=== PATIENT | male | born 1965 | race Caucasian/White ===

== ENCOUNTER 2023-05-20 07:04 | Outpatient (RCR) | payer BC, SELFPAY ==
--- NOTE | 2023-03-30 13:07 | CR1_ITS ---
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
--- NOTE | 2023-04-29 12:31 | CR1_ITS ---
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
== END 2023-05-22 12:35 | disposition home or self-care (01) ==
LOC: CR 07:04
PROVIDERS: PCP Family Medicine
DX: Z95.1 Presence of aortocoronary bypass graft (principal)
CPT/HCPCS: 93797; 93798

== ENCOUNTER 2024-02-09 08:54 | Outpatient (RCR) | payer BC, SELFPAY | END 2024-03-12 10:03 | disposition home or self-care (01) | LOC: PT 08:54 | PROVIDERS: PCP Family Medicine | DX: M17.11 Unilateral primary osteoarthritis, right knee (principal); M25.561 Pain in right knee; R26.9 Unspecified abnormalities of gait and mobility; R26.89 Other abnormalities of gait and mobility | CPT/HCPCS: 97110; 97140; 97161 ==

== ENCOUNTER 2024-12-17 10:00 | Emergency (ER) | payer BC, SELFPAY ==
--- OUTSIDE RECORDS SUMMARY | 2024-12-15 08:45 | XMS_ITS | Encounter Summary ---
Author Organization [facility] Address [address] [place] [address] Care Team Providers Care Binitrotoluene Operator Name Role Phone Can Ramirez MD Primary Care Provider [phone] Neri Saavedra MD Unavailable [phone] Bennie Fofana DO Unavailable [phone] Reason for Referral * Consultation (Routine) - Closed Specialty Diagnoses / Procedures Referred By John solomon Referred To Contact Otolaryngology Diagnoses Basal cell carcinoma of skin of scalp and neck Procedures FL OFFICE/OUTPATIENT NEW HIGH MDM 60 MINUTES Neri Saavedra MD [address] [facility] [address] [place] [address] Phone: tel: fax: Bennie Fofana, [address] [place] [address] Phone: tel: fax: Referral ID Status Reason Start Date Expiration Date V isits Requested Visits Authorized [id number] Closed Specialty Services Required 12/15/2024 06/13/2025 1 1 Reason for Visit * Reason Comments Mohs Micrographic Surgery Encounter Details Date Type Department Care Team (Late st Contact Info) Description 12/15/2024 8:45 AM EDT Office Visit [facility] [address] [facility] [address] [place] [phone] Neri Saavedra MD [address] [place] [address] Basal cell carcinoma of skin of scalp and neck Social History Tobacco Use Types Packs/Day Years Used Date Smoking Tobacco: Never Smokeless Tobacco: Never Alcohol Use Standard Drinks/Week Comments Never 0 (1 standard drink = 0.6 oz pur e alcohol) Sex and Gender Information Value Date Recorded Sex Assigned at Not on file Legal Sex Male 7:31 PM EDT Gender Identity Not on file Sexual Orientation Not on file documented as of this encounter Last Filed Vital Signs Vital Sign Reading Time Taken Comments Blood Pressure 122/74 12/15/2024 11:19 AM EDT Pulse - - Temperature - - Respiratory Rate - - Oxygen Saturation - - Inhaled Oxygen Concentration - - Weight - - Height - - Body Mass Index - - documented in this encounter Progress Notes * Neri Saavedra MD - 12/15/2024 8:45 AM EDT Images from the original note were not included. Mohs Surgery Location: Left temporal scalp Date of biopsy: 10/18/2024 Diagnosis: Basal Cell Carcinoma All pertinent medical history, medications, and allergies were reviewed. General Exam: alert, oriented to person, place, and time, normal affect, well appearing Unaccompanied A focused exam completed based on patient reported problems, see below: Skin Exam 1. BASAL CELL CARCINOMA OF SKIN OF SCALP AND NECK Left Temporal Scalp Poorly defined, erythematous to hypopigmented patch at the biopsy site. Mohs surgery Consent obtained: written (The rationale for Mohs as well as the risks, benefits, and alternatives.The risks of infection, scarring, bleeding, prolonged wound healing, incomplete removal, allergy toanesthesia or meds, nerve injury, and recurrence were addressed.) [place] Protocol: Procedure explained and questions answered to patient or proxy's satisfaction: Yes Test results available and properly labeled: Yes Pathology report reviewed: Yes Photo or diagram used for site identification: Yes Site/side marked: Yes Anticoagulation: Is the patient taking prescription anticoagulant and/or aspirin prescribed/recommended by a physician? Yes (81 mg ASA) Was the anticoagulation regimen changed prior to Mohs? No Anesthesia: Anesthesia method: local infiltration Local anesthetic: lidocaine 1% WITH epi and sodium bicarbonate Procedure Details: Biopsy accession number: [id number] Biopsy lab: [email or web address] Date of biopsy: 10/18/2024 Frozen section biopsy performed: Yes Specimen debulked: No Pre-Op diagnosis: basal cell carcinoma BCC subtype: nodular and infiltrative MohsAIQ Surgical site (if tumor spans multiple areas, please select predominant area): scalp Surgery side: left Surgical site (from skin exam): Left Temporal Scalp Pre-operative length (cm): 1 Pre-operative width (cm): 1 Indications for Mohs surgery: anatomic location where tissue conservation is critical and aggressive histology Previously treated? No Mohs Appropriate Use Criteria Score: 8 Details of micrographic surgery: Mohs accession number: [id number] Micrographic Surgery Details: Post-operative length (cm): 3 Post-operative width (cm): 3.1 Number of Mohs stages: 3 Stage 1 Comments: The area was prepped with Betadine, draped in a sterile fashion, and infiltrated with local anesthetic. Sterile technique was used throughout the procedure. The marked area of clinical tumor with a small rim of clinically normal surrounding skin was removed using Mohs technique with beveled edges. Hash harrison were placed for orientation of the specimen. Hemostasis was achieved with electrodessication. After hemostasis, the defect was measured and recorded, a temporary sterile dressing was placed over the wound, and the patient was escorted to the waiting area. The specimen was oriented, mapped, and if necessary, divided into sections. A Mohs map was prepared. The specimen was placed in a labeled luis m dish and was taken to the Mohs lab where it was chromacoded and processed. Mohssections were prepared with serial tissue sections, stained, and evaluated by Dr. Saavedra for interpretation of deep and peripheral margins. The Mohs map was marked accordingly. Amount of lidocaine used: 3.0 cc Estimated blood loss: minimal Defect size: 2.0 x 1.4 cm Number of blocks per stage: 1 Number of positive blocks: 1 Tumor features identified on Mohs section: basal carcinoma Tumor features identified on Mohs section comment: nodular pattern Depth of tumor invasion after stage: subcutaneous fat Stage 2 Comments: The patient returned to the procedure room, the dressing was removed, the tumor area was re-prepped and draped, and anesthesia was assessed and augmented as necessary. A layer of tissue around the positive margin(s) was removed, and the tissue was oriented, mapped, and processed in an identical fashion as for Stage 1. Hemostasis was achieved and dressing placed as in Stage 1. The patient was escorted to the waiting area. As with Stage 1, Mohs sections were prepared with serial tissue sections, stained, and evaluated by Dr. Saavedra for interpretation of deep and peripheral margins. The Mohs map was updated. Assistants: Sadie Grover LPN and Louise Nuñez LPN Amount of lidocaine used: 3.0 cc Estimated blood loss: 1.0 cc Defect size: 2.8 x 2.4 cm Number of blocks: 2 Number of positive blocks: 2 Tumor features identified on Mohs section: basal carcinoma Tumor features identified on Mohs section comment: nodular pattern Depth of tumor invasion after stage: subcutaneous fat Stage 3 Comments: The patient returned to the procedure room, the dressing was removed, the tumor area was re-prepped and draped, and anesthesia was assessed and augmented as necessary. A layer of tissue around the positive margin(s) was removed, and the tissue was oriented, mapped, and processed in an identical fashion as for Stage 1. Hemostasis was achieved and dressing placed as in Stage 1. The patient was escorted to the waiting area. As with Stage 1, Mohs sections were prepared with serial tissue sections, stained, and evaluated by Dr. Saavedra for interpretation of deep and peripheral margins. The Mohs map was updated. Assistants: Sadie Grover LPN and Jett Maldonado CMA Amount of lidocaine used: 3.0 cc Estimated blood loss: <1.0 cc Defect size: 3.0 x 3.1 cm Number of blocks: 1 Number of positive blocks: 0. Tumor free margins were obtained and the Mohs procedure was considered complete. Depth of tumor invasion after stage: subcutaneous fat Patient tolerance of procedure: tolerated well, no immediate complications Reconstruction: Was the defect reconstructed? Yes Was reconstruction performed by the same Mohs surgeon? No If no, what is the specialty of the surgeon who did the reconstruction? ENT facial plastics When was reconstruction performed? different day Antibiotics: Were antibiotics given on the day of surgery? Yes When were antibiotics given? post-operative Indication for post-operative antibiotics: long duration of procedure cephalexin (Keflex) 500 MG capsule Take 1 capsule by mouth, bid x 10 days. Mohs Post Operative Type of repair: Referred for repair to Cat Fofana DO Wound Care: A pressure dressing was placed on the surgical wound. Post-operative instructions were given in writing and were reviewed with the patient in great detail. A follow-up appointment was made, and instructions were given to follow- up sooner if necessary. Related Procedures Ambulatory referral to ENT Next visit: 05/23/2025 documented in this encounter Plan of Treatment Upcoming Encounters Date Type Department Care Team (Late st Contact Info) Description 12/29/2024 2:00 PM EDT Office Visit [facility] [address] [place] [phone] Bennie Fofana DO [address] [place] [address] 05/23/2025 9:20 AM EST Office Visit [facility] [address] [place] [phone] Andreina Angeles MD [address] [place] [address] Scheduled Referrals Name Type Priority Associated Diagnoses Order Schedule Ambulatory referral to ENT Outpatient Referral Routine Basal cell carcinoma of skin of scalp and neck Expected: 12/15/2024 (Approximate), Expires: 06/16/2025 documented as of this encounter Procedures Procedure Name Priority Date/Time Associated Diagnosis Comments MOHS SURGERY Routine 12/14/2024 12:20 PM EDT Basal cell carcinoma of skin of scalp and neck documented in this encounter Results * Mohs surgery (12/14/2024 12:20 PM EDT) Narrative Rona Grover LPN - 12/14/2024 12:20 PM EDT Consent obtained: written (The rationale for Mohs as well as the risks, benefits, and alternatives. The risks of infection, scarring, bleeding, prolonged wound healing, incomplete removal, allergy to anesthesia or meds, nerve injury, and recurrence were addressed.) [place] Protocol: Procedure explained and questions answered to patient or proxy's satisfaction: Yes Test results available and properly labeled: Yes Pathology report reviewed: Yes Photo or diagram used for site identification: Yes Site/side marked: Yes Anticoagulation: Is the patient taking prescription anticoagulant and/or aspirin prescribed/recommended by a physician? Yes (81 mg ASA) Was the anticoagulation regimen changed prior to Mohs? No Anesthesia: Anesthesia method: local infiltration Local anesthetic: lidocaine 1% WITH epi and sodium bicarbonate Procedure Details: Biopsy accession number: [id number] Biopsy lab: [facility] Date of biopsy: 10/18/2024 Frozen section biopsy performed: Yes Specimen debulked: No Pre-Op diagnosis: basal cell carcinoma BCC subtype: nodular and infiltrative MohsAIQ Surgical site (if tumor spans multiple areas, please select predominant area): scalp Surgery side: left Surgical site (from skin exam): Left Temporal Scalp Pre-operative length (cm): 1 Pre-operative width (cm): 1 Indications for Mohs surgery: anatomic location where tissue conservation is critical and aggressive histology Previously treated? No Mohs Appropriate Use Criteria Score: 8 Details of micrographic surgery: Mohs accession number: [id number] Micrographic Surgery Details: Post-operative length (cm): 3 Post-operative width (cm): 3.1 Number of Mohs stages: 3 Stage 1 Comments: The area was prepped with Betadine, draped in a sterile fashion, and infiltrated with local anesthetic. Sterile technique was used throughout the procedure. The marked area of clinical tumor with a small rim of clinically normal surrounding skin was removed using Mohs technique with beveled edges. Hash harrison were placed for orientation of the specimen. Hemostasis was achieved with electrodessication. After hemostasis, the defect was measured and recorded, a temporary sterile dressing was placed over the wound, and the patient was escorted to the waiting area. The specimen was oriented, mapped, and if necessary, divided into sections. A Mohs map was prepared. The specimen was placed in a labeled luis m dish and was taken to the Mohs lab where it was chromacoded and processed. Mohs sections were prepared with serial tissue sections, stained, and evaluated by Dr. Saavedra for interpretation of deep and peripheral margins. The Mohs map was marked accordingly. Amount of lidocaine used: 3.0 cc Estimated blood loss: minimal Defect size: 2.0 x 1.4 cm Number of blocks per stage: 1 Number of positive blocks: 1 Tumor features identified on Mohs section: basal carcinoma Tumor features identified on Mohs section comment: nodular pattern Depth of tumor invasion after stage: subcutaneous fat Stage 2 Comments: The patient returned to the procedure room, the dressing was removed, the tumor area was re-prepped and draped, and anesthesia was assessed and augmented as necessary. A layer of tissue around the positive margin(s) was removed, and the tissue was oriented, mapped, and processed in an identical fashion as for Stage 1. Hemostasis was achieved and dressing placed as in Stage 1. The patient was escorted to the waiting area. As with Stage 1, Mohs sections were prepared with serial tissue sections, stained, and evaluated by Dr. Saavedra for interpretation of deep and peripheral margins. The Mohs map was updated. Assistants: Sadie Grover LPN and Louise Nuñez LPN Amount of lidocaine used: 3.0 cc Estimated blood loss: 1.0 cc Defect size: 2.8 x 2.4 cm Number of blocks: 2 Number of positive blocks: 2 Tumor features identified on Mohs section: basal carcinoma Tumor features identified on Mohs section comment: nodular pattern Depth of tumor invasion after stage: subcutaneous fat Stage 3 Comments: The patient returned to the procedure room, the dressing was removed, the tumor area was re-prepped and draped, and anesthesia was assessed and augmented as necessary. A layer of tissue around the positive margin(s) was removed, and the tissue was oriented, mapped, and processed in an identical fashion as for Stage 1. Hemostasis was achieved and dressing placed as in Stage 1. The patient was escorted to the waiting area. As with Stage 1, Mohs sections were prepared with serial tissue sections, stained, and evaluated by Dr. Saavedra for interpretation of deep and peripheral margins. The Mohs map was updated. Assistants: Sadie Grover LPN and Jett Maldonado CMA Amount of lidocaine used: 3.0 cc Estimated blood loss: <1.0 cc Defect size: 3.0 x 3.1 cm Number of blocks: 1 Number of positive blocks: 0. Tumor free margins were obtained and the Mohs procedure was considered complete. Depth of tumor invasion after stage: subcutaneous fat Patient tolerance of procedure: tolerated well, no immediate complications Reconstruction: Was the defect reconstructed? Yes Was reconstruction performed by the same Mohs surgeon? No If no, what is the specialty of the surgeon who did the reconstruction? ENT facial plastics When was reconstruction performed? different day Antibiotics: Were antibiotics given on the day of surgery? Yes When were antibiotics given? post-operative Indication for post-operative antibiotics: long duration of procedure Neri Saavedra MD DERM PROCEDURE ORDERABLES Fi nal Result documented in this encounter Visit Diagnoses Diagnosis Basal cell carcinoma of skin of scalp and neck documented in this encounter Care Teams Binitrotoluene Operator Relationship Specialty Start Date End Date Can Ramirez MD [address] [place] [address] PCP - General Family Medicine 11/18/22 Neri Saavedra MD [address] [address] Referring Physician Dermatology 12/15/24 Bennie Fofana DO [address] [place] [address] Otolaryngology 12/15/24 documented as of this encounter
--- OUTSIDE RECORDS SUMMARY | 2024-12-15 14:15 | XMS_ITS | Encounter Summary ---
Author Organization [facility] Address [address] [place] [address] Care Team Providers Care Electronic Organ Technician Name Role Phone Can Ramirez MD Primary Care Provider + [phone] Neri Saavedra MD Unavailable [phone] Bennie Fofana DO Unavailable [phone] Reason for Visit * Reason Comments Mohs Reconstruction New patient : Mohs l eft jewish * Consultation (Routine) - Closed Specialty Diagnoses / Procedures Referred By John solomon Referred To Contact Otolaryngology Diagnoses Basal cell carcinoma of skin of scalp and neck Procedures TX OFFICE/OUTPATIENT NEW HIGH MDM 60 MINUTES Neri Saavedra MD [address] [facility] [address] [place] [address] Phone: tel: fax: Bennie Fofana DO [address] [place] [address] Phone: tel: fax: Referral ID Status Reason Start Date Expiration Date V isits Requested Visits Authorized [id number] Closed Specialty Services Required 12/15/2024 06/13/2025 1 1 Encounter Details Date Type Department Care Team (Late st Contact Info) Description 12/15/2024 2:15 PM EDT Office Visit [facility] [address] [place] [id number] Bennie Fofana DO [address] [place] [address] Mohs defect (Primary Dx); Basal cell carcinoma of skin of scalp and neck Social History Tobacco Use Types Packs/Day Years Used Date Smoking Tobacco: Never Smokeless Tobacco: Never Tobacco Cessation:Counseling Given: Not Answered Alcohol Use Standard Drinks/Week Comments Never 0 (1 standard drink = 0.6 oz pur e alcohol) Sex and Gender Information Value Date Recorded Sex Assigned at Not on file Legal Sex Male 7:31 PM EDT Gender Identity Not on file Sexual Orientation Not on file documented as of this encounter Last Filed Vital Signs Vital Sign Reading Time Taken Comments Blood Pressure - - Pulse - - Temperature - - Respiratory Rate - - Oxygen Saturation - - Inhaled Oxygen Concentration - - Weight 95.3 kg (210 lb) 12/15/2024 1:52 PM EDT Height 175.3 cm (5' 9 ) 12/15/2024 1:52 PM EDT Body Mass Index 31.01 12/15/2024 1:52 PM EDT documented in this encounter Progress Notes * Bennie Fofana, DO - 12/15/2024 2:15 PM EDT Subjective Patient ID: Silvano Menendez is a 59 y.o. male who presents for Mohs Reconstruction (New patient : Mohs left jewish) HPI 59-year-old white male presents today for evaluation of Mohs defect of the left cheek and temporal region. Recently underwent excision of basal cell carcinoma in the region of the left jewish. Left with a large soft tissue defect. Presents today to discuss his options regarding repair / reconstruction. Review of Systems Patient describes only minimal discomfort. Not having any bleeding. Denies any fever. Recently prescribed antibiotic. The rest of his review of systems is negative Allergies as of 12/15/2024 (No Known Allergies) Past Medical History: Diagnosis Date Actinic keratosis Basal cell carcinoma Squamous cell skin cancer Current Outpatient Medications: amLODIPine (Norvasc) 2.5 MG tablet, Take by mouth Daily, Disp: , Rfl: aspirin 81 MG EC tablet, Take 81 mg by mouth Daily, Disp: , Rfl: atorvastatin (Lipitor) 10 MG tablet, Take 10 mg by mouth Daily, Disp: , Rfl: cephalexin (Keflex) 500 MG capsule, Take 1 capsule by mouth, bid x 10 days., Disp: 20 capsule, Rfl:0 ezetimibe (Zetia) 10 MG tablet, Take 10 mg by mouth Daily, Disp: , Rfl: metoprolol succinate XL (Toprol-XL) 25 MG 24 hr tablet, Take by mouth Do not crush or chew., Disp: , Rfl: multivitamin with minerals (Cerovite) 18-400 mg-mcg tablet tablet, Take by mouth, Disp: , Rfl: nitroglycerin (Nitrostat) 0.3 MG SL tablet, Place 0.3 mg under the tongue, Disp: , Rfl: Past Surgical History: Procedure Laterality Date HERNIA REPAIR 04/2022 KNEE ARTHROPLASTY SKIN BIOPSY SKIN CANCER EXCISION Social History Socioeconomic History Marital status: Spouse name: Not on file Number of children: Not on file Years of education: Not on file Highest education level: Not on file Occupational History Not on file Tobacco Use Smoking status: Never Smokeless tobacco: Never Vaping Use Vaping status: Never Used Substance and Sexual Activity Alcohol use: Never Drug use: Defer Sexual activity: Defer Other Topics Concern Not on file Social History Narrative Not on file Social Drivers of Health Financial Resource Strain: Low Risk (01/05/2024) Received from [facility] Overall Financial Resource Strain (CARDIA) Difficulty of Paying Living Expenses: Not very hard Food Insecurity: No Food Insecurity (01/30/2024) Received from [facility] Hunger Screening Within the past 12 months we worried whether our food would run out before we got money to buy more.: Never True Within the past 12 months the food we bought just didn't last and we didn't have money to get more.: Never True Transportation Needs: No Transportation Needs (01/05/2024) Received from [facility] PRAPARE - Transportation Lack of Transportation (Medical): No Lack of Transportation (Non-Medical): No Physical Activity: Insufficiently Active (01/05/2024) Received from [facility] Exercise Vital Sign Days of Exercise per Week: 2 days Minutes of Exercise per Session: 60 min Stress: No Stress Concern Present (01/05/2024) Received from [facility] [employer] [place] [facility] [employer] - Occupational Stress Questionnaire Feeling of Stress : Not at all Social Connections: Moderately Integrated (01/05/2024) Received from [facility] Social Connection and Isolation Panel [NHANES] Frequency of Communication with Friends and Family: More than three times a week Frequency of Social Gatherings with Friends and Family: More than three times a week Attends Advent Services: More than 4 times per year Active Member of Clubs or Organizations: No Attends Club or Organization Meetings: Never Marital Status: Intimate Partner Violence: Not on file Housing Stability: Low Risk (01/05/2024) Received from [facility] Housing Stability Vital Sign Unable to Pay for Housing in the Last Year: No Number of Places Lived in the Last Year: 1 Unstable Housing in the Last Year: No Objective ENT Physical Exam General Examination: General overview: Normal, age-appropriate, no evidence of distress Head: Normocephalic, large soft tissue defect in the region of the left jewish measuring 3 x 3 cm. No evidence of active bleeding. Eyes: Pupils are equally round and reactive to light and accommodation, extraocular muscles are intact Ears: External ear architecture within normal limits, ear canals are patent, tympanic membranes areintact. Nose: External nose unremarkable, nares patent, septum intact, no evidence of congestion. Oral cavity: Mucosa moist, no evidence of ulcer, mass, or lesion Throat: Clear Neck/thyroid: Neck supple, full range of motion, no cervical lymphadenopathy, no evidence of thyromegaly Lymph nodes: No cervical lymphadenopathy Skin: Warm and dry, no evidence of suspicious lesions, no rash Heart: No jugular venous distention, point of maximal impulse normal Lungs: Good air movement, no audible wheezing, no shortness of breath Chest: Normal shape and expansion Abdomen: Normal, soft, nontender, nondistended Musculoskeletal: Cervical spine normal, full range of motion Extremities: No clubbing, cyanosis, or edema Peripheral pulses: 2+ radial, 2+ carotid Neurologic: Alert and oriented, cranial nerves 2-12 are grossly intact Psych: Alert and oriented, normal affect, no evidence of distress Assessment/Plan Diagnoses and all orders for this visit: Mohs defect Comments: recommend wound debridement with flap reconstruction Basal cell carcinoma of skin of scalp and neck - Ambulatory referral to ENT At this time, I do recommend debridement of the wound with reconstruction utilizing flap and/or skin graft methods. All of the options, risks, and aspects are discussed in depth. The risks include but are not limited to bleeding, infection, poor wound healing, need for further surgery, nerve injury, serous disability, and documented in this encounter Plan of Treatment Upcoming Encounters Date Type Department Care Team (Late st Contact Info) Description 12/29/2024 2:00 PM EDT Office Visit [facility] [address] [place] [phone] Bennie Fofana DO [address] [place] [address] 05/23/2025 9:20 AM EST Office Visit [facility] [address] [place] [address] Andreina Angeles MD [address] [place] [address] documented as of this encounter Visit Diagnoses Diagnosis Mohs defect- Primary Basal cell carcinoma of skin of scalp and neck documented in this encounter Care Teams Electronic Organ Technician Relationship Specialty Start Date End Date Can Ramirez MD [address] [place] [address] PCP - General Family Medicine 11/18/22 Neri Saavedra MD [address] [place] [address] Referring Physician Dermatology 12/15/24 Bennie Fofana DO [address] [place] [address] Otolaryngology 12/15/24 documented as of this encounter
[2024-12-17] VITALS (18 sets, daily range): BP systolic 132–183; BP diastolic 82–94; PULSE 69–85; O2SAT 96–100; BMI 37.3
--- NOTE | 2024-12-17 10:08 | ECG_ITS ---
[facility] Test Date: 2024-12-17 Pat Name: RAVIN GRUBBS Department: Room: - Gender: Male Chorus Dancer: : 1965 Requested By: 1030 Order Number: [id number] Reading MD: BRANDY LUDWIG M.D. Measurements Intervals [place] Rate: 72 P: 61 [place]: 190 QRS: 48 QRSD: 84 T: 60 QT: 390 QTc: 415 Interpretive Statements 1100 Sinus rhythm 3433 Septal myocardial infarction, probably old 9150 abnormal ECG No prior ECG available for comparison Electronically Signed On 12-17-2024 12:08:48 EDT by BRANDY LUDWIG M.D.
--- OUTSIDE RECORDS SUMMARY | 2024-12-17 10:12 | XMS_ITS | Encounter Summary ---
Author Organization [employer] Address [id number] [address] [place] [address] Care Team Providers Care Rn Rehabilitation Name Role Phone Can Ramirez MD Primary Care Provider + [phone] Reason for Visit * Reason Onset Date Comments Med Refill 03/17/2019 Encounter Details Date Type Department Care Team (Late st Contact Info) Description 03/17/2019 Refill [facility] [address] [place] [phone] Priscila Dickson LPN BMI 32.0-32.9,adult Social History Tobacco Use Types Packs/Day Years Used Date Smoking Tobacco: Former Smokeless Tobacco: Never Comments:Quit 30 years ago Alcohol Use Standard Drinks/Week Comments Never 0 (1 standard drink = 0.6 oz pur e alcohol) AUDIT-C Answer Date Recorded Frequency of Alcohol Consumption Never 01/24/2019 Average Number of Drinks Not on file 019 Frequency of Binge Drinking Not on file 10/2018 PHQ-2 Answer Date Recorded PHQ-2 Score 0 01/24/2019 Childcare Answer Date Recorded Childcare Unknown 12/01/2018 Employment Answer Date Recorded Employment Unknown 12/01/2018 Sex and Gender Information Value Date Recorded Sex Assigned at Not on file Legal Sex Male 11:31 AM EDT Gender Identity Not on file Sexual Orientation Not on file documented as of this encounter Miscellaneous Notes * Telephone Encounter - Priscila Dickson LPN - 03/17/2019 2:25 PM EDT Requesting a refill of Adipex. Priscila Dickson LPN 03/17/19 1425 documented in this encounter Plan of Treatment Not on file documented as of this encounter Visit Diagnoses Diagnosis BMI 32.0-32.9,adult documented in this encounter Additional Health Concerns Infection Onset Date Last Indicated Resolved Time COVID-19 Positive 05/25/2020 05/25/2020 06/15/2020 11:14 PM EST COVID-19 Rule-Out 06/12/2020 05/25/2020 06/12/2020 11:51 AM EST Assessment Noted Time PHQ-9 Depression Total Score: 0 01/25/20 19 2:00 PM EDT documented as of this encounter Care Teams Rn Rehabilitation Relationship Specialty Start Date End Date Can Ramirez MD [address] Provider retired 09/20/24 [place] [address] PCP - General Family Medicine 01/30/24 documented as of this encounter
--- OUTSIDE RECORDS SUMMARY | 2024-12-17 10:12 | XMS_ITS | Encounter Summary ---
Author Organization [facility] Address [address] [place] [address] Care Team Providers Care Volunteer Fire Fighter Name Role Phone Can Artis Primary Care Provider [phone] Cyn Antnoio MD Unavailable [phone] Ari Pedro MD Unavailable [phone] Source Comments In the event this information is protected by the Federal Confidentiality of Alcohol and Drug AbusePatient Records regulations: The Federal rules restrict any use of the information to criminally investigate or prosecute any alcohol or drug abuse patient.[facility] Encounter Details Date Type Department Care Team (Late st Contact Info) Description 04/25/2023 Patient Msg Cardiology [address] [place] [address] Cyn Antonio MD [address] [place] [address] Lipids Social History Tobacco Use Types Packs/Day Years Used Date Smoking Tobacco: Former Cigarettes Q uit: 1987 Smokeless Tobacco: Never Alcohol Use Standard Drinks/Week Comments Never 0 (1 standard drink = 0.6 oz pur e alcohol) PHQ-2 Answer Date Recorded PHQ-2 score 4 04/23/2023 Area Deprivation Index Answer Date Raf rded National Score (1-100), lower number is lower ri sk 74 12/19/2022 State Score (1-10), lower number is lower risk 6 12/19/2022 Data from: https://www.neighborhoodatlas.medicine.[facility]/. Last address used for calculation [address] 12/19/2022 Sex and Gender Information Value Date Recorded Sex Assigned at Male 12/19/2022 8:15 AM EDT Legal Sex Male 10:35 AM EDT Gender Identity Male 12/19/2022 8:15 AM EDT Sexual Orientation Straight 12/19/2022 8: 15 AM EDT documented as of this encounter Functional Status * Are you deaf or do you have serious difficulty hearing? Answer Date of Assessment Author No 01/28/2023 11:03 AM EDT Venus Livingston RN * Are you blind or do you have serious difficulty seeing, even when wearing glasses? Answer Date of Assessment Author No 01/28/2023 11:03 AM EDT Venus Livingston RN * Do you have serious difficulty walking or climbing stairs? Answer Date of Assessment Author No 01/28/2023 11:03 AM Venus Tilley RN * Do you have difficulty dressing or bathing? Answer Date of Assessment Author No 01/28/2023 11:03 AM EDT Venus Livingston RN * Because of a physical, mental, or emotional condition, do you have difficulty doing errands alone such as visiting a doctor's office or shopping? Answer Date of Assessment Author No 01/28/2023 11:03 AM EDT Venus Livingston RN documented as of this encounter Mental Status * Because of a physical, mental, or emotional condition, do you have serious difficulty concentrating, remembering, or making decisions? Answer Entry Date Author No 01/28/2023 11:03 AM Venus Tilley RN documented in this encounter Plan of Treatment Upcoming Encounters Date Type Department Care Team (Late st Contact Info) Description 03/07/2025 9:45 AM EDT Results Only Main [place] [facility] [place] [address] DX: CAD 03/07/2025 10:45 AM EDT Office Visit Cardiology [address] [place], [place] [id number] Cyn Antonio MD [address] [place] [address] DX: CAD documented as of this encounter Visit Diagnoses Not on filedocumented in this encounter Care Teams Volunteer Fire Fighter Relationship Specialty Start Date End Date Can Artis [address] [place] [address] PCP - General Family Medicine 12/17/22 Cyn Antonio MD [address] [place] [address] Primary Staff Physician Cardiology 12/18/22 Ari Pedro MD [address] [place] [address] Surgeon Cardiac Surg 01/13/23 documented as of this encounter
--- OUTSIDE RECORDS SUMMARY | 2024-12-17 10:12 | XMS_ITS | Encounter Summary ---
Author Organization [facility] Address [address] [place] [address] Care Team Providers Care Pumper Head Name Role Phone Can Artis Primary Care Provider [phone] Cyn Antonio MD Unavailable [phone] Ari Pedro MD Unavailable [phone] Source Comments In the event this information is protected by the Federal Confidentiality of Alcohol and Drug AbusePatient Records regulations: The Federal rules restrict any use of the information to criminally investigate or prosecute any alcohol or drug abuse patient.[facility] Encounter Details Date Type Department Care Team (Late st Contact Info) Description 11/28/2024 Patient Msg Orthopaedics [address] [place], [place] [id number] Teresita Castle PA-C [address] [facility] [address] [place] [address] Appointment Request Social History Tobacco Use Types Packs/Day Years Used Date Smoking Tobacco: Former Cigarettes Q uit: 09/21/1987 Passive Smoke Exposure: Past Smokeless Tobacco: Never Alcohol Use Standard Drinks/Week Comments Never 0 (1 standard drink = 0.6 oz pur e alcohol) [facility] Utilities Answer Date Recorded In the past 12 months has th e electric, gas, oil, or water company threatened to shut off services in your home? No 01/05/2024 Social Connection and Isolat ion Panel [NHANES] Answer Date Recorded In a typical week, how many times do you talk on the phone with family, friends, or neighbors? More than three times a week 01/05/2024 How often do you get togethe r with friends or relatives? More than three times a week 01/05/2024 How often do you attend chur ch or druze services? More than 4 times per year 01/05/2024 Do you belong to any clubs o r organizations such as taoism groups, unions, fraternal or athletic groups, or school groups? No 01/05/2024 How often do you attend meet ings of the clubs or organizations you belong to? Never 01/05/2024 Are you , , di vorced, , never , or living with a partner? 01/05/2024 Overall Financial Resource Strain (CARDIA) Answe r Date Recorded How hard is it for you to pa y for the very basics like food, housing, medical care, and heating? Not very hard 01/05/2024 PHQ-2 Answer Date Recorded PHQ-2 score 0 06/16/2024 [facility] - Occupational Stress Questionnaire Answer Date Recorded Do you feel stress - tense, restless, nervous, or anxious, or unable to sleep at night because your mind is troubled all the time - these days? Not at all 01/05/2024 Exercise Vital Sign Answer Date Recorde d On average, how many days pe r week do you engage in moderate to strenuous exercise (like a brisk walk)? 2 days 01/05/2024 On average, how many minutes do you engage in exercise at this level? 60 min 01/05/2024 PRAPARE - Transportation Answer Date Re corded In the past 12 months, has l ack of transportation kept you from medical appointments or from getting medications? No 12/20 In the past 12 months, has l ack of transportation kept you from meetings, work, or from getting things needed for daily living? No 01/05/2024 Housing Stability Vital Sign Answer Pieter e Recorded In the last 12 months, was t here a time when you were not able to pay the mortgage or rent on time? No 01/05/2024 In the last 12 months, how many places have you lived? 1 01/05/2024 In the last 12 months, was t here a time when you did not have a steady place to sleep or slept in a mcfp (including now)? No 01/05/2024 Area Deprivation Index Answer Date Raf rded National Score (1-100), lower number is lower ri sk 74 12/19/2022 State Score (1-10), lower number is lower risk 6 12/19/2022 Data from: https://www.neighborhoodatlas.medicine.[facility].edu/. Last address used for calculation [address] 12/19/2022 Sex and Gender Information Value Date Recorded Sex Assigned at Male 12/19/2022 8:15 AM EDT Legal Sex Male 10:35 AM EDT Gender Identity Male 12/19/2022 8:15 AM EDT Sexual Orientation Straight 12/19/2022 8: 15 AM EDT documented as of this encounter Functional Status * Are you deaf or do you have serious difficulty hearing? Answer Date of Assessment Author No 01/14/2024 12:53 PM Sarah Childers RN * Are you blind or do you have serious difficulty seeing, even when wearing glasses? Answer Date of Assessment Author No 01/14/2024 12:53 PM Sarah Childers RN * Do you have serious difficulty walking or climbing stairs? Answer Date of Assessment Author No 01/14/2024 12:53 PM Sarah Childers RN * Do you have difficulty dressing or bathing? Answer Date of Assessment Author No 01/14/2024 12:53 PM Sarah Childers RN * Because of a physical, mental, or emotional condition, do you have difficulty doing errands alone such as visiting a doctor's office or shopping? Answer Date of Assessment Author No 01/14/2024 12:53 PM Sarah Childers RN documented as of this encounter Mental Status * Because of a physical, mental, or emotional condition, do you have serious difficulty concentrating, remembering, or making decisions? Answer Entry Date Author No 01/14/2024 12:53 PM EDT Sarah Diaz RN documented in this encounter Plan of Treatment Upcoming Encounters Date Type Department Care Team (Late st Contact Info) Description 03/07/2025 9:45 AM EDT Results Only Main [place] [address] [address] [id number] DX: CAD 03/07/2025 10:45 AM EDT Office Visit Cardiology [address] [id number] Cyn Antonio MD [address] [place] [address] DX: CAD documented as of this encounter Goals Goal Patient Goal Type Associated Problems Recent Progress Patient-Stated? Author Blood Pressure < 130/80 Blood Pressure 135/63( 024 12:45 PM EDT) No Cyn Antonio MD documented as of this encounter Visit Diagnoses Not on filedocumented in this encounter Care Teams Pumper Head Relationship Specialty Start Date End Date Cna Artis [address] [place] [address] PCP - General Family Medicine 12/17/22 Cyn Antonio MD [address] [place] [address] Primary Staff Physician Cardiology 12/18/22 Ari Pedro MD [address] [place] [address] Surgeon Cardiac Surg 01/13/23 documented as of this encounter
--- OUTSIDE RECORDS SUMMARY | 2024-12-17 10:12 | XMS_ITS | Encounter Summary ---
Author Organization [facility] Address [address] [place] [address] Care Team Providers Care Store Custodian Name Role Phone Can Artis Primary Care Provider [phone] Cyn Antonio MD Unavailable Ari Pedro MD Unavailable Source Comments In the event this information is protected by the Federal Confidentiality of Alcohol and Drug AbusePatient Records regulations: The Federal rules restrict any use of the information to criminally investigate or prosecute any alcohol or drug abuse patient.[facility] Encounter Details Date Type Department Care Team (Latest Contact Info) Description 04/22/2023 [place] [address] Provider, [facility] Please complete Cardiovascular Surgery Questionnaire Social History Tobacco Use Types Packs/Day Years Used Date Smoking Tobacco: Former Cigarettes Q uit: 1987 Smokeless Tobacco: Never Alcohol Use Standard Drinks/Week Comments Never 0 (1 standard drink = 0.6 oz pur e alcohol) PHQ-2 Answer Date Recorded PHQ-2 score 4 04/23/2023 Area Deprivation Index Answer Date Raf rded National Score (1-100), lower number is lower ri 74 12/19/2022 State Score (1-10), lower number is lower risk 6 12/19/2022 Data from: https://www.neighborhoodatlas.medicine.[facility]/. Last address used for calculation [address] [...] 01/28/2023 11:03 AM Venus Tilley RN * Are you blind or do you have serious difficulty seeing, even when wearing glasses? Answer Date of Assessment Author No 01/28/2023 11:03 AM Venus Tilley RN * Do you have serious difficulty walking or climbing stairs? Answer Date of Assessment Author No 01/28/2023 11:03 AM EDVenus West RN * Do you have difficulty dressing or bathing? Answer Date of Assessment Author No 01/28/2023 11:03 AM JANAYT Venus Livingston RN * Because of a physical, mental, or emotional condition, do you have difficulty doing errands alone such as visiting a doctor's office or shopping? Answer Date of Assessment Author No 01/28/2023 11:03 AM Venus Tilley RN documented as of this encounter Mental Status * Because of a physical, mental, or emotional condition, do you have serious difficulty concentrating, remembering, or making decisions? Answer Entry Date Author No 01/28/2023 11:03 AM Venus Tilley RN documented in this encounter Plan of Treatment Upcoming Encounters Date Type Department Care Team (Late st Contact Info) Description 03/07/2025 9:45 AM EDT Results Only [facility] [address] [place] [address] DX: CAD 03/07/2025 10:45 AM EDT Office Visit Cardiology [address] [phone] Cyn Antonio MD [address] [place] [address] DX: CAD documented as of this encounter Visit Diagnoses Not on filedocumented in this encounter Care Teams Store Custodian Relationship Specialty Start Date End Date Can Artis [address] [place] [address] PCP - General Family Medicine 12/17/22 Cyn Antonio MD [address] [place] [address] Primary Staff Physician Cardiology 12/18/22 Ari Pedro MD [address] [place] [address] Surgeon Cardiac Surg 01/13/23 documented as of this encounter
--- OUTSIDE RECORDS SUMMARY | 2024-12-17 10:12 | XMS_ITS | Encounter Summary ---
Author Organization [facility] Address [address] [place] [address] Care Team Providers Care [employer] Officer Name Role Phone Can Artis Primary Care Provider [phone] Cyn Antonio MD Unavailable [phone] Ari Pedro MD Unavailable [phone] Source Comments In the event this information is protected by the Federal Confidentiality of Alcohol and Drug AbusePatient Records regulations: The Federal rules restrict any use of the information to criminally investigate or prosecute any alcohol or drug abuse patient.[facility] Encounter Details Date Type Department Care Team (Late st Contact Info) Description 10/27/2023 Patient Msg Orthopaedics [address] [place], [place] [id number] Teresita Castle PA-C [address] [facility] [address] [place] [address] Appointment Request Social History Tobacco Use Types Packs/Day Years Used Date Smoking Tobacco: Former Cigarettes Q uit: 09/21/1987 Passive Smoke Exposure: Past Smokeless Tobacco: Never Alcohol Use Standard Drinks/Week Comments Never 0 (1 standard drink = 0.6 oz pur e alcohol) PHQ-2 Answer Date Recorded PHQ-2 score 0 09/25/2023 Area Deprivation Index Answer Date Raf rded National Score (1-100), lower number is lower ri sk 74 12/19/2022 State Score (1-10), lower number is lower risk 6 12/19/2022 Data from: https://www.neighborhoodatlas.medicine.[facility]/. Last address used for calculation [...] 01/28/2023 11:03 AM Venus Tilley RN * Because of a physical, mental, [...] 03/07/2025 9:45 AM EDT Results Only [address] [address] [address] [place] [address] DX: CAD 03/07/2025 10:45 AM EDT Office Visit Cardiology [address] [place], [place] [phone] Cyn Antonio MD [address] [place] [address] DX: CAD documented as of this encounter Goals Goal Patient Goal Type Associated Problems Recent Progress Patient-Stated? Author Blood Pressure < 130/80 Blood Pressure 135/63( 024 12:45 PM EDT) No Cyn Antonio MD documented as of this encounter Visit Diagnoses Not on filedocumented in this encounter Care Teams [employer] Officer Relationship Specialty Start Date End Date Can Artis [address] [place] [address] PCP - General Family Medicine 12/17/22 Cyn Antonio MD [address] [place] [address] Primary Staff Physician Cardiology 12/18/22 Ari Pedro MD [address] [place] [address] Surgeon Cardiac Surg 01/13/23 documented as of this encounter
--- OUTSIDE RECORDS SUMMARY | 2024-12-17 10:12 | XMS_ITS | Encounter Summary ---
Author Organization [facility] Address [address] [place] [address] Care Team Providers Care Pca Name Role Phone Can Artis Primary Care Provider [phone] Cyn Antonio MD Unavailable [phone] Ari Pedro MD Unavailable [phone] Source Comments In the event this information is protected by the Federal Confidentiality of Alcohol and Drug AbusePatient Records regulations: The Federal rules restrict any use of the information to criminally investigate or prosecute any alcohol or drug abuse patient.[facility] Encounter Details Date Type Department Care Team (Late st Contact Info) Description 10/03/2023 Patient Msg Preventive Cardiology [address] [place], [place] [id number] Hannah Brower APRN.PHARMACY STUDENT [address] [place] [address] Appointment Cancellation Request Social History Tobacco Use Types Packs/Day [...] risk 6 12/19/2022 Data from: https://www.neighborhoodatlas.medicine.[facility]/. Last address used for calculation [...] 03/07/2025 9:45 AM EDT Results Only [address] [address] [address] [id number] DX: CAD 03/07/2025 10:45 AM EDT Office Visit Cardiology [address] [phone] Cyn Antonio MD [address] [place] [address] DX: CAD documented as of this encounter Visit Diagnoses Not on filedocumented in this encounter Care Teams Pca Relationship Specialty Start Date End Date Can Artis [address] [place] [address] PCP - General Family Medicine 12/17/22 Cyn Antonio MD [address] [place] [address] Primary Staff Physician Cardiology 12/18/22 Ari Pedro MD [address] [place] [address] Surgeon Cardiac Surg 01/13/23 documented as of this encounter
--- OUTSIDE RECORDS SUMMARY | 2024-12-17 10:12 | XMS_ITS | Encounter Summary ---
Author Organization [facility] Address [facility] [place] [address] Care Team Providers Care Water Resource Project Manager Name Role Phone Can Artis Primary Care Provider [phone] Cyn Antonio MD Unavailable [phone] Ari Pedro MD Unavailable [phone] Source Comments In the event this information is protected by the Federal Confidentiality of Alcohol and Drug AbusePatient Records regulations: The Federal rules restrict any use of the information to criminally investigate or prosecute any alcohol or drug abuse patient.[facility] Reason for Visit * Reason Onset Date Comments Refill Request 01/22/2024 Encounter Details Date Type Department Care Team (Late st Contact Info) Description 01/22/2024 Refill Orthopaedics [address] [id number] Watson Mason MD [address] [facility] [address] [place] [address] Refill Request Social History Tobacco Use Types Packs/Day Years Used Date Smoking Tobacco: Former Cigarettes Q uit: 09/21/1987 Passive Smoke Exposure: Past Smokeless Tobacco: Never Alcohol Use Standard Drinks/Week Comments Never 0 (1 standard drink = 0.6 oz pur e alcohol) [facility] Utilities Answer Date Recorded In the [...] often do you attend chur ch or mosque services? More than 4 times per year 01/05/2024 Do you belong to any clubs o r organizations such as restoration groups, unions, fraternal or athletic groups, or [...] PHQ-2 Answer Date Recorded PHQ-2 score 0 12/30/2023 [facility] Occupational Stress Questionnaire Answer [...] place to sleep or slept in a usp (including now)? No 01/05/2024 Area Deprivation Index Answer Date Raf rded National Score (1-100), lower number is lower ri sk 74 12/19/2022 State Score (1-10), lower number is lower risk 6 12/19/2022 Data from: https://www.neighborhoodatlas.medicine.[facility].edu/. Last address used for calculation [address] 12/19/2022 Sex and Gender Information Value Date [...] of Assessment Author No 01/14/2024 12:53 PM EDT Sarah Diaz RN * Are you blind or do you have serious difficulty seeing, even when wearing glasses? Answer Date of Assessment Author No 01/14/2024 12:53 PM EDT Sarah Diaz RN * Do you have serious difficulty walking or climbing stairs? Answer Date of Assessment Author No 01/14/2024 12:53 PM Sarah Childers RN * Do you have difficulty dressing or bathing? Answer Date of Assessment Author No 01/14/2024 12:53 PM Sarah Childers, CARMELO * Because of a physical, mental, or emotional condition, do you have difficulty doing errands alone such as visiting a doctor's office or shopping? Answer Date of Assessment Author No 01/14/2024 12:53 PM EDT Behrendt , Sarah, RN documented as of this encounter Mental [...] 03/07/2025 9:45 AM EDT Results Only [address] [address] [address] [id number] DX: CAD 03/07/2025 10:45 AM EDT Office Visit Cardiology [address] [place] [address] Cyn Antonio MD [address] [phone] DX: CAD documented as of this encounter Goals Goal Patient Goal Type Associated Problems Recent Progress Patient-Stated? Author Blood Pressure < 130/80 Blood Pressure 135/63( 024 12:45 PM EDT) No Cyn Antonio MD documented as of this encounter Visit Diagnoses Diagnosis Status post right partial knee replacement Knee joint replacement by other means documented in this encounter Care Teams Water Resource Project Manager Relationship Specialty Start Date End Date Can Artis [address] [place] [address] PCP - General Family Medicine 12/17/22 Cyn Antonio MD [address] [place] [address] Primary Staff Physician Cardiology 12/18/22 Ari Pedro MD [address] [place] [address] Surgeon Cardiac Surg 01/13/23 documented as of this encounter
--- OUTSIDE RECORDS SUMMARY | 2024-12-17 10:12 | XMS_ITS | CCD ---
Author Organization [facility] Care Team Providers Care Business Executive Name Role Phone ARIANARANCE, DR HENDERSON Admitting Unavailable DEFRANCE, DR HENDERSON Consulting Unavailable DEFRANCE, DR HENDERSON Attending Unavailable MISC, DR NINO Admitting Unavailable MISC, DR NINO Consulting Unavailable MISC, DR NINO Attending Unavailable de MandyBeatriz Primary Care Provider [phone] Marisela RICHEY, Nato Unavailable Beatriz Edgar Primary Care Provider Ari Pedro MD Unavailable Marisela RICHEY, Nato Unavailable Ari Pedro MD Unavailable [phone] BEATRIZ EDGAR Primary Care Unavaila ble MILAGRO CASTLE Referring Unavailable de Mandy, Beatriz Piña Primary Care Provider BEATRIZ RAMIREZ Primary Care Unavailable BEATRIZ SALDIVAR Attending Unavailable KIMBERLY PRABHAKAR Attending Unavailable KIMBERLY PRABHAKAR Referring Unavailable BEATRIZ RAMIREZ Primary Care Unavailable DE MANDY, BEATRIZ PIÑA Primary Care Unavaila ble BRAXTON VELÁSQUEZ Referring Unavailable DE MANDY, BEATRIZ PIÑA Primary Care Unavaila ble NATO ANTONIO Attending Unavailable DE MANDYBEATRIZ Primary Care Unavaila ble PARVEEN ARAUJO Referring Unavailable DE MANDY, BEATRIZ PIÑA Primary Care Unavaila PARVEEN Birch Attending Unavailable DE MANDYBEATRIZ Primary Care Unavaila ble VIGNESH, INO Referring Unavailable DE MANDY, BEARTIZ PIÑA Primary Care Unavaila ble VIGNESH, INO Referring Unavailable DE MANDY, BEATRIZ PIÑA Primary Care Unavaila ble DE MANDYBEATRIZ Primary Care Unavaila ble VIGNESHINO Attending Unavailable VIGNESH INO Admitting Unavailable DE MANDY, BEATRIZ PIÑA Primary Care Unavaila ble VIGNESH, INO Referring Unavailable DE MANDY, BEATRIZ PIÑA Primary Care Unavaila ble DE MANDY, BEATRIZ PIÑA Primary Care Unavaila ble MARETH, MILAGRO Fang Referring Unavailable DE MANDY, BEATRIZ PIÑA Primary Care Unavaila ble MARETH, MILAGRO Leoncio Referring Unavailable DE MANDY, BEATRIZ PIÑA Primary Care Unavaila ble VIGNESH, INO Referring Unavailable VIGNESH, INO Attending Unavailable DE MANDY, BEATRIZ PIÑA Primary Care Unavaila ble VIGNESH, INO Referring Unavailable DE MANDY, BEATRIZ PIÑA Primary Care Unavaila ble VIGNESH, INO Referring Unavailable DE MANDY, BEATRIZ PIÑA Primary Care Unavaila ble VIGNESH, INO Referring Unavailable MARETH, MILAGRO Fang Attending Unavailable DE MANDY, BEATRZI PIÑA Primary Care Unavaila ble MARETH, MILAGRO Fang Attending Unavailable DE MANDY, BEATRIZ PIÑA Primary Care Unavaila ble DE MANDY, BEATRIZ PIÑA Primary Care Unavaila ble MARETH, MILAGRO Fang Attending Unavailable DE MANDY, BEATRIZ PIÑA Primary Care Unavaila ble VIGNESH, INO Referring Unavailable VIGNESH, INO Attending Unavailable DE MANDY, BEATRIZ PIÑA Primary Care Unavaila ble VIGNESH, INO Referring Unavailable DE MANDY, BEATRIZ PIÑA Primary Care Unavaila ble VIGNESH, INO Referring Unavailable DE MANDY, BEATRIZ PIÑA Primary Care Unavaila ble VIGNESH, INO Attending Unavailable VIGNESH, INO Admitting Unavailable DE MANDY, BEATRIZ PIÑA Primary Care Unavaila ble MARETH, MILAGRO Fang Referring Unavailable DE MANDY, BEATRIZ PIÑA Primary Care Unavaila ble SARRAJU, BRAXTON Referring Unavailable DE MANDY, BEATRIZ PIÑA Primary Care Unavaila ble SARRAJU, BRAXTON Referring Unavailable SARRAJU, BRAXTON Attending Unavailable Beatriz Ramirez MD Primary Care Provider [phone] Beatriz Ramirez MD Primary Care Provider [phone] Wnag Soler MD Unavailable Bennie Keen DO Unavailable [phone] CARMELINA ANGELES Attending Unavailable CARMELINA ANGELES Attending Unavailable WANG SOLER Attending Unavailable BENNIE KEEN Attending Unavailable WANG SOLER Referring Unavailable Medications Current Medications Medication Drug Class(es) Dates Sig (Normalized) Sig (Original) acetaminophen 500 mg oral tablet (20 sources) Start: 01-14-2024 take 2 tablets by mouth every eight hours acetaminophen (TYLENOL) 500 mg tablet Take 2 tablets by mouth every 8 hours. 80 tablet 01/14/2024 Active Start: 01-28-2023 End: 02-27-2023 take 2 tablets by mouth every four hours as needed acetaminophen (TYLENOL) 325 mg tablet Take 2 tablets by mouth every 4 hours as needed for pain. 120 tablet 1 01/28/2023 02/27/2023 Active Comment on above: Take 2 tablets by mo uth every 4 hours as needed for pain. amLODIPine 2.5 mg oral tablet (20 sources) Dihydropyridine Calcium Channel Sharon Start: 01-30-20 End: 09-18-19 take 1 tablet by mouth once daily amLODIPine (NORVASC) 2.5 mg tablet Indications: Ischemia , Essential hypertension , Stable angina , Coronary artery disease due to lipid rich plaque , Elevated glucose TAKE 1 TABLET BY MOUTH ONCE DAILY 90 tablet 08/19/2024 Active Comment on above: Take 1 tablet by diana th once daily. TAKE 1 TABLET BY DIANA TH ONCE DAILY apixaban 2.5 mg oral tablet (2 sources) Factor Xa Inhibitor Start: 01-14-20 End: 02-04-20 24 take 1 tablet by mouth twice daily apixaban (ELIQUIS) 2.5 mg tab(s) Take 1 tablet by mouth two times a day for 21 days. 42 tablet 0 01/14/2024 02/04/2024 Active take 0.5 tablet by m outh in the morning, then take 0.5 tablet by mouth at bedtime apixaban (ELIQUIS) 5 mg tablet Take 0.5 tablets (2.5 mg total) by mouth in the morning and 0.5 tablets (2.5 mg total) before bedtime. Active aspirin 81 mg delayed release oral tablet (20 sources) Platelet Aggregation Inhibitor, Nonsteroidal Anti-inflammatory Drug Start: 12-17-2022 take 1 tablet by mouth in the morning aspirin 81 mg Take 1 tablet (81 mg total) by mouth in the morning. 150 tablet 2 12/17/2022 Active Comment on above: Take 81 mg by mouth once daily. atorvastatin 80 mg oral tablet (20 sources) HMG-CoA Reductase Inhibitor Start: 06-17-2023 End: 03-25-2025 take 1 tablet by mouth once daily at bedtime atorvastatin (LIPITOR) 80 mg tablet Indications: Essential hypertension , Coronary artery disease due to lipid rich plaque , Elevated glucose Take 1 tablet by mouth daily at bedtime. 90 tablet 1 09/26/2024 03/25/2025 Active Start: 12-19-2022 End: 05-21-2023 take 1 tablet by mouth once daily at bedtime atorvastatin (LIPITOR) 80 mg tablet Indications: Ischemia , Essential hypertension , Stable angina , Coronary artery disease due to lipid rich plaque , Elevated glucose Take 1 tablet by mouth daily at bedtime. 90 tablet 0 02/20/2023 Active take 1 tablet by diana th once daily atorvastatin (Lipitor) 10 MG tablet Take 10 mg by mouth Daily Active Comment on above: Take 1 tablet by diana th daily at bedtime. bisacodyl 5 mg delayed release oral tablet (19 sources) Stimulant Laxative Start: 01-15-20 take 2 tablets by mouth once daily bisacodyl EC (DULCOLAX) 5 mg EC tablet Take 2 tablets by mouth once daily. Patient should start on January 15, 2024. 01/15/2024 Active cephalexin 500 mg oral capsule (4 sources) Cephalosporin Antibacterial Start: 12-16-19 take 1 capsule by mouth twice daily cephalexin (Keflex) 500 MG capsule Indications: Basal cell carcinoma of skin of scalp and neck Take 1 capsule by mouth, bid x 10 days. 20 capsule 12/15/2024 Active docusate sodium 100 mg oral capsule (19 sources) Start: 01-14-20 take 1 capsule by mouth twice daily docusate sodium (COLACE) 100 mg capsule Take 1 capsule by mouth two times a day. 30 capsule 01/14/2024 Active ezetimibe 10 mg oral tablet (20 sources) Dietary Cholesterol Absorption Inhibitor Start: 11-08-19 take 1 tablet by mouth once daily ezetimibe (ZETIA) 10 mg tablet Indications: Hx of CABG , Coronary artery disease due to lipid rich plaque , Mixed hyperlipidemia Take 1 tablet by mouth once daily. 90 tablet 11/07/2024 Active Start: 08-11-2023 End: 11-05-2024 take 1 tablet by mouth once daily ezetimibe (ZETIA) 10 mg tablet Indications: Hx of CABG , Coronary artery disease due to lipid rich plaque , Mixed hyperlipidemia TAKE 1 TABLET BY MOUTH ONCE DAILY 90 tablet 3 08/24/2024 11/05/2024 Discontinued Comment on above: Take 1 tablet by diana th once daily. methylPREDNISolone (1 source) Corticosteroid Start: 2023 End: 2023 methylPREDNISolone (MEDROL DOSE-PACK) 4 mg Dose-Pack Take as instructed per package. 21 tablet 02/17/2024 02/23/2024 Active metoclopramide 10 mg oral tablet (1 source) Dopamine-2 Receptor Antagonist Start: 2023 take 1 tablet by mouth every six hours metoclopramide (REGLAN) 10 mg tablet Take 1 tablet (10 mg total) by mouth every 6 (six) hours. 30 tablet 01/30/2024 Active 24 hr metoprolol succinate 100 mg extended release oral tablet (20 sources) beta-Adrenergic Sharon Start: 2023 End: 2023 take 1 tablet by mouth in the morning, then take 0.5 tablet by mouth in the evening metoprolol succinate ER (TOPROL XL) 100 mg TAKE 1 TABLET BY MOUTH IN THE MORNING AND ONE-HALF TABLET BY MOUTH IN THE EVENING 135 tablet 3 03/21/2024 Active Start: 05-21-2023 End: 10-02-2023 take 1 tablet by mouth twice daily in the evening metoprolol succinate ER (TOPROL XL) 100 mg Take 1 tablet by mouth two times a day. NOTE TAKE 1 tab in the am and 1/2 tab in the pm. 100 mg AM and 50 mg PM 135 tablet 3 05/21/2023 10/02/2023 Discontinued (Adjust Sig - Block E-Cancel) Start: 02-20-2023 End: 03-11-2023 take 1 tablet by mouth once daily, then take 0.5 tablet by mouth once daily at bedtime metoprolol succinate ER (TOPROL XL) 100 mg Indications: Ischemia , Essential hypertension , Stable angina (HCC) , Coronary artery disease due to lipid rich plaque , Elevated glucose Take 1 tablet by mouth once daily AND 0.5 tablets daily at bedtime. 135 tablet 1 02/20/2023 Active Start: 01-28-2023 End: 02-20-2023 take 4 tablets by mouth once daily, then take 2 tablets by mouth once daily at bedtime metoprolol succinate ER (TOPROL XL) 25 mg 24 hr tablet Indications: Ischemia , Essential hypertension , Stable angina (HCC) Take 4 tablets by mouth once daily AND 2 tablets daily at bedtime. 90 tablet 3 01/28/2023 02/20/2023 Discontinued Start: 01-12-2023 take 1 tablet by diana th once daily metoprolol succinate ER (TOPROL XL) 25 mg 24 hr tablet Indications: Essential hypertension , Stable angina (HCC) , Ischemia Take 1 tablet by mouth once daily. 90 tablet 3 01/12/2023 Suspended Start: 12-19-2022 take 1 tablet by diana th once daily metoprolol succinate ER (TOPROL XL) 25 mg 24 hr tablet Indications: Essential hypertension , Stable angina (HCC) , Ischemia Take 1 tablet by mouth once daily. 90 tablet 3 12/19/2022 Active take 1 tablet by diana th every twenty-four hours metoprolol succinate XL (Toprol-XL) 25 MG 24 hr tablet Take by mouth Do not crush or chew. Active take 1 tablet by diana th every twenty-four hours metoprolol succinate XL (TOPROL XL) 100 mg 24 hr tablet Take 1 tablet (100 mg total) by mouth. Active Comment on above: Take 1 tablet by diana th once daily. Take 4 tablets by mo [facility] once daily AND 2 tablets daily at bedtime. Take 1 tablet by diana th once daily AND 0.5 tablets daily at bedtime. Take 100 mg by mouth . 100 mg AM and 50 mg PM Take 1 tablet by diana th two times a day. NOTE TAKE 1 tab in the am and 1/2 tab in the pm. 100 mg AM and 50 mg PM MULTIVITAMIN ORAL (20 sources) MULTIVITAMIN ORA L Indications: Ischemia Take by mouth. Active MULTIVITAMIN ORA L Indications: Ischemia Take by mouth. 0 Suspended MULTIVITAMIN ORA L Indications: Ischemia Take by mouth. 0 Active Comment on above: Take by mouth. multivitamin with minerals (Cerovite) 18-400 mg-mcg tablet tablet (8 sources) multivitamin wit h minerals (Cerovite) 18-400 mg-mcg tablet tablet Take by mouth Active multivitamin/iron/foli c acid (CENTRUM COMPLETE ORAL) (1 source) multivitamin/iro n/fol ic acid (CENTRUM COMPLETE ORAL) Take by mouth daily with breakfast. Active nitroglycerin 0.3 mg sublingual tablet (20 sources) Nitrate Vasodilator Start: 12-20-19 End: 11-20-19 nitroglycerin (Nitrostat) 0.[address] 0.3 mg under the tongue 12/19/2022 Active Comment on above: Dissolve 1 tablet un colette the tongue every 5 minutes as needed for chest pain. oxyCODONE hydrochloride 5 mg oral tablet (14 sources) Opioid Agonist Start: 02-19-20 End: 02-26-20 take 1 tablet by mouth every six hours as needed oxyCODONE IR (ROXICODONE) 5 mg immediate release tablet Indications: Status post right partial knee replacement Take 1 tablet by mouth every 6 hours as needed for up to 7 days. 28 tablet 02/19/2024 02/26/2024 Active Start: 02-05-2024 End: 02-12-2024 take 1 tablet by mouth every six hours as needed oxyCODONE IR (ROXICODONE) 5 mg immediate release tablet Indications: Status post right partial knee replacement Take 1 tablet by mouth every 6 hours as needed for up to 7 days. 28 tablet 02/05/2024 02/12/2024 Active Start: 01-28-2023 End: 02-04-2023 take 1 tablet by mouth every six hours as needed for pain oxyCODONE IR (ROXICODONE) 5 mg immediate release tablet Indications: Postoperative pain Take 1 tablet by mouth every 6 hours as needed for pain for up to 7 days. 28 tablet 0 01/28/2023 02/04/2023 take 1 capsule by [facility] every four hours as needed for pain oxyCODONE (OXY-IR) 5 mg capsule Take 1 capsule (5 mg total) by mouth every 4 (four) hours as needed for pain. Max Daily Amount: 30 mg Active Comment on above: Take [address] [facility] every 6 hours as needed for pain for up to 7 days. polyvinyl alcohol 0.014 ml/ml ophthalmic solution (11 sources) Start: 01-28-2023 End: 02-27-2023 polyvinyl alcohol (LIQUIFILM TEARS) 1.4 % ophthalmic solution Use 2 Drops in both eyes as needed (dry eyes). 30 mL 1 01/28/2023 02/27/2023 Active Start: 01-28-2023 End: 02-27-2023 polyvinyl alcohol (LIQUIFILM TEARS) 1.4 % ophthalmic solution Use 2 Drops in both eyes as needed (dry eyes). 30 mL 1 01/28/2023 02/27/2023 Active Comment on above: Use 2 Drops in both eyes as needed (dry eyes). sennosides, long term 8.6 mg oral tablet (19 sources) Start: 01-14-2024 take 2 tablets by mouth once daily at bedtime senna (SENOKOT) 8.6 mg tab Take 2 tablets by mouth daily at bedtime. 01/14/2024 Active Completed/Discontinued Medications Medication Drug Class(es) Dates Sig (Normalized) Sig (Original) 30 ml bupivacaine hydrochloride 2.5 mg/ml injection (2 sources) Amide Local Anesthetic Start: 10-28-2023 End: 10-28-2023 bupivacaine (PF) 0.25 % (2.5 mg/mL) 2 mL injection (SENSORCAINE MPF) docosahexaenoic acid/epa (FISH OIL ORAL) (2 sources) End: 12-19-2022 docosahexaenoic acid/epa (FISH OIL ORAL) Take by mouth. 0 12/19/2022 Discontinued Comment on above: Take by mouth. docusate sodium 50 mg / sennosides, long term 8.6 mg oral tablet (6 sources) Start: 01-28-2023 End: 02-27-2023 take 1 tablet by mouth twice daily senna-docusate (SENNA-S) 8.6-50 mg per tablet Take 1 tablet by mouth twice daily. 60 tablet 0 01/28/2023 02/04/2023 Discontinued (Course of therapy completed) Comment on above: Take [address] [facility] twice daily. fluorouracil 50 mg/ml topical cream (7 sources) Nucleoside Metabolic Inhibitor Start: 10-18-2024 End: 12-15-2024 fluorouracil (Efudex) 5 % cream Indications: Actinic keratosis Apply to directed areas on the forehead, ears, top of nose, temples , and cheeks twice a day x 14 days. Dispense 30 day supply but only use for 14 days. 40 g 10/18/2024 12/15/2024 Discontinued furosemide 20 mg oral tablet (11 sources) Loop Diuretic Start: 01-29-2023 End: 03-11-2023 take 1 tablet by mouth once daily furosemide (LASIX) 20 mg tablet Take 1 tablet by mouth once daily for 7 days. 7 tablet 0 01/29/2023 03/11/2023 Discontinued Comment on above: Take [address] [facility] once daily for 7 days. 10 ml lidocaine hydrochloride 10 mg/ml injection (10 sources) Antiarrhythmic, Amide Local Anesthetic Start: 06-17-2024 End: 06-17-2024 lidocaine (PF) 10 mg/mL (1 %) 4 mL injection (XYLOCAINE) Start: 06-17-2024 End: 06-17-2024 4 mL, Injection - FOR ORTHO USE ONLY, ONCE, 1 dose, Starting on Thu06/17/24 at 1115, Until Thu06/17/24 at 1115 Start: 10-28-2023 End: 10-28-2023 lidocaine (PF) 10 mg/mL (1 % ) 4 mL injection (XYLOCAINE) Start: 10-02-2023 End: 10-02-2023 lidocaine (PF) 10 mg/mL (1 % ) 4 mL injection (XYLOCAINE) Start: 04-24-2023 End: 04-24-2023 lidocaine (PF) 10 mg/mL (1 % ) 4 mL injection (XYLOCAINE) Start: 01-29-2023 End: 02-03-2023 lidocaine (SALONPAS) 4 % pat ch Apply 3 Patches as directed once daily for 5 days. APPLY TO: around incisional site, left wrist site and SVG sites. Remove patch after 12 hours. 15 Patch 0 01/29/2023 02/03/2023 Comment on above: Apply 3 Patches as d irected once daily for 5 days. APPLY TO: around incisional site, left wrist site and SVG sites. Remove patch after 12 hours. mupirocin 0.02 mg/mg topical ointment (4 sources) RNA Synthetase Inhibitor Antibacterial Start: mupirocin (BACTROBAN) 2 % ointment Apply a small amount in each nostril using a cotton swab twice the day before surgery and once the morning of surgery. 22 g 0 01/21/2023 Suspended Comment on above: Apply a small amount in each nostril using a cotton swab twice the day before surgery and once the morning of surgery. Niacin (2 sources) Nicotinic Acid End: 023 NIACIN ORAL Take by mouth. 0 12/19/2022 Discontinued Comment on above: Take by mouth. pantoprazole 20 mg delayed release oral tablet (12 sources) Proton Pump Inhibitor Start: End: take 1 tablet by mouth once daily, then take 6 tablets by mouth in the morning pantoprazole DR (PROTONIX) 20 mg tablet Take 1 tablet by mouth DAILY (6 AM). 30 tablet 0 01/29/2023 03/11/2023 Discontinued Comment on above: Take 1 tablet by diana th DAILY (6 AM). microencapsulated potassium chloride 10 meq extended release oral tablet (6 sources) Start: End: take 1 tablet by mouth once daily potassium chloride ER (KLOR-CON M10) 10 mEq tablet Take 1 tablet by mouth once daily for 7 days. 7 tablet 0 01/29/2023 02/05/2023 Comment on above: Take 1 tablet by diana th once daily for 7 days. 20 ml ropivacaine hydrochloride 5 mg/ml injection (4 sources) Amide Local Anesthetic Start: End: ROPivacaine (PF) 5 mg/mL (0.5 %) 4 mL injection (NAROPIN) Start: 06-17-2024 End: 06-17-2024 4 mL, Injection - FOR ORTHO USE ONLY, ONCE, 1 dose, Starting on Thu06/17/24 at 1115, Until Thu06/17/24 at 1115 Start: 10-02-2023 End: 10-02-2023 ROPivacaine (PF) 5 mg/mL (0. 5 %) 4 mL injection (NAROPIN) Start: 04-24-2023 End: 04-24-2023 ROPivacaine (PF) 5 mg/mL (0. 5 %) 4 mL injection (NAROPIN) 1 ml triamcinolone acetonide 40 mg/ml injection (6 sources) Corticosteroid Start: 06-17-2024 End: 06-17-2024 triamcinolone acetonide 80 mg injection (KeNALog 40) Start: 06-17-2024 End: 06-17-2024 80 mg, Injection - FOR ORTHO USE ONLY, ONCE, 1 dose, Starting on Thu06/17/24 at 1115, Until Thu06/17/24 at 1115 Start: 10-28-2023 End: 10-28-2023 triamcinolone acetonide 80 m g injection (KeNALog 40) Start: 10-02-2023 End: 10-02-2023 triamcinolone acetonide 80 m g injection (KeNALog 40) Start: 04-24-2023 End: 04-24-2023 triamcinolone acetonide 80 m g injection (KeNALog 40) Problems Active Problems Problem Classification Problem Date Documented Date Episodic/Chronic Abdominal pain (2 sources) Unspecified abdominal pain; Translations: [Abdominal pain] Onset: 01-30-2024 Episodic Coronary atherosclerosis and other heart disease (20 sources) Stable angina; Translations: [Other forms of angina pectoris] Onset: 01-22-2023 Chronic Disorders of lipid metabolism (20 sources) Mixed hyperlipidemia; Translations: [Mixed hyperlipidemia] Onset: 01-28-2023 01-28-2023 Chronic Essential hypertension (20 sources) Essential hypertension; Translations: [Essential (primary) hypertension] Onset: 01-28-2023 Chronic Joint disorders and dislocations; trauma-related (1 source) Derangement of left knee; Translations: [Unspecified internal derangement of left knee] Onset: 11-23-2020 04-24-2022 Chronic Neoplasms of unspecified nature or uncertain behavior (2 sources) Neoplastic disease; Translations: [Neoplasm of unspecified behavior of bone, soft tissue, and skin] 10-18-2024 Episodic Osteoarthritis (20 sources) Osteoarthritis of right knee joint; Translations: [Unilateral primary osteoarthritis, right knee] Onset: 10-23-2020 04-24-2023 Chronic Other aftercare (1 source) Surgical follow-up; Translations: [Encounter for follow-up examination after completed treatment for conditions other than malignant neoplasm] 02-04-2023 Episodic Other and ill-defined heart disease (1 source) Heart disease; Translations: [Other heart disorders in diseases classified elsewhere] Chronic Other circulatory disease (5 sources) Ischemia; Translations: [Other disorder of circulatory system] Episodic Other connective tissue disease (7 sources) History of prosthetic unicompartmental arthroplasty of right knee; Translations: [Presence of right artificial knee joint] 02-03-2024 Chronic Other connective tissue disease (2 sources) Presence of right artificial knee joint; Translations: [History of prosthetic unicompartmental arthroplasty of right knee] Onset: 02-05-2024 Chronic Other nervous system disorders (2 sources) Other chronic pain; Translations: [Chronic pain of right knee] Onset: 05-27-2023 Chronic Other nervous system disorders (1 source) Difficulty walking; Translations: [Difficulty in walking, not elsewhere classified] Onset: 06-27-2019 04-24-2022 Chronic Other non-epithelial cancer of skin (8 sources) Basal cell carcinoma of chest wall; Translations: [Basal cell carcinoma of skin of other part of trunk] Onset: 04-24-2022 04-24-2022 Episodic Other non-traumatic joint disorders (2 sources) Arthrofibrosis of right knee; Translations: [Ankylosis, right knee] 02-09-2024 Chronic Other nutritional; endocrine; and metabolic disorders (20 sources) Obese class I; Translations: [Obesity, unspecified] Onset: 01-22-2023 01-22-2023 Chronic Other nutritional; endocrine; and metabolic disorders (1 source) Obesity, unspecified; Translations: [Obesity, Class I, BMI 30-34.9] Onset: 01-28-2023 Chronic Other skin disorders (2 sources) Seborrheic keratosis; Translations: [Other seborrheic keratosis] 10-18-2024 Episodic Other skin disorders (2 sources) Lentiginosis; Translations: [Other melanin hyperpigmentation] 10-18-2024 Episodic Other skin disorders (2 sources) Actinic keratosis; Translations: [Actinic keratosis] 10-18-2024 Episodic Other skin disorders (2 sources) Inflamed seborrheic keratosis; Translations: [Inflamed seborrheic keratosis] 10-18-2024 Episodic Other skin disorders (2 sources) Surgical wound finding; Translations: [Other specified disorders of the skin and subcutaneous tissue] 12-15-2024 Episodic Residual codes; unclassified (2 sources) Pain; Translations: [Pain, unspecified] 10-27-2023 Episodic Unclassified (3 sources) CONTACT W/AND (SUSP) EXPOS COVID-19; Translations: [CONTACT W/AND (SUSP) EXPOS COVID-19] Onset: 10-16-2020 Unclassified (1 source) Upper Gastric Pain Onset: 01-30-2024 Viral infection (1 source) COVID-19; Translations: [COVID-19] Onset: 06-11-2020 Past or Other Problems Problem Classification Problem Date Documented Da te Episodic/Chronic Acute posthemorrhagic anemia (20 sources) Acute posthemorrhagic anemia; Translations: [Acute posthemorrhagic anemia] Onset: 01-26-2023 Resolved: 01-05-2024 01-26-2023 Episodic Administrative/social admission (20 sources) Discharge status; Translations: [Encounter for administrative examinations, unspecified] Onset: 01-21-2023 Resolved: 01-05-2024 01-21-2023 Episodic Cardiac dysrhythmias (20 sources) ECG: sinus bradycardia; Translations: [Bradycardia, unspecified] Onset: 01-05-2024 01-05-2024 Episodic Chronic ulcer of skin (20 sources) Soft tissue injury; Translations: [Pressure ulcer of other site, unspecified stage] Onset: 01-26-2023 Resolved: 01-05-2024 01-26-2023 Chronic Coagulation and hemorrhagic disorders (20 sources) Blood coagulation disorder; Translations: [Coagulation defect, unspecified] Onset: 01-22-2023 Resolved: 01-05-2024 01-22-2023 Chronic Complications of surgical procedures or medical care (20 sources) Hypovolemia; Translations: [Other postprocedural endocrine and metabolic complications and disorders] Onset: 01-22-2023 Resolved: 01-05-2024 01-22-2023 Episodic Coronary atherosclerosis and other heart disease (1 source) Presence of aortocoronary bypass graft; Translations: [Hx of CABG] Onset: 10-02-2023 Episodic Diabetes mellitus without complication (20 sources) Increased glucose level; Translations: [Other abnormal glucose] Onset: 01-22-2023 Resolved: 01-27-2023 Episodic Fluid and electrolyte disorders (20 sources) Hypervolemia; Translations: [Fluid overload, unspecified] Onset: 01-26-2023 Resolved: 01-05-2024 01-26-2023 Episodic Immunizations and screening for infectious disease (3 sources) Contact with and (suspected) exposure to other viral communicable diseases; Translations: [CONTCT EXPS OTH VIRL COMMUNICABL DZ] Onset: 05-25-2020 Episodic Mood disorders (1 source) Mood disorders Onset: 05-22-2023 05-22-2023 Open wounds of extremities (20 sources) Open wound of left lower leg; Translations: [Laceration without foreign body, left lower leg, initial encounter] Onset: 01-26-2023 Resolved: 01-05-2024 01-26-2023 Episodic Other circulatory disease (20 sources) Low blood pressure; Translations: [Hypotension, unspecified] Onset: 01-22-2023 Resolved: 01-24-2023 01-22-2023 Episodic Other lower respiratory disease (20 sources) Solitary nodule of lung; Translations: [Solitary pulmonary nodule] Onset: 01-26-2023 01-28-2023 Episodic Other lower respiratory disease (1 source) Multiple nodules of lung; Translations: [Other nonspecific abnormal finding of lung field] 02-01-2024 Episodic Other nervous system disorders (20 sources) Postoperative pain ; Translations: [Other acute postprocedural pain] Onset: 01-22-2023 Resolved: 01-05-2024 01-22-2023 Episodic Other nervous system disorders (1 source) Other acute postprocedural pain; Translations: [Postoperative pain] Onset: 02-17-2024 Episodic Other non-traumatic joint disorders (6 sources) Pain in right knee; Translations: [Pain in joint, lower leg] Onset: 05-27-2023 04-24-2023 Episodic Other non-traumatic joint disorders (1 source) Pain in left knee; Translations: [Pain in joint, lower leg] Onset: 10-23-2020 04-24-2022 Episodic Other non-traumatic joint disorders (1 source) Shoulder joint pain; Translations: [Pain in unspecified shoulder] Onset: 02-19-2017 04-24-2022 Episodic Phlebitis; thrombophlebitis and thromboembolism (20 sources) Thrombosis of the popliteal vein; Translations: [Acute embolism and thrombosis of unspecified popliteal vein] Onset: 01-27-2023 01-27-2023 Episodic Pleurisy; pneumothorax; pulmonary collapse (20 sources) Atelectasis; Translations: [Atelectasis] Onset: 01-23-2023 Resolved: 01-05-2024 01-26-2023 Episodic Respiratory failure; insufficiency; arrest (adult) (20 sources) Ventilator finding; Translations: [Dependence on respirator [ventilator] status] Onset: 01-22-2023 Resolved: 01-05-2024 01-22-2023 Chronic Screening and history of mental health and substance abuse codes (5 sources) Ex-tobacco user; Translations: [Personal history of nicotine dependence] Onset: 10-02-2023 Episodic Sprains and strains (1 source) Rupture of pectoralis major muscle; Translations: [Strain of muscle and tendon of front wall of thorax, initial encounter] Onset: 02-19-2017 04-24-2022 Episodic Unclassified (1 source) CONTACT W/AND (SUSP) EXPOS COVID-19; Translations: [CONTACT W/AND (SUSP) EXPOS COVID-19] Onset: 10-10-2020 Unclassified (1 source) Onset: 01-10-2021 01-10-2021 Results Test Name Value Interpretation Reference Range Facility No Panel Informationon 12-14 Consent obtained: written (The rationale for Mohs as well as the risks, benefits, and alternatives. The risks of infection, scarring, bleeding, prolonged wound healing, incomplete removal, allergy to anesthesia or meds, nerve injury, and recurrence were addressed.) [facility] Protocol: Procedure explained and questions answered to [...] sodium bicarbonate Procedure Details: Biopsy accession number: [id number] Biopsy lab: [facility] Date of biopsy: 10/18/2024 Frozen section biopsy [...] tissue sections, stained, and evaluated by Dr. Soler for interpretation of deep and peripheral margins. [...] tissue sections, stained, and evaluated by Dr. Soler for interpretation of deep and peripheral margins. [...] tissue sections, stained, and evaluated by Dr. Soler for interpretation of deep and peripheral margins. The Mohs map was updated. Assistants: Sadie Grover LPN and Jett Maldonado CMA Amount of lidocaine used: 3.0 cc Estimated blood loss: <1.0 cc Defect size: 3.0 x 3.1 cm Number of blocks: 1 Numb (more content not included)... [facility] Destr of lesionon 11-18-2024 Complexity: simple Destruction method: electrodesiccation and curettage Informed consent: discussed and consent obtained Informed consent comment: The risks of the procedure were discussed, including, but not limited to risks of scarring, darker or document control manager pigmentary changes, recurrence, infection, and incomplete removal Timeout: patient name, date of , surgical site, and procedure verified Timeout comment: Patient and provider identified site. Site was marked. Photo was taken and shown to patient, patient verified this is the correct site. Procedure prep: Patient was prepped and draped in usual sterile fashion Prep type: Chlorhexidine Anesthesia: the lesion was anesthetized in a standard fashion Anesthetic: 1% lidocaine w/ epinephrine 1-100,000 buffered w/ 8.4% NaHCO3 Curettage performed in three different directions: Yes Electrodesiccation performed over the curetted area: Yes Curettage cycles: 3 Lesion length (cm): 1.2 Lesion width (cm): 0.5 Margin per side (cm): 0 Final wound size (cm): 1.2 Hemostasis achieved with: aluminum chloride Outcome: patient tolerated procedure well with no complications Post-procedure details: wound care instructions given Post-procedure details comment: Post-procedure instructions were given verbally and in writing. The office will be contacted if the lesion fails to resolve despite treatment, or if a side effect develops such as abnormal crusting, scabbing, reddness, discharge, or tenderness. Additional details: Amount of lidocaine used: 1.5 cc Previous accession number: [id number] [facility] Destr of lesionOrdered By: Kamaljit Neumann on 11-18-2024 [facility] No Panel Informationon 10-18 [facility] Type of biopsy: tangential Informed consent: discussed and consent obtained Informed consent comment: The risks and benefits of the biopsy were discussed. Risks include but are not limited to bleeding, infection, scarring, pain, and nerve damage. An opportunity to ask questions prior to the procedure was permitted and all questions were answered. Patient was prepped and draped in usual sterile fashion: area cleansed with alcohol. Anesthesia: the lesion was anesthetized in a standard fashion Anesthetic: 1% lidocaine w/ epinephrine 1-100,000 buffered w/ 8.4% NaHCO3 Instrument used: DermaBlade Hemostasis achieved with: electrodesiccation Outcome: patient tolerated procedure well Outcome comment: The specimen was placed in a prelabeled formalin container to be sent for pathology Post-procedure details: sterile dressing applied and wound care instructions given Post-procedure details comment: Emphasized need to contact clinic for any signs of infection, uncontrollable bleeding, or complications. Dressing type: bandage Additional details: Photo taken Amount of lidocaine used: 1.0 cc [facility] Type of biopsy: tangential Informed consent: discussed and consent obtained Informed consent comment: The risks and benefits of the biopsy were discussed. Risks include but are not limited to bleeding, infection, scarring, pain, and nerve damage. An opportunity to ask questions prior to the procedure was permitted and all questions were answered. Patient was prepped and draped in usual sterile fashion: area cleansed with alcohol. Anesthesia: the lesion was anesthetized in a standard fashion Anesthetic: 1% lidocaine w/ epinephrine 1-100,000 buffered w/ 8.4% NaHCO3 Instrument used: DermaBlade Hemostasis achieved with: electrodesiccation Outcome: patient tolerated procedure well Outcome comment: The specimen was placed in a prelabeled formalin container to be sent for pathology Post-procedure details: sterile dressing applied and wound care instructions given Post-procedure details comment: Emphasized need to contact clinic for any signs of infection, uncontrollable bleeding, or complications. Dressing type: bandage Additional details: Photo taken Amount of lidocaine used: 1.0 cc [facility] CNPNon 07-26-2024 CNPN Telephone (CARCMN) SILVANO MENENDEZ ([id number]) 1965 M Date Time Provider Department 07/26/24 GENARO GREEN CARCAL During your visit today, we recorded the following information about you: Leyda Gomez 07/26/2024 12:04 PM Signed Opened in error. Leyda Gomez Allergies As of Date: 07/26/2024 (No Known Allergies) Date Reviewed: 06/17/2024 Reviewed by: Nicole Khan OCCA - Fully Assessed Reason for Visit: Orders [681] Prescriptions as of 07/26/2024 - ezetimibe (ZETIA) 10 mg tablet TAKE 1 TABLET BY MOUTH ONCE DAILY - amLODIPine (NORVASC) 2.5 mg tablet Take 1 tablet by mouth once daily. - metoprolol succinate ER (TOPROL XL) 100 mg TAKE 1 TABLET BY MOUTH IN THE MORNING AND ONE-HALF TABLET BY MOUTH IN THE EVENING - acetaminophen (TYLENOL) 500 mg tablet Take 2 tablets by mouth every 8 hours. - bisacodyl EC (DULCOLAX) 5 mg EC tablet Take 2 tablets by mouth once daily. Patient should start on January 15, 2024. - docusate sodium (COLACE) 100 mg capsule Take 1 capsule by mouth two times a day. - senna (SENOKOT) 8.6 mg tab Take 2 tablets by mouth daily at bedtime. - atorvastatin (LIPITOR) 80 mg tablet Take 1 tablet by mouth daily at bedtime. - aspirin, enteric coated (ASPIRIN, ENTERIC COATED) 81 mg EC tablet Take 81 mg by mouth once daily. - MULTIVITAMIN ORAL Take by mouth. Problem List As Of Date 07/26/2024 Noted Resolved Discharge planning issues [Z75.8] 01/21/2023 01/05/2024 Pre-op testing [Z01.818] 01/21/2023 Obesity, Class I, BMI 30-34.9 [E66.811] 01/22/2023 Coronary artery disease with exertional angina *01/22/2023 Hypotension, unspecified [I95.9] 01/22/2023 01/24/2023 Postoperative pain [G89.18] 01/22/2023 01/05/2024 Stress hyperglycemia [R73.9] 01/22/2023 01/27/2023 Postoperative hypovolemia [E89.89, E86.1] 01/22/2023 01/24/2023 Coagulopathy (HCC) [D68.9] 01/22/2023 01/24/2023 Atelectasis [J98.11] 01/23/2023 01/05/2024 Encounter for support and coordination of trans*01/26/2023 01/05/2024 Volume overload [E87.70] 01/26/2023 01/05/2024 Acute blood loss anemia [D62] 01/26/2023 01/05/2024 Thrombocytopenia (HCC) [D69.6] 01/26/2023 01/05/2024 Incidental lung nodule [R91.1] 01/26/2023 Pressure injury of mucous membrane [L89.899] 01/26/2023 01/05/2024 ISTAP type 2 skin tear of left lower leg [S81.8*01/26/2023 01/05/2024 Hypokalemia [E87.6] 01/26/2023 Pneumothorax, postoperative [J95.811] 01/26/2023 01/05/2024 DVT of popliteal vein (HCC) [I82.439] Primary hypertension [I10] Mixed hyperlipidemia [E78.2] On mechanically assisted ventilation (HCC) [Z99*04/01/2023 01/05/2024 Sinus bradycardia by electrocardiography [R00.1]01/05/2024 Localized osteoarthritis of right knee [M17.11] 01/13/2024 Encounter Status:Closed by LEYDA GOMEZ on 07/26/24 [facility] CNOVon 06-17-2024 CNOV Office Visit (ORTHMN ) SILVANO MENENDEZ ([id number]) 1965 M Date Time Provider Department 06/17/24 12:30 PM MILAGRO CASTLE During your visit today, we recorded the following information about you: Milagro Castle PA-C 06/20/2024 11:20 AM Signed SERVICE DATE: June 20, 2024 PCP: Beatriz Edgar MD Subjective Patient ID: Silvano is a 58 year old male. Chief Complaint: Patient presents with: Left Knee - New, Knee Pain, Swelling PAIN EVALUATION 06/16/2024 1042 Pain Level: 5 Pain Location: Knee-Left Description: Aching;Sore;Spasm Duration Amount of Time: 2 Duration Units: Weeks Frequency: Continuous Intervention/Comfort measure: Cold Silvano is a 58 year old established patient presenting for new left knee pain. He had a right medial uni knee replacement by Dr. Mason and is progressing well after that surgery. He notes in the past 3 months, increased swelling of the left knee, pain and difficulty walking long distances. He enjoys walking with his for exercise, and is unable to do the distance he is used to due to left knee discomfort. He notes medial knee pain, pain with certain movements such as twisting the knee He denies injury or surgery to the left knee. He is interested in trialing left knee cortisone injection, if able. He takes tylenol and has tried topical pain creams Review of Systems All other systems reviewed and are negative. ACTIVE PROBLEM LIST Pre-Op Testing Obesity, Class I, Bmi 30-34.9 Coronary Artery Disease With Exertional Angina (Hcc) Incidental Lung Nodule Hypokalemia Dvt of Popliteal Vein (Hcc) Primary Hypertension Mixed Hyperlipidemia Sinus Bradycardia By Electrocardiography Localized Osteoarthritis of Right Knee PAST MEDICAL HISTORY Diagnosis Date DVT of popliteal vein (HCC) post right knee scope- 2010 PAST SURGICAL HISTORY Procedure Laterality Date CABG (5) VENOUS GRAFTS AND ARTERIAL GRAFT(S) 01/22/23 PAST SURGICAL HISTORY OF Right 2011 knee scope PAST SURGICAL HISTORY OF IVC filter - 2010 due to DVT histroy PAST SURGICAL HISTORY OF vasectomy PAST SURGICAL HISTORY OF wisdom teeth removal REPAIR EPIGASTRIC HERNIA,REDUC 04/2022 TONSILLECTOMY HX age 29 FAMILY HISTORY Problem Relation Age of Onset Heart disease Father Hyperlipidemia Father Heart Failure Father Hyperlipidemia Mother Heart disease Maternal Grandmother Heart disease Paternal Grandmother Anesthesia Problems No Family History Social History Tobacco Use Smoking status: Former Current packs/day: 0.00 Types: Cigarettes Quit date: 09/21/1987 Years since quittin.7 Passive exposure: Past Smokeless tobacco: Never Vaping Use Vaping status: Never Used Substance Use Topics Alcohol use: Never Drug use: Never ALLERGIES No Known Allergies MEDICATIONS: ezetimibe (ZETIA) 10 mg tablet TAKE 1 TABLET BY MOUTH ONCE DAILY amLODIPine (NORVASC) 2.5 mg tablet Take 1 tablet by mouth once daily. metoprolol succinate ER (TOPROL XL) 100 mg TAKE 1 TABLET BY MOUTH IN THE MORNING AND ONE-HALF TABLET BY MOUTH IN THE EVENING acetaminophen (TYLENOL) 500 mg tablet Take 2 tablets by mouth every 8 hours. bisacodyl EC (DULCOLAX) 5 mg EC tablet Take 2 tablets by mouth once daily. Patient should start on January 15, 2024. docusate sodium (COLACE) 100 mg capsule Take 1 capsule by mouth two times a day. senna (SENOKOT) 8.6 mg tab Take 2 tablets by mouth daily at bedtime. atorvastatin (LIPITOR) 80 mg tablet Take 1 tablet by mouth daily at bedtime. aspirin, enteric coated (ASPIRIN, ENTERIC COATED) 81 mg EC tablet Take 81 mg by mouth once daily. MULTIVITAMIN ORAL Take by mouth. Allergies, medications, past surgical history, family history and past medical history were reviewed per this encounter. Objective Left Knee Exam Tenderness The patient is experiencing tenderness in the medial joint line. Range of Motion Extension: 0 Flexion: 120 Tests Surekha: Medial - positive Varus: negative Patellar apprehension: negative Other Erythema: absent Sensation: normal Pulse: present Swelling: mild Effusion: effusion present Comments: Mild limp favoring left leg Crepitus with ROM Mild effusion Left knee XR from October 2023 shows mild medial joint space narrowing and PF joint space narrowing Assessment/Plan ASSESSMENT Diagnosis (M17.12) Primary osteoarthritis of left knee (primary encounter diagnosis) Plan: XR KNEE GENERAL 4V AP BOTH/PA BOTH/LAT/MERC LEFT Office Visit on 06/17/24 XR KNEE GENERAL 4V AP BOTH/PA BOTH/LAT/MERC LEFT PLAN Proceeded with left knee CSI today Continue with low impact activities, HEP, compression sleeve for support if needed Tylenol PRN Topical pain cream PRN Follow up in September for consideration of repeat CSI left knee prior to trip to [place]. Recommend updated left knee XR at next v (more content not included)... [facility] Large Joint Arthro/Inj: L kn ee jointon 06-17-2024 Milagro Castle PA -C 06/20/2024 11:20 AM Large Joint Arthro/Inj: L knee joint Informed Consent Consent Obtained: Verbal [facility] Protocol A moment to CARE was completed. SIGN IN Personnel directly involved with the procedure wore the appropriate PPE. Special Equipment: N/A Patient/Surrogate Stated/Verified: Patient name, Date of , Relevant allergies and Intended procedure TIME OUT Intended patient and procedure match the source document(s). Consent documented and matches the intended procedure. Relevant labs, photos, and/or imaging studies have been reviewed. Correct side/site marked and visible. Medications required for procedure verified. Fire risk assessed and interventions discussed. No implant(s) inserted. 06/17/2024 11:15 AM The procedure site was prepped in the usual sterile fashion. Site: L knee joint Medications: 80 mg triamcinolone acetonide 40 mg/mL Anesthetics: 4 mL lidocaine (PF) 10 mg/mL (1 %); 4 mL ROPivacaine (PF) 5 mg/mL (0.5 %) Outcome: Tolerated well, no immediate complications Post-injection instructions were reviewed with the patient and the patient voiced understanding of these instructions. SIGN OUT All instruments, equipment, possible retained foreign bodies accounted for. [facility] CNOVon 03-04-2024 CNOV Office Visit (ORTHMN ) SILVANO MENENDEZ ([id number]) 1965 M Date Time Provider Department 03/04/24 10:25 AM MILAGRO CASTLE ORTHMN During your visit today, we recorded the following information about you: Milagro Castle PA-C 03/14/2024 10:23 PM Signed Ortho Knee Follow Up Note Narrative Referring Provider: Ino Mason [address] [facility] [address] PCP: Beatriz Edgar MD ===== IMPRESSION/PLAN: ===== 58 year old s/p Right unicompartmental arthroplasty on 01/13/24 and WINTER right knee completed on 02/17/2024. Recent Surgeries this specialty 02/17/2024 (2w, 2d) MANIPULATION KNEE JOINT UNDER GENERAL ANES (Right) Ino Mason MD; Kaleb Pak MD; Nathaniel Lua MD - Posted 01/13/2024 (7w, 2d) ROBOTIC ASSISTED UNI KNEE ARTHROPLASTY; COMPUTER ASSIST MUSCULOSKETAL SURG NAVIGATION ORTHO PROCED W/IMAGE GUIDANCE BASED ON CT/MRI IMAGES (Right; Right) Ino Mason MD; Nathaniel Lua MD - Posted PAIN EVALUATION 02/26/2024 2200 Description: Aching;Stiffness Frequency: Continuous Intervention/Comfort measure: Medication;Cold;Pillow support IMPRESSION: Progressing well s/p WINTER with history of right medial uni knee replacement PLAN: -Continue with PT for ROM and strength -Ice as needed -continue with home exercises - Follow up in 4-6 weeks for continued monitoring with Dr. Mason Silvano Menendez presents today for a a routine 1st post-op visit. He had his right WINTER 2 weeks ago, and has been working with PT locally. He has noted improvement in symptoms, improved motion. He uses ice as needed for pain. He has been ABLE TO progress activities well- walking longer distances. He notes some swelling after walking, but no additional pain ACTIVE PROBLEM LIST Pre-Op Testing Obesity, Class I, Bmi 30-34.9 Coronary Artery Disease With Exertional Angina (Hcc) Incidental Lung Nodule Hypokalemia Dvt of Popliteal Vein (Hcc) Primary Hypertension Mixed Hyperlipidemia Sinus Bradycardia By Electrocardiography Localized Osteoarthritis of Right Knee Status post op: BMI: There is no height or weight on file to calculate BMI. ED Visits AND Hospitalizations - Last 180 days 02/17/24 Ino Mason MD, FAHAD Postoperative pain ..., Admission (Discharged) 01/13/24 Ino Masno MD, [id number] Status post right partial knee replacement ..., Admission (Discharged) EXAM: POST OP KNEE Right knee Extension just shy of 0, flexion 110 Normal gait Incision well healed Mild swelling knee Neg homans sign SILT 4+/5 quad strength Stable to varus/ valgus XR 1 view right knee shows implant in good alignment Provider: Milagro Castle PA-C Completed by: Milagro Castle PA-C Referring Provider: INO MASON [[id number]] Allergies As of Date: 03/04/2024 (No Known Allergies) Date Reviewed: 03/04/2024 Reviewed by: Farrukh Harper MA - Fully Assessed Reason for Visit: New [[id number]] Swelling [205] Numbness [75] Injections [199] Knee Pain [132] Primary Visit Diagnosis:Status post right partial knee replacement [Z96.651] Other Visit Diagnosis:Arthrofibrosi s of knee joint, right [M24.661] Prescriptions as of 03/14/2024 - acetaminophen (TYLENOL) 500 mg tablet Take 2 tablets by mouth every 8 hours. - bisacodyl EC (DULCOLAX) 5 mg EC tablet Take 2 tablets by mouth once daily. Patient should start on January 15, 2024. - docusate sodium (COLACE) 100 mg capsule Take 1 capsule by mouth two times a day. - senna (SENOKOT) 8.6 mg tab Take 2 tablets by mouth daily at bedtime. - atorvastatin (LIPITOR) 80 mg tablet Take 1 tablet by mouth daily at bedtime. - metoprolol succinate ER (TOPROL XL) 100 mg Take 1 tablet by mouth once daily. PM - ezetimibe (ZETIA) 10 mg tablet Take 1 tablet by mouth once daily. - amLODIPine (NORVASC) 2.5 mg tablet TAKE 1 TABLET BY MOUTH ONCE DAILY - aspirin, enteric coated (ASPIRIN, ENTERIC COATED) 81 mg EC tablet Take 81 mg by mouth once daily. - MULTIVITAMIN ORAL Take by mouth. Problem List As Of Date 03/04/2024 Noted Resolved Discharge planning issues [Z75.8] 01/21/2023 01/05/2024 Pre-op testing [Z01.818] 01/21/2023 Obesity, Class I, BMI 30-34.9 [E66.9] 01/22/2023 Coronary artery disease with exertional angina *01/22/2023 Hypotension, unspecified [I95.9] 01/22/2023 01/24/2023 Postoperative pain [G89.18] 01/22/2023 01/05/2024 Stress hyperglycemia [R73.9] 01/22/2023 01/27/2023 Postoperative hypovolemia [E89.89, E86.1] 01/22/2023 01/24/2023 Coagulopathy (HCC) [D68.9] 01/22/2023 01/24/2023 Atelectasis [J98.11] 01/23/2023 01/05/2024 Encounter for support and coordination of trans*01/26/2023 01/05/2024 Volume overload [E87.70] 01/26/2023 01/05/2024 Acute blood loss anemia [D62] 01/26/2023 01/05/2024 Thrombocytopenia ( (more content not included)... [facility] XR KNEE SPECIFY 1V RTon 02-20 XR KNEE SPECIFY 1V RT * * *Final Report* * * DATE OF EXAM: Mar 04 2024 9:45AM AOX 5211 - XR KNEE SPECIFY 1V RT / PROCEDURE REASON: Primary osteoarthritis of right knee * * * * Physician Interpretation * * * * EXAMINATION: XR KNEE SPECIFY 1V RT CLINICAL HISTORY: Primary osteoarthritis of right knee TECHNOLOGIST PROVIDED HISTORY: Post op/post manipulation for Right knee. TECHNIQUE: XR KNEE SPECIFY 1V RT Laterality: RIGHT Number of different views (projections): 1 M: XB_1 COMPARISON: 02/05/2024 RESULT: Postoperative changes of medial compartment resurfacing arthroplasty with intact hardware and without loosening. Valgus stress view demonstrates minimal medial compartment widening. Lateral compartment is maintained. Scattered surgical clips in the soft tissues. IMPRESSION: Unremarkable medial compartment resurfacing arthroplasty with minimal joint space widening on valgus stress view. Lobbyist: PSC[employer] Transcribe Date/Time: Mar 04 2024 10:28A Dictated by : BHAVNA HOLDEN DO This examination was interpreted and the report reviewed and electronically signed by: KAUSHIK ROLDAN MD on Mar 04 2024 10:33AM EST [id number] [facility] XR Knee - right Single viewo n 03-04-2024 IMPRESSION: Unremarkable medial compartment resurfacing arthroplasty with minimal joint space widening on valgus stress view. Lobbyist: [email or web address] Transcribe Date/Time: Mar 04 2024 10:28A Dictated by : BHAVNA HOLDEN DO This examination was interpreted and the report reviewed and electronically signed by: KAUSHIK ROLDAN MD on Mar 04 2024 10:33AM EST DIVISION OF RADIOLOGY * * *Final Report* * * DATE OF EXAM: Mar 04 2024 9:45AM AOX 5211 - XR KNEE SPECIFY 1V RT / PROCEDURE REASON: Primary osteoarthritis of right knee * * * * Physician Interpretation * * * * EXAMINATION: XR KNEE SPECIFY 1V RT CLINICAL HISTORY: Primary osteoarthritis of right knee TECHNOLOGIST PROVIDED HISTORY: Post op/post manipulation for Right knee. TECHNIQUE: XR KNEE SPECIFY 1V RT Laterality: RIGHT Number of different views (projections): 1 M: XB_1 COMPARISON: 02/05/2024 RESULT: Postoperative changes of medial compartment resurfacing arthroplasty with intact hardware and without loosening. Valgus stress view demonstrates minimal medial compartment widening. Lateral compartment is maintained. Scattered surgical clips in the soft tissues. DIVISION OF RADIOLOGY Provider, Suzy Arnaldo [facility] - 03/04/2024 * * *Final Report* * * DATE OF EXAM: Mar 04 2024 9:45AM AOX 5211 - XR KNEE SPECIFY 1V RT / PROCEDURE REASON: Primary osteoarthritis of right knee * * * * Physician Interpretation * * * * EXAMINATION: XR KNEE SPECIFY 1V RT CLINICAL HISTORY: Primary osteoarthritis of right knee TECHNOLOGIST PROVIDED HISTORY: Post op/post manipulation for Right knee. TECHNIQUE: XR KNEE SPECIFY 1V RT Laterality: RIGHT Number of different views (projections): 1 M: XB_1 COMPARISON: 02/05/2024 RESULT: Postoperative changes of medial compartment resurfacing arthroplasty with intact hardware and without loosening. Valgus stress view demonstrates minimal medial compartment widening. Lateral compartment is maintained. Scattered surgical clips in the soft tissues. IMPRESSION IMPRESSION: Unremarkable medial compartment resurfacing arthroplasty with minimal joint space widening on valgus stress view. Lobbyist: [facility] Transcribe Date/Time: Mar 04 2024 10:28A Dictated by : BHAVNA HOLDEN DO This examination was interpreted and the report reviewed and electronically signed by: KAUSHIK ROLDAN MD on Mar 04 2024 10:33AM EST [facility] Radiology Study observation (narrative) [facility] XR Knee - right Single viewO rdered By: Ccf Provider on 03-04-2024 [facility] ANES POSTPROC EVALon 024 ANES POSTPROC EVAL HNO ID: [id number] Author: TRISH PARK MD Service: ? Author Type: Anesthesiologist Type: Anesthesia Postprocedure Evaluation Filed: 02/17/2024 14:19 Note Text: POST ANESTHESIA EVALUATION NOTE : 1965 Procedure Summary Date: 02/17/24 Room / Location: [address] [facility] Anesthesia Start: 1135 Anesthesia Stop: 1213 Procedure: MANIPULATION KNEE JOINT UNDER GENERAL ANES (Right: Knee) Diagnosis: Status post right partial knee replacement (Status post right partial knee replacement [Z96.651]) Surgeons: Ino Mason MD Responsible Provider: Trish Park MD Anesthesia Type: MAC ASA Status: 3 Anesthesia Type: MAC Last Vitals Vitals Value Taken Time BP 135/63 02/17/24 1245 Temp 36.9 ?C (98.4 ?F) 02/17/24 1210 Pulse 70 02/17/24 1256 Resp 16 02/17/24 1245 SpO2 96 % 02/17/24 1256 Vitals shown include unfiled device data. Post Anesthesia Patient Status Patient Evaluation: PACU. PACU/ICU Patient Condition: stable. Neurological Status: aware and responsive. Pulmonary Status: breathing comfortably on supplemental oxygen Airway Control: returned to baseline unsupported. Cardiovascular Status: stable. Pain Management: clinically adequate Postoperative Hydration: acceptable. Intraoperative Events: no significant anesthesia events Post Operative Nausea/Vomiting Status: no significant post operative nausea or vomiting Recommendation: continue current plan of care and further care per PACU/ICU/floor team. Anesthesia Observations No Documentation SIGNATURE: Trish Park MD PATIENT NAME: Silvano Menendez DATE: February 17, 2024 TIME: 2:19 PM CSN: [id number] [facility] ANES PRE-OPon 02-17-2024 ANES PRE-OP HNO ID: [id number] Author: TRISH PARK MD Service: ? Author Type: Anesthesiologist Type: Anesthesia Preprocedure Evaluation Filed: 02/17/2024 10:39 Note Text: ANESTHESIOLOGY DAY OF SURGERY NOTE : 1965 Procedure Information Date/Time: 02/17/24 1030 Procedure: MANIPULATION KNEE JOINT UNDER GENERAL ANES (Right: Knee) Location: [place] [address] [facility] Surgeons: Ino Mason MD Estimated body mass index is 31.75 kg/m? as calculated from the following: Height as of this encounter: 175.3 cm (5' 9 ). Weight as of this encounter: 97.5 kg (215 lb). Most recent hematocrit and potassium results: Hematocrit 43.7 01/14/2024 Potassium 4.4 01/14/2024 Relevant Problems No relevant active problems I - PHYSICAL EVALUATION AIRWAY Patient intubated: No. Tracheostomy tube not present Mallampati: II. TM distance: >3 FB. Neck ROM: full ROM without neurological symptoms. Mouth opening: adequate. Short neck: no. Thick neck: no Johnson present: no Lip Bite Test: II DENTAL Dental findings: teeth intact. II - ANESTHESIA PLAN ASA Score: 3 Anesthetic Plan: MAC The patient is not a current smoker. NPO Status: adequate Beta Sharon Monitoring Plan Monitoring plan: standard ASA. Post Procedure Analgesic Plan Postoperative analgesic plan: parenteral or oral opioids and multimodal analgesia. Informed Consent Anesthetic risks, benefits, alternatives, personnel and consent discussed: yes. Patient / Responsible Democrat agrees to proceed: yes Patient / Surrogate agrees to blood products: blood products not planned Vitals Value Taken Time BP 129/74 02/17/24 1035 Pulse 64 02/17/24 1037 Resp 18 02/17/24 0935 Temp 36.3 ?C (97.3 ?F) 02/17/24 0935 SpO2 97 % 02/17/24 1037 Vitals shown include unfiled device data. Facility-Administered Medications as of 02/17/2024 Medication Dose Route Frequency [COMPLETED] lidocaine (PF) 10 mg/mL (1 %) 1-2 mg injection (XYLOCAINE) 0.1-0.2 mL INTRADERMAL PRN Or [COMPLETED] lidocaine 1% 0.25 mL subcutaneous j-tip syringe (XYLOCAINE) 0.25 mL SUBCUTANEOUS PRN lactated ringers iv infusion 5-30 mL/hr INTRAVENOUS CONTINUOUS NaCl 0.9% iv flush bag 20 mL INTRAVENOUS PRN [COMPLETED] midazolam (PF) injection (VERSED) INTRAVENOUS PRN Outpatient Medications as of 02/17/2024 Medication Sig acetaminophen (TYLENOL) 500 mg tablet Take 2 tablets by mouth every 8 hours. bisacodyl EC (DULCOLAX) 5 mg EC tablet Take 2 tablets by mouth once daily. Patient should start on January 15, 2024. docusate sodium (COLACE) 100 mg capsule Take 1 capsule by mouth two times a day. senna (SENOKOT) 8.6 mg tab Take 2 tablets by mouth daily at bedtime. atorvastatin (LIPITOR) 80 mg tablet Take 1 tablet by mouth daily at bedtime. metoprolol succinate ER (TOPROL XL) 100 mg Take 1 tablet by mouth once daily. PM ezetimibe (ZETIA) 10 mg tablet Take 1 tablet by mouth once daily. amLODIPine (NORVASC) 2.5 mg tablet TAKE 1 TABLET BY MOUTH ONCE DAILY aspirin, enteric coated (ASPIRIN, ENTERIC COATED) 81 mg EC tablet Take 81 mg by mouth once daily. MULTIVITAMIN ORAL Take by mouth. [] oxyCODONE IR (ROXICODONE) 5 mg immediate release tablet Take 1 tablet by mouth every 6 hours as needed for up to 7 days. I have interviewed and examined the patient. I have reviewed the medical record and/or the pre-anesthesia evaluation, pertinent labs, and test results. This contains updated information obtained within 48 hours of Surgery/Procedure. SIGNATURE: Trish Park MD PATIENT NAME: Silvano Menendez DATE: February 17, 2024 TIME: 10:38 AM CSN: [id number] [facility] BRIEF OP NOTon 02-17-2024 BRIEF OP NOT HNO ID: [id number] Author: NATHANIEL LUA MD Service: Orthopaedic Surgery Author Type: Resident Type: Brief Op Note Filed: 02/17/2024 11:56 Note Text: BRIEF OP NOTE LOG ID: [id number] Surgery/Procedure Date: 02/17/2024 Incision/Procedure Start Time: 11:47 AM Incision Close/Procedure End Time: 11:49 AM Surgeon(s)/Proceduralis t(s) and Place Change Roof Bolter(s): Surgeons and Role: * Ino Mason MD - Primary * Nathaniel Lua MD - Resident - Assisting * Kaleb Pak MD - Resident - Assisting Procedure(s): Procedure(s) (LRB): MANIPULATION KNEE JOINT UNDER GENERAL ANES (Right) Anesthesia: Monitored Anesthesia Care Estimated Blood Loss: 0 mls Specimens: * No specimens in log * Complications: None Pre-Op/Pre-Procedure Diagnosis: Right UKA limitation in flexion Post-Op/Post-Procedure Diagnosis: Same Post-op Plan: Abx: None VTE Prophylaxis: Encourage ambulation Weightbearing: WBAT RLE PT script provided Medrol dose pack provided Okay to dc home from PACU today when meeting dc criteria F/u with Dr. Mason as scheduled Plan of care discussed with: Provider, RN, Patient. SIGNATURE: Nathaniel Lua MD PATIENT NAME: Silvano Menendez DATE: February 17, 2024 TIME: 11:54 AM PAGER/CONTACT #: [phone] [facility] OPERATIVE NOon 02-17-2024 OPERATIVE NO HNO ID: [id number] Author: INO MASON MD Service: Orthopaedic Surgery Author Type: Physician Type: Operative Report Filed: 02/17/2024 13:10 Note Text: ORTHOPAEDIC SURGERY OPERATIVE PROCEDURE Patient Name: Silvano Menendez Age: [age] year old Date of Surgery: 02/17/2024 Surgeons and Role: * Ino Mason MD - Primary * Nathaniel Lua MD - Resident - Assisting * Kaleb Pak MD - Resident - Assisting Procedure(s) (LRB): MANIPULATION KNEE JOINT UNDER GENERAL ANES (Right) - CPT 78316 Anesthesia: Monitored Anesthesia Care Preoperative diagnosis: 1. Arthrofibrosis, right knee 2. Status post right unicompartmental knee arthroplasty on 01/13/2024 Postoperative diagnosis: Same BMI: Estimated body mass index is 31.75 kg/m? as calculated from the following: Height as of this encounter: 175.3 cm (5' 9 ). Weight as of this encounter: 97.5 kg (215 lb). Operative findings: Evidence of improved range of motion from 3 to 90 degrees at the start of the procedure, to 0 to 130 degrees at the conclusion. There were no immediate complications. Operative indications: The patient is a 58 year old male with right knee arthrofibrosis. He is 5 weeks out from a right unicompartmental knee arthroplasty and his range of motion progress has stalled with a firm endpoint. The poor flexion is limiting activities of daily living. The patient has been indicated for a manipulation under anesthesia. I have discussed the risks/benefits/alternat kaushal with the patient at length. Specific risks of surgery discussed included: fracture, tendon rupture, neurovascular injury, skin complications, recurrent stiffness, DVT/PE, cardiopulmonary failure, stroke and . Benefits of the surgery discussed included improved range of motion. Alternatives of the surgery discussed included continued physical therapy. The patient understood this discussion and consented to proceed. Description of Procedure: The patient was identified in the preoperative holding area. The correct operative site was marked and the consent was confirmed. A multidisciplinary huddle was completed to ensure preparedness for the upcoming procedure. The patient was brought to the operating room by anesthesia staff. General anesthetic was administered. All appropriate vascular access was obtained. The patient was carefully placed in the supine position. All dependent bony prominences were carefully padded. A multidisciplinary timeout was called to confirm the patient's name and date of , procedure to be performed, correct operative site and laterality, all necessary equipment in the room, proper radiographic image. All members of the operating room staff were in agreement with this timeout. The procedure began with an exam under anesthesia. Range of motion was 3 to 9 degrees at the start of the procedure. With hip flexion and careful, but very firm, pressure on the proximal tibia the knee was able to break scar tissue and flex to 130 degrees degrees. This was felt to be sufficient The patient was awoken from anesthesia and transferred to the [facility] and to the recovery room in stable condition. As the attending physician I performed the direct supervision of the entire procedure. SPECIMENS REMOVED: None COMPLICATIONS: None ESTIMATED BLOOD LOSS: None - closed procedure IMPLANTS INSERTED: None INCISION/PROCEDURE START TIME: 11:47 AM CLOSURE/PROCEDURE END TIME: 11:49 AM OPERATIVE TIME: Total operative time from wheels in to wheels out, including anesthesia time was 0 Hr 28 Min 12 Sec POST-OPERATIVE INSTRUCTIONS: 1. Antibiotics: not indicated 2. DVT prophylaxis: Early mobilization, mechanical compression devices; chemoprophylaxis with aspirin 81mg PO daily (home med) 3. Activity restrictions: Aggressive early range of motion of the knee, weight bearing as tolerated 4. Wound care instructions: N/A 5. Disposition: PACU, then home DICTATED BY: Ino Mason MD DATE: 02/17/24 TIME: 1:08 PM [facility] HISTORY PHYSICALon HISTORY PHYSICAL HNO ID: [id number] Author: PHI CALHOUN APRN.STACK YIELD ENGINEER Service: ? Author Type: Nurse Practitioner Type: H&P Filed: 02/10/2024 09:31 Note Text: PREANESTHESIA CONSULT CLINIC TELEHEALTH VISIT Patient has been identified by name and date of : Yes This is a virtual visit using [employer] Video Visit. It require patient-provider interaction for the medical decision making as documented below. Reason for contact: PACC visit Accompanied by: Self Scheduled Surgery: manipulation right knee Subjective CHIEF COMPLAINT: No chief complaint on file. HPI: This is a 58 year old male who presents with h/o TKR January 13, 2024 c/o decreased ROM post op, I can't bend my knee . ACTIVE PROBLEM LIST Pre-Op Testing Obesity, Class I, Bmi 30-34.9 Coronary Artery Disease With Exertional Angina (Hcc) Incidental Lung Nodule Hypokalemia Dvt of Popliteal Vein (Hcc) Primary Hypertension Mixed Hyperlipidemia Sinus Bradycardia By Electrocardiography Localized Osteoarthritis of Right Knee PAST MEDICAL HISTORY No date: DVT of popliteal vein (HCC) Comment: post right knee scope- 2010 PAST SURGICAL HISTORY No date: CABG (5) VENOUS GRAFTS AND ARTERIAL GRAFT(S) Comment: 01/22/232010: PAST SURGICAL HISTORY OF; Right Comment: knee scope No date: PAST SURGICAL HISTORY OF Comment: IVC filter - 2010 due to DVT histroy No date: PAST SURGICAL HISTORY OF Comment: vasectomy No date: PAST SURGICAL HISTORY OF Comment: wisdom teeth removal 04/2022: REPAIR EPIGASTRIC HERNIA,REDUC No date: TONSILLECTOMY HX Comment: age 29 FAMILY HISTORY Problem Relation Age of Onset Heart disease Father Hyperlipidemia Father Heart Failure Father Hyperlipidemia Mother Heart disease Maternal Grandmother Heart disease Paternal Grandmother Anesthesia Problems No Family History Social History Tobacco Use Smoking status: Former Current packs/day: 0.00 Types: Cigarettes Quit date: 09/21/1987 Years since quittin.4 Passive exposure: Past Smokeless tobacco: Never Vaping Use Vaping status: Never Used Substance Use Topics Alcohol use: Never Drug use: Never ALLERGIES No Known Allergies MEDICATIONS: Current Outpatient Medications Medication Sig oxyCODONE IR (ROXICODONE) 5 mg immediate release tablet Take 1 tablet by mouth every 6 hours as needed for up to 7 days. acetaminophen (TYLENOL) 500 mg tablet Take 2 tablets by mouth every 8 hours. atorvastatin (LIPITOR) 80 mg tablet Take 1 tablet by mouth daily at bedtime. metoprolol succinate ER (TOPROL XL) 100 mg Take 1 tablet by mouth once daily. PM ezetimibe (ZETIA) 10 mg tablet Take 1 tablet by mouth once daily. amLODIPine (NORVASC) 2.5 mg tablet TAKE 1 TABLET BY MOUTH ONCE DAILY aspirin, enteric coated (ASPIRIN, ENTERIC COATED) 81 mg EC tablet Take 81 mg by mouth once daily. MULTIVITAMIN ORAL Take by mouth. bisacodyl EC (DULCOLAX) 5 mg EC tablet Take 2 tablets by mouth once daily. Patient should start on January 15, 2024. docusate sodium (COLACE) 100 mg capsule Take 1 capsule by mouth two times a day. senna (SENOKOT) 8.6 mg tab Take 2 tablets by mouth daily at bedtime. No current facility-administered medications for this visit. COVID VACCINATION STATUS: Partially vaccinated REVIEW OF SYSTEMS: Pain Assessment: General: No weight loss, malaise or fevers. Neuro: No history of TIA's, stroke, RECREATION TECHNICIAN tumor, impaired sensorium, hemiplegia, paraplegia or quadraplegia. No neurological symptoms or problems. Respiratory: No history of current cough or dyspnea, or pneumonia in the past 6 weeks. No history of respiratory/pulmonary symptoms or problems. Cardiovascular: Positive for: CAD; Trim Carpenter: , HLD, Hypertension GI: No history of GI symptoms or problems. No history of esophageal varices, recent ascites, or ETOH greater than 2 drinks per day. : No history of dysuria, frequency or incontinence,, stones or chronic kidney disease Endocrine: Hematology: Chronic anti-coagulation / platelet meds (Aspirin) Oncology: No history of CA metastasis, chemo within 30 days, or radiotherapy within 90 days. Has not lost 10% of body wt in 6 months. No history of oncological symptoms or problems. Psych: No history of psychiatric symptoms or problems. Musculoskeletal: See HPI Skin: Negative for lesions, rash and itching. Objective PHYSICAL EXAM: BP 124/72 Ht 5' 9 (1.75m) Wt 215 lb (97.5kg) BMI 31.74 kg/(m2). VIDEO EXAM: (if completed, performed via video enabled technology) GENERAL: alert and appropriate, in no distress, well-hydrated, well nourished, and happy, smiling, interactive SKIN: no rash noted HEAD: normocephalic, no abnormality or lesion noted OROPHARYNX: moist mucus membranes NECK: full ROM, no cervical LNs noted RESPIRATORY: breathing non-labored CHEST: equal chest rise with normal respiratory effort HEART: no jvd, no c/o palpitations. Diagnostic tests reviewed for today's visit: Lab Value Units Pieter (more content not included)... [facility] CNOVon 02-05-2024 CNOV Office Visit (ORTHMN ) SILVANO MENENDEZ ([id number]) 1965 M Date Time Provider Department 02/05/24 1:30 PM INO MASON ORTHMN During your visit today, we recorded the following information about you: Ino Mason MD 02/09/2024 8:46 AM Signed [facility] Follow-Up Note CC: Right Knee OA Date of Surgery: 01/13/2024, Right unicompartmental arthroplasty HPI Silvano Meenndez is a 58 year old male who presents 3 week postop from right unicompartmental TKA. At his first postop visit, he had stiffness and we recommended PT and that he obtian labs/repeat XR if not resolved. Today, he still has stiffness of the right knee with flexion limited to 70, fairly consistent with last visit. PT has not helped. Current Outpatient Medications Medication Sig oxyCODONE IR (ROXICODONE) 5 mg immediate release tablet Take 1 tablet by mouth every 6 hours as needed for up to 7 days. acetaminophen (TYLENOL) 500 mg tablet Take 2 tablets by mouth every 8 hours. bisacodyl EC (DULCOLAX) 5 mg EC tablet Take 2 tablets by mouth once daily. Patient should start on January 15, 2024. docusate sodium (COLACE) 100 mg capsule Take 1 capsule by mouth two times a day. senna (SENOKOT) 8.6 mg tab Take 2 tablets by mouth daily at bedtime. atorvastatin (LIPITOR) 80 mg tablet Take 1 tablet by mouth daily at bedtime. metoprolol succinate ER (TOPROL XL) 100 mg Take 1 tablet by mouth once daily. PM ezetimibe (ZETIA) 10 mg tablet Take 1 tablet by mouth once daily. amLODIPine (NORVASC) 2.5 mg tablet TAKE 1 TABLET BY MOUTH ONCE DAILY aspirin, enteric coated (ASPIRIN, ENTERIC COATED) 81 mg EC tablet Take 81 mg by mouth once daily. MULTIVITAMIN ORAL Take by mouth. No current facility-administered medications for this visit. ROS As per history of present illness, other complete review of systems is negative for fevers, chills, malaise, unintentional weight loss, bone pain, soft tissue masses, swollen lymph nodes or skin lesions. PHYSICAL EXAMINATION: There were no vitals taken for this visit. General: Alert, oriented, no apparent distress Breathing: Normal respiratory rate, breathing is non-labored. Gait: Antalgic gait. R knee exam: Healing incision overlying R knee. Right knee range of motion is 5 to 80 degrees on my exam. He reaches 80 degrees when seated, when lying supine I am only able to get him to 65 degrees. RESULTS REVIEW: ESR 2 mm/h CRP <0.3 mg/dL IMPRESSION: s/p R unicompartmental knee arthroplasty complicated by stiffness. No clinical or laboratory evidence of infection PLAN: - We will follow up on CRP and ESR labs drawn today to rule out infection -Gave knee immobilizer to wear at night -Will schedule for manipulation under anesthesia of right knee -Emphasized importance of leg straightening exercises to strengthen quad muscles Ferny Diamond, MS4 ATTENDING PHYSICIAN NOTE I have personally interviewed and examined the patient. I agree with the findings in the above note. I have corroborated the above history and review of systems obtained by the medical student, and performed and documented my own exam, imaging review, impression and plan. Ino Mason MD Silverware Cleaner, Orthopaedic Surgery Division of Musculoskeletal Oncology Yoli Reardon Osito 02/10/2024 8:40 AM Signed PT ASSESSMENT - CASTING ROOM Silvano presents for application of a 20 knee immobilizer per provider VO. Applied knee immobilizer to the RLE. Patient has been instructed in care and proper application of immobilizer. Yoli Reardon Cast Hungrio Beeper: [id number] Referring Provider: INO AMSON [[id number]] Allergies As of Date: 02/05/2024 (No Known Allergies) Date Reviewed: 02/05/2024 Reviewed by: Kaushik Thurman RN - Fully Assessed Reason for Visit: Established Patient [175] Knee Replacement [363] Primary Visit Diagnosis:Status post right partial knee replacement [Z96.651] Other Visit Diagnosis:Arthrofibrosi s of knee joint, right [M24.661] Prescriptions as of 02/10/2024 - oxyCODONE IR (ROXICODONE) 5 mg immediate release tablet Take 1 tablet by mouth every 6 hours as needed for up to 7 days. - acetaminophen (TYLENOL) 500 mg tablet Take 2 tablets by mouth every 8 hours. - bisacodyl EC (DULCOLAX) 5 mg EC tablet Take 2 tablets by mouth once daily. Patient should start on January 15, 2024. - docusate sodium (COLACE) 100 mg capsule Take 1 capsule by mouth two times a day. - senna (SENOKOT) 8.6 mg tab Take 2 tablets by mouth daily at bedtime. - atorvastatin (LIPITOR) 80 mg tablet Take 1 tablet by mouth daily at bedtime. - metoprolol succinate ER (TOPROL XL) 100 mg Take 1 tablet by mouth once daily. PM - ezetimibe (ZETIA) 10 mg tablet Take 1 tablet by mouth once daily. - amLODIPine (NORVASC) 2.5 mg tablet TAKE 1 TABLET BY MOUTH ONCE DAILY - aspirin, enteric coated (ASPIRIN, ENTERIC COAT (more content not included)... [facility] CRP SerPl-mCncon 02-05-2024 CRP [Mass/Vol] mg/L [facility]0.9 [facility] Comment on above: Order Comment: Speci men Type: BLOOD SPECIMENOrdering Facility: [facility] Address: [address] [place] [address] Performed By: #### 1 [id number] ####[facility] [id number] [place] [address] [place] ESR Westergren method (Bld) [Velocity]on 02-05-2024 ESR (Bld) [Velocity] 2 mm/h Normal 0-15 [facility] Comment on above: Order Comment: Speci men Type: BLOOD SPECIMENOrdering Facility: [facility] Address: [address] [place] [address] Performed By: #### 4 [id number] ####[facility] [id number] [place] [address] [place] XR KNEE 3V AP/LAT/MERCHANT R Ton 02-05-2024 XR KNEE 3V AP/LAT/MERCHANT RT * * *Final Report* * * DATE OF EXAM: Feb 05 2024 12:23PM AOX 5209 - XR KNEE 3V AP/LAT/MERCHANT RT / PROCEDURE REASON: Status post right partial knee replacement * * * * Physician Interpretation * * * * HISTORY: Status post right partial knee replacement TECHNOLOGIST PROVIDED HISTORY (if applicable): 3 wk. Post op right knee stiffness. Pt. unable to bend knee. TECHNIQUE: XR KNEE 3V AP/LAT/MERCHANT RT RESULT: RIGHT knee 3 views compared with 10/28/2023. Status post interval medial compartment resurfacing arthroplasty. No signs of loosening or failure. Small effusion and mild swelling are noted. The lateral and patellofemoral joint spaces remain preserved. Surgical clips in the soft tissues medially again seen. LEFT knee images unchanged with single anterolateral surgical clip. Joint spaces preserved. IMPRESSION: EXPECTED FINDINGS AFTER RECENT MEDIAL COMPARTMENT RESURFACING ARTHROPLASTY Lobbyist: [facility] Transcribe Date/Time: Feb 05 2024 4:10P Dictated by : SHAKA FOX MD This examination was interpreted and the report reviewed and electronically signed by: SHAKA FOX MD on Feb 05 2024 4:11PM EST [id number] [facility] XR Knee AP and Lateral and M erchantson 02-05-2024 IMPRESSION: EXPECTED FINDINGS AFTER RECENT MEDIAL COMPARTMENT RESURFACING ARTHROPLASTY Lobbyist: [facility] Transcribe Date/Time: Feb 05 2024 4:10P Dictated by : SHAKA FOX MD This examination was interpreted and the report reviewed and electronically signed by: SHAKA FOX MD on Feb 05 2024 4:11PM EST DIVISION OF RADIOLOGY * * *Final Report* * * DATE OF EXAM: Feb 05 2024 12:23PM AOX 5209 - XR KNEE 3V AP/LAT/MERCHANT RT / PROCEDURE REASON: Status post right partial knee replacement * * * * Physician Interpretation * * * * HISTORY: Status post right partial knee replacement TECHNOLOGIST PROVIDED HISTORY (if applicable): 3 wk. Post op right knee stiffness. Pt. unable to bend knee. TECHNIQUE: XR KNEE 3V AP/LAT/MERCHANT RT RESULT: RIGHT knee 3 views compared with 10/28/2023. Status post interval medial compartment resurfacing arthroplasty. No signs of loosening or failure. Small effusion and mild swelling are noted. The lateral and patellofemoral joint spaces remain preserved. Surgical clips in the soft tissues medially again seen. LEFT knee images unchanged with single anterolateral surgical clip. Joint spaces preserved. DIVISION OF RADIOLOGY Provider, Suzy Arnaldo Dimas - 02/05/2024 * * *Final Report* * * DATE OF EXAM: Feb 05 2024 12:23PM AOX 5209 - XR KNEE 3V AP/LAT/MERCHANT RT / PROCEDURE REASON: Status post right partial knee replacement * * * * Physician Interpretation * * * * HISTORY: Status post right partial knee replacement TECHNOLOGIST PROVIDED HISTORY (if applicable): 3 wk. Post op right knee stiffness. Pt. unable to bend knee. TECHNIQUE: XR KNEE 3V AP/LAT/MERCHANT RT RESULT: RIGHT knee 3 views compared with 10/28/2023. Status post interval medial compartment resurfacing arthroplasty. No signs of loosening or failure. Small effusion and mild swelling are noted. The lateral and patellofemoral joint spaces remain preserved. Surgical clips in the soft tissues medially again seen. LEFT knee images unchanged with single anterolateral surgical clip. Joint spaces preserved. IMPRESSION IMPRESSION: EXPECTED FINDINGS AFTER RECENT MEDIAL COMPARTMENT RESURFACING ARTHROPLASTY Lobbyist: PSCB Transcribe Date/Time: Feb 05 2024 4:10P Dictated by : SHAKA FOX MD This examination was interpreted and the report reviewed and electronically signed by: SHAKA FOX MD on Feb 05 2024 4:11PM EST [facility] Radiology Study observation (narrative) [facility] XR Knee AP and Lateral and M erchantsOrdered By: Ccf Provider on 02-05-2024 [facility] CNNURSEon 02-03-2024 CNNURSE Nurse Visit (ORTHMN) SILVANO MENENDEZ ([id number]) 1965 M Date Time Provider Department 02/03/24 9:00 AM KAUSHIK THURMAN During your visit today, we recorded the following information about you: Kaushik Thurman RN 02/04/2024 3:00 PM Addendum Ortho Knee Follow Up Note Narrative Referring Provider: Ino Mason [address] [facility] [address] [facility] [address] PCP: Beatriz Edgar MD ===== IMPRESSION/PLAN: ===== 58 year old s/p Right unicompartmental arthroplasty completed on 01/13/2024. Recent Surgeries this specialty No cases to display PAIN EVALUATION No data found in the last 1 encounters. IMPRESSION: Slow post-operative recovery. Patient doing well in all areas except flexion PLAN: Modify medical management: None. Patient Reassurance: Patient reassured and supported. All questions answered. Follow up 3 weeks X-Rays Needed Silvano Menendez presents today for a a routine 1st post-op visit ACTIVE PROBLEM LIST Pre-Op Testing Obesity, Class I, Bmi 30-34.9 Coronary Artery Disease With Exertional Angina (Hcc) Incidental Lung Nodule Hypokalemia Dvt of Popliteal Vein (Hcc) Primary Hypertension Mixed Hyperlipidemia Sinus Bradycardia By Electrocardiography Localized Osteoarthritis of Right Knee Status post op: BMI: There is no height or weight on file to calculate BMI. Post-operative recovery was complicated by uneventful/none. Readmission(s) since surgery (90 days post)? No ED Visits AND Hospitalizations - Last 180 days 01/13/24 Ino Mason MD, [id number] Status post right partial knee replacement ..., Admission (Discharged) Patient rates their condition as improving, except flexion Does the patient still experience pain? see nursing note section in Epic Chart Post Op discharge patient location: in home. Functional Assessment is as follows: is ready to begin outpatient PT. Functional difficulties: Interferes with sleep. Pain Medication: Narcotic , once a day Currently Ambulating with: no ambulation aides EXAM: POST OP KNEE Right Post-Operative Knee Ambulates with a limp favoring the right. SKIN: Appropriate postop appearance and No evidence of erythema, warmth, discharge or drainage. Range of motion is lacking a few degrees secondary to tight hamstrings degrees in extension and 65 degrees of flexion. Extension La degrees Pain with ROM: No There is Slight effusion. Mal-alignment: No Tender to the palpation of None Neurovascular Status: Sensation Intact, Moves foot and ankle up AND down, and 2+ dorsalis pedis Stability:Anterior/Post erior- Yes, stable and Varus/Valgus- Yes, stable Quad strength: weak Imagin. None today. Patient right knee flexion concerning, states knee tight a painful after 65 degree flexion. Discussed exercise options and use of band for flexion exercises. Informed I would discuss limitations with Dr Mason. Instructed to focus on flexion exercises for next two weeks and call office in 2 weeks if no increase in flexion or any decrease. Received call from patient post visit and discussion with Dr Mason, labs and xray ordered, will discuss WINTER procedure as soon as results available. Provider: Kaushik Thurman RN Completed by: CARMELO Valencia Michael, RN 02/03/2024 10:14 AM Signed Continue exercise and aggressive flexion. Call office in 2 weeks if no increase in flexion or decreased flexion. Kaushik Thurman RN 02/04/2024 3:00 PM Signed Addended by: KAUSHIK THURMAN on: 02/04/2024 03:00 PM Modules accepted: Orders Referring Provider: INO MASON [[id number]] Allergies As of Date: 02/03/2024 (No Known Allergies) Date Reviewed: 02/03/2024 Reviewed by: Kaushik Thurman RN - Fully Assessed Reason for Visit: Established Patient [175] Knee Replacement [363] Post Op [174] Primary Visit Diagnosis:Status post right partial knee replacement [Z96.651] Order(s):CONSULT TO PHYSICAL THERAPY [9032] Order #: [id number]: 1 FUTURE XR KNEE POST OP 3V AP/LAT/MERCHANT RIGHT [4620024] Order #: [id number] FUTURE Prescriptions as of 02/04/2024 - acetaminophen (TYLENOL) 500 mg tablet Take 2 tablets by mouth every 8 hours. - apixaban (ELIQUIS) 2.5 mg tab(s) Take 1 tablet by mouth two times a day for 21 days. - bisacodyl EC (DULCOLAX) 5 mg EC tablet Take 2 tablets by mouth once daily. Patient should start on January 15, 2024. - docusate sodium (COLACE) 100 mg capsule Take 1 capsule by mouth two times a day. - senna (SENOKOT) 8.6 mg tab Take 2 tablets by mouth daily at bedtime. - atorvastatin (LIPITOR) 80 mg tablet Take 1 tablet by mouth daily at bedtime. - metoprolol succinate ER (TOPROL XL) 100 mg Take 1 tablet by mouth once daily. PM - ezetimibe (ZETIA) 10 mg tablet Take 1 tablet by m (more content not included)... Normal [facility] CBC AND AUTO DIFFon 01-30-20 24 ABSOLUTE BASOPHIL 0.1 X10E9/L Normal 0.0-0.2 [facility] Comment on above: Performed By: #### Michael RIVAS, 88893-2, 85344-2, CMP, 3040-3, - 9 #### [facility] ([id number]) [address] [place] [address] 27695 ABSOLUTE NEUTROPHIL 10.3 X10E9/L High 1.5-6.6 [facility] Comment on above: Performed By: #### Michael RIVAS, 02232-5, 28862-3, CMP, 3040-3, - #### [facility] ([id number]) [address] [place] [address] 89464 Basophils/100 WBC (Bld) 0.4 % Normal [facility] Comment on above: Performed By: #### Michael RIVAS, 61188-8, 56672-0, CMP, 3040-3, - #### [facility] ([id number]) [address] [place] [address] 65528 Eosinophils (Bld) [#/Vol] 0.1 10*3/uL Normal 0.0-0.4 [facility] Comment on above: Performed By: #### Michael RIVAS, 72654-5, 16870-8, CMP, 3040-3, - 9 #### [facility] ([id number]) [address] [place] [address] 85900 Eosinophils/100 WBC (Bld) 0.4 % Normal [facility] Comment on above: Performed By: #### Michael RIVAS, 09977-7, 07244-8, CMP, 3040-3, - 9 #### [facility] ([id number]) [address] [place] [address] 68295 Erythrocyte distribution width (RBC) [Ratio] 13.5 % Normal 11.5-15.0 [facility] Comment on above: Performed By: #### Michael RIVAS, 56019-1, 06126-7, CMP, 3040-3, - 9 #### [facility] ([id number]) [address] [place] [address] 04906 Hematocrit (Bld) [Volume fraction] 44.6 % Normal 39-49 [facility] Comment on above: Performed By: #### Michael RIVAS, 14394-2, 70013-3, CMP, 3040-3, - #### [facility] ([id number]) [address] [place] [address] 52898 Hemoglobin (Bld) [Mass/Vol] 15.4 g/dL Normal 13.0-17.0 [facility] Comment on above: Performed By: #### Michael RIVAS, 09632-8, 98256-8, CMP, 3040-3, - #### [facility] ([id number]) [address] [place] [address] 09561 Lymphocytes (Bld) [#/Vol] 2.8 10*3/uL Normal 1.0-3.5 [facility] Comment on above: Performed By: #### Michael RIVAS, 25183-4, 67605-6, CMP, 3040-3, - #### [facility] ([id number]) [address] [place] [address] 20044 Lymphocytes/100 WBC (Bld) 19.4 % Normal [facility] Comment on above: Performed By: #### Michael RIVAS, 47982-2, 86188-4, CMP, 3040-3, - #### [facility] ([id number]) [address] [place] [address] 87792 MCH (RBC) [Entitic mass] 30.6 pg Normal 27-34 [facility] Comment on above: Performed By: #### Michael RIVAS, 52273-2, 77807-7, CMP, 3040-3, - #### [facility] ([id number]) [address] [place] [address] 60080 MCHC (RBC) [Mass/Vol] 34.5 g/dL Normal 32-36 [facility] Comment on above: Performed By: #### Michael RIVAS, 17985-5, 44231-6, CMP, 3040-3, - #### [facility] ([id number]) [address] [place] [address] 96963 MCV (RBC) [Entitic vol] 89 fL Normal 80-100 [facility] Comment on above: Performed By: #### Michael RIVAS, 03077-8, 73738-3, CMP, 3040-3, #### [facility] ([id number]) [address] [place] [address] 12900 Monocytes (Bld) [#/Vol] 1.1 10*3/uL High 0-0.9 [facility] Comment on above: Performed By: #### Michael RIVAS, 02444-1, 09717-5, CMP, 0-3, - #### [facility] ([id number]) [address] [place] [address] 47030 Monocytes/100 WBC (Bld) 7.9 % Normal [facility] Comment on above: Performed By: #### Michael RIVAS, 06803-3, 23747-9, CMP, 3040-3, - #### [facility] ([id number]) [address] [place] [address] 86234 Neutrophils/100 WBC (Bld) 71.9 % Normal [facility] Comment on above: Performed By: #### Michael RIVAS, 29861-2, 08149-5, CMP, 3040-3, 50193- 9 #### [facility] ([id number]) [address] [place] [address] 36170 Platelet mean volume (Bld) [Entitic vol] 7.6 fL Normal 7-12 [facility] Comment on above: Performed By: #### Michael RIVAS, 93988-9, 16641-6, CMP, 3040-3, - 9 #### [facility] ([id number]) [address] [place] [address] 76896 Platelets (Bld) [#/Vol] 310 10*3/uL Normal 150-450 [facility] Comment on above: Performed By: #### Michael RIVAS, 51885-7, 35826-7, CMP, 3040-3, - 9 #### [facility] ([id number]) [address] [place] [address] 00247 RBC COUNT 5.03 X10E12/L Normal 4.10-5.70 [facility] Comment on above: Performed By: #### Michael RIVAS, 60321-6, 80489-3, CMP, 3040-3, - 9 #### [facility] ([id number]) [address] [place] [address] 81236 WBC (Bld) [#/Vol] 14.3 10*3/uL High 4.0-11.0 [facility] Comment on above: Performed By: #### Michael BCA, 98545-2, 57150-6, CMP, 3040-3, - 9 #### [facility] ([id number]) [address] [place] [address] 56355 COMPREHENSIVE METABOLIC PANE Ryley 01-30-2024 Albumin [Mass/Vol] 4.6 g/dL Normal 3.2-5.3 [facility] Comment on above: Performed By: #### C BCA, 37364-6, 94792-2, CMP, 3040-3, 89497- 9 #### [facility] ([id number]) [address] [place] [address] 56627 ALP [Catalytic activity/Vol] 90 U/L Normal 39-130 [facility] Comment on above: Performed By: #### C BCA, 53683-5, 47119-6, CMP, 3040-3, 22011- 9 #### [facility] ([id number]) [address] [place] [address] 43105 ALT [Catalytic activity/Vol] 35 U/L Normal 0-40 [facility] Comment on above: Performed By: #### C BCA, 05701-9, 79856-7, CMP, 3040-3, - 9 #### [facility] ([id number]) [address] [place] [address] 83207 Anion gap [Moles/Vol] 11 mmol/L Normal 5-15 [facility] Comment on above: Performed By: #### C BCA, 55086-2, 88922-7, CMP, 3040-3, - 9 #### [facility] ([id number]) [address] [place] [address] 76148 AST [Catalytic activity/Vol] 33 U/L Normal 0-41 [facility] Comment on above: Performed By: #### C BCA, 65560-5, 67078-1, CMP, 3040-3, 91729- 9 #### [facility] ([id number]) [address] [place] [address] 79395 Bilirubin [Mass/Vol] 1.2 mg/dL Normal 0.3-1.2 [facility] Comment on above: Performed By: #### C BCA, 17294-4, 23913-6, CMP, 3040-3, 07957- 9 #### [facility] ([id number]) [address] [place] [address] 24762 Calcium [Mass/Vol] 9.8 mg/dL Normal 8.5-10.5 [facility] Comment on above: Performed By: #### C BCA, 26295-4, 45099-5, CMP, 3040-3, - 9 #### [facility] ([id number]) [address] [place] [address] 46125 Chloride [Moles/Vol] 103 mmol/L Normal 98-109 [facility] Comment on above: Performed By: #### C BCA, 60604-9, 53900-0, CMP, 3040-3, - 9 #### [facility] ([id number]) [address] [place] [address] 55522 CO2 [Moles/Vol] 27 mmol/L Normal 22-32 [facility] Comment on above: Performed By: #### C BCA, 23488-7, 56898-2, CMP, 3040-3, - 9 #### [facility] ([id number]) [address] [place] [address] 49767 Creatinine [Mass/Vol] 1.01 mg/dL Normal 0.70-1.20 [facility] Comment on above: Result Comment: METH OD TRACEABLE TO IDMS STANDARD Performed By: #### C BCA, 13273-7, 90722-7, CMP, 3040-3, 42859-7 #### [facility] ([id number]) [address] [place] [address] 84187 GFR/1.73 sq M.predicted among non-blacks MDRD (S/P/Bld) [Vol rate/Area] 86 mL/min/{1.73_m2} Normal >59 [facility] Comment on above: Result Comment: Reported eGFR is based on the CKD-EPI 2020 equation that does not use a race coefficient. Performed By: #### C BCA, 81624-4, 62440-4, CMP, 3040-3, 71707-3 #### [facility] ([id number]) [address] [place] [address] 64780 Glucose [Mass/Vol] 129 mg/dL High 65-99 [facility] Comment on above: Performed By: #### C BCA, 23042-1, 74979-0, CMP, 3040-3, #### [facility] ([id number]) [address] [place] [address] 76044 Potassium [Moles/Vol] 3.9 mmol/L Normal 3.5-5.0 [facility] Comment on above: Performed By: #### C BCA, 97684-3, 08208-9, CMP, 3040-3, #### [facility] ([id number]) [address] [place] [address] 27571 Protein [Mass/Vol] 7.8 g/dL Normal 6.0-8.0 [facility] Comment on above: Performed By: #### C BCA, 96616-0, 28931-8, CMP, 3040-3, #### [facility] ([id number]) [address] [place] [address] 99099 Sodium [Moles/Vol] 141 mmol/L Normal 134-146 [facility] Comment on above: Performed By: #### C BCA, 18844-1, 41685-3, CMP, 3040-3, #### [facility] ([id number]) [address] [place] [address] 22015 Urea nitrogen [Mass/Vol] 24 mg/dL High 5-23 [facility] Comment on above: Performed By: #### C BCA, 88841-3, 48462-1, CMP, 3040-3, - #### [facility] ([id number]) [address] [place] [address] CT ABDOMEN AND PELVIS W CONT on 01-30-2024 CT ABDOMEN AND PELVIS W CONT CT ABDOMEN AND PELVIS W CONT Exam: CT scan of the abdomen and pelvis with contrast with two-dimensional reconstructions. History: Epigastric pain. Comparison: none. Findings: A CT scan of the abdomen and pelvis was performed with intravenous contrast. 100 ml. of Omnipaque 300 was administered for this exam intravenously. Automated exposure control was utilized. The lung bases are clear. The stomach is significantly fluid-filled and distended. The liver, spleen, kidneys, adrenal glands, and pancreas are unremarkable. The gallbladder is distended but otherwise unremarkable. There is no hydronephrosis. There is no hernia. I see no pelvic mass or free fluid. The bladder is unremarkable. The bowel loops are unremarkable. There is a calcification in the region of the cecum possibly an appendicolith. I do not separately see the appendix with certainty. I do not see surrounding findings concerning for acute appendicitis. An IVC filter is present. Impression: 1. Significantly fluid-filled and distended stomach. 2. Possible appendicolith in the right lower quadrant. I do not see the appendix with certainty. I do not see surrounding findings concerning for acute appendicitis. Please correlate with lab values and clinical exam. All CT scans at this facility use dose modulation, iterative reconstruction, and/or weight based dosing when appropriate to reduce radiation dose to as low as reasonably achievable. Finalized by Manjinder Kolb MD on 01/30/2024 6:22 PM Normal [facility] LIPASEon 01-30-2024 Lipase [Catalytic activity/Vol] 44 U/L High 17-40 [facility] Comment on above: Performed By: #### C BCA, 01076-7, 51697-6, CMP, 3040-3, 20125- 9 #### [facility] ([id number]) [address] [place] [address] 25402 Lactate (P chandra) [Moles/Vol]o n 01-30-2024 LACTATE W/REFLEX 1.6 mmol/L Normal 0.4-2.0 [facility] Comment on above: Result Comment: Result did not trigger repeat Lactate, re-order if needed. Performed By: #### C EVELYN, 89565-2, 63164-3, CMP, 3040-3, 66187-3 #### [facility] ([id number]) [address] [place] [address] 05191 MAGNESIUMon 01-30-2024 Magnesium [Mass/Vol] 2.3 mg/dL Normal 1.8-2.6 [facility] Comment on above: Performed By: #### C EVELYN, 79933-1, 48493-0, CMP, 3040-3, - 9 #### [facility] ([id number]) [address] [place] [address] 88215 Troponin I.cardiac High sens itivity method [Mass/Vol]on 01-30-2024 1 HOUR TROP I, HIGH SENSITIVITY 3 ng/L Normal <21 [facility] Comment on above: Performed By: #### 8 9579-7 #### [facility] ([id number]) [address] [place] [address] 08218 TROPONIN I, HIGH SENSITIVITY 2 ng/L Normal <21 [facility] Comment on above: Performed By: #### C EVELYN, 22343-6, 72038-0, CMP, 3040-3, - 9 #### [facility] ([id number]) [address] [place] [address] 84744 XR CHEST 2 VWSon 01-30-2024 XR CHEST 2 VWS XR CHEST 2 VWS XR CHEST 2 VWS HISTORY: Chest and epigastric pain COMPARISON: 12/02/2022 FINDINGS: Interval median sternotomy. Multiple surgical clips overlie the bilateral miroslava and right upper mediastinum. No pleural effusion or pneumothorax. Cardiac mediastinal silhouette appears stable and nonenlarged. No focal airspace opacification. Comparatively low lung volumes contribute to mild central bronchovascular crowding. IMPRESSION: * No evidence for acute pulmonary process. Approved by Resident: Benjamin Bhakta MD on 01/30/2024 6:17 PM I, Gavin Love MD have personally reviewed the image(s) and agree with and/or edited the report Finalized by Gavin Love MD on 01/30/2024 6:23 PM Normal [facility] ANES POSTPROC EVALon 024 ANES POSTPROC EVAL HNO ID: [id number] Author: JENY ROBERTS MD Service: ? Author Type: Anesthesiologist Type: Anesthesia Postprocedure Evaluation Filed: 01/14/2024 14:05 Note Text: POST ANESTHESIA EVALUATION NOTE : 1965 Procedure Summary Date: 01/13/24 Room / Location: [address] [facility] Anesthesia Start: 1209 Anesthesia Stop: 1541 Procedure: ROBOTIC ASSISTED UNI KNEE ARTHROPLASTY (Right: Knee) Diagnosis: Primary osteoarthritis of right knee (Primary osteoarthritis of right knee [M17.11]) Surgeons: Ino Mason MD Responsible Provider: Jeny Roberts MD Anesthesia Type: spinal ASA Status: 3 Anesthesia Type: spinal Last Vitals Vitals Value Taken Time BP 119/50 01/14/24 1050 Temp 36.6 ?C (97.9 ?F) 01/14/24 0936 Pulse 64 01/14/24 0936 Resp 16 01/14/24 0717 SpO2 96 % 01/14/24 0936 Post Anesthesia Patient Status Patient Evaluation: bedside. Anticipated Disposition: inpatient floor planned admission. Neurological Status: aware and responsive. Pulmonary Status: breathing comfortably on supplemental oxygen Airway Control: returned to baseline unsupported. Cardiovascular Status: stable. Pain Management: clinically adequate Postoperative Hydration: acceptable. Intraoperative Events: no significant anesthesia events Post Operative Nausea/Vomiting Status: no significant post operative nausea or vomiting Recommendation: continue current plan of care. Anesthesia Observations No Documentation SIGNATURE: Jeny Roberts MD PATIENT NAME: Silvano Menendez DATE: January 14, 2024 TIME: 2:05 PM CSN: [id number] Normal [facility] Basic metabolic 2000 panelon 01-14-2024 Anion gap [Moles/Vol] 11 mmol/L Normal 8-15 [facility] Comment on above: Order Comment: Speci men Type: BLOOD SPECIMENOrdering Facility: [facility] Address: [address] [place] [address] Performed By: #### 2 4321-2 ####[facility] LABCLIA [id number] [place] [address] [place] Calcium [Mass/Vol] 9.3 mg/dL Normal 8.5-10.2 [facility] Comment on above: Order Comment: Speci men Type: BLOOD SPECIMENOrdering Facility: [facility] Address: [address] [place] [address] Performed By: #### 2 4321-2 ####[facility] LABCLIA [id number] [place] [address] [place] Chloride [Moles/Vol] 105 mmol/L Normal 98-107 [facility] Comment on above: Order Comment: Speci men Type: BLOOD SPECIMENOrdering Facility: [facility] Address: [address] [place] [address] Performed By: #### 2 4321-2 ####[facility] LABCLIA [id number] [place] [address] [place] CO2 [Moles/Vol] 23 mmol/L Normal 22-30 [facility] Comment on above: Order Comment: Speci men Type: BLOOD SPECIMENOrdering Facility: [facility] Address: [address] [place] [address] Performed By: #### 2 4321-2 ####[facility] LABCLIA [id number] [place] [address] [place] Creatinine [Mass/Vol] 0.84 mg/dL Normal 0.73-1.22 [facility] Comment on above: Order Comment: Speci men Type: BLOOD SPECIMENOrdering Facility: [facility] Address: [address] [place] [address] Performed By: #### 2 4321-2 ####[facility] LABCLIA [id number] [place] [address] [place] Creatinine and Glomerular filtration rate.predicted panel (S/P/Bld) 100 mL/min/1.73m??? Normal >=60 [facility] Comment on above: Order Comment: Alex worley Type: BLOOD SPECIMENOrdering Facility: [facility] Address: [address] [place] [address] Result Comment: Aurea mated Glomerular Filtration Rate (eGFR) is calculated using the 2020 CKD-EPI creatinine equation. This equation utilizes serum creatinine, sex, and age as parameters. The creatinine assay has traceable calibration to isotope dilution-mass spectrometry. Refer to KDIGO guidelines for clinical interpretation. In patients with unstable renal function, e.g. those with acute kidney injury, the eGFR may not accurately reflect actual GFR. Performed By: #### 2 4321-2 ####[facility] LABIA [id number] [place] [address] [place] Glucose [Mass/Vol] 177 mg/dL High 74-99 [facility] Comment on above: Order Comment: Alex worley Type: BLOOD SPECIMENOrdering Facility: [facility] Address: [address] [place] [address] Result Comment: The [place] [employer] (ADA) provides guidance for cutoff values for fasting glucose and random glucose. The ADA defines fasting as no caloric intake for at least 8 hours. Fasting plasma glucose results between 100 to 125 mg/dL indicate increased risk for diabetes (prediabetes). Fasting plasma glucose results greater than or equal to 126 mg/dL meet the criteria for diagnosis of diabetes. In the absence of unequivocal hyperglycemia, results should be confirmed by repeat testing. In a patient with classic symptoms of hyperglycemia or hyperglycemic crisis, random plasma glucose results greater than or equal to 200 mg/dL meet the criteria for diagnosis of diabetes. Reference: Standards of Medical Care in Diabetes 2016, [place] [employer]. Diabetes Care. 2016.39(Suppl 1). Performed By: #### 2 4321-2 ####[facility] LABIA [id number] [place] [address] [place] Potassium [Moles/Vol] 4.4 mmol/L Normal 3.7-5.1 [facility] Comment on above: Order Comment: Speci men Type: BLOOD SPECIMENOrdering Facility: [facility] Address: [address] [place] [address] Performed By: #### 2 4321-2 ####[facility] LABCLIA [id number] [place] [address] [place] Sodium [Moles/Vol] 139 mmol/L Normal 136-144 [facility] Comment on above: Order Comment: Speci men Type: BLOOD SPECIMENOrdering Facility: [facility] Address: [address] [place] [address] Performed By: #### 2 4321-2 ####[facility] LABCLIA [id number] [place] [address] [place] Urea nitrogen [Mass/Vol] 14 mg/dL Normal 9-24 [facility] Comment on above: Order Comment: Speci men Type: BLOOD SPECIMENOrdering Facility: [facility] Address: [address] [place] [address] Performed By: #### 2 4321-2 ####[facility] LABIA [id number] [place] [address] [place] CBC panel Auto (Bld)on 01-13 Erythrocyte distribution width (RBC) [Ratio] 12.8 % Normal 11.5-15.0 [facility] Comment on above: Order Comment: Speci men Type: BLOOD SPECIMENOrdering Facility: [facility] Address: [address] [place] [address] Performed By: #### 5 8410-2 ####[facility] LABIA [id number] [place] [address] [place] Hematocrit (Bld) [Volume fraction] 43.7 % Normal 39.0-51.0 [facility] Comment on above: Order Comment: Speci men Type: BLOOD SPECIMENOrdering Facility: [facility] Address: [address] [place] [address] Performed By: #### 5 8410-2 ####[facility] LABIA [id number] [place] [address] [place] Hemoglobin (Bld) [Mass/Vol] 14.6 g/dL Normal 13.0-17.0 [facility] Comment on above: Order Comment: Speci men Type: BLOOD SPECIMENOrdering Facility: [facility] Address: [address] [place] [address] Performed By: #### 5 8410-2 ####[facility] LABIA [id number] [place] [address] [place] MCH (RBC) [Entitic mass] 30.4 pg Normal 26.0-34.0 [facility] Comment on above: Order Comment: Speci men Type: BLOOD SPECIMENOrdering Facility: [facility] Address: [address] [place] [address] Performed By: #### 5 8410-2 ####[facility] [id number] [place] [address] [place] MCHC (RBC) [Mass/Vol] 33.4 g/dL Normal 30.5-36.0 [facility] Comment on above: Order Comment: Speci men Type: BLOOD SPECIMENOrdering Facility: [facility] Address: [address] [place] [address] Performed By: #### 5 8410-2 ####[facility] [id number] [place] [address] [place] MCV (RBC) [Entitic vol] 91.0 fL Normal 80.0-100.0 [facility] Comment on above: Order Comment: Speci men Type: BLOOD SPECIMENOrdering Facility: [facility] Address: [address] [place] [address] Performed By: #### 5 8410-2 ####[facility] [id number] [place] [address] [place] Nucleated RBC (Bld) [#/Vol] 10*3/uL Normal <0.01 [facility] Comment on above: Order Comment: Speci men Type: BLOOD SPECIMENOrdering Facility: [facility] Address: [address] [place] [address] Performed By: #### 5 8410-2 ####[facility] LABCLIA [id number] [place] [address] [place] Platelet mean volume (Bld) [Entitic vol] 9.4 fL Normal 9.0-12.7 [facility] Comment on above: Order Comment: Speci men Type: BLOOD SPECIMENOrdering Facility: [facility] Address: [address] [place] [address] Performed By: #### 5 8410-2 ####[facility] LABCLIA [id number] [place] [address] [place] Platelets (Bld) [#/Vol] 180 10*3/uL Normal 150-400 [facility] Comment on above: Order Comment: Speci men Type: BLOOD SPECIMENOrdering Facility: [facility] Address: [address] [place] [address] Performed By: #### 5 8410-2 ####[facility] LABIA [id number] [place] [address] [place] RBC (Bld) [#/Vol] 4.80 10*6/uL Normal 4.20-6.00 [facility] Comment on above: Order Comment: Speci men Type: BLOOD SPECIMENOrdering Facility: [facility] Address: [address] [place] [address] Performed By: #### 5 8410-2 ####[facility] LABCLIA [id number] [place] [address] [place] WBC (Bld) [#/Vol] 17.34 10*3/uL High 3.70-11.00 [facility] Comment on above: Order Comment: Speci men Type: BLOOD SPECIMENOrdering Facility: [facility] Address: [address] [place] [address] Performed By: #### 5 8410-2 ####[facility] LABMAYRA [id number] [place] [id number] [place] Promise 01-14-2024 CNDS HNO ID: [id number] Author: INO MASON MD Service: Orthopaedic Surgery Author Type: Resident Type: Discharge Summary Filed: 01/18/2024 10:17 Note Text: Attestation signed by Ino Mason MD at 01/18/2024 10:17 AM Ino Mason MD Silverware Cleaner, Orthopaedic Surgery Division of Musculoskeletal Oncology ORTHOPEDIC SURGERY DISCHARGE SUMMARY ADMISSION DATE: 01/13/2024 DISCHARGE DATE: 01/14/2024 Attending Physician: Ino Mason MD Reason for Hospitalization: R UKA Admitting Diagnosis: R knee medial compartment OA Discharge Diagnosis: R knee medial compartment OA Additional Diagnoses: ACTIVE PROBLEM LIST Pre-Op Testing Obesity, Class I, Bmi 30-34.9 Coronary Artery Disease With Exertional Angina (Hcc) Incidental Lung Nodule Hypokalemia Dvt of Popliteal Vein (Hcc) Primary Hypertension Mixed Hyperlipidemia Sinus Bradycardia By Electrocardiography Localized Osteoarthritis of Right Knee Surgeries During Hospitalization: Procedure(s) (LRB): ROBOTIC ASSISTED UNI KNEE ARTHROPLASTY (Right) Procedures During Hospitalization: Anesthesia Consultations: Physical Therapy Occupational Therapy Pain Management Case Management Hospital Course: The patient is a 58 year old male who has been followed by Dr. Ino Mason MD in clinic for R knee medial compartment OA. It was determined he would benefit from surgery. The procedure, its risks, benefits, and potential complications were discussed in detail with the patient prior to surgery. Understanding of all topics was conveyed by the patient, and consent was given for surgery. The patient was electively admitted to the [facility] on 01/13/2024. Surgery was scheduled and on 01/13/2024 he underwent a Procedure(s) (LRB): ROBOTIC ASSISTED UNI KNEE ARTHROPLASTY (Right). The procedure was tolerated well and he was sent to the post operative recovery room in stable condition, where he also did well. He was subsequently sent to his hospital room for postoperative management. Once on the floor his postoperative course was unremarkable and he did well. His diet was advanced which he tolerated. His pain was well controlled and was eventually transitioned to oral medication alone prior to discharge. He worked with Physical and Occupational Therapy who recommended he be discharged. His dressing remained clean dry and intact throughout his stay. He remained afebrile with stable vital signs throughout his stay. He was stable for discharge. Complete and comprehensive discharge instructions were provided to the patient as well as necessary prescriptions. The patient had no further questions and was advised to call with any questions, concerns, or problems. Patient was hemodynamically stable postoperatively and postoperative labs were reviewed. Discharge Antibiotics: Prior to surgery the patient was treated with antibiotics and continued with antibiotics 24 hours postoperatively Transfers: PACU and then to the hospital surgical floor when PACU criteria was met. DVT Prophylaxis: See discharge medications section Pain Control: Oral narcotics Complications: Continued throughout the hospital course without complications. Patient Condition at Discharge: Stable Discharge Disposition: Home Other Information: N/A Discharge Activity/Weight Bearing Status: WBAT operative extremity The patient was instructed to follow-up as per preoperative plan. Future Appointments Date Time Provider Department Center 02/03/2024 9:00 AM Kaushik Thurman RN [facility] Discharge Medications: Medication List START taking these medications acetaminophen 500 mg tablet Commonly known as: TYLENOL Take 2 tablets by mouth every 8 hours. apixaban 2.5 mg tab(s) Commonly known as: ELIQUIS Take 1 tablet by mouth two times a day for 21 days. bisacodyl EC 5 mg EC tablet Commonly known as: DULCOLAX Take 2 tablets by mouth once daily. Patient should start on January 15, 2024. Start taking on: January 15, 2024 docusate sodium 100 mg capsule Commonly known as: COLACE Take 1 capsule by mouth two times a day. oxyCODONE IR 5 mg immediate release tablet Commonly known as: ROXICODONE Take 1-2 tablets by mouth every 6 hours as needed for up to 7 days. senna 8.6 mg Tab Commonly known as: SENOKOT Take 2 tablets by mouth daily at bedtime. CONTINUE taking these medications amLODIPine 2.5 mg tablet Commonly known as: NORVASC TAKE 1 TABLET BY MOUTH ONCE DAILY aspirin, enteric coated 81 mg EC tablet Commonly known as: ASPIRIN, ENTERIC COATED atorvastatin 80 mg tablet Commonly known as: LIPITOR Take 1 tablet by mouth daily at bedtime. ezetimibe 10 mg tablet Commonly known as: ZETIA Take 1 tablet by mouth once daily. metoprolol succi (more content not included)... [facility] PT EDon 01-14-2024 PT ED HNO ID: [id number] Author: DOREEN DURAN RPh Service: Pharmacy Author Type: Pharmacist Type: Patient Education Filed: 01/14/2024 14:04 Note Text: PHARMACY ANTICOAGULATION EDUCATION Patient Name: Silvano Menendez Account #: Data Unavailable Admission Date: 01/13/2024 8:32 AM Date of Contact: January 14, 2024 Time of Contact: 2:04 PM Patient anticipated to be discharged on Apixaban as oral anticoagulation therapy. Anticoagulant history: Patient is new to anticoagulation therapy Indication for oral anticoagulation: venous thromboembolism (VTE) prophylaxis Anticoagulant education status: Patient received full anticoagulation education Reason for taking anticoagulation How this anticoagulant works When to take medication and what to do if a dose is missed Drug interactions (Rx, OTC, herbal) and importance of notifying the doctor with any changes Do not take or discontinue any medication or over the counter medication except on the advice of the physician or pharmacist Signs/symptoms of bleeding and what to do if they occur Precautionary measures to decrease trauma/bleeding Signs/symptoms of thrombosis and what to do if they occur Need to limit or avoid alcohol consumption Carrying identification Importance of notifying healthcare provider when hospitalizations occur and when another healthcare provider has asked them to stop/hold anticoagulation medication before any procedure Importance of notifying all healthcare providers they are taking an anticoagulant Use of control measures, if applicable The importance of taking anticoagulation medication as instructed and the potential ramifications of non-compliance were explained to the patient The patient was provided supplemental material which includes the following topics: compliance Issues, follow-up with physician, follow-up monitoring, potential adverse drug reactions, and interactions. Doreen Duran [facility] THERAPY NTon 01-14-2024 THERAPY NT HNO ID: [id number] Author: ROSA TINOCO, PT, DPT Service: Physical Therapy Author Type: Physical Therapist Type: Therapy (PT/OT/Speech/Resp) Filed: 01/14/2024 11:47 Note Text: Physical Therapy Treatment Summary SERVICE DATE: 01/14/2024 SERVICE TIME: 1050 to 1135 ROOM: [place] [address] PT 6 Clicks Score: 23 Total Joint Replacement Discharge Readiness: Cleared from Physical Therapy DISCHARGE RECOMMENDATIONS Home PT Recommended Discharge Equipment: No equipment needs anticipated ASSESSMENT Response to Therapy Interventions: Good Participation in Activities Pt was able to ambulate to the gym and complete car transfer. BP in sitting prior to ambulation was 119/50. BP at end of session was 125/60. Pt had no c/o of dizziness or lightheadedness. 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, no falls, retired, +drives, enjoys riding his bike SUBJECTIVE Pt agreeable to PT THERAPY DIAGNOSIS Reduced mobility-other TREATMENT INTERVENTIONS Gait Training (25346), Therapeutic Activity (81726), Therapeutic Exercise (27929) Timed Code Treatment (minutes): 45 Skilled Treatment Time (minutes): 45 TRAINING AND EDUCATION PROVIDED Advanced Balance Activities, Anatomy and Impact on Deficits, Assistive Device Use, Bed Mobility, Benefits of In-Hospital Mobility, Discharge Planning, Disease Specific Education, Edema Management, Energy Conservation, Equipment, Exercise Program, Expected Functional Level, Falls Prevention, Gait Pattern, Reduction of Deviations, Modalities, Pain Neuroscience, Patient Exercise/Therapy Program Support Needs, Positioning, Precautions/Restriction s, Pre-gait Activities, Role of Physical Therapy, Sitting Balance, Standing Balance, Transfers, Treatment Protocol, Car Transfers THERAPEUTIC SKILLS USED Activity Dosing, Assessment of Tolerance Including Vitals Response to Activity, Cues for Sequencing/Proper Technique for Activity, Cuing Tactile, Cuing Visual, Cuing Verbal, Facilitation of Joint Range of Motion, Management of Critical Lines, Tubes and/or Drains, Movement Facilitation, Muscle Activation Facilitation, Task Analysis Learning, Teach-Back for Education FUNCTIONAL STATUS Bed Mobility Supine To Sit: Verbal Cues Only Sit to Supine: Verbal Cues Only Scooting: Stand By Assistance Transfers Sit To Stand: Stand By Assistance Stand To Sit: Stand By Assistance Bed to Chair Gait Stand By Assistance Gait Device: Wheeled Walker General Deviations/Observations : Hien decreased, Non-functional gait speed, Step length decreased Gait Distance (feet): 150ft x2 Gait Deviations Right Lower Extremity: Weight bearing decreased, Step length decreased Stairs GOALS Patient will demonstrate progress with functional mobility to allow safe discharge to home with available support and/or physical assistance. Rehab Potential: Excellent Progress Toward Goals: Progressing as expected PLAN PT Frequency: Twice Daily Treatment Interventions: Education, Self Care / Home Management, Energy Conservation Training, Joint Mobility, Strengthening, Functional Mobility Training, Balance Training, Neuromuscular Re-education, Modalities, Edema Management, Pain Management Plan for Next Visit: Gait Training SIGNATURE: ROGE Li PATIENT NAME: Silvano Menendez DATE: January 14, 2024 TIME: 11:44 AM Supervising therapist was present and guided the care of the patient for the entire session on this date. All documentation was reviewed and agreed upon. Rosa Tinoco, PT, DPT [facility] THERAPY NT HNO ID: [id number] Author: JULIUS IVY OTR/Leoncio Service: Occupational Therapy Author Type: Occupational Therapist Type: Therapy (PT/OT/Speech/Resp) Filed: 01/14/2024 08:54 Note Text: OCCUPATIONAL THERAPY MISSED VISIT SERVICE DATE: 01/14/2024 SERVICE TIME: 853 ROOM: [place] [address] Patient not seen due to Clinical Appropriateness. No skilled needs. SIGNATURE: KAYLYNN Arguelles/Leoncio PATIENT NAME: Silvano Menendez DATE: January 14, 2024 TIME: 8:54 AM [facility] ANES PRE-OPon 01-13-2024 ANES PRE-OP HNO ID: [id number] Author: JENY ROBERTS MD Service: ? Author Type: Anesthesiologist Type: Anesthesia Preprocedure Evaluation Filed: 01/13/2024 11:24 Note Text: ANESTHESIOLOGY DAY OF SURGERY NOTE : 1965 Procedure Information Date/Time: 01/13/24 1035 Procedure: ROBOTIC ASSISTED UNI KNEE ARTHROPLASTY (Right: Knee) Location: [address] [facility] Surgeons: Ino Mason MD Estimated body mass index is 31.97 kg/m? as calculated from the following: Height as of 01/05/24: 175.3 cm (5' 9 ). Weight as of 01/05/24: 98.2 kg (216 lb 7.9 oz). Most recent hematocrit and potassium results: Hematocrit 48.5 01/05/2024 Potassium 4.6 01/05/2024 Relevant Problems No relevant active problems I - PHYSICAL EVALUATION AIRWAY Patient intubated: No. Tracheostomy tube not present Mallampati: III. TM distance: >3 FB. Neck ROM: full ROM without neurological symptoms. Mouth opening: adequate. Short neck: no. Thick neck: no DENTAL Dental findings: teeth intact. II - ANESTHESIA PLAN ASA Score: 3 Anesthetic Plan: spinal NPO Status: adequate Anesthetic plan additional comments: Discussed the possibility of General Anesthesia if the spinal was not successful or inadequate for optimal surgical conditions. Beta Sharon Monitoring Plan Monitoring plan: standard ASA. Post Procedure Analgesic Plan Postoperative analgesic plan: multimodal analgesia and per surgical service. Informed Consent Anesthetic risks, benefits, alternatives, personnel and consent discussed: yes. Patient / Responsible Democrat agrees to proceed: yes Patient / Surrogate agrees to blood products: Yes Potential Anesthesia issues that may suggest increased risk of complications or contraindication to planned procedure: none. Vitals Value Taken Time BP 130/77 01/13/24 1121 Pulse 60 01/13/24 1123 Resp 16 01/13/24 0900 Temp 36.7 ?C (98.1 ?F) 01/13/24 0900 SpO2 95 % 01/13/24 1123 Vitals shown include unfiled device data. Facility-Administered Medications as of 01/13/2024 Medication Dose Route Frequency lidocaine (PF) 10 mg/mL (1 %) 1-2 mg injection (XYLOCAINE) 0.1-0.2 mL INTRADERMAL PRN Or lidocaine 1% 0.25 mL subcutaneous j-tip syringe (XYLOCAINE) 0.25 mL SUBCUTANEOUS PRN lactated ringers iv infusion 5-30 mL/hr INTRAVENOUS CONTINUOUS NaCl 0.9% iv flush bag 20 mL INTRAVENOUS PRN ceFAZolin iv piggyback 2 g in D5W (iso-osmotic) 100 mL (ANCEF) 2 g INTRAVENOUS Pre-Op Once [COMPLETED] celecoxib 200 mg cap(s) (CeleBREX) 200 mg ORAL ONCE [COMPLETED] oxyCODONE ER 10 mg tab(s) (OxyCONTIN) 10 mg ORAL ONCE scopolamine 1 mg over 3 days 1 Patch (TRANSDERM-SCOP) 1 Patch TRANSDERMAL q 72 HR And scopolamine - VERIFY patch OTHER q 8 H And scopolamine - REMOVE PATCH OTHER q 72 HR [COMPLETED] acetaminophen 1,000 mg tab(s) (TYLENOL) 1,000 mg ORAL ONCE [COMPLETED] midazolam (PF) injection (VERSED) INTRAVENOUS PRN Outpatient Medications as of 01/13/2024 Medication Sig acetaminophen/diphenhyd ramine (TYLENOL PM ORAL) Take by mouth. atorvastatin (LIPITOR) 80 mg tablet Take 1 tablet by mouth daily at bedtime. metoprolol succinate ER (TOPROL XL) 100 mg Take 1 tablet by mouth once daily. PM ezetimibe (ZETIA) 10 mg tablet Take 1 tablet by mouth once daily. amLODIPine (NORVASC) 2.5 mg tablet TAKE 1 TABLET BY MOUTH ONCE DAILY aspirin, enteric coated (ASPIRIN, ENTERIC COATED) 81 mg EC tablet Take 81 mg by mouth once daily. MULTIVITAMIN ORAL Take by mouth. I have interviewed and examined the patient. I have reviewed the medical record and/or the pre-anesthesia evaluation, pertinent labs, and test results. This contains updated information obtained within 48 hours of Surgery/Procedure. SIGNATURE: Jeny Roberts MD PATIENT NAME: Silvano Menendez DATE: January 13, 2024 TIME: 11:24 AM CSN: [id number] [facility] BRIEF OP NOTon 01-13-2024 BRIEF OP NOT HNO ID: [id number] Author: NATHANIEL LUA MD Service: Orthopaedic Surgery Author Type: Resident Type: Brief Op Note Filed: 01/13/2024 15:45 Note Text: BRIEF OP NOTE LOG ID: [id number] Surgery/Procedure Date: 01/13/2024 Incision/Procedure Start Time: 12:59 PM Incision Close/Procedure End Time: 3:18 PM Surgeon(s)/Proceduralis t(s) and Place Change Roof Bolter(s): Surgeon(s) and Role: * Ino Mason MD - Primary * Nathaniel Lua MD - Resident - Assisting Procedure(s): Procedure(s) (LRB): ROBOTIC ASSISTED UNI KNEE ARTHROPLASTY (Right) Anesthesia: Spinal Estimated Blood Loss: 50 mls Specimens: ID Type Source Tests Collected by Time Destination A : Uni Knee bone chips Tissue Knee, Right, Arthroplasty SURGICAL PATHOLOGY Ino Mason MD 01/13/2024 2:04 PM Complications: None Pre-Op/Pre-Procedure Diagnosis: Right knee medial compartment OA Post-Op/Post-Procedure Diagnosis: Same Post-op Plan: Admit to Ortho under Dr. Mason Abx: Ancef periop VTE Prophylaxis: ASA 81 mg BID x28d Weightbearing: WBAT RLE PT/OT consult Anticipate dc home POD1 Plan of care discussed with: Provider, RN, Patient. SIGNATURE: Nathaniel Lua MD PATIENT NAME: Silvano Menendez DATE: January 13, 2024 TIME: 3:40 PM PAGER/CONTACT #: [phone] [facility] NURSING PROGon 01-13-2024 NURSING PROG HNO ID: [id number] Author: SATHISH CLARKE RN Service: ? Author Type: Registered Nurse Type: Nursing Progress Note Filed: 01/13/2024 18:21 Note Text: Transfer Note: PATIENT NAME: Silvano Menendez Patient Location: [place] [address] Room: [place] [address] Patient transferred from PACU in stable condition, awake alert and oriented. Actions taken: Patient oriented to the room. Communication, patient's rights, and safety education given. Call light functioning by hand. Continue monitoring the patient. Family at bedside. SATHISH CLARKE RN. [facility] OPERATIVE NOon 01-13-2024 OPERATIVE NO HNO ID: [id number] Author: INO MASON MD Service: Orthopaedic Surgery Author Type: Physician Type: Operative Report Filed: 01/14/2024 09:45 Note Text: ORTHOPAEDIC SURGERY OPERATIVE REPORT Patient Name: Silvano Menendez Age: [age] year old Date of Surgery: 01/13/2024 Surgeon(s) and Role: * Ino Masno MD - Primary * Nathaniel Lua MD - Resident - Assisting Procedure(s) (LRB): ROBOTIC ASSISTED UNI KNEE ARTHROPLASTY (Right) - CPT 98357 and 35355 Anesthesia: Spinal Preoperative diagnosis: Medial compartment osteoarthritis, right knee Additional medical comorbidities include: ACTIVE PROBLEM LIST Pre-Op Testing Obesity, Class I, Bmi 30-34.9 Coronary Artery Disease With Exertional Angina (Hcc) Incidental Lung Nodule Hypokalemia Dvt of Popliteal Vein (Hcc) Primary Hypertension Mixed Hyperlipidemia Sinus Bradycardia By Electrocardiography Localized Osteoarthritis of Right Knee Postoperative diagnosis: Same BMI: Estimated body mass index is 31.97 kg/m? as calculated from the following: Height as of 01/05/24: 175.3 cm (5' 9 ). Weight as of 01/05/24: 98.2 kg (216 lb 7.9 oz). Operative findings: Evidence of severe medial compartment osteoarthritis of the right knee was confirmed. Navigated robotic assisted bony resection was performed and the knee was reconstructed with a standard unicompartmental implant and excellent motion and stability. The wound was closed in a layered fashion. There were no immediate complications. Operative indications: The patient is a 58 year old male with progressively disabling osteoarthritis of the right knee. The patient has tried nonsurgical management inclusive of NSAIDs, activity modification, corticosteroid injection with no longer adequate relief. The patient has been indicated for a right medial unicompartmental knee arthroplasty. I have discussed the risks/benefits/alternat kaushal with the patient at length. Specific risks of surgery discussed included: Bleeding, infection, neurovascular injury, DVT/PE, wound healing complications, incomplete pain relief, extensor mechanism maltracking, stiffness, instability, aseptic loosening, intraoperative fracture, postoperative fracture, late hematogenous infection, potential need for future revision surgery, cardiopulmonary failure, stroke and . Benefits of the surgery discussed included improvement in pain level and function. Alternativesof the surgery discussed included continued nonsurgical management in the form activity modification, oral non-narcotic pain medications, bracing and intra-articular injections. The patient understood this discussion and consented to proceed with total knee arthroplasty as discussed. Given the patient's unicompartmental deformity I recommended navigated, robotic-assisted surgery to ensure appropriate alignment of the implants and ligament balancing, given the limitations of standard cutting guides and ligament balancing techniques. Description of Procedure: The patient was identified in the preoperative holding area. The correct operative site was marked and the consent was confirmed. A multidisciplinary huddle was completed to ensure preparedness for the upcoming procedure. The patient was brought to the operating room by anesthesia staff. Spinal anesthetic was administered. The patient was positioned and secured to the operative table. All dependent bony prominences were carefully padded. The skin was formally prepped with ChloraPrep alcohol-based cleanser. The patient was draped in the standard sterile fashion. A multidisciplinary timeout was called to confirm the patient's name, procedure to be performed, correct operative site and laterality, all necessary equipment in the room, proper radiographic images, delivery of preoperative medications. The patient received 2 g of IV Ancef and 1 g of IV tranexamic acid. All members of the operating room staff were in agreement with this timeout. The procedure began by making a sharp skin incision on the right knee from the tibial tubercle to 3 cm proximal to the superior pole of patella. Sharp dissection was carried down through the skin and subcutaneous tissue to the level of the extensor mechanism. The extensor mechanism was defined and a medial parapatellar arthrotomy was performed. The appearance of the synovial fluid was clear yellow. The infrapatellar fat pad was removed sharply with a 10 blade. The patella was subluxated and the opposite compartment and cruciate ligaments were confirmed intact. Navigation arrays for the T[employer] robot were placed percutaneously with 2 drill pins into the tibia on the anteromedial surface, 2 drill pins into the femur on the anteromedial surface, and one surgical checkpoint each into the femur and tibia. No osteophytes were removed at this time. The center of the femoral head rotation was registered through motion of the hip. The navig (more content not included)... [facility] SURGICAL PATHOLOGYon 24- 024 CASE REPORT [facility] Comment on above: Order Comment: Speci men Type: TISSUE SPECIMENOrdering Facility: [facility] Address: [address] [place] [address] Result Comment: Surg [facility] Pathology Report Case: [id number] Authorizing Provider: Ino Mason MD Collected: 01/13/2024 02:04 PM Ordering Location: Admitting Received: 01/13/2024 03:40 PM Pathologist: Christina Cason MD Specimen: Knee, Right, Arthroplasty, Uni Knee bone chips Performed By: #### S ####[facility] LABCLIA [id number] [address] STATES OF [facility] CLINICAL HISTORY [facility] Comment on above: Order Comment: Speci men Type: TISSUE SPECIMENOrdering Facility: [facility] Address: [address] [place] [address] Result Comment: Pre- op diagnosis: Primary osteoarthritis of right knee [M17.11] Performed By: #### S ####[facility] LABCLIA [id number] [address] FINAL DIAGNOSIS [facility] Comment on above: Order Comment: Speci men Type: TISSUE SPECIMENOrdering Facility: [facility] Address: [address] [place] [address] Result Comment: A. B one, right knee, knee arthroplasty: - Degenerative joint disease. Performed By: #### S ####[facility] LABCLIA [id number] [address] OF [facility] FINAL PERFORMING LAB Normal [facility] Comment on above: Order Comment: Speci men Type: TISSUE SPECIMENOrdering Facility: [facility] Address: [address] [place] [address] Result Comment: Diag nostic interpretation performed at [facility], [address] [place] [address] CLIA# [id number] Recreation Instructor: Amarjit Panda M.D. Performed By: #### S ####[facility] LABCLIA [id number] [address] STATES OF [place] GROSS DESCRIPTION Normal [facility] Comment on above: Order Comment: Speci men Type: TISSUE SPECIMENOrdering Facility: [facility] Address: [address] [place] [address] Result Comment: Rosenda bhatt, Right, Arthroplasty Received fresh labeled Uni knee bone chips are multiple segments of bone and cartilaginous tissue aggregating to 6 x 5.5 x 0.5 cm. The segment is identified as the tibial plateau demonstrating areas of eburnation and roughened cartilage. Other segments are identified as femoral condyles, also demonstrating areas of eburnation and roughened cartilage. Soft tissue is not present. Hot Press Operator sections are submitted in 2 cassettes to include bone after decalcification in formic acid (A1 tibial plateau; A2 femoral condyle). Gross examination performed at [facility], [address] [place] [address] CLIA#[id number] RSA January 13, 2024 3:59 PM Performed By: #### S ####[facility] LABIA [id number] [place] [address] [place] THERAPY NTon 01-13-2024 THERAPY NT HNO ID: [id number] Author: ROSA TINOCO, PT, DPT Service: Physical Therapy Author Type: Physical Therapist Type: Therapy (PT/OT/Speech/Resp) Filed: 01/13/2024 17:26 Note Text: Physical Therapy Evaluation Summary SERVICE DATE: 01/13/2024 SERVICE TIME: 1647 to 1720 ROOM: Main - Periop OR (H020-09) PT 6 Clicks Score: 19 Total Joint Replacement Discharge Readiness: Pending Physical Therapy Clearance DISCHARGE RECOMMENDATIONS Home PT Recommended Discharge Equipment: No equipment needs anticipated ASSESSMENT Response to Therapy Interventions: Good Participation in Activities, Improved Tolerance for Activity Pt's quad was still impaired from the spinal but he was able to ambulate a few steps along EOB and had VSS throughout the session PRECAUTIONS Total Knee Replacement, Weight Bearing Restrictions Right Lower Extremity Weight Bearing Status: WBAT CURRENT HOSPITAL COURSE s/p uni knee replacement Relevant Past Medical History: CAD, CABG x 3 HOME LIVING Patient Lives With: Spouse Assistance Available: 24-Hour Entry To Home: No Stairs Number Of Stairs To Bed/Bath: 0 Tub/Shower Type: TAMI Laundry: pt spouse can complete Equipment Owned: Walker- Wheeled PRIOR FUNCTIONAL LEVEL Within Functional Limits 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 with mobility, no falls, retired, +drives, enjoys riding his bike SUBJECTIVE Pt agreeable to PT THERAPY DIAGNOSIS Reduced mobility-other TREATMENT INTERVENTIONS Evaluation, Therapeutic Activity (72137) Timed Code Treatment (minutes): 18 Skilled Treatment Time (minutes): 33 TRAINING AND EDUCATION PROVIDED Advanced Balance Activities, Anatomy and Impact on Deficits, Assistive Device Use, Bed Mobility, Benefits of In-Hospital Mobility, Discharge Planning, Disease Specific Education, Edema Management, Energy Conservation, Equipment, Exercise Program, Expected Functional Level, Falls Prevention, Gait Pattern, Reduction of Deviations, Handout Issued, Home Safety, Home Set-up/Modifications, Modalities, Pain Neuroscience, Patient Exercise/Therapy Program Support Needs, Positioning, Precautions/Restriction s, Pre-gait Activities, Role of Physical Therapy, Sitting Balance, Standing Balance, Transfers, Treatment Protocol THERAPEUTIC SKILLS USED Activity Dosing, Assessment of Tolerance Including Vitals Response to Activity, Cues for Sequencing/Proper Technique for Activity, Cuing Tactile, Cuing Visual, Cuing Verbal, Facilitation of Joint Range of Motion, Management of Critical Lines, Tubes and/or Drains, Movement Facilitation, Muscle Activation Facilitation, Postural Alignment Correction, Task Analysis Learning, Teach-Back for Education, Repetitive Task Learning FUNCTIONAL STATUS Bed Mobility Supine To Sit: Verbal Cues Only Sit to Supine: Verbal Cues Only Scooting: Contact Guard Assistance Transfers Sit To Stand: Contact Guard Assistance Stand To Sit: Contact Guard Assistance Bed to Chair Gait Contact Guard Assistance Gait Device: Wheeled Walker General Deviations/Observations : Hien decreased, Non-functional gait speed, UE weight bearing on assistive device excessive Gait Distance (feet): 5 ft along EOB Gait Deviations Right Lower Extremity: Weight bearing decreased, Step length decreased Stairs GOALS Patient will demonstrate progress with functional mobility to allow safe discharge to home with available support and/or physical assistance. Rehab Potential: Excellent PLAN PT Frequency: Twice Daily Treatment Interventions: Education, Self Care / Home Management, Energy Conservation Training, Joint Mobility, Strengthening, Functional Mobility Training, Balance Training, Neuromuscular Re-education, Modalities, Edema Management, Pain Management Plan for Next Visit: Gait Training, Standing Balance, Standing Tolerance SIGNATURE: Rosa Tinoco, PT, DPT PATIENT NAME: Silvano Menendez DATE: January 13, 2024 TIME: 5:26 PM [facility] CBC W Auto Differential pane l (Bld)on 01-05-2024 Basophils (Bld) [#/Vol] 0.08 10*3/uL Normal <0.11 [facility] Comment on above: Order Comment: Speci men Type: BLOOD SPECIMENOrdering Facility: [facility] Address: [address] [place] [address] Performed By: #### 5 7021-8 ####[facility] LABCLIA [id number] [place] [address] [place] Basophils/100 WBC (Bld) 0.8 % [facility] Comment on above: Order Comment: Speci men Type: BLOOD SPECIMENOrdering Facility: [facility] Address: [address] [place] [address] Performed By: #### 5 7021-8 ####[facility] LABCLIA [id number] [place] [address] [place] Differential cell count method Nom (Bld) Auto [facility] Comment on above: Order Comment: Speci men Type: BLOOD SPECIMENOrdering Facility: [facility] Address: [address] [place] [address] Performed By: #### 5 7021-8 ####[facility] LABCLIA [id number] [place] [address] [place] Eosinophils (Bld) [#/Vol] 0.08 10*3/uL Normal <0.46 [facility] Comment on above: Order Comment: Speci men Type: BLOOD SPECIMENOrdering Facility: [facility] Address: [address] [place] [address] Performed By: #### 5 7021-8 ####[facility] LABCLIA [id number] [place] [address] [place] Eosinophils/100 WBC (Bld) 0.8 % [facility] Comment on above: Order Comment: Speci men Type: BLOOD SPECIMENOrdering Facility: [facility] Address: [address] [place] [address] Performed By: #### 5 7021-8 ####[facility] LABCLIA [id number] [place] [address] [place] Erythrocyte distribution width (RBC) [Ratio] 13.2 % Normal 11.5-15.0 [facility] Comment on above: Order Comment: Speci men Type: BLOOD SPECIMENOrdering Facility: [facility] Address: [address] [place] [address] Performed By: #### 5 7021-8 ####[facility] LABIA [id number] [place] [address] [place] Hematocrit (Bld) [Volume fraction] 48.5 % Normal 39.0-51.0 [facility] Comment on above: Order Comment: Speci men Type: BLOOD SPECIMENOrdering Facility: [facility] Address: [address] [place] [address] Performed By: #### 5 7021-8 ####[facility] LABIA [id number] [place] [address] [place] Hemoglobin (Bld) [Mass/Vol] 16.1 g/dL Normal 13.0-17.0 [facility] Comment on above: Order Comment: Speci men Type: BLOOD SPECIMENOrdering Facility: [facility] Address: [address] [place] [address] Performed By: #### 5 7021-8 ####[facility] LABIA [id number] [place] [address] [place] Immature granulocytes (Bld) [#/Vol] 0.17 10*3/uL High <0.10 [facility] Comment on above: Order Comment: Speci men Type: BLOOD SPECIMENOrdering Facility: [facility] Address: [address] [place] [address] Performed By: #### 5 7021-8 ####[facility] LABCLIA [id number] [place] [address] [place] Immature granulocytes/100 WBC (Bld) 1.6 % [facility] Comment on above: Order Comment: Speci men Type: BLOOD SPECIMENOrdering Facility: [facility] Address: [address] [place] [address] Performed By: #### 5 7021-8 ####[facility] LABCLIA [id number] [place] [address] [place] Lymphocytes (Bld) [#/Vol] 3.76 10*3/uL Normal 1.00-4.00 [facility] Comment on above: Order Comment: Speci men Type: BLOOD SPECIMENOrdering Facility: [facility] Address: [address] [place] [address] Performed By: #### 5 7021-8 ####[facility] LABCLIA [id number] [place] [address] [place] Lymphocytes/100 WBC (Bld) 35.9 % [facility] Comment on above: Order Comment: Speci men Type: BLOOD SPECIMENOrdering Facility: [facility] Address: [address] [place] [address] Performed By: #### 5 7021-8 ####[facility] LABCLIA [id number] [place] [address] [place] MCH (RBC) [Entitic mass] 30.1 pg Normal 26.0-34.0 [facility] Comment on above: Order Comment: Speci men Type: BLOOD SPECIMENOrdering Facility: [facility] Address: [address] [place] [address] Performed By: #### 5 7021-8 ####[facility] LABCLIA [id number] [place] [address] [place] MCHC (RBC) [Mass/Vol] 33.2 g/dL Normal 30.5-36.0 [facility] Comment on above: Order Comment: Speci men Type: BLOOD SPECIMENOrdering Facility: [facility] Address: [address] [place] [address] Performed By: #### 5 7021-8 ####[facility] LABCLIA [id number] [place] [address] [place] MCV (RBC) [Entitic vol] 90.8 fL Normal 80.0-100.0 [facility] Comment on above: Order Comment: Speci men Type: BLOOD SPECIMENOrdering Facility: [facility] Address: [address] [place] [address] Performed By: #### 5 7021-8 ####[facility] LABCLIA [id number] [place] [address] [place] Monocytes (Bld) [#/Vol] 0.91 10*3/uL High <0.87 [facility] Comment on above: Order Comment: Speci men Type: BLOOD SPECIMENOrdering Facility: [facility] Address: [address] [place] [address] Performed By: #### 5 7021-8 ####[facility] LABCLIA [id number] [place] [address] [place] Monocytes/100 WBC (Bld) 8.7 % [facility] Comment on above: Order Comment: Speci men Type: BLOOD SPECIMENOrdering Facility: [facility] Address: [address] [place] [address] Performed By: #### 5 7021-8 ####[facility] LABCLIA [id number] [place] [address] [place] Neutrophils (Bld) [#/Vol] 5.47 10*3/uL Normal 1.45-7.50 [facility] Comment on above: Order Comment: Speci men Type: BLOOD SPECIMENOrdering Facility: [facility] Address: [address] [place] [address] Performed By: #### 5 7021-8 ####[facility] LABCLIA [id number] [place] [address] [place] Neutrophils/100 WBC (Bld) 52.2 % [facility] Comment on above: Order Comment: Speci men Type: BLOOD SPECIMENOrdering Facility: [facility] Address: [address] [place] [address] Performed By: #### 5 7021-8 ####[facility] LABIA [id number] [place] [address] [place] Nucleated RBC (Bld) [#/Vol] 10*3/uL Normal <0.01 [facility] Comment on above: Order Comment: Speci men Type: BLOOD SPECIMENOrdering Facility: [facility] Address: [address] [place] [address] Performed By: #### 5 7021-8 ####[facility] LABIA [id number] [place] [address] [place] Nucleated RBC/100 WBC (Bld) [Ratio] 0.0 /100 WBC [facility] Comment on above: Order Comment: Speci men Type: BLOOD SPECIMENOrdering Facility: [facility] Address: [address] [place] [address] Performed By: #### 5 7021-8 ####[facility] LABIA [id number] [place] [address] [place] Platelet mean volume (Bld) [Entitic vol] 9.2 fL Normal 9.0-12.7 [facility] Comment on above: Order Comment: Speci men Type: BLOOD SPECIMENOrdering Facility: [facility] Address: [address] [place] [address] Performed By: #### 5 7021-8 ####[facility] LABCLIA [id number] [place] [address] [place] Platelets (Bld) [#/Vol] 216 10*3/uL Normal 150-400 [facility] Comment on above: Order Comment: Speci men Type: BLOOD SPECIMENOrdering Facility: [facility] Address: [address] [place] [address] Performed By: #### 5 7021-8 ####[facility] LABIA [id number] [place] [address] [place] RBC (Bld) [#/Vol] 5.34 10*6/uL Normal 4.20-6.00 [facility] Comment on above: Order Comment: Speci men Type: BLOOD SPECIMENOrdering Facility: [facility] Address: [address] [place] [address] Performed By: #### 5 7021-8 ####[facility] LABIA [id number] [place] [address] [place] WBC (Bld) [#/Vol] 10.47 10*3/uL Normal 3.70-11.00 [facility] Comment on above: Order Comment: Speci men Type: BLOOD SPECIMENOrdering Facility: [facility] Address: [address] [place] [address] Performed By: #### 5 7021-8 ####[facility] LABIA [id number] [place] [address] [place] CNOVon 01-05-2024 CNOV Office Visit (ORTHMN ) SILVANO MENENDEZ ([id number]) 1965 M Date Time Provider Department 01/05/24 11:00 AM INO MASON During your visit today, we recorded the following information about you: Weight Height 97.5 kg 1.753 m Ino Mason MD 01/07/2024 3:20 PM Signed Established Patient Ortho Knee Consult Note ASSESSMENT AND PLAN Impression: Right Knee Severe Degenerative Osteoarthritis, Primary Silvano Menendez has radiograph and physical exam evidence of degenerative joint disease and wishes to pursue surgery. This patient appears to have sufficient symptoms to warrant surgical intervention and is an appropriate candidate for right Unicompartmental Knee Arthroplasty as evidenced by six months of unsuccessful non-operative treatment as outlined in the HPI below and progressive symptoms. Progressive Symptoms Include: Pain impacting sleep or causing fatigue Pain impacting work Pain worsened by weight bearing Pain limiting ability to stay fit and healthy. This patient has the following risk factors: Previous knee laceration with transverse medial scar I have discussed the risks/benefits/alternat kaushal of total knee arthroplasty with the patient at length. Specific risks of surgery discussed included: Bleeding, infection, neurovascular injury, DVT/PE, wound healing complications, incomplete pain relief, extensor mechanism maltracking, stiffness, instability, aseptic loosening, intraoperative fracture, postoperative fracture, late hematogenous infection, potential need for future revision surgery, cardiopulmonary failure, stroke and . Benefits of the surgery discussed included improvement in pain level and function. Alternatives of the surgery discussed included continued nonsurgical management in the form activity/lifestyle modifications, oral non-narcotic pain medications, bracing and intra-articular injections. The perioperative management plan will include: 1. Blood management: IV tranexamic acid, 1 g prior to incision and 1 g at closing 2. DVT prophylaxis: Early mobilization, mechanical compression devices, chemoprophylaxis with aspirin 81 mg PO bid x 4 weeks 3. Antibiotics: Will treat with topical/nasal mupirocin and chlorhexidine wipes; Ancef 2g IV q8 hours x 23 hours 4. Disposition: Anticipate discharge to home with home health 5. Special considerations: Cardiology clearance provided on 12/29/23 (encounter 10/02/2023 Dr. Nato Antonio) Christina-operative blood management and transfusion issues were discussed, and options clearly outlined. The patient has consented to the use of the banked allogenic blood if medically necessary. The patient has elected to schedule surgery at this time . Shared decision making occurred while obtaining informed consent. The patient will be scheduled for a pre-operative education class at which time they will have their nasal swab completed and will be given CHG cloths along with the verbal and written instructions for their use. Patient has been instructed and has been scheduled or will call to schedule attendence in one of the total joint perioperative classes offered prior to proceeding with TKA. The patient has been ordered: No orders placed today. CONSULTS: IMPACT/PACE Consult for preoperative clearance. ACTIVE PROBLEM LIST Pre-Op Testing Obesity, Class I, Bmi 30-34.9 Coronary Artery Disease With Exertional Angina (Hcc) Incidental Lung Nodule Hypokalemia Dvt of Popliteal Vein (Hcc) Primary Hypertension Mixed Hyperlipidemia Sinus Bradycardia By Electrocardiography SUBJECTIVE CHIEF COMPLAINT: Knee Pain HPI: Silvano Menendez is a 58 year old patient here for evaluation and management of right knee pain. Patient has had progressive problems with the knee(s) most of the day over the past 9 month(s) interfering with activities which include exercise, participating in family activities, rising from a sitting position, getting in and out of a car, and climbing stairs. The problem began limiting activities 7-12 months ago. Currently the pain in the joint is rated at 5 out of 10 with minimal activity. The pain is intermittent and is located along the inside aspect. The pain is described as aching, boring, penetrating, soreness, stabbing, and throbbing. Relieving factors include rest, ice, over the counter medication, and repositioning. There is no specific incident that brought about this pain. Patient has no additional complaints. Total Joint Arthroplasty: Risk Calculator Silvano Menendez has a 5.82% chance of NOT returning home at discharge for a Primary total Knee replacement. Silvano's estimated Length of Stay is 2 days (Inpatient candidate). Silvano's 30 day chance of readmission is 3.99%. Readmission Probability 3.99 % (within 30 days following surgery) Estimated LOS 2 days Discharge Disposition Probability D/C to Home 9 (more content not included)... [facility] 01-05-2024 MYKE Telephone (ORTHMN) SILVANO MENENDEZ ([id number]) 1965 M Date Time Provider Department 01/05/24 SHANNON PRIETO During your visit today, we recorded the following information about you: Shannon Prieto LSW 01/05/2024 10:19 AM Addendum ORTHOPAEDIC COORDINATION OF CARE Pre-Op Assessment Discharge Disposition (Planned): Home with Home Health Discharge Transportation: Car PRIMARY CARE PHYSICIAN: Beatriz Edgar MD OR Surgery Date: 01/13/2024 TCI Appointment: 01/13/2024 Joint: Jointtype: Knee Side: right Health Insurance: [employer] PPO Primary Contact: Extended Emergency Contact Information Primary Emergency Contact: Vishal Menendez Address: [address] [place] [address] Mobile Relation: Spouse Have you had joint replacement surgery before?: No Social: Pre-Hospital Baseline Mental Status: Alert AND Oriented Informant: Self and Spouse Living Arrangement: Home Who able to assist you at home once you discharge? Spouse Are they available for at least 2 weeks? Yes Stairs: One story home No stairs inside home Bedroom Location: First Bathroom Location: First Do you have problems that affect your ability to perform normal activities of daily living such as bathing, dressing, or toileting yourself? No = 0 What is your current functional status?: Perform ADLs independently Are you able to afford your medications/Food? Yes Social Determinants of Health Tobacco Use: Medium Risk (10/02/2023) Patient History Smoking Tobacco Use: Former Smokeless Tobacco Use: Never Passive Exposure: Past Alcohol Use: Not At Risk (01/24/2019) Received from [facility] AUDIT-C Frequency of Alcohol Consumption: Never Average Number of Drinks: Not on file Frequency of Binge Drinking: Not on file Financial Resource Strain: Low Risk (01/05/2024) Overall Financial Resource Strain (CARDIA) Difficulty of Paying Living Expenses: Not very hard Food Insecurity: No Food Insecurity (05/22/2023) Received from [facility], [facility] Hunger Screening Within the past 12 months we worried whether our food would run out before we got money to buy more.: Never True Within the past 12 months the food we bought just didn't last and we didn't have money to get more.: Never True Transportation Needs: No Transportation Needs (01/05/2024) PRAPARE - Transportation Lack of Transportation (Medical): No Lack of Transportation (Non-Medical): No Physical Activity: Insufficiently Active (01/05/2024) Exercise Vital Sign Days of Exercise per Week: 2 days Minutes of Exercise per Session: 60 min Stress: No Stress Concern Present (01/05/2024) [employer] [place] [employer] - Occupational Stress Questionnaire Feeling of Stress : Not at all Social Connections: Moderately Integrated (01/05/2024) Social Connection and Isolation Panel [NHANES] Frequency of Communication with Friends and Family: More than three times a week Frequency of Social Gatherings with Friends and Family: More than three times a week Attends Rastafari Services: More than 4 times per year Active Member of Clubs or Organizations: No Attends Club or Organization Meetings: Never Marital Status: Intimate Partner Violence: Not At Risk (01/05/2024) Safe at Home? Fear of Current or Ex-Partner: No Emotionally Abused: No Physically Abused: No Sexually Abused: No Safe at Home?: Not on file Depression: Not at risk (12/30/2023) PHQ-2 PHQ-2 Score: 0 Housing Stability: Low Risk (01/05/2024) Housing Stability Vital Sign Unable to Pay for Housing in the Last Year: No Number of Places Lived in the Last Year: 1 Unstable Housing in the Last Year: No Utilities: Not At Risk (01/05/2024) [facility] Utilities Threatened with loss of utilities: No Area Deprivation Index: Medium Risk (12/19/2022) Area Deprivation Index National Score (1-100), lower number is lower risk: 74 State Score (1-10), lower number is lower risk: 6 Data from: https://www.[facility] datlas.medicine.[facility].ed u/. Last address used for calculation: [address] Equipment: Do you currently use any equipment at home for your medical condition or to help you get around? None Patient has crutches at home and is planning to borrow a walker from family. Patient also has high rise toilet seats at home Active Services/Needs: None Transportation: Do you have reliable transportation to and from surgery/appointments?: Yes Who will provide discharge transportation: Spouse Contact information for patient's ride: Will your ride be available for 1200 discharge time? Yes Office Visit Follow Up Did you receive the antiseptic wipes from your surgeon?s office? No, If no, plan for correc (more content not included)... [facility] CT KNEE WO IVCON RTon 2023 CT KNEE WO IVCON RT * * *Final Report* * * DATE OF EXAM: Jan 05 2024 3:05PM [facility] 0084 - CT KNEE WO IVCON RT / PROCEDURE REASON: multiple diagnoses * * * * Physician Interpretation * * * * HISTORY: [facility] protocol. Preoperative evaluation TECHNIQUE: CT KNEE WO IVCON RTwas performed in the axial plane with additional axial images through the ipsilateral ankle and hip. CT Dose-Length Product (DLP): 453 mGy*cm. Orthopedic Hardware: No CT Dose Reduction Employed: Yes COMPARISON: Radiograph 10/28/2023 RESULT: Axial images only limiting evaluation of the tibiofemoral compartment joint width. Knee osteophytes are present compatible with history of osteoarthritis. Small Sung's cyst. Clips in the medial proximal lower leg subcutaneous fat. No significant abnormality in the limited imaging through the hips and ankles. IMPRESSION: Preoperative planning study. Osteoarthritis Lobbyist: MUNA Transcribe Date/Time: Jan 05 2024 3:39P Dictated by : NARA BROWN DO This examination was interpreted and the report reviewed and electronically signed by: KEL MARSHALL MD on Jan 05 2024 11:39PM EST [id number] [facility] CT Knee - right WO contrasto n 01-05-2024 IMPRESSION: Preoperative planning study. Osteoarthritis Lobbyist: PSCB Transcribe Date/Time: Jan 05 2024 3:39P Dictated by : NARA BROWN DO This examination was interpreted and the report reviewed and electronically signed by: KEL MARSHALL MD on Jan 05 2024 11:39PM EST DIVISION OF RADIOLOGY * * *Final Report* * * DATE OF EXAM: Jan 05 2024 3:05PM [facility] 0084 - CT KNEE WO IVCON RT / PROCEDURE REASON: multiple diagnoses * * * * Physician Interpretation * * * * HISTORY: [facility] protocol. Preoperative evaluation TECHNIQUE: CT KNEE WO IVCON RTwas performed in the axial plane with additional axial images through the ipsilateral ankle and hip. CT Dose-Length Product (DLP): 453 mGy*cm. Orthopedic Hardware: No CT Dose Reduction Employed: Yes COMPARISON: Radiograph 10/28/2023 RESULT: Axial images only limiting evaluation of the tibiofemoral compartment joint width. Knee osteophytes are present compatible with history of osteoarthritis. Small Sung's cyst. Clips in the medial proximal lower leg subcutaneous fat. No significant abnormality in the limited imaging through the hips and ankles. DIVISION OF RADIOLOGY Provider, [facility] - 01/05/2024 * * *Final Report* * * DATE OF EXAM: Jan 05 2024 3:05PM [facility] 0084 - CT KNEE WO IVCON RT / PROCEDURE REASON: multiple diagnoses * * * * Physician Interpretation * * * * HISTORY: [facility] protocol. Preoperative evaluation TECHNIQUE: CT KNEE WO IVCON RTwas performed in the axial plane with additional axial images through the ipsilateral ankle and hip. CT Dose-Length Product (DLP): 453 mGy*cm. Orthopedic Hardware: No CT Dose Reduction Employed: Yes COMPARISON: Radiograph 10/28/2023 RESULT: Axial images only limiting evaluation of the tibiofemoral compartment joint width. Knee osteophytes are present compatible with history of osteoarthritis. Small Sung's cyst. Clips in the medial proximal lower leg subcutaneous fat. No significant abnormality in the limited imaging through the hips and ankles. IMPRESSION IMPRESSION: Preoperative planning study. Osteoarthritis Lobbyist: PSCB Transcribe Date/Time: Jan 05 2024 3:39P Dictated by : NARA BROWN, DO This examination was interpreted and the report reviewed and electronically signed by: KEL MARSHALL MD on Jan 05 2024 11:39PM EST [facility] Radiology Study observation (narrative) [facility] CT Knee - right WO contrastO rdered By: [facility] Provider on 01-05-2024 [facility] Comprehensive metabolic 2000 panelon 01-05-2024 Albumin [Mass/Vol] 4.6 g/dL Normal 3.9-4.9 [facility] Comment on above: Order Comment: Speci men Type: BLOOD SPECIMENOrdering Facility: [facility] Address: [address] [place], [place] [address] Performed By: #### 2 4323-8 ####[facility] LABCLIA [id number] [place] [address] [place] ALP [Catalytic activity/Vol] 79 U/L Normal 38-113 [facility] Comment on above: Order Comment: Speci men Type: BLOOD SPECIMENOrdering Facility: [facility] Address: [address] [place] [address] Performed By: #### 2 4323-8 ####[facility] LABCLIA [id number] [place] [address] [place] ALT [Catalytic activity/Vol] 30 U/L Normal 10-54 [facility] Comment on above: Order Comment: Speci men Type: BLOOD SPECIMENOrdering Facility: [facility] Address: [address] [place] [address] Performed By: #### 2 4323-8 ####[facility] LABCLIA [id number] [place] [address] [place] Anion gap [Moles/Vol] 12 mmol/L Normal 8-15 [facility] Comment on above: Order Comment: Speci men Type: BLOOD SPECIMENOrdering Facility: [facility] Address: [address] [place] [address] Performed By: #### 2 4323-8 ####[facility] LABCLIA [id number] [place] [id number] [place] AST [Catalytic activity/Vol] 19 U/L Normal 14-40 [facility] Comment on above: Order Comment: Speci men Type: BLOOD SPECIMENOrdering Facility: [facility] Address: [address] [place] [address] Performed By: #### 2 4323-8 ####[facility] LABCLIA [id number] [place] [address] [place] Bilirubin [Mass/Vol] 0.6 mg/dL Normal 0.2-1.3 [facility] Comment on above: Order Comment: Speci men Type: BLOOD SPECIMENOrdering Facility: [facility] Address: [address] [place] [address] Performed By: #### 2 4323-8 ####[facility] LABCLIA [id number] [place] [address] [place] Calcium [Mass/Vol] 10.1 mg/dL Normal 8.5-10.2 [facility] Comment on above: Order Comment: Speci men Type: BLOOD SPECIMENOrdering Facility: [facility] Address: [address] [place] [address] Performed By: #### 2 4323-8 ####[facility] LABCLIA [id number] [place] [address] [place] Chloride [Moles/Vol] 102 mmol/L Normal 98-107 [facility] Comment on above: Order Comment: Speci men Type: BLOOD SPECIMENOrdering Facility: [facility] Address: [address] [place] [address] Performed By: #### 2 4323-8 ####[facility] LABCLIA [id number] [place] [address] [place] CO2 [Moles/Vol] 27 mmol/L Normal 22-30 [facility] Comment on above: Order Comment: Speci men Type: BLOOD SPECIMENOrdering Facility: [facility] Address: [address] [place], [place] [id number] Performed By: #### 2 4323-8 ####[facility] LABCLIA [id number] [place] [address] [place] Creatinine [Mass/Vol] 0.92 mg/dL Normal 0.73-1.22 [facility] Comment on above: Order Comment: Speci men Type: BLOOD SPECIMENOrdering Facility: [facility] Address: [address] [place] [address] Performed By: #### 2 4323-8 ####[facility] LABIA [id number] [place] [address] [place] Creatinine and Glomerular filtration rate.predicted panel (S/P/Bld) 96 mL/min/1.73m??? Normal >=60 [facility] Comment on above: Order Comment: Alex worley Type: BLOOD SPECIMENOrdering Facility: [facility] Address: [address] [place] [address] Result Comment: Aurea mated Glomerular Filtration Rate (eGFR) is calculated using the 2020 CKD-EPI creatinine equation. This equation utilizes serum creatinine, sex, and age as parameters. The creatinine assay has traceable calibration to isotope dilution-mass spectrometry. Refer to KDIGO guidelines for clinical interpretation. In patients with unstable renal function, e.g. those with acute kidney injury, the eGFR may not accurately reflect actual GFR. Performed By: #### 2 4323-8 ####[facility] LABIA [id number] [place] [address] [place] Glucose [Mass/Vol] 97 mg/dL Normal 74-99 [facility] Comment on above: Order Comment: Alex worley Type: BLOOD SPECIMENOrdering Facility: [facility] Address: [address] [place] [address] Result Comment: The [place] Diabetes Association (ADA) provides guidance for cutoff values for fasting glucose and random glucose. The ADA defines fasting as no caloric intake for at least 8 hours. Fasting plasma glucose results between 100 to 125 mg/dL indicate increased risk for diabetes (prediabetes). Fasting plasma glucose results greater than or equal to 126 mg/dL meet the criteria for diagnosis of diabetes. In the absence of unequivocal hyperglycemia, results should be confirmed by repeat testing. In a patient with classic symptoms of hyperglycemia or hyperglycemic crisis, random plasma glucose results greater than or equal to 200 mg/dL meet the criteria for diagnosis of diabetes. Reference: Standards of Medical Care in Diabetes 2016, [place] [employer] Association. Diabetes Care. 2016.39(Suppl 1). Performed By: #### 2 4323-8 ####[facility] LABCLIA [id number] [place] [address] [place] Potassium [Moles/Vol] 4.6 mmol/L Normal 3.7-5.1 [facility] Comment on above: Order Comment: Speci men Type: BLOOD SPECIMENOrdering Facility: [facility] Address: [address] [place] [address] Performed By: #### 2 4323-8 ####[facility] LABCLIA [id number] [place] [address] [place] Protein [Mass/Vol] 7.2 g/dL Normal 6.3-8.0 [facility] Comment on above: Order Comment: Speci men Type: BLOOD SPECIMENOrdering Facility: [facility] Address: [address] [place] [address] Performed By: #### 2 4323-8 ####[facility] LABIA [id number] [place] [address] [place] Sodium [Moles/Vol] 141 mmol/L Normal 136-144 [facility] Comment on above: Order Comment: Speci men Type: BLOOD SPECIMENOrdering Facility: [facility] Address: [address] [place] [address] Performed By: #### 2 4323-8 ####[facility] LABCLIA [id number] [place] [address] [place] Urea nitrogen [Mass/Vol] 18 mg/dL Normal 9-24 [facility] Comment on above: Order Comment: Speci men Type: BLOOD SPECIMENOrdering Facility: [facility] Address: [address] [place] [address] Performed By: #### 2 4323-8 ####[facility] LABCLIA [id number] [place] [id number] [place] ECG COMPLETEon 07-16-2024 ECG COMPLETE Ventricular Rate : 5 9 BPM Atrial Rate : 59 BPM P-R Interval : 188 ms QRS Duration : 82 ms Q-T Interval : 422 ms QTC Calculation(Bazett) : 417 ms Calculated P [place] : 61 degrees Calculated R [place] : 13 degrees Calculated T [place] : 28 degrees SINUS BRADYCARDIA WITH OCCASIONAL PREMATURE VENTRICULAR COMPLEXES OTHERWISE NORMAL ECG Confirmed by KAUSHIK GARCIA MD ([id number]) on 01/16/2024 12:27:51 PM NAME : SILVANO MENENDEZ PID : [id number] : 1965 Gender : Male Race : ORD : [id number] Procedure Date : Jan 05 2024 12:25:49 Edit Date : Jan 16 2024 12:27:56 Diagnosis: SINUS BRADYCARDIA WITH OCCASIONAL PREMATURE VENTRICULAR COMPLEXES OTHERWISE NORMAL ECG Confirmed by KAUSHIK GARCIA MD ([id number]) on 01/16/2024 12:27:51 PM Test Reason : Location : 119 : A17 A17 Overread By : KAUSHIK GARCIA MD Edited By : KAUSHIK GARCIA MD Referred By : INO MASON Acquired by : LUIS ANGEL [facility] HISTORY PHYSICALon HISTORY PHYSICAL HNO ID: [id number] Author: LEON ANDERSON APRN.STACK YIELD ENGINEER Service: ? 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) Hx CABG (01/22/2023) CABG X 5: RUTH to LAD, RSVG to PDA, RSVG to Diagonal, LRA to OM1, Free CHICO to OM2 Follows with Cardiology Nato Antonio MD LV September 2023 Managed on asa, statin and Bp medications ECHO and EKG reviewed and accepted from September 2023 Denies cardiac symptoms EKG reviewed and accepted from today Primary hypertension Managed on amlodipine, metoprolol BP today 120/69 ECHO reviewed and accepted from September 2023 Denies cardiac symptoms EKG reviewed and accepted from today Sinus bradycardia by electrocardiography Sinus calixto HR 50 on EKG Denies cardiac symptoms [place]issom Activity Status Index: METS: Climb a flight of stairs or walk up a hill (5.50 METs) DASI Score: 5.5 Patient denies any chest pain or undue shortness of breath with the above physical activity. Clinical Frailty Scale: 3. Well, with treated comorbid disease STOP-Bang Score: Has or is being treated for high blood pressure Patient over 50 years old Male patient Denies snoring loudly Denies feeling tired, fatigued, or sleepy during the daytime Has not been observed to stop breathing or choking/gasping during sleep BMI less than or equal to 35 kg/m2 Does not have a large neck STOP-Bang Score: 3 [id number] Score: Hypertension history: Yes [id number] Score: ANESTHESIA FINDINGS: Intubation History: No history of difficult intubation. No abnormal airway history Significant Anesthesia Considerations: none Airway History: No history of difficult airway No abnormal airway history I - PHYSICAL EVALUATION AIRWAY Patient intubated: No. Tracheostomy tube not present Mallampati: III. TM distance: >3 FB. Neck ROM: full ROM without neurological symptoms. Mouth opening: adequate. Short neck: no. Thick neck: yes Johnson present: no Lip Bite Test: III Microretrognathia/Micro nagthia/Recessed Chin: No DENTAL Normal dental observations. Dental findings: teeth intact. II - ANESTHESIA PLAN Anesthetic plan additional comments: *PACC/TCI - anesthesia choice. Beta Sharon Monitoring Plan Post Procedure Analgesic Plan Prepared for Surgery: optimally prepared for surgery, pending [see comment]. TANDS, CMP, CBC ordered by surgical service EKG reviewed and accepted from today ECHO and EKG reviewed and accepted from September 2023 Addendum 01/06/24 Labs and EKG reviewed and accepted from 01/05/24 CONSULTS: The following consults have been initiated at this time: cardiology (see below). Planned Anesthetic: anesthesia choice Cardiac clearance ADDENDUM: Based on above, no further cardiac testing needed prior to planned right knee partial arthroplasty. Overall, he is at an elevated but acceptable risk to proceed with his surgery. Continue aspirin, metop, statin, zetia perioperatively. Monitor on telemetry. ECG for any clinical cardiac concern with cardiology consult as appropriate. Nato Antonio MD December 29, 2023, 2:49 PM The Following Tests/Procedures Have Been Initiated: No orders of the defined types were placed in this encounter. REASON FOR VISIT: Silvano Menendez is a 58 year old male who is scheduled for Procedure(s): ROBOTIC ASSISTED UNI KNEE ARTHROPLASTY (Right) at the request of Ino Farmer MD for consultation. My final recommendation will be communicated back to the requesting physician by way of shared medical record or letter. Subjective The patient has the following: ACTIVE PROBLEM LIST Pre-Op Testing Obesity, Class I, Bmi 30-34.9 Coronary Artery Disease With Exertional Angina (Hcc) Incidental Lung Nodule Hypokalemia Dvt of Popliteal Vein (Hcc) Primary Hypertension Mixed Hyperlipidemia Sinus Bradycardia By Electrocardiography COVID-19 Immunization Status Overdue - Covid-19 Vaccine () Overdue since 02/20/2023 06/18/2021 Imm Admin: COVID-19 original vaccine, full dose, monovalent (MODERNA) 10/10/2020 Imm Admin: COVID-19 original vaccine, full dose, monovalent (MODERNA) 09/12/2020 Imm Admin: COVID-19 original vaccine, full dose, monovalent (MODERNA) Only the first 3 history entries have been loaded, but more history exists. CHIEF COMPLAINT: Preop exam HPI: Silvano Menendez is a 58 year old male with PMHx htn, hld, cad, thrombocytopenia, hx d (more content not included)... [facility] TYPE AND SCREEN,30 DAYon ABO A [facility] Comment on above: Order Comment: Speci men Type: BLOOD SPECIMENOrdering Facility: [facility] Address: [address] [place] [address] Performed By: #### T SCR30 ####[facility] BLOOD BANKCLIA [id number] [place] [address] [place] HISTORICAL AB SCR STATUS Negative [facility] Comment on above: Order Comment: Speci men Type: BLOOD SPECIMENOrdering Facility: [facility] Address: [address] [place] [address], [place] [address] Performed By: #### T SCR30 ####CC MAIN BLOOD BANKCLIA [id number] [place] [address] [place] Rh Nom (Bld) Negative [facility] Comment on above: Order Comment: Speci men Type: BLOOD SPECIMENOrdering Facility: [facility] Address: [address] [place], [place] [address] [address] Performed By: #### T SCR30 ####CC MAIN BLOOD BANKCLIA [id number] [place] [id number] [facility] [place] CNPNon 11-20-2023 CNPN Telephone (CARCMN) SILVANO MENENDEZ ([id number]) 1965 M Date Time Provider Department 11/20/23 NATO ANTONIO During your visit today, we recorded the following information about you: Ruben Bruce 11/20/2023 11:37 AM Signed November 20, 2023 Patient last seen within the last year: Yes Date of last office visit: 10/02/2023 Reason For Call: Dr. Manny Mason's office called requesting cardiac clearance for knee surgery scheduled for 01/13/2024. They said it can be sent directly to the doctor through [employer]. Physician: Nato Antonio MD, Amy, RN 12/29/2023 2:[address] Antonio via [employer] to make her aware. Niecy Pearson RN Allergies As of Date: 11/20/2023 (No Known Allergies) Date Reviewed: 10/28/2023 Reviewed by: Parveen Araujo PA-C - Fully Assessed Reason for Visit: Cardiac Clearance [4105] Prescriptions as of 01/04/2024 - atorvastatin (LIPITOR) 80 mg tablet Take 1 tablet by mouth daily at bedtime. - metoprolol succinate ER (TOPROL XL) 100 mg Take 1 tablet by mouth once daily. PM - ezetimibe (ZETIA) 10 mg tablet Take 1 tablet by mouth once daily. - amLODIPine (NORVASC) 2.5 mg tablet TAKE 1 TABLET BY MOUTH ONCE DAILY - aspirin, enteric coated (ASPIRIN, ENTERIC COATED) 81 mg EC tablet Take 81 mg by mouth once daily. - MULTIVITAMIN ORAL Take by mouth. Problem List As Of Date 11/20/2023 Noted Resolved Discharge planning issues [Z75.8] 01/21/2023 Pre-op testing [Z01.818] 01/21/2023 Obesity, Class I, BMI 30-34.9 [E66.9] 01/22/2023 Coronary artery disease with exertional angina *01/22/2023 Hypotension, unspecified [I95.9] 01/22/2023 01/24/2023 Postoperative pain [G89.18] 01/22/2023 Stress hyperglycemia [R73.9] 01/22/2023 01/27/2023 Postoperative hypovolemia [E89.89, E86.1] 01/22/2023 01/24/2023 Coagulopathy (HCC) [D68.9] 01/22/2023 01/24/2023 Atelectasis [J98.11] 01/23/2023 Encounter for support and coordination of trans*01/26/2023 Volume overload [E87.70] 01/26/2023 Acute blood loss anemia [D62] 01/26/2023 Thrombocytopenia (HCC) [D69.6] 01/26/2023 Incidental lung nodule [R91.1] 01/26/2023 Pressure injury of mucous membrane [L89.899] 01/26/2023 ISTAP type 2 skin tear of left lower leg [S81.8*01/26/2023 Hypokalemia [E87.6] 01/26/2023 Pneumothorax, postoperative [J95.811] 01/26/2023 DVT of popliteal vein (HCC) [I82.439] Primary hypertension [I10] Mixed hyperlipidemia [E78.2] On mechanically assisted ventilation (HCC) [Z99*04/01/2023 Encounter Status:Closed by NIECY PEARSON on 12/29/23 [facility] Telephone (ORTHMN) VALENTINSILVANO Baird ([id number]) 1965 M Date Time Provider Department 11/20/23 INO MASON ORTHMN During your visit today, we recorded the following information about you: Kaushik Thurman RN 11/20/2023 11:46 AM Signed Patient DOS changed to 01/12 for right partial knee arthroplasty, at patient request. Call made to Nato Antonio MD office for cardiac clearance, last seen in 10/01. Allergies As of Date: 11/20/2023 (No Known Allergies) Date Reviewed: 10/28/2023 Reviewed by: Parveen Araujo PA-C - Fully Assessed Reason for Visit: Schedule Surgery [1330] Prescriptions as of 11/20/2023 - atorvastatin (LIPITOR) 80 mg tablet Take 1 tablet by mouth daily at bedtime. - metoprolol succinate ER (TOPROL XL) 100 mg Take 1 tablet by mouth once daily. PM - ezetimibe (ZETIA) 10 mg tablet Take 1 tablet by mouth once daily. - amLODIPine (NORVASC) 2.5 mg tablet TAKE 1 TABLET BY MOUTH ONCE DAILY - aspirin, enteric coated (ASPIRIN, ENTERIC COATED) 81 mg EC tablet Take 81 mg by mouth once daily. - MULTIVITAMIN ORAL Take by mouth. Problem List As Of Date 11/20/2023 Noted Resolved Discharge planning issues [Z75.8] 01/21/2023 Pre-op testing [Z01.818] 01/21/2023 Obesity, Class I, BMI 30-34.9 [E66.9] 01/22/2023 Coronary artery disease with exertional angina *01/22/2023 Hypotension, unspecified [I95.9] 01/22/2023 01/24/2023 Postoperative pain [G89.18] 01/22/2023 Stress hyperglycemia [R73.9] 01/22/2023 01/27/2023 Postoperative hypovolemia [E89.89, E86.1] 01/22/2023 01/24/2023 Coagulopathy (HCC) [D68.9] 01/22/2023 01/24/2023 Atelectasis [J98.11] 01/23/2023 Encounter for support and coordination of trans*01/26/2023 Volume overload [E87.70] 01/26/2023 Acute blood loss anemia [D62] 01/26/2023 Thrombocytopenia (HCC) [D69.6] 01/26/2023 Incidental lung nodule [R91.1] 01/26/2023 Pressure injury of mucous membrane [L89.899] 01/26/2023 ISTAP type 2 skin tear of left lower leg [S81.8*01/26/2023 Hypokalemia [E87.6] 01/26/2023 Pneumothorax, postoperative [J95.811] 01/26/2023 DVT of popliteal vein (HCC) [I82.439] Primary hypertension [I10] Mixed hyperlipidemia [E78.2] On mechanically assisted ventilation (HCC) [Z99*04/01/2023 Medications Discontinued During This Encounter Prescriptions - nitroglycerin sublingual (NITROQUICK) 0.3 mg SL tablet (Discontinued) Reported on 10/02/2023 Encounter Status:Closed by KAUSHIK THURMAN on 11/20/23 [facility] XR Knee - left 4 Viewson IMPRESSION: Osteoarthritic change with no acute fractures seen. Similar appearance when compared to the previous exam Lobbyist: PSCB Transcribe Date/Time: Nov 02 2023 7:24A Dictated by : SHARRON LEE MD This examination was interpreted and the report reviewed and electronically signed by: SHARRON LEE MD on Nov 02 2023 7:25AM [facility] DIVISION OF RADIOLOGY * * *Final Report* * * DATE OF EXAM: Oct 28 2023 9:55AM SVX 5202 - XR KNEE 4V AP/PA BOTH+LAT/COSMO LT / PROCEDURE REASON: Pain * * * * Physician Interpretation * * * * XR KNEE 4V AP/PA BOTH+LAT/COSMO LT PROVIDED HISTORY: Pain COMPARISON: 04/24/2023 TECHNIQUE: 4 views RESULT: The bony mineralization is within normal limits. There is moderate narrowing of the medial compartment of the right knee and mild narrowing of the medial compartment of left knee. Mild patellofemoral compartment narrowing noted bilaterally. No left knee joint effusion is seen. No acute fractures visualized DIVISION OF RADIOLOGY Provider, Alicia Mcintosh [facility] - 11/02/2023 * * *Final Report* * * DATE OF EXAM: Oct 28 2023 9:55AM SVX 5202 - XR KNEE 4V AP/PA BOTH+LAT/COSMO LT / PROCEDURE REASON: Pain * * * * Physician Interpretation * * * * XR KNEE 4V AP/PA BOTH+LAT/COSMO LT PROVIDED HISTORY: Pain COMPARISON: 04/24/2023 TECHNIQUE: 4 views RESULT: The bony mineralization is within normal limits. There is moderate narrowing of the medial compartment of the right knee and mild narrowing of the medial compartment of left knee. Mild patellofemoral compartment narrowing noted bilaterally. No left knee joint effusion is seen. No acute fractures visualized IMPRESSION IMPRESSION: Osteoarthritic change with no acute fractures seen. Similar appearance when compared to the previous exam Lobbyist: MUNA Transcribe Date/Time: Nov 02 2023 7:24A Dictated by : SHARRON LEE MD This examination was interpreted and the report reviewed and electronically signed by: SHARRON LEE MD on Nov 02 2023 7:25AM EST [facility] XR Knee - left 4 ViewsOrdere d By: Cc Provider on 11-02-2023 [facility] CNOVon 10-28-2023 CNOV Office Visit (SHEF ) SILVANO MENENDEZ ([id number]) 1965 M Date Time Provider Department 10/28/23 10:50 AM PARVEEN ARAUJO During your visit today, we recorded the following information about you: Parveen Araujo PA-C 10/28/2023 11:37 AM Signed DEPARTMENT OF ORTHOPAEDICS Silvano Menendez is a patient of Beatriz Edgar MD. CHIEF COMPLAINT: Silvano Menendez is a 58 year old male who presents today for new evaluation of left knee pain. HISTORY OF PRESENT ILLNESS: PAIN EVALUATION 10/28/2023 0959 Pain Level: 3 Pain Location: Knee-Left Description: Throbbing Duration Units: Years Frequency: Intermittent Intervention/Comfort measure: Medication;Relaxation;R eposition Patient reports 2 to 3 years of intermittent left knee pain. Over the past few weeks, he noticed worsening medial left knee pain, especially when walking or going up/down stairs. He walks 3 miles a day with his , and notes this does aggravate his left knee. Wearing OTC knee sleeve; has taken ibuprofen, meloxicam in the past but discontinued due to cardiac bypass. Currently taking tylenol. He is here to discuss treatment options for increased left knee pain. He has known right knee medial compartment osteoarthritis, scheduled for uni knee replacement surgery with Dr. Mason in January for this. Recently received a cortisone injection into the right knee, which helped immensely. Location of pain: left knee Injury? No Any numbness or tingling? No Any locking or instability ? No Swelling:Patient notes intermittent swelling of the joint.. 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 NSAIDs: No; does not tolerate due to history of quadruple bypass surgery last year Injections: None to left knee Surgeries: No Physical Therapy: No Past medical history significant for DVT (on 81mg aspirin; IVC filter), thrombocytopenia, CAD (quadruple bypass in 2022), hypertension, hyperlipidemia. ROS: REVIEW OF SYSTEMS: Constitutional: Fever/chills: No Cardiovascular: Chest Pain: No Respiratory: SOB: No Musculoskeletal: as noted in the HPI Neurologic: as noted in the HPI Endocrine: Diabetes: No Hemoglobin A1C (%) Date Value 01/21/2023 5.9 Tobacco user? No SOCIAL HISTORY: Tobacco Use: Quit 09/21/1987. Types: Cigarettes FAMILY HISTORY: FAMILY HISTORY Problem Relation Age of Onset Hyperlipidemia Mother Heart disease Father Hyperlipidemia Father Heart Failure Father Heart disease Maternal Grandmother Heart disease Paternal Grandmother PAST MEDICAL HISTORY Diagnosis Date DVT of popliteal vein (HCC) post right knee scope- 2010 PAST SURGICAL HISTORY Procedure Laterality Date CABG (5) VENOUS GRAFTS AND ARTERIAL GRAFT(S) 01/22/23 PAST SURGICAL HISTORY OF 2010 knee scope PAST SURGICAL HISTORY OF IVC filter - 2010 due to DVT histroy REPAIR EPIGASTRIC HERNIA,REDUC 04/2022 FAMILY HISTORY Problem Relation Age of Onset Hyperlipidemia Mother Heart disease Father Hyperlipidemia Father Heart Failure Father Heart disease Maternal Grandmother Heart disease Paternal Grandmother Social History Tobacco Use Smoking status: Former Types: Cigarettes Quit date: 09/21/1987 Years since quittin.1 Passive exposure: Past Smokeless tobacco: Never Vaping Use Vaping Use: Never used Substance Use Topics Alcohol use: Never Drug use: Never ALLERGIES No Known Allergies Current Outpatient Medications Medication Sig Dispense Refill atorvastatin (LIPITOR) 80 mg tablet Take 1 tablet by mouth daily at bedtime. 90 tablet 3 metoprolol succinate ER (TOPROL XL) 100 mg Take 1 tablet by mouth once daily. PM ezetimibe (ZETIA) 10 mg tablet Take 1 tablet by mouth once daily. 90 tablet 3 amLODIPine (NORVASC) 2.5 mg tablet TAKE 1 TABLET BY MOUTH ONCE DAILY 90 tablet 3 aspirin, enteric coated (ASPIRIN, ENTERIC COATED) 81 mg EC tablet Take 81 mg by mouth once daily. MULTIVITAMIN ORAL Take by mouth. nitroglycerin sublingual (NITROQUICK) 0.3 mg SL tablet Dissolve 1 tablet under the tongue every 5 minutes as needed for chest pain. (Patient not taking: Reported on 10/02/2023) 30 tablet 0 No current facility-administered medications for this visit. Physical Exam: Vitals: There were no vitals taken for this visit. BMI: 31.93 kg/m2 Body Habitus:well nourished and no acute distress Orientation: Normal: Oriented to person, place and time Psych: normal and appropriate Skin: Color, texture, turgor normal. No rashes or lesions Sensation: sensation to light touch is grossly normal bilaterally Focused Musculoskeletal Physical Exam: Knee Examination Right Knee Left Knee Skin No evidence of eythema, warm (more content not included)... [facility] Large Joint Arthro/Inj: L kn ee jointon 10-28-2023 Parveen Araujo PA-C 10/28/2023 11:37 AM Large Joint Arthro/Inj: L knee joint Informed Consent Consent Obtained: Verbal [place] Protocol A moment to CARE was completed. SIGN IN Personnel directly involved with the procedure wore the appropriate PPE. Special Equipment: N/A Patient/Surrogate Stated/Verified: Patient name, Date of , Relevant allergies and Intended procedure TIME OUT Intended patient and procedure match the source document(s). Consent documented and matches the intended procedure. Relevant labs, photos, and/or imaging studies have been reviewed. Correct side/site marked and visible. Medications required for procedure verified. Fire risk assessed and interventions discussed. No implant(s) inserted. 10/28/2023 11:36 AM The procedure site was prepped in the usual sterile fashion. Site: L knee joint Medications: 80 mg triamcinolone acetonide 40 mg/mL Anesthetics: 4 mL lidocaine (PF) 10 mg/mL (1 %); 2 mL bupivacaine (PF) 0.25 % (2.5 mg/mL) Outcome: Tolerated well, no immediate complications Post-injection instructions were reviewed with the patient and the patient voiced understanding of these instructions. SIGN OUT All instruments, equipment, possible retained foreign bodies accounted for. Post-procedure follow-up management communicated and Plan of Care Visit completed when applicable Secondary safety check performed by Sarina Tarango MA. Anterolateral approach. [facility] XR KNEE 4V AP/PA BOTH+LAT/ME R LTon 10-28-2023 XR KNEE 4V AP/PA BOTH+LAT/COSMO LT * * *Final Report* * * DATE OF EXAM: Oct 28 2023 9:55AM SVX 5202 - XR KNEE 4V AP/PA BOTH+LAT/COSMO LT / PROCEDURE REASON: Pain * * * * Physician Interpretation * * * * XR KNEE 4V AP/PA BOTH+LAT/COSMO LT PROVIDED HISTORY: Pain COMPARISON: 04/24/2023 TECHNIQUE: 4 views RESULT: The bony mineralization is within normal limits. There is moderate narrowing of the medial compartment of the right knee and mild narrowing of the medial compartment of left knee. Mild patellofemoral compartment narrowing noted bilaterally. No left knee joint effusion is seen. No acute fractures visualized IMPRESSION: Osteoarthritic change with no acute fractures seen. Similar appearance when compared to the previous exam Lobbyist: PSCB Transcribe Date/Time: Nov 02 2023 7:24A Dictated by : SHARRON LEE MD This examination was interpreted and the report reviewed and electronically signed by: SHARRON LEE MD on Nov 02 2023 7:25AM EST [id number] [facility] XR Knee - left 4 Viewson Radiology Study observation (narrative) [facility] CNOVon 10-02-2023 CNOV Office Visit (CARCMN ) SILVANO MENENDEZ ([id number]) 1965 M Date Time Provider Department 10/02/23 2:00 PM NATO ANTONIO CARCAL During your visit today, we recorded the following information about you: Pulse Respiration Blood pressure Weight 57/minute 16/minute 130/73 95.3 kg Height 1.727 m Nato Antonio MD 12/29/2023 2:51 PM Addendum [facility] [place] [facility] Department of Cardiovascular Medicine SECTION OF CLINICAL CARDIOLOGY OUTPATIENT VISIT DATE March 11, 2023 OUTPATIENT VISIT TYPE EST PRIMARY CARE PHYSICIAN: Beatriz Edgar MD ([facility]) [address] [place] [id number] REFERRING PHYSICIAN: No referring provider defined for this encounter. CHIEF COMPLAINT: Follow up HISTORY OF PRESENT ILLNESS: Mr. Menendez is a 58 year old male with a PMH of untreated HTN, untreated hyperlipidemia, former tobacco use (quit over 30 years ago), DVTs in 2004, IVC filter, family history of premature , seen in 11/2022 for chest pain found to have severe MVD s/p CABG (01/22/2023) here for follow up. He is accompanied by his . See my last note for details of his symptoms. He underwent CABG X 5: RUTH to LAD, RSVG to PDA, RSVG to Diagonal, LRA to OM1, Free CHICO to OM2. He had a left pneumothorax. Since the last visit, he feels great. No cardiac symptoms. BP have abeen well controlled. He made drastic changes to his diet. Adherent to meds without any side effects. PAST CARDIAC HISTORY: As above Past Medical History: No date: DVT of popliteal vein (HCC) Comment: post right knee scope- 2010 Past Surgical History: No date: CABG (5) VENOUS GRAFTS AND ARTERIAL GRAFT(S) Comment: 01/22/23 2011: PAST SURGICAL HISTORY OF Comment: knee scope No date: PAST SURGICAL HISTORY OF Comment: IVC filter - 2010 due to DVT histroy 04/2022: REPAIR EPIGASTRIC HERNIA,REDUC ALLERGIES No Known Allergies Current Outpatient Medications: metoprolol succinate ER (TOPROL XL) 100 mg ezetimibe (ZETIA) 10 mg tablet amLODIPine (NORVASC) 2.5 mg tablet aspirin, enteric coated (ASPIRIN, ENTERIC COATED) 81 mg EC tablet MULTIVITAMIN ORAL atorvastatin (LIPITOR) 80 mg tablet nitroglycerin sublingual (NITROQUICK) 0.3 mg SL tablet Family/social hx unchanged and not repeated. PHYSICAL EXAMINATION: BP 130/73 (BP Site: Right Arm, BP Position: Sitting, BP Cuff Size: Regular Adult) Pulse (!) 57 Resp 16 Ht 172.7 cm (5' 8 ) Wt 95.3 kg (210 lb) SpO2 95% BMI 31.93 kg/m? General: Well developed, well nourished, looks stated age. Alert and oriented and in no visible distress. HEENT: Face symmetric. Gaze Conjugate. Neck: supple, without thyromegaly. No carotid bruits, 2+ upstrokes bilaterally. No nodes felt in neck. Thyroid no nodules. Lungs: clear without rales, rhonchi or wheezing throughout. Cardiovascular: regular rate and rhythm, no murmurs, no extra heart sounds heard. JVP 6 cm H2O, neg HJR. non Carotid bruits bilaterally, +2 radial pulses bilaterally, +2 DP pulses bilaterally. Warm and well perfused. Extremeties: + no Peripheral edema bilaterally . No Clubbing or cyanosis of extremeties. Abdomen: benign without organomegaly. Normal bowel sounds. Non palpable abdominal aorta. Neuro: Memory and judgement intact. Essentially normal neuropyschiatric exam. Well healed sternal incision Pertinent labs reviewed: 10/02/2023: CMP normal barring mildly elevated glucose. 02/04/2023 CMP normal barring mildly elevated glucose. CBC WBC 11, hgb 11, plts 525 A1C 5.9. Lipids 10/02/2023: Last set of lipids revealed: Total Chol 105: HDL 29: LDL 47: TG 145. 01/21/2023 LDL 83, lipoprotein a 106. CARDIOVASCULAR MEDICINE TESTING: ECG 10/02/2023 sinus bradycardia with possible old septal IA. Electrocardiogram 12/19/2022: NSR HR 69 bpm, Normal Qtc. Coronary angio : Abnormal coronary angiogram with triple vessel CAD. 90% stenosis in the mid RCA and 70% stenosis in the distal RCA. 70% stenosis of the mid LAD and 60% stenosis of the ostial 1st diagonal. 90% stenosis of the mid to distal LCX and 50 stenosis of the OM1 and OM2 branches. Right dominant system. OSH NUC STRESS EXERCISE 12/16/22 Narrative Perfusion Comments: Left ventricular perfusion is abnormal. Based on the perfusion study data, risk of cardiovascular events is intermediate risk. The study is consistent with ischemia. There is a left ventricular function defect that is moderate in size with moderate reduction in uptake present in the mid to basal inferior location(s) that is reversible. The defect appears to be ischemia. Stress Function Comments: Left ventricular function post-stress is normal. Stress ejection fraction is 72 %. The stress end diastolic cavity size is normal. Stress ECG Findings: There is [address] depression in the inferior leads (I (more content not included)... [facility] CNOV Office Visit (ORTHMN ) SILVANO MENENDEZ ([id number]) 1965 M Date Time Provider Department 10/02/23 1:30 PM MILAGRO CASTLE During your visit today, we recorded the following information about you: Weight Height 95.3 kg 1.74 m Milagro Castle PA-C 10/11/2023 1:39 PM Signed CONSULT ORTHOPAEDIC: KNEE PRIMARY CARE PHYSICIAN: Beatriz Edgar MD REFERRING PROVIDER: No referring provider defined for this encounter. ASSESSMENT AND PLAN Impression: Right Knee Moderate Degenerative Osteoarthritis, Primary medial compartmental Diagnoses: (M17.11) Primary osteoarthritis of right knee (primary encounter diagnosis) Silvano is to the point where he is having continued pain affecting his activities of daily living. He is interested in pursuing a knee replacement due to his symptoms. We discussed that he could potentially be a candidate for a partial knee replacement based on his symptoms and current x-rays along with his MRI which was done in May. We also discussed that this would likely be robotic assisted and he would get it CT scan prior to the surgery . We would have him follow back up with Dr. Mason and since he is from [facility], may be have him schedule the preop's along with the CT and appointment at the same time or somehow coordinate with other appointments that he is having in the next few months. He would be interested in surgery in January and would like an injection today to help buy him some time. Proceeded with corticosteroid injection today Would obtain cardiac clearance by Joe Thayer- has appt today ( HX of CABG 02/2023) Large Joint Arthro/Inj: R knee joint Informed Consent Consent Obtained: Verbal [place] Protocol A moment to CARE was completed. SIGN IN Personnel directly involved with the procedure wore the appropriate PPE. Special Equipment: N/A Patient/Surrogate Stated/Verified: Patient name, Date of , Relevant allergies and Intended procedure TIME OUT Intended patient and procedure match the source document(s). Consent documented and matches the intended procedure. Relevant labs, photos, and/or imaging studies have been reviewed. Correct side/site marked and visible. Medications required for procedure verified. Fire risk assessed and interventions discussed. No implant(s) inserted. 10/02/2023 2:11 PM The procedure site was prepped in the usual sterile fashion. Site: R knee joint Medications: 80 mg triamcinolone acetonide 40 mg/mL Anesthetics: 4 mL lidocaine (PF) 10 mg/mL (1 %); 4 mL ROPivacaine (PF) 5 mg/mL (0.5 %) Outcome: Tolerated well, no immediate complications Post-injection instructions were reviewed with the patient and the patient voiced understanding of these instructions. SIGN OUT All instruments, equipment, possible retained foreign bodies accounted for. Total Joint Arthroplasty: Risk Calculator Silvano Menendez has a 5.69% chance of NOT returning home at discharge for a Primary total Knee replacement. Silvano's estimated Length of Stay is 2 days (Inpatient candidate). Silvano's 30 day chance of readmission is 3.34%. Readmission Probability 3.34 % (within 30 days following surgery) Estimated LOS 2 days Discharge Disposition Probability D/C to Home 94.31 % D/C to SNF 5.69 % These calculations are based on the following factors: - 58 years of age - sex is male - BMI of 31.47 kg/m2 - NarxCare score of 90 - 2 hospitalizations in the last 12 months - history of heart disease - no history of diabetes - no history of COPD - history of anemia - preoperative ambulation: independent community distances - 4 step(s) to enter home - bed location is on the first floor - bath location is on the first floor - caregiver is occassionally available 2-4 days / week - home is more than 150 miles away - PROMIS-10 Mental Health T score 50+ - Marital status: Risk Factors for Total Knee Arthroplasty (TKA) Major Risk Factors Obesity Moderate Risk High: BMI > 40 Moderate: BMI 30-40 Normal: BMI < 30 Diabetes normal High: A1C > 8 Moderate: A1C 7-8 Normal: A1C < 7 Hx of DVT / PE High Risk High: dx of DVT / PE Normal: no dx of DVT / PE Smoking normal High: Current smoker Normal: Non smoker Narcotics Use normal High:NarxCare >=300 Moderate: 100-299 Normal: 0-99 Depression Moderate Risk High: PHQ-9 >14 Moderate: PHQ-9 5-14 Normal: PHQ-9 < 5 Area Deprivation Index (DIONISIO) Moderate Risk High: DIONISIO Score > 75 Moderate: DIONISIO 50-75 Normal: DIONISIO < 50 Obesity: weight management recommended BMI Readings from Last 3 Encounters: 10/02/23 : 31.47 kg/m? 08/11/23 : 30.78 kg/m? 04/24/23 : 30.42 kg/m? Area Deprivation Index (DIONISIO) 12/19/2022 DIONISIO Score National Score 74 Patient Health Questionnaire (PHQ-9) 04/23/2023 09/25/2023 PHQ-9 PHQ-2 Score 4 0 PHQ-9 Score 6 (0-4) minimal depression, (5-9) mild depression, (1 (more content not included)... Normal [facility] Comprehensive metabolic 2000 panelon 10-02-2023 Albumin [Mass/Vol] 4.5 g/dL Normal 3.9-4.9 [facility] Comment on above: Order Comment: Speci men Type: BLOOD SPECIMENOrdering Facility: [facility] Address: [address] [place] [address] Performed By: #### 2 4323-8, 26720-4 ####[facility] LABCLIA [id number] [place] [address] [place] ALP [Catalytic activity/Vol] 82 U/L Normal 38-113 [facility] Comment on above: Order Comment: Speci men Type: BLOOD SPECIMENOrdering Facility: [facility] Address: [address] [place] [address] Performed By: #### 2 4323-8, 59633-0 ####[facility] LABCLIA [id number] [place] [address] [place] ALT [Catalytic activity/Vol] 30 U/L Normal 10-54 [facility] Comment on above: Order Comment: Speci men Type: BLOOD SPECIMENOrdering Facility: [facility] Address: [address] [place] [address] Performed By: #### 2 4323-8, 40610-9 ####[facility] LABCLIA [id number] [place] [id number] [place] Anion gap [Moles/Vol] 12 mmol/L Normal 9-18 [facility] Comment on above: Order Comment: Speci men Type: BLOOD SPECIMENOrdering Facility: [facility] Address: [address] [place] [address] Performed By: #### 2 4323-8, 69437-7 ####[facility] LABCLIA [id number] [place] [address] [place] AST [Catalytic activity/Vol] 20 U/L Normal 14-40 [facility] Comment on above: Order Comment: Speci men Type: BLOOD SPECIMENOrdering Facility: [facility] Address: [address] [place] [address] Performed By: #### 2 4323-8, 39690-8 ####[facility] LABCLIA [id number] [place] [address] [place] Bilirubin [Mass/Vol] 0.7 mg/dL Normal 0.2-1.3 [facility] Comment on above: Order Comment: Speci men Type: BLOOD SPECIMENOrdering Facility: [facility] Address: [address] [place] [address] Performed By: #### 2 4323-8, 14632-7 ####[facility] LABCLIA [id number] [place] [address] [place] Calcium [Mass/Vol] 10.0 mg/dL Normal 8.5-10.2 [facility] Comment on above: Order Comment: Speci men Type: BLOOD SPECIMENOrdering Facility: [facility] Address: [address] [place] [address] Performed By: #### 2 4323-8, 67008-9 ####[facility] LABCLIA [id number] [place] [address] [place] Chloride [Moles/Vol] 103 mmol/L Normal 97-105 [facility] Comment on above: Order Comment: Speci men Type: BLOOD SPECIMENOrdering Facility: [facility] Address: [address] [place] [address] Performed By: #### 2 4323-8, 25479-3 ####[facility] LABCLIA [id number] [place] [address] [place] CO2 [Moles/Vol] 25 mmol/L Normal 22-30 [facility] Comment on above: Order Comment: Speci men Type: BLOOD SPECIMENOrdering Facility: [facility] Address: [address] [place] [address] Performed By: #### 2 4323-8, ####[facility] LABCLIA [id number] [address] [address] [place] Creatinine [Mass/Vol] 0.92 mg/dL Normal 0.73-1.22 [facility] Comment on above: Order Comment: Speci men Type: BLOOD SPECIMENOrdering Facility: [facility] Address: [address] [place] [address] Performed By: #### 2 4323-8, ####[facility] LABIA [id number] [place] [address] [place] Creatinine and Glomerular filtration rate.predicted panel (S/P/Bld) 96 mL/min/1.73m??? Normal >=60 [facility] Comment on above: Order Comment: Speci men Type: BLOOD SPECIMENOrdering Facility: [facility] Address: [address] [place] [address] Result Comment: Aurea mated Glomerular Filtration Rate (eGFR) is calculated using the 2020 CKD-EPI creatinine equation. This equation utilizes serum creatinine, sex, and age as parameters. The creatinine assay has traceable calibration to isotope dilution-mass spectrometry. Refer to KDIGO guidelines for clinical interpretation. In patients with unstable renal function, e.g. those with acute kidney injury, the eGFR may not accurately reflect actual GFR. Performed By: #### 2 4323-8, ####[facility] LABCLIA [id number] [place] [address] [place] Glucose [Mass/Vol] 100 mg/dL High 74-99 [facility] Comment on above: Order Comment: Speci men Type: BLOOD SPECIMENOrdering Facility: [facility] Address: [address] [place] [address] Result Comment: The [place] Diabetes Association (ADA) provides guidance for cutoff values for fasting glucose and random glucose. The ADA defines fasting as no caloric intake for at least 8 hours. Fasting plasma glucose results between 100 to 125 mg/dL indicate increased risk for diabetes (prediabetes). Fasting plasma glucose results greater than or equal to 126 mg/dL meet the criteria for diagnosis of diabetes. In the absence of unequivocal hyperglycemia, results should be confirmed by repeat testing. In a patient with classic symptoms of hyperglycemia or hyperglycemic crisis, random plasma glucose results greater than or equal to 200 mg/dL meet the criteria for diagnosis of diabetes. Reference: Standards of Medical Care in Diabetes 2016, [place] [employer] Association. Diabetes Care. 2016.39(Suppl 1). Performed By: #### 2 4323-8, 27049-3 ####[facility] LABIA [id number] [place] [address] [place] Potassium [Moles/Vol] 4.9 mmol/L Normal 3.7-5.1 [facility] Comment on above: Order Comment: Speci men Type: BLOOD SPECIMENOrdering Facility: [facility] Address: [address] [place] [address] Performed By: #### 2 4323-8, 40467-8 ####[facility] LABIA [id number] [place] [address] [place] Protein [Mass/Vol] 7.2 g/dL Normal 6.3-8.0 [facility] Comment on above: Order Comment: Speci men Type: BLOOD SPECIMENOrdering Facility: [facility] Address: [address] [place] [address] Performed By: #### 2 4323-8, 59136-9 ####[facility] LABIA [id number] [place] [address] [place] Sodium [Moles/Vol] 140 mmol/L Normal 136-144 [facility] Comment on above: Order Comment: Speci men Type: BLOOD SPECIMENOrdering Facility: [facility] Address: [address] [place] [address] Performed By: #### 2 4323-8, 72436-4 ####[facility] LABIA [id number] [place] [address] [place] Urea nitrogen [Mass/Vol] 20 mg/dL Normal 9-24 [facility] Comment on above: Order Comment: Speci men Type: BLOOD SPECIMENOrdering Facility: [facility] Address: [address] [place] [address] Performed By: #### 2 4323-8, 77898-6 ####[facility] LABIA [id number] [place] [address] [place] ECG COMPLETEon 10-02-2023 ECG COMPLETE Ventricular Rate : 5 0 BPM Atrial Rate : 50 BPM P-R Interval : 196 ms QRS Duration : 80 ms Q-T Interval : 432 ms QTC Calculation(Bazett) : 393 ms Calculated P Athelstane : 68 degrees Calculated R Athelstane : 20 degrees Calculated T Athelstane : 39 degrees SINUS BRADYCARDIA POSSIBLE ANTERIOR MYOCARDIAL INFARCTION , AGE UNDETERMINED ABNORMAL ECG Confirmed by MD STEPHENSON HEBA ([id number]) on 10/09/2023 3:24:03 PM NAME : SILVANO MENENDEZ PID : [id number] : 1965 Gender : Male Race : ORD : [id number] Procedure Date : Oct 02 2023 11:16:53 Edit Date : Oct 09 2023 15:24:05 Diagnosis: SINUS BRADYCARDIA POSSIBLE ANTERIOR MYOCARDIAL INFARCTION , AGE UNDETERMINED ABNORMAL ECG Confirmed by MD STEPHENSON HEBA ([id number]) on 10/09/2023 3:24:03 PM Test Reason : Location : 314 : J14 j1-4 Overread By : MD STEPHENSON HEBA Edited By : MD STEPHENSON HEBA Referred By : , Acquired by : MELISSA GARCIA [facility] ECHOon 10-02-2023 Echocardiography Echocardiography Report: Transthoracic Echo [facility] J1-5 Date of service: 10/02/2023 12:11:17 PM TESTER Ordering physician: NATO ANTONIO Indication: S/P CABG Technologist: Chaparro Villar Interpreting physician: Kaushik Garcia MD PATIENT: Name: SILVANO MENENDEZ : 1965 Age: 58 years Gender: M Previous cardiovascular interventions: CABG (01/22/2023) Primary rhythm: sinus. Height: 175.30 cm BSA: 2.13 m Weight: 93.44 kg BMI: 30.4 kg/m Heart rate 59 bpm Blood pressure 130/76 mmHg Color Doppler was utilized to interrogate the cardiac valves assessed and spectral Doppler was utilized to determine the flow velocities and pressure gradients reported in this exam. Myocardial strain analysis was performed in this exam to aid in the assessment of cardiac function. MEASUREMENTS: Value Indexed Normal Max aortic dimension 3.7 cm Ao < 3.8 Left atrial volume 33 ml (biplane A-L) 15 ml/m Jasper <= 34 Global peak long strain -18.8 % LV stroke volume 66 ml (2D biplane) LV end diastolic volume 108 ml (2D biplane) 50.7 ml/m 34<=EDVi<75 LV end systolic volume 42 ml (2D biplane) 19.7 ml/m Ejection Fraction 61 % (2D biplane) EF > 52 FINDINGS: LEFT VENTRICLE The left ventricle is normal in size. Left ventricular systolic function is normal. Global LV myocardial strain is normal. Normal left ventricular diastolic function. Mitral annular lateral E/e': 6.9. Mitral annular septal E/e': 8.4. Wall Motion: All scored segments are normal. RIGHT VENTRICLE The right ventricle is normal in size. Right ventricular systolic function is normal. RV systolic tissue Doppler velocity is 9.0 cm/s. Tricuspid annular displacement is 1.9 cm. Estimated right ventricular systolic pressure is 29 mmHg consistent with normal pulmonary artery pressures. Estimated right atrial pressure is 3 mmHg based on IVC assessment. LEFT ATRIUM The left atrial cavity is normal in size. Pulmonary Veins: The pulmonary venous pattern showed normal systolic flow. RIGHT ATRIUM The right atrial cavity is normal in size. Inferior Vena Cava: The inferior vena cava appears normal measuring 1.4 cm. The vessel decreases greater than 50 percent with inspiration. MITRAL VALVE There is trace mitral valve regurgitation. There is mild thickening. The pressure half time is 77 msec. The peak mitral E/A ratio is 1.17. The average mitral E/e' ratio is 7.7. The mitral flow deceleration time is 266 msec. TRICUSPID VALVE The tricuspid valve leaflets are structurally normal. There is mild (1+) tricuspid valve regurgitation. The hepatic venous pattern showed normal systolic flow. AORTIC VALVE There is no aortic valve regurgitation. Tricuspid aortic valve. There is mild thickening. The peak gradient is 5 mmHg (peak velocity = 114.6 cm/s). PULMONIC VALVE The pulmonic valve cusps are structurally normal. There is trace pulmonic valve regurgitation. AORTA The visualized aorta is normal in size. Measurements - Sinus: 3.7 cm. Mid ascending aorta 3.2 cm. PULMONARY ARTERIES The pulmonary arteries are unseen or not interrogated. INTERATRIAL SEPTUM There is no evidence of intracardiac shunting as detected by Doppler. INTERVENTRICULAR SEPTUM There is no flow through the interventricular septum as detected by Doppler. PERICARDIUM There is no pericardial effusion. There is an epicardial fat pad. CONCLUSIONS: - Exam indication: S/P CABG - The left ventricle is normal in size. Left ventricular systolic function is normal. EF = 61 5% (2D biplane) Normal left ventricular diastolic function. - The right ventricle is normal in size. Right ventricular systolic function is normal. - Exam was compared with the prior echocardiographic exam performed on 01/22/2023 (INTRAOP). * * * Final * * * [employer] Image : [id number] Normal [facility] Lipid 1996 panelon 4 Cholesterol [Mass/Vol] 105 mg/dL Normal <200 [facility] Comment on above: Order Comment: Speci men Type: BLOOD SPECIMENOrdering Facility: [facility] Address: [address] [place] [address] Result Comment: <200 mg/dL, Desirable 200-239 mg/dL, Borderline high >239 mg/dL, High Performed By: #### 2 4323-8, 80899-5 ####[facility] LABCLIA [id number] [place] [address] [place] Cholesterol in HDL [Mass/Vol] 29 mg/dL Low >39 [facility] Comment on above: Order Comment: Speci men Type: BLOOD SPECIMENOrdering Facility: [facility] Address: [address] [place] [address] Result Comment: 40-5 9 mg/dL, Acceptable >59 mg/dL, High: Negative risk factor for coronary heart disease <40 mg/dL, Low: Positive risk factor for coronary heart disease Performed By: #### 2 4323-8, 01596-1 ####[facility] LABCLIA [id number] [address] OF [facility] Cholesterol in LDL [Mass/Vol] 47 mg/dL Normal <100 [facility] Comment on above: Order Comment: Speci men Type: BLOOD SPECIMENOrdering Facility: [facility] Address: [address] [place] [address] Result Comment: <100 mg/dL, Optimal 100-129 mg/dL, Near optimal/above optimal 130-159 mg/dL, Borderline high 160-189 mg/dL, High >189 mg/dL, Very high Secondary prevention optimal LDL Cholesterol levels are recommended to be < 70 mg/dL Performed By: #### 2 4323-8, 10986-9 ####[facility] LABCLIA [id number] [address] OF [facility] Cholesterol in LDL/Cholesterol in HDL [Mass ratio] 1.62 {ratio} Normal <2.54 [facility] Comment on above: Order Comment: Speci men Type: BLOOD SPECIMENOrdering Facility: [facility] Address: [address] [place] [address] Result Comment: Raymond rosece: 1. National Cholesterol Education Program ATP III Guideline At-A-Glance Quick Desk Reference: National Heart, Lung, and Blood [place]. National Institutes of Health. 2001: NIH Publication No. 01-3305. 2. An International Atherosclerosis Society position paper: global recommendations for the management of dyslipidemia: executive summary, Atherosclerosis. 2014: 232(2):410-413. Performed By: #### 2 4323-8, 52302-6 ####[facility] LABCLIA [id number] [place] [id number] [address] [place] Cholesterol in VLDL [Mass/Vol] 29 mg/dL Normal <30 [facility] Comment on above: Order Comment: Speci men Type: BLOOD SPECIMENOrdering Facility: [facility] Address: [address] [place] [address] Performed By: #### 2 4323-8, 10102-7 ####[facility] LABCLIA [id number] [place] [address] [place] Cholesterol non HDL [Mass/Vol] 76 mg/dL Normal <130 [facility] Comment on above: Order Comment: Speci men Type: BLOOD SPECIMENOrdering Facility: [facility] Address: [address] [place] [address] Result Comment: <130 mg/dL, Optimal 130-159 mg/dL, Near optimal/above optimal 160-189 mg/dL, Borderline high 190-219 mg/dL, High >219 mg/dL, Very high Secondary prevention optimal non HDL Cholesterol levels are recommended to be <100 mg/dL Performed By: #### 2 4323-8, 78674-6 ####[facility] LABCLIA [id number] [place] [address] [place] Cholesterol.total/Ch olesterol in HDL [Mass ratio] 3.62 {ratio} Normal <5.10 [facility] Comment on above: Order Comment: Speci men Type: BLOOD SPECIMENOrdering Facility: [facility] Address: [address] [place] [address] Performed By: #### 2 4323-8, ####[facility] LABCLIA [id number] [place] [address] [place] FASTING TIME 2 hrs Normal [facility] Comment on above: Order Comment: Speci men Type: BLOOD SPECIMENOrdering Facility: [facility] Address: [address] [place] [address] Performed By: #### 2 4323-8, 21699-1 ####[facility] LABCLIA [id number] [address] [place] Triglyceride [Mass/Vol] 145 mg/dL Normal <150 [facility] Comment on above: Order Comment: Speci men Type: BLOOD SPECIMENOrdering Facility: [facility] Address: [address] [place] [address] Result Comment: <150 mg/dL, Normal 150-199 mg/dL, Borderline high 200-499 mg/dL, High >499 mg/dL, Very high Performed By: #### 2 4323-8, 96238-3 ####[facility] LABCLIA [id number] [address] [place] CNOVon 08-11-2023 CNOV Office Visit (MICHELL P ) SILVANO MENENDEZ ([id number]) 1965 M Date Time Provider Department 08/11/23 12:30 PM BRAXTON VELÁSQUEZ During your visit today, we recorded the following information about you: Pulse Blood pressure Weight Height 57/minute 119/59 94.5 kg 1.753 m Braxton Velásquez MD 08/13/2023 7:20 AM Signed [facility] [place] Vanessa Gill Department of Cardiovascular Medicine SECTION OF PREVENTIVE CARDIOLOGY Silvano Menendez 08/11/2023 CHIEF COMPLAINT: Patient presents with: CARD Ryder Patient Consult Phase 3 Session: CAD, HTN, Angina HISTORY OF PRESENT CARDIOVASCULAR ILLNESS: Silvano Menendez is a 58 year old male with a PMH significant for: - HTN - HLD - CAD sp CABG in January 2023 X 5: RUTH to LAD, RSVG to PDA, RSVG to Diagonal, LRA to OM1, Free CHICO to OM2 - DVT in 2004, sp IVC filter in 2010 - Former smoker - Premature in the family Presents for evaluation of hyperlipidemia. The patient follows with Dr Antonio ever since he had CABG in January 2023. 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 He was therefore referred for possible enrollment in Lp(a) trials. Upon cardiovascular review of systems the patient denies chest pain, SOB, palpitations, syncope, light-headedness, PND , orthopnea, intermittent claudication. ROS only positive for occasional tingling in his right hand, and occasional stiffness in his shoulders when walking. After his CABG, the patient underwent cardiac rehab successfully and is walking 3 to 5 times a week to stay active. CARDIAC RISK FACTORS: N/A Exercise: Three to five times per week Family History of CAD: Positive (male<55, female<65) Walks or biking for an hour - Father (unknown age) - Uncle of heart attack at 59 - Paternal grandmother had heart attack in the 70s - Maternal grandmother had CABG in hr mid 60s Avg. Sleep Hours Per Night?: 7-8 STATIN INTOLERANCE: Adverse Effect History of Statin Intolerance:: No Current Statin Freq: Every Day USE OF PCSK9 INHIBITORS: CARDIOVASCULAR DISEASE HISTORY: Atherosclerosis by ALT Imaging: Yes 01/21/23 CABG: Yes 01/22/23 Atherosclerosis by ALT Imaging: Yes Valve Disease: None Arrythmias: None HEART FAILURE/CARDIOMYOPATHY: None RELATED DISEASE HISTORY: CURRENT MEDS: Current Outpatient Medications Medication Sig atorvastatin (LIPITOR) 80 mg tablet Take 1 tablet by mouth daily at bedtime. metoprolol succinate ER (TOPROL XL) 100 mg Take 1 tablet by mouth two times a day. NOTE TAKE 1 tab in the am and 1/2 tab in the pm. 100 mg AM and 50 mg PM amLODIPine (NORVASC) 2.5 mg tablet TAKE 1 TABLET BY MOUTH ONCE DAILY aspirin, enteric coated (ASPIRIN, ENTERIC COATED) 81 mg EC tablet Take 81 mg by mouth once daily. MULTIVITAMIN ORAL Take by mouth. nitroglycerin sublingual (NITROQUICK) 0.3 mg SL tablet Dissolve 1 tablet under the tongue every 5 minutes as needed for chest pain. No current facility-administered medications for this visit. ALLERGIES: ALLERGIES No Known Allergies FAMILY AND SOCIAL HISTORY: Lifestyle Tobacco use in the last year: No Alcohol Use: Never REVIEW OF SYSTEMS: CONSTITUTIONAL: No Changes. RESPIRATORY: Negative for cough, hemoptysis, wheezing, COPD, dyspnea or shortness of breath, has cold and runny nose CARDIOVASCULAR: See HPI Otherwise not reviewed PHYSICAL EXAMINATION: Vital Signs and General Appearance BP 119/59 (BP Site: Right Arm, BP Position: Sitting, BP Cuff Size: Large Adult) Pulse (!) 57 Ht 175.3 cm (5' 9 ) Wt 94.5 kg (208 lb 6.4 oz) BMI 30.78 kg/m? Average Blood Pressure: 119/59 BMI 30.78 kg/(m2) Well developed, well nourished, alert, active 58 year old male in no apparent distress. Eyes: Normal, PERRLA Skin: Xanthomas - none Neck: Normal, supple with full range of motion Lungs: Clear to auscultation and percussion Lower Extremities: Normal exam of the extremities Neurological:Oriented to person, place and time and No focal motor or sensory deficits Pulses: Carotid: Left: 2+, Right: 2+, Bruit: No Heart Sounds: S1: Normal S2: Normal S3: Absent S4: Absent Murmurs: Systolic Murmur Present: No Diastolic Murmur Present: No CLINICAL TESTING RESULTS: I have personally reviewed the following: Most recent ECG Tracing: (PVC), (performed on 08/11), which I independently visualized. Most Recent TTE: (normal),(performed on January 2023) CONCLUSIONS: - Exam indication: Pre op CABG 3 vessel - The left ventricle is normal in size. Left ventricular systolic function is normal. EF = 55 ? 5% (visual est.) - The right ventricle is normal in size. Right ventricular systolic function is normal. - The patient has not had a prior CC echocardiographic exam for comparison. Other recent cardiac testing: Coronary angio 01/08/2023: Abnormal coronary angiogr (more content not included)... Normal [facility] ECG COMPLETEon 08-11-2023 ECG COMPLETE Ventricular Rate : 5 9 BPM Atrial Rate : 59 BPM P-R Interval : 182 ms QRS Duration : 76 ms Q-T Interval : 428 ms QTC Calculation(Bazett) : 423 ms Calculated P Athelstane : 73 degrees Calculated R Athelstane : 27 degrees Calculated T Athelstane : 42 degrees SINUS BRADYCARDIA WITH OCCASIONAL PREMATURE VENTRICULAR COMPLEXES OTHERWISE NORMAL ECG Confirmed by FAUSTINO-GENARO DEVINE MD ([id number]) on 08/16/2023 3:38:11 PM NAME : SIVLANO MENENDEZ PID : [id number] : 1965 Gender : Male Race : ORD : [id number] Procedure Date : Aug 11 2023 12:02:00 Edit Date : Aug 16 2023 15:38:13 Diagnosis: SINUS BRADYCARDIA WITH OCCASIONAL PREMATURE VENTRICULAR COMPLEXES OTHERWISE NORMAL ECG Confirmed by GENARO GREEN MD ([id number]) on 08/16/2023 3:38:11 PM Test Reason : Location : 314 : J14 Overread By : GENARO GREEN MD Edited By : GENARO GREEN MD Referred By : BRAXTON VELÁSQUEZ Acquired by : JOS BLOCK [facility] 05-27-2023 [facility] HNO ID: [id number] Author: Wang Batista RT(R) Service: Radiology Author Type: Technologist Type: [facility] Filed: 05/27/2023 10:05 AM Note Text: Radiology Service Progress Note PATIENT NAME: Silvano Menendez DATE OF SERVICE: May 27, 2023 TIME: 10:05 AM PATIENT IDENTITY VERIFICATION COMPLETED USING TWO (2) IDENTIFIERS: Name and Date of confirmed by patient verbally and Name and Date of confirmed by identification band. FALL SCREENING: Has the patient had 2 falls in the last year or 1 fall with injury or currently using an Ambulatory Assistive Device (Walker, Cane, Wheelchair, Crutches, etc.)? No PATIENT GENDER DATA: Male PATIENT RELEVANT IMPLANT DATA REVIEWED: Yes RADIOLOGY DEPARTMENT: MR; Exam(s) Completed: Lower MSK: Knee, right PERIPHERAL IV DATA: Not applicable SIGNED BY: RT Madisyn(R) May 27, 2023 10:05 AM [facility] MRI KNEE WO IVCON RIGHTon [facility] MRI KNEE WO IVCON RTon 05-27 MRI KNEE WO IVCON RT * * *Final Report* * * DATE OF EXAM: May 27 2023 10:27AM [facility] 0213 - MRI KNEE WO IVCON RT / PROCEDURE REASON: multiple diagnoses * * * * Physician Interpretation * * * * EXAMINATION: MRI RIGHT KNEE WITHOUT CONTRAST CLINICAL HISTORY: History of medial right knee pain and swelling with occasional twinges of pain with twisting, no catching or locking sensation, if symptoms persist despite CSI and DIAZ injections, knee brace, home exercises and activity modification. TECHNIQUE: Routine non-contrast MRI of the knee MQ: [id number] COMPARISON: 04/24/2023 right knee radiographs RESULT: MENISCI: Medial Meniscus: Complex tear in the posterior horn and body with extension into the posterior root. Lateral Meniscus: Intact. LIGAMENTS: ACL: Intact PCL: Intact MCL: Intact LCL Complex: Intact CARTILAGE: Medial Femoral Condyle: Moderate sized area(s) of predominantly low grade (less than 50% thickness) cartilage loss and or fissuring with smaller area(s) of full thickness cartilage loss and or fissuring Medial Tibial Plateau: Large area(s) of full thickness cartilage loss/fissuring Lateral Femoral Condyle: Normal Lateral Tibial Plateau: Normal Patella: Moderate sized area(s) of full thickness cartilage loss and or fissuring Trochlea: Small area(s) of full thickness cartilage loss and or fissuring TENDONS: The distal quadriceps and patellar tendons are intact. The popliteus tendon is intact. BONES AND MARROW: Focal marrow edema secondary to overlying full-thickness chondral loss medial tibial plateau. No fracture identified. MUSCLES: Muscle bulk and signal intensity are normal. JOINT FLUID AND SYNOVIUM: No joint effusion. No synovitis. No Sung's cyst. OTHER: None Localizer images: No additional findings. IMPRESSION: OSTEOARTHRITIS, SEVERE IN THE MEDIAL COMPARTMENT WITH COMPLEX MEDIAL MENISCAL TEAR Lobbyist: MUNA Transcribe Date/Time: May 27 2023 11:01A Dictated by : BETZY MEDINA MD This examination was interpreted and the report reviewed and electronically signed by: RADHA REGALADO MD on May 27 2023 2:08PM EST [id number] Normal [facility]CONon 01-21-2023 Radiology Result ACTIONABLE Abnormal [facility] - Microbiology an d Antimicrobial susceptibilityon 01-21-2023 S. aureus and MRSA panel MILY+probe (Nose) Negative Negative [facility] XR CHEST 2V FRONTAL/LATon [facility] Covid-19 PCR (CVDTBH)on 09-21 Sample Type Test performed using RT-PCR from a nasopharyngeal collected specimen. Normal [facility] Comment on above: Performed By: #### C VDTBH #### [facility] [address] [place] [id number] Sho Vasquez SARS-CoV-2 (COVID-19) RNA MILY+probe Ql (Unsp spec) Not detected Normal NOT DETECTED [facility] Comment on above: Result Comment: This test is not yet approved or cleared by the [place] FDA. When there are no FDA-approved or cleared tests available, and other criteria are met, FDA can make tests available under an emergency access mechanism called an Emergency Use Authorization (EUA). The EUA for this test is supported by the [place] of Health and Human Service's (HHS's) declaration that circumstances exist to justify the emergency use of in vitro diagnostics for the detection and/or diagnosis of the virus that causes COVID-19. This EUA will remain in effect (meaning this test can be used) for the duration of the COVID-19 declaration justifying emergency of IVDs, unless it is terminated or revoked by FDA (after which the test may no longer be used). When diagnostic testing is negative, the possibility of a false negative should be considered in the context of a patient's recent exposures and the presence of clinical signs and symptoms consistent with SARS-CoV-2. Performed By: #### C VDTBH #### [facility] [address] [place] [id number] Sho Vasquez Covid-19 PCR (CVDTB)on EUA Statement SEE BELOW Normal The [facility] Comment on above: Result Comment: This test is not yet approved or cleared by the [place] FDA. When there are no FDA-approved or cleared tests available, and other criteria are met, FDA can make tests available under an emergency access mechanism called an Emergency Use Authorization (EUA). The EUA for this test is supported by the [place] of Health and Human Service?s (HHS?s) declaration that circumstances exist to justify the emergency use of in vitro diagnostics for the detection and/or diagnosis of the virus that causes COVID-19. This EUA will remain in effect (meaning this test can be used) for the duration of the COVID-19 declaration justifying emergency of IVDs, unless it is terminated or revoked by FDA (after which the test may no longer be used). When diagnostic testing is negative, the possibility of a false negative should be considered in the context of a patients recent exposures and the presence of clinical signs and symptoms consistent with SARS-CoV-2. Performed By: #### C VDTBH #### [facility] [address] [place], [place] [id number] Sho Vasquez SARS-CoV-2 (COVID-19) RNA MILY+probe Ql (Unsp spec) Detected Normal NOT DETECTED [facility] Comment on above: Result Comment: This test is not yet approved or cleared by the [place] FDA. When there are no FDA-approved or cleared tests available, and other criteria are met, FDA can make tests available under an emergency access mechanism called an Emergency Use Authorization (EUA). The EUA for this test is supported by the [place] of Health and Human Service's (HHS's) declaration that circumstances exist to justify the emergency use of in vitro diagnostics for the detection and/or diagnosis of the virus that causes COVID-19. This EUA will remain in effect (meaning this test can be used) for the duration of the COVID-19 declaration justifying emergency of IVDs, unless it is terminated or revoked by FDA (after which the test may no longer be used). Performed By: #### C VDTB #### [facility] [address] [place] [id number] Sho Vasquez No Panel Information [facility] Vital Signs Date Time Vital Sign Value Performing Clinician Betty kerr 12-15-2024 13:52-0400 Body height 175.3 cm Bennie Keen DO Work Phone: [facility] 12-15-2024 13:52-0400 Body mass index (BMI) [Ratio] 31.01 kg/m2 Bennie Keen DO Work Phone: [facility] 12-15-2024 13:52-0400 Body weight 95.25 kg Bennie Keen DO Work Phone: [facility] 12-15-2024 11:19-0400 Diastolic blood pressure 74 mm[Hg] Wang Soler MD Work Phone: [facility] 12-15-2024 11:19-0400 Systolic blood pressure 122 mm[Hg] Wang Soler MD Work Phone: [facility] 02-10-2024 08:55-0400 Body height 175.3 cm [facility] 02-10-2024 08:55-0400 Body mass index (BMI) [Ratio] 31.75 kg/m2 [facility] 02-10-2024 08:55-0400 Body weight 97.52 kg [facility] 02-10-2024 08:55-0400 Diastolic blood pressure 72 mm[Hg] [facility] 02-10-2024 08:55-0400 Systolic blood pressure 124 mm[Hg] [facility] 01-05-2024 13:50-0400 Body height 175.3 cm Pac 9 Work Phone: [facility] 01-05-2024 13:50-0400 Body mass index (BMI) [Ratio] 31.97 kg/m2 Pac 9 Work Phone: [facility] 01-05-2024 13:50-0400 Body temperature 98.01 [degF] Pac 9 Work Phone: [facility] 01-05-2024 13:50-0400 Body weight 98.2 kg Pac 9 Work Phone: [facility] 01-05-2024 13:50-0400 Diastolic blood pressure 69 mm[Hg] Pac 9 Work Phone: [facility] 01-05-2024 13:50-0400 Heart rate 62 /min Pac 9 Work Phone: [facility] 01-05-2024 13:50-0400 Respiratory rate 18 /min Pac 9 Work Phone: [facility] 01-05-2024 13:50-0400 SaO2% (BldA) [Mass fraction] 96 % Pac 9 Work Phone: [facility] 01-05-2024 13:50-0400 Systolic blood pressure 120 mm[Hg] Pacc 9 Work Phone: [facility] 01-05-2024 11:04-0400 Body height 175.3 cm Ino Mason MD Work Phone: [facility] 01-05-2024 11:04-0400 Body mass index (BMI) [Ratio] 31.75 kg/m2 Ino Mason MD Work Phone: [facility] 01-05-2024 11:04-0400 Body weight 97.52 kg Ino Mason MD Work Phone: [facility] 10-02-2023 14:30-0400 Body height 172.7 cm Nato Antonio MD Work Phone: [facility] 10-02-2023 14:30-0400 Body mass index (BMI) [Ratio] 31.93 kg/m2 Nato Antonio MD Work Phone: [facility] 10-02-2023 14:30-0400 Body weight 95.25 kg Nato Antonio MD Work Phone: [facility] 10-02-2023 14:30-0400 Diastolic blood pressure 73 mm[Hg] Nato Antonio MD Work Phone: [facility] 10-02-2023 14:30-0400 Heart rate 57 /min Nato Antonio MD Work Phone: [facility] 10-02-2023 14:30-0400 Respiratory rate 16 /min Nato Antonio MD Work Phone: [facility] 10-02-2023 14:30-0400 SaO2% (BldA) [Mass fraction] 95 % Nato Antnoio MD Work Phone: [facility] 10-02-2023 14:30-0400 Systolic blood pressure 130 mm[Hg] Nato Antonio MD Work Phone: [facility] 10-02-2023 13:25-0400 Body height 174 cm Milagro Mareth PA-C Work Phone: [facility] 10-02-2023 13:25-0400 Body weight 95.26 kg Milagro Mareth PA-C Work Phone: [facility] 08-11-2023 12:42-0500 Diastolic blood pressure 59 mm[Hg] Braxton Velásquez MD Work Phone: [facility] 08-11-2023 12:42-0500 Heart rate 57 /min Braxton Velásquez MD Work Phone: [facility] 08-11-2023 12:42-0500 Systolic blood pressure 119 mm[Hg] Braxton Veláqsuez MD Work Phone: [facility] 08-11-2023 12:36-0500 Body height 175.3 cm Braxton Velásquez MD Work Phone: [facility] 08-11-2023 12:36-0500 Body weight 94.53 kg Braxton Velásquez MD Work Phone: [facility] 04-24-2023 08:11-0400 Body height 175.3 cm Milagro Mareth PA-C Work Phone: [facility] 04-24-2023 08:11-0400 Body weight 93.44 kg Milagro Mareth PA-C Work Phone: [facility] 03-11-2023 09:46-0400 Body height 175.3 cm Nato Antonio MD Work Phone: [facility] 03-11-2023 09:46-0400 Body weight 92.53 kg Nato Antonio MD Work Phone: [facility] 03-11-2023 09:46-0400 Diastolic blood pressure 75 mm[Hg] Nato Antonio MD Work Phone: [facility] 03-11-2023 09:46-0400 Heart rate 55 /min Nato Antonio MD Work Phone: [facility] 03-11-2023 09:46-0400 SaO2% (BldA) [Mass fraction] 99 % Nato Antonio MD Work Phone: [facility] 03-11-2023 09:46-0400 Systolic blood pressure 123 mm[Hg] Nato Antonio MD Work Phone: [facility] 02-04-2023 11:18-0400 Body height 175.3 cm Andegoni Sandalakis COMMUNITY ENGAGEMENT REPRESENTATIVE.STACK YIELD ENGINEER Work Phone: [facility] 02-04-2023 11:18-0400 Body temperature 97.9 [degF] Andegoni Sandalakis COMMUNITY ENGAGEMENT REPRESENTATIVE.STACK YIELD ENGINEER Work Phone: [facility] 02-04-2023 11:18-0400 Body weight 91.4 kg Andegoni Sandalakis COMMUNITY ENGAGEMENT REPRESENTATIVE.STACK YIELD ENGINEER Work Phone: [facility] 02-04-2023 11:18-0400 Diastolic blood pressure 84 mm[Hg] Andegoni Sandalakis COMMUNITY ENGAGEMENT REPRESENTATIVE.STACK YIELD ENGINEER Work Phone: [facility] 02-04-2023 11:18-0400 Heart rate 73 /min Andegoni Sandalakis COMMUNITY ENGAGEMENT REPRESENTATIVE.STACK YIELD ENGINEER Work Phone: [facility] 02-04-2023 11:18-0400 SaO2% (BldA) [Mass fraction] 100 % Andegoni Sandalakis COMMUNITY ENGAGEMENT REPRESENTATIVE.STACK YIELD ENGINEER Work Phone: [facility] 02-04-2023 11:18-0400 Systolic blood pressure 122 mm[Hg] Andegoni Sandalakis COMMUNITY ENGAGEMENT REPRESENTATIVE.STACK YIELD ENGINEER Work Phone: [facility] 01-21-2023 12:26-0400 Body height 175.3 cm [facility] Work Phone: [facility] 01-21-2023 12:26-0400 Body temperature 98.29 [degF] [facility] Work Phone: [facility] 01-21-2023 12:26-0400 Body weight 96.62 kg [facility] Work Phone: [facility] 01-21-2023 12:26-0400 Diastolic blood pressure 84 mm[Hg] [facility] Work Phone: [facility] 01-21-2023 12:26-0400 Heart rate 64 /min [facility] Work Phone: [facility] 01-21-2023 12:26-0400 Respiratory rate 16 /min [facility] Work Phone: [facility] 01-21-2023 12:26-0400 SaO2% (BldA) [Mass fraction] 98 % [facility] Work Phone: [facility] 01-21-2023 12:26-0400 Systolic blood pressure 145 mm[Hg] [facility] Work Phone: [facility] 12-19-2022 13:28-0400 Diastolic blood pressure 91 mm[Hg] Nato Anotnio MD Work Phone: [facility] 12-19-2022 13:28-0400 Systolic blood pressure 140 mm[Hg] Nato Antonio MD Work Phone: [facility] 12-19-2022 13:26-0400 Body height 175.3 cm Nato Antonio MD Work Phone: [facility] 12-19-2022 13:26-0400 Body weight 95.25 kg Nato Antonio MD Work Phone: [facility] 12-19-2022 13:26-0400 Heart rate 65 /min Nato Antonio MD Work Phone: [facility] 12-19-2022 13:26-0400 Respiratory rate 12 /min Nato Antonio MD Work Phone: [facility] 12-19-2022 13:26-0400 SaO2% (BldA) [Mass fraction] 99 % Nato Antonio MD Work Phone: [facility] Encounters Encounter Date Encounter Type Care Provider Facility Start: 12-15-2024 End: 12-15-2024 Office outpatient new 45 minutes Bennie Keen DO Work Phone: [facility]ENROSTRO Comment on above: Mohs defect (Primary Dx); Basal cell carcinoma of skin of scalp and neck Start: 12-15-2024 End: 12-15-2024 ambulatory BENNIE KEEN Not Available Start: 12-15-2024 End: 12-15-2024 Patient encounter procedure Wang Soler MD Work Phone: [facility] Comment on above: Basal cell carcinoma of skin of scalp and neck Start: 12-15-2024 End: 12-15-2024 ambulatory WANG SOLER Not Available Start: 11-18-2024 End: 11-18-2024 ambulatory CARMELINA ANGELES Not Available Start: 11-18-2024 End: 11-18-2024 Patient encounter procedure Carmelina Angeles MD Work Phone: [facility] Comment on above: Basal cell carcinoma of upper back (Primary Dx) Start: 11-05-2024 End: 11-07-2024 Refill Hannah Brower APRN.STACK YIELD ENGINEER Work Phone: Preventive Cardiology Comment on above: Refill Request Start: 10-18-2024 End: 10-18-2024 Stephen Angeles MD Work Phone: [facility] Start: 10-18-2024 End: 10-18-2024 Bamharjito saranya Angeles MD Work Phone: [facility] Start: 10-18-2024 End: 10-18-2024 Office outpatient visit 15 minutes Carmelina Angeles MD Work Phone: [facility] Comment on above: Seborrheic keratosis (Primary Dx); Lentigines; Neoplasm of unspecified behavior of bone, soft tissue, and skin; Actinic keratosis; Seborrheic keratosis, inflamed Start: 10-18-2024 End: 10-18-2024 ambulatory CARMELINA ANGELES Not Available Start: 09-26-2024 End: 09-26-2024 Refill Nato Antonio MD Work Phone: Cardiology Comment on above: Refill Request Start: 08-24-2024 End: 08-24-2024 Refill Hannah Brower APRN.CNP Work Phone: [facility] Comment on above: Refill Request Start: 08-19-2024 End: 08-19-2024 Refill Nato Antonio MD Work Phone: Cardiology Comment on above: Refill Request Start: 07-26-2024 End: 07-26-2024 Refill Nato Antonio MD Work Phone: Cardiology Comment on above: Refill Request Start: 07-26-2024 End: 07-26-2024 Telephone encounter Genaro Green MD Work Phone: Cardiology Comment on above: Orders Start: 06-17-2024 End: 06-17-2024 ambulatory BEATRIZ EDGAR Facility:[facility] Start: 06-17-2024 End: 06-17-2024 Patient encounter procedure Milagro Castle PA-C Work Phone: Orthopaedics Comment on above: Primary osteoarthrit is of left knee (Primary Dx) Start: 06-08-2024 End: 06-08-2024 Refill Braxton Velásquez MD Work Phone: Preventive Cardiology Comment on above: Refill Request Start: 03-18-2024 End: 03-21-2024 Refill Nato Antonio MD Work Phone: Cardiology Comment on above: Refill Request Start: 03-04-2024 End: 03-04-2024 ambulatory BEATRIZ EDGAR Facility:[facility] Start: 03-04-2024 End: 03-04-2024 Patient encounter procedure Milagro MCGINNIS-Michael Work Phone: Orthopaedics Comment on above: Status post right pa rtial knee replacement (Primary Dx); Arthrofibrosis of knee joint, right Start: 03-04-2024 End: 03-04-[address] [facility] Facility:[facility] Start: 03-04-2024 End: 03-04-2024 Subsequent hospital visit by physician Etta Aguila Xray A21 Radiology Comment on above: Primary osteoarthrit is of right knee [M17.11] Start: 02-19-2024 End: 02-19-2024 Refill Sofy Castrejon PA-C Work Phone: Orthopaedics Comment on above: Refill Request Start: 02-17-2024 End: 02-17-[address] [facility] Facility:[facility] Start: 02-10-2024 End: 02-10-2024 [facility] Start: 02-10-2024 End: 02-10-[address] 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); Deep vein thrombosis (DVT) of popliteal vein of right lower extremity, unspecified chronicity (HCC) Start: 02-10-2024 End: 02-10-2024 [facility] Start: 02-09-2024 End: 02-09-2024 ambulatory Torie Aparicio [facility] Start: 02-09-2024 End: 02-09-2024 [facility] Start: 02-08-2024 End: 02-08-2024 ambulatory Kaushik Thurman RN Work Phone: Orthopaedics Start: 02-05-2024 End: 02-05-2024 Refill Ino Mason MD Work Phone: Orthopaedics Comment on above: Refill Request Status post right pa rtial knee replacement [Z96.651] Start: 02-05-2024 End: 02-05-2024 Postop follow up visit related to original px Ino Mason MD Work Phone: Orthopaedics Comment on above: Status post right pa rtial knee replacement (Primary Dx); Arthrofibrosis of knee joint, right Start: 02-03-2024 End: 02-03-2024 ambulatory BEATRIZ WANG EDGAR Facility:[facility] Start: 02-03-2024 End: 02-03-2024 Nursing evaluation of patient and report Kaushik Thurman RN Work Phone: Orthopaedics Comment on above: Status post right pa rtial knee replacement (Primary Dx) Start: 02-01-2024 End: 02-01-2024 Telephone encounter Beatriz Ramirez MD Work Phone: [facility] Start: 01-30-2024 End: 01-31-2024 Emergency department patient visit KIMBERLY Celia [facility] Start: 01-14-2024 End: 01-14-2024 ambulatory BEATRIZ WANG EDGAR Facility:[facility] Start: 01-13-2024 End: 01-14-2024 ambulatory [facility] Facility[facility] Start: 01-05-2024 End: 01-05-2024 Subsequent hospital visit by physician Ct 2 Main Qb (I-Stat) Radiology Comment on above: Chronic pain of righ t knee [M25.561, G89.29] Start: 01-05-2024 End: 01-05-2024 Admission to establishment [facility] Work Phone: Pre Anesthesia Start: 01-05-2024 End: 01-05-2024 Anesthesia consultation [facility] Work Phone: Pre Anesthesia Comment on above: Pre-op evaluation (P rimary Dx); Primary osteoarthritis of right knee; Obesity, Class I, BMI 30-34.9; Deep vein thrombosis (DVT) of popliteal vein of right lower extremity, unspecified chronicity (HCC); Mixed hyperlipidemia; 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); Primary hypertension; Sinus bradycardia by electrocardiography Start: 01-05-2024 End: 01-05-2024 Preprocedural examination done [facility] Work Phone: [facility] Work Phone: Start: 01-05-2024 Telephone encounter Shannon MCKEON Orthopaedics 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 Start: 01-05-2024 End: 01-05-2024 ambulatory BEATRIZ EDGAR Facility:[facility] Start: 01-05-2024 Encounter for other preprocedural examination [facility] Start: 01-05-2024 End: 01-05-2024 ambulatory BEATRIZ EDGAR Facility:[facility] Start: 01-05-2024 End: 01-05-2024 Office outpatient visit 40 minutes Ino Mason MD Work Phone: Orthopaedics Comment on above: Primary osteoarthrit is of right knee (Primary Dx) Start: 11-20-2023 Telephone encounter Ino zavala MD Work Phone: Orthopaedics Comment on above: Schedule Surgery Cardiac Clearance Start: 10-28-2023 End: 10-28-2023 ambulatory Elsy Garcia RT(R) Radiology Comment on above: Radio Gen RMP Start: 10-28-2023 End: 10-28-2023 Patient encounter procedure Elsy Garcia RT(R) Radiology Comment on above: Primary osteoarthrit is of left knee (Primary Dx) Start: 10-28-2023 End: 10-28-2023 Subsequent hospital visit by physician Thu [facility] Work Phone: Radiology Comment on above: Pain [R52] Start: 10-27-2023 Orders Only Parveen Araujo PA-C Work Phone: Appointment Center Comment on above: Pain (Primary Dx) Start: 10-26-2023 ambulatory Kaushik moser RN Work Phone: Orthopaedics Start: 10-02-2023 End: 10-02-2023 Patient encounter procedure Milagro Castle PA-C Work Phone: Orthopaedics Comment on above: Primary osteoarthrit is of right knee (Primary Dx); Chronic pain of right knee Coronary artery dise ase due to lipid rich plaque (Primary Dx); Essential hypertension; Elevated glucose; Primary hypertension; Mixed hyperlipidemia; 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); Hx of CABG; Former tobacco use Start: 10-02-2023 End: 10-02-2023 ambulatory BEATRIZ EDGAR Facility:[facility] Start: 10-02-2023 End: 10-02-2023 ambulatory BEATRIZ EDGAR Facility:[facility] Start: 08-11-2023 End: 08-11-2023 Office consultation new/estab patient 60 min Braxton Velásquez MD Work Phone: Preventive Cardiology Comment on above: Mixed hyperlipidemia (Primary Dx); Hx of CABG; Essential hypertension; Stable angina; Coronary artery disease due to lipid rich plaque; Former tobacco use Start: 08-11-2023 End: 08-11-2023 ambulatory BEATRIZ EDGAR Facility:[facility] Start: 07-29-2023 ambulatory Torie Markus [facility] Start: 05-27-2023 ambulatory BEATRIZ GALVAN Facility:[facility] Start: 05-27-2023 End: 05-27-2023 Subsequent hospital visit by physician [facility] (Istat/1.5) Work Phone: [facility] Radiology MRI Comment on above: Chronic pain of righ t knee [M25.561, G89.29] Start: 05-21-2023 Refill Nato Winkler i, MD Work Phone: Cardiology Comment on above: Refill Request Start: 04-28-2023 Refill Nato Winkler i, MD Work Phone: Cardiology Comment on above: Refill Request Start: 04-24-2023 End: 04-24-2023 Patient encounter procedure Milagro Castle PA-C Work Phone: Orthopaedics Comment on above: Primary osteoarthrit is of right knee (Primary Dx); Chronic pain of right knee Start: 04-03-2023 Telephone encounter Nato vu MD Work Phone: Cardiology Comment on above: LAB RESULTS RCVD VIA FAX Start: 03-14-2023 ambulatory Nato Winkler i, MD Work Phone: Cardiology Comment on above: Medical records for [employer] Start: 03-11-2023 End: 03-11-2023 Patient encounter procedure Nato Antonio MD Work Phone: Cardiology Comment on above: Hx of CABG (Primary Dx); Essential hypertension; Stable angina (HCC); Coronary artery disease due to lipid rich plaque; Former tobacco use; Mixed hyperlipidemia; Elevated lipoprotein(a) Start: 02-24-2023 ambulatory Mirta Saavedra RN [facility] Start: 02-24-2023 Telephone encounter Nato vu MD Work Phone: Cardiology Comment on above: Patient Question 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 Start: 02-20-2023 Telephone encounter Nato vu MD Work Phone: Cardiology Comment on above: Medication Request Start: 02-11-2023 ambulatory Shilpi Phillips Pulmonar y Medicine Start: 02-04-2023 End: 02-04-2023 Patient encounter procedure Renee Myers COMMUNITY ENGAGEMENT REPRESENTATIVE.STACK YIELD ENGINEER Work Phone: Cardiothoracic Comment on above: S/P CABG (coronary a rtery bypass graft) (Primary Dx) Start: 02-04-2023 End: 02-04-2023 Subsequent hospital visit by physician Xr Chest Main J1 Work Phone: Radiology Comment on above: Surgery follow-up [Z 09] Start: 02-03-2023 Telephone encounter Ross Moser [facility]AT[facility] NURSING A16 Comment on above: Follow Up Phone Call (RC f/u all clear/) Start: 02-02-2023 Telephone encounter Ari Diaz MD Work Phone: Cardiology Comment on above: Patient Question Start: 01-31-2023 Telephone encounter Quyen pitts COMMUNITY ENGAGEMENT REPRESENTATIVE.STACK YIELD ENGINEER Work Phone: [facility] Comment on above: Returning Patient's Call Start: 01-29-2023 Telephone encounter Ari Diaz MD Work Phone: Cardiology Comment on above: Patient Question Start: 01-21-2023 ambulatory Ari painting MD Work Phone: Cardiothoracic Comment on above: Patient Education Start: 01-21-2023 End: 01-21-2023 Admission to same day surgery center Anesthesia Clearance Work Phone: [facility] Work Phone: Start: 01-21-2023 End: 01-21-2023 Patient encounter procedure [facility] Work Phone: Cardiothoracic Comment on above: Pre-op exam (Primary Dx); Coronary artery disease involving lytton heart, unspecified vessel or lesion type, unspecified whether angina present Encounter for preope rative anesthesiology assessment for cardiac surgery (Primary Dx) Coronary artery dise ase involving lytton coronary artery of lytton heart, unspecified whether angina present (Primary Dx) Coronary artery dise ase involving lytton heart, unspecified vessel or lesion type, unspecified whether angina present (Primary Dx) Start: 01-21-2023 End: 01-21-2023 Preprocedural examination done [facility] Work Phone: [facility] Start: 01-21-2023 End: 01-21-2023 Patient encounter status [facility] Work Phone: [facility] Start: 01-21-2023 End: 01-21-2023 Subsequent hospital visit by physician Xr Chest Main Qb1 Radiology Comment on above: Encounter for preope rative vascular examination [Z01.810] Start: 01-15-2023 ambulatory Jewell Stiles Research Coordinator [facility] Start: 01-15-2023 Telephone encounter Nato vu MD Work Phone: Cardiology Comment on above: Forms (Leave of Abse nce) Start: 01-13-2023 Telephone encounter Ari Diaz MD Work Phone: Cardiothoracic Comment on above: Insurance Authorizat ion Start: 01-12-2023 ambulatory Nato Winkler i, MD Work Phone: Cardiology Comment on above: Work restrictions or light duty Start: 01-07-2023 Telephone encounter Uzair landis MD Work Phone: Cardiology Comment on above: Education Of Patient /family Start: 12-19-2022 Telephone encounter Nato vu MD Work Phone: Cardiology Comment on above: IMAGES RCVD VIA WALK IN Start: 12-19-2022 End: 12-19-2022 Patient encounter procedure Nato Antonio MD Work Phone: Cardiology Comment on above: Essential hypertensi on (Primary Dx); Stable angina (HCC); Coronary artery disease due to lipid rich plaque; Elevated glucose; Ischemia; Former tobacco use Start: 12-17-2022 Telephone encounter Abby (Pss) Mi tra Cardiology Comment on above: Appointment ([facility] TV 2nd opinion line. 1st call. Patient's scheduled for Thursday, 12/[address] Nato Antonio. Case closed. ) Other heart disorder s in diseases classified elsewhere (Primary Dx) Start: 10-10-2020 End: 10-10-[address] DOCTOR ORANTES Facility:[facility] Start: 05-25-2020 End: 05-26-[address] BEATRIZ RAMIREZ Facility:[facility] Procedures Date Procedure Procedure Detail Performing Clinician Start: 12-14-2024 MOHS SURGERY Wang plaza MD Work Phone: Start: 11-18-2024 DESTRUCTION OF LESION E duncan Angeles MD Work Phone: Start: 10-18-2024 End: 10-18-2024 CRYOTHERAPY SKIN LESION Carmelina Angeles MD Work Phone: Start: 10-18-2024 End: 10-18-2024 SKIN / NAIL BIOPSY Carmelina Angeles MD Work Phone: Start: 06-17-2024 Arthrocentesis aspir &/inj major jt/bursa w/o us Milagro Apodacaeth PA-C Work Phone: Start: 03-04-2024 Radiologic examinati on knee 1/2 views Milagro Leoncio Apodacaeth PA-C Work Phone: Start: 02-05-2024 Radiologic examinati on knee 3 views Milagro Leoncio Apodacaeth PA-C Work Phone: Start: 01-05-2024 Ct lower extremity w /o contrast material Milagro Leoncio Apodacaeth PA-C Work Phone: Start: 01-05-2024 Antibody screen BEATRIZ GALVAN Comment on above: Order Comment: Speci men Type: BLOOD SPECIMENOrdering Facility: [facility] Address: [address] [place] [id number] Performed By: #### T [id number] ####CC MAIN BLOOD BANKCLIA [id number] [address] [id number] [address] [place] Start: 10-28-2023 Arthrocentesis aspir &/inj major jt/bursa w/o us Parveen Araujo PA-C Work Phone: Start: 10-28-2023 Radiologic exam knee complete 4/more views Parveen Araujo PA-C Work Phone: Start: 10-02-2023 Arthrocentesis aspir &/inj major jt/bursa w/o us Milagro L Mareth PA-C Work Phone: Start: 10-02-2023 Lipid 1996 panel - S tracey or Plasma Milagro Mareth PA-C Work Phone: Start: 05-27-2023 Mri any jt lower ext rem w/o contrast matrl Milagro L Mareth PA-C Work Phone: Start: 05-22-2023 Adult depression scr eening assessment Beatriz Ramirez MD Work Phone: Start: 04-24-2023 Arthrocentesis aspir &/inj major jt/bursa w/o us Milagro L Mareth PA-C Work Phone: Start: 04-24-2023 Lipid 1996 panel - S tracey or Plasma Milagro Mareth PA-C Work Phone: Start: 02-04-2023 Radiologic exam ches t 2 views Ari Pedro MD Work Phone: Start: 01-21-2023 Iadna s aureus ampli fied probe tq Ari Pedro MD Work Phone: Start: 01-21-2023 Radiologic exam ches t 2 views Ari Pedro MD Work Phone: Start: 01-21-2023 Ct thorax w/o contra st material Ari Pedro MD Work Phone: Start: 01-21-2023 Lipid 1996 panel - S tracey or Plasma Nato Antonio MD Work Phone: History of coronary artery bypass grafting S/P CABG (coronary artery bypass graft) Androsette Myers COMMUNITY ENGAGEMENT REPRESENTATIVE.STACK YIELD ENGINEER Work Phone: History of coronary artery bypass grafting Hx of CABG Nato Antonio MD Work Phone: History of coronary artery bypass grafting Hx of CABG Braxton Velásquez MD Work Phone: History of coronary artery bypass grafting Hx of CABG Nato Antonio MD Work Phone: History of coronary artery bypass grafting Hx of CABG Braxton Velásquez MD Work Phone: History of coronary artery bypass grafting Hx of CABG Hannah Brower COMMUNITY ENGAGEMENT REPRESENTATIVE.STACK YIELD ENGINEER Work Phone: History of coronary artery bypass grafting Hx of CABG Hannah Brower COMMUNITY ENGAGEMENT REPRESENTATIVE.STACK YIELD ENGINEER Work Phone: Plan of Treatment Date Care Activity Detail Author Start: 10-01-2028 Lipid panel Lipid Screening [facility] Start: 04-24-2028 Lipid 1996 panel - Serum or Plasma Lipid Screening [facility] Start: 04-24-2028 Lipid panel Lipid Screening [facility] Start: 01-22-2028 Lipid 1996 panel - Serum or Plasma Lipid Screening [facility] Start: 01-22-2028 LIPID SCREEN LIPID SCREEN [facility] Start: 12-03-2027 LIPID SCREEN LIPID SCREEN [facility] Start: 12-03-2027 PROSTATE CANCER SCREENING DISCUSSION PROSTATE CANCER SCREENING DISCUSSION [facility] Start: 12-03-2027 Prostate specific antigen measurement Prostate Cancer Screening Discussion [facility] Start: 01-29-2027 Diabetes Screening Diabetes Screening [facility] Start: 01-04-2027 Diabetes Screening Diabetes Screening [facility] Start: 10-01-2026 Diabetes Screening Diabetes Screening [facility] Start: 03-31-2026 Diabetes Screening Diabetes Screening [facility] Start: 02-04-2026 DIABETES SCREEN DIABETES SCREEN [facility] Start: 02-04-2026 Diabetes Screening Diabetes Screening [facility] Start: 01-28-2026 DIABETES SCREEN DIABETES SCREEN [facility] Start: 01-21-2026 DIABETES SCREEN DIABETES SCREEN [facility] Start: 10-19-2025 End: 10-19-2025 Patient encounter procedure 10/19/2025 9:15 AM EDT Office Visit [facility] [address] [place] [id number] Carmelina Angeles MD [address] [place] [address] [facility] Start: 05-23-2025 End: 05-23-2025 Patient encounter procedure 05/23/2025 9:20 AM EST Office Visit [facility] [address] [place] [id number] Carmelina Angeles MD [address] [place] [address] [facility] Start: 03-07-2025 End: 03-07-2025 Patient encounter procedure 03/07/2025 10:45 AM EDT Office Visit Cardiology [address] [place] [address] Nato Antonio MD [address] [place] [address] DX: CAD Cardiology Comment on above: DX: CAD Start: 03-07-2025 End: 03-07-2025 ambulatory 03/07/2025 9:45 AM EDT Results Only Main [place] [address] [address] [place] [address] DX: CAD Main [place] [facility] Draw Station Comment on above: DX: CAD Start: 02-20-2025 Influenza vaccination Influenza Vaccine (Season Ended) [facility] Start: 02-09-2025 BP Controlled (<130/80) BP Controlled (<130/80) [facility] Start: 01-29-2025 Adult BMI Screening Adult BMI Screening [facility] Start: 01-29-2025 Tobacco Screening Tobacco Screening [facility] Start: 01-04-2025 BP Controlled (<130/80) BP Controlled (<130/80) [facility] Start: 12-29-2024 End: 12-29-2024 Patient encounter procedure 12/29/2024 2:00 PM EDT Office Visit [facility] [address] [place] [address] Bennie Keen, DO [address] [place] [address] [facility] Start: 12-15-2024 End: 12-15-2024 Patient encounter procedure 12/15/2024 8:45 AM EDT Office Visit [facility] [address] [place] [address] Wang Soler MD [address] [place], [place] [id number] [facility] Start: 10-18-2024 End: 10-18-2024 Patient encounter procedure 10/18/2024 9:15 AM EDT Office Visit [facility] [address] [place] [address] Carmelina Angeles MD [address] [place] [address] Arrived [facility] Comment on above: Arrived Start: 10-04-2024 End: 10-04-2024 ambulatory 10/04/2024 10:00 AM EDT Results Only Main [place] [address] [address] Main [place] [address] Start: 10-03-2024 End: 10-03-2024 Patient encounter procedure 10/03/2024 9:40 AM EDT Office Visit Orthopaedics [address] [place] [address] Milagro CastleYURIY [address] [place] [address] LEFT KNEE PAIN Orthopaedics Comment on above: LEFT KNEE PAIN Start: 10-01-2024 End: 12-31-2024 Comprehensive metabolic 2000 panel - Serum or Plasma COMPREHENSIVE METABOLIC PANEL Lab Routine Essential hypertension Coronary artery disease due to lipid rich plaque Elevated glucose Expected: 10/01/2024, Expires: 12/31/2024 [facility] Comment on above: Expected: 10/01/2024, Expires: Start: 10-01-2024 Hepatitis B surface antibody level LDL Cholesterol [facility] Start: 10-01-2024 End: 12-31-2024 Lipid 1996 panel - Serum or Plasma LIPID PANEL BASIC Lab Routine Essential hypertension Coronary artery disease due to lipid rich plaque Elevated glucose Expected: 10/01/2024, Expires: 12/31/2024 [facility] Comment on above: Expected: 10/01/2024, Expires: Start: 09-30-2024 End: 09-30-2024 Patient encounter procedure Orthopaedics Comment on above: LEFT KNEE PAIN Start: 08-11-2024 BP Controlled (<130/80) BP Controlled (<130/80) [facility] Start: 2024 RSV Vaccine (1 - Risk 60-74 years 1-dose series) RSV Vaccine (1 - Risk 60-74 years 1-dose series) [facility] Start: 06-17-2024 End: 06-17-2024 Patient encounter procedure 06/17/2024 12:30 PM EST Office Visit Orthopaedics [address] [address] Milagro Castle PA-C [address] [place] [address] LEFT KNEE PAIN Orthopaedics Comment on above: LEFT KNEE PAIN Start: 05-22-2024 Depression Screening Depression Screening [facility] Start: 04-24-2024 Hepatitis B surface antibody level LDL Cholesterol [facility] Start: 04-19-2024 End: 04-19-2024 Patient encounter procedure 04/19/2024 9:00 AM EDT Office Visit Orthopaedics [address] [address] Ino Mason MD [address] [place] [address] 6 week f/u Orthopaedics Comment on above: 6 week f/u Start: 03-11-2024 BP Controlled (<130/80) BP Controlled (<130/80) [facility]ic Start: 03-04-2024 End: 03-04-2024 Patient encounter procedure 03/04/2024 10:25 AM EDT Office Visit Orthopaedics [address] [address] Milagro Castle, YURIY [address] [place] [address] post op DOS 02/16 Orthopaedics Comment on above: post op DOS 02/16 Start: 02-26-2024 End: 02-26-2024 Patient encounter procedure Radiology Comment on above: right knee post op Start: 02-21-2024 Covid-19 Vaccine ( season) Covid-19 Vaccine ( season) [facility] Start: 02-21-2024 Covid-19 Vaccine ( season) Covid-19 Vaccine ( season) [facility] Start: 02-21-2024 Influenza vaccination [facility] Start: 02-17-2024 End: 02-17-2024 Admission to same day surgery center 02/17/2024 10:45 AM EDT - 02/17/2024 12:01 PM EDT Surgery Admitting [address] [place] [address] Ion Mason MD [address] [place] [address] MANIPULATION KNEE JOINT UNDER GENERAL ANES Admitting Comment on above: MANIPULATION KNEE JOINT UNDER GENERAL AN ES Start: 02-17-2024 End: 08-28-2024 Manipulation knee joint under general anesthesia MANIPULATION KNEE JOINT UNDER GENERAL ANES Status post right partial knee replacement 02/17/2024 10:45 AM EDT [facility] Start: 02-17-2024 Subsequent hospital visit by physician Admitting Comment on above: Primary osteoarthritis of right knee [M1 7.11] Status post right pa rtial knee replacement [Z96.651] Start: 02-12-2024 End: 02-12-2024 Admission to same day surgery center 02/12/2024 1:45 PM EDT - 02/12/2024 3:01 PM EDT Surgery Admitting [address] [place] [address] Ino Mason MD [address] [place] [address] MANIPULATION KNEE JOINT UNDER GENERAL ANES Admitting Comment on above: MANIPULATION KNEE JOINT UNDER GENERAL AN ES Start: 02-12-2024 End: 02-12-2024 Manipulation knee joint under general anesthesia MANIPULATION KNEE JOINT UNDER GENERAL ANES Status post right partial knee replacement 02/12/2024 1:45 PM EDT [facility] Start: 02-12-2024 Subsequent hospital visit by physician Admitting Comment on above: Status post right partial knee replaceme nt [Z96.651] Start: 02-10-2024 End: 02-10-2024 Anesthesia consultation 02/10/2024 9:00 AM EDT PAT Pre Anesthesia [address] [place] [address] pre op DOS 02/11 Pre Anesthesia Comment on above: pre op DOS 02/11 Start: 02-09-2024 End: 02-09-2024 Orders Only 02/09/2024 Orders Only Preventive [facility]iology [address] [place] [address] Braxton Velásquez MD [address] [place] [address] [facility] Start: 02-03-2024 End: 02-03-2024 Nursing evaluation of patient and report 02/03/2024 9:00 AM EDT Nurse Visit Orthopaedics [address] [address] Kaushik Thurman RN [address] [place] [address] post op DOS 01/12 Orthopaedics Comment on above: post op DOS 01/12 Start: 02-01-2024 End: 01-31-2025 CT Chest WO contrast CT chest without contrast Imaging Routine Multiple lung nodules on CT Expected: 02/01/2024, Expires: 01/31/2025 [facility] Work Phone: Comment on above: Expected: 02/01/2024, Expires: Start: 01-22-2024 Hepatitis B surface antibody level LDL CHOLESTEROL [facility] Start: 01-20-2024 End: 04-20-2024 TYPE AND SCREEN,30 DAY TYPE AND SCREEN,30 DAY Blood Bank Routine Primary osteoarthritis of right knee Expected: 01/20/2024, Expires: 04/20/2024 [facility] Comment on above: Expected: 01/20/2024, Expires: Start: 01-13-2024 End: 01-13-2024 Admission to same day surgery center 01/13/2024 10:15 AM EDT - 01/13/2024 12:52 PM EDT Surgery Admitting [address] [place] [address] Ino Mason MD [address] [place] [address] ROBOTIC ASSISTED UNI KNEE ARTHROPLASTY Admitting Comment on above: ROBOTIC ASSISTED UNI KNEE ARTHROPLASTY Start: 01-13-2024 End: 01-13-2024 Arthrp knee condyle&plateau medial/lat cmprt ROBOTIC ASSISTED UNI KNEE ARTHROPLASTY Primary osteoarthritis of right knee 01/13/2024 10:15 AM EDT [facility] Start: 01-13-2024 End: 01-13-2024 Admission to same day surgery center 01/13/2024 8:15 AM EDT - 01/13/2024 10:52 AM EDT Surgery Admitting [address] [place] [address] Ino Mason MD [address] [place] [address] ROBOTIC ASSISTED UNI KNEE ARTHROPLASTY Admitting Comment on above: ROBOTIC ASSISTED UNI KNEE ARTHROPLASTY Start: 01-13-2024 End: 01-13-2024 Arthrp knee condyle&plateau medial/lat cmprt ROBOTIC ASSISTED UNI KNEE ARTHROPLASTY Primary osteoarthritis of right knee 01/13/2024 8:15 AM EDT [facility] Start: 01-13-2024 Subsequent hospital visit by physician Admitting Comment on above: Primary osteoarthritis of right knee [M1 7.11] Start: 01-05-2024 End: 01-05-2024 Anesthesia consultation 01/05/2024 2:00 PM EDT PAT Pre Anesthesia [address] [address] [address] [place] [address] pre op DOS 01/12 Pre Anesthesia Comment on above: pre op DOS 01/12 Start: 01-05-2024 End: 01-05-2024 ambulatory 01/05/2024 12:50 PM EDT Results Only Cardiology [address] [address] pre op DOS 01/12 Cardiology Comment on above: pre op DOS 01/12 Start: 01-05-2024 End: 01-05-2024 Patient encounter procedure Orthopaedics Comment on above: pre op DOS 01/12 Start: 10-28-2023 End: 10-28-2023 Patient encounter procedure Radiology Comment on above: LT Knee XR LT Knee pain Start: 10-27-2023 End: 01-26-2024 CBC W Auto Differential panel - Blood COMPLETE BLOOD COUNT AND DIFFERENTIAL Lab Routine Primary osteoarthritis of right knee Expected: 10/27/2023, Expires: 01/26/2024 [facility] Work Phone: Comment on above: Expected: 10/27/2023, Expires: Start: 10-27-2023 End: 01-26-2024 Comprehensive metabolic 2000 panel - Serum or Plasma COMPREHENSIVE METABOLIC PANEL Lab Routine Primary osteoarthritis of right knee Expected: 10/27/2023, Expires: 01/26/2024 [facility] Comment on above: Expected: 10/27/2023, Expires: 4 Start: 10-02-2023 End: 01-01-2024 Comprehensive metabolic 2000 panel - Serum or Plasma COMP METABOLIC PANEL Lab Routine Coronary artery disease due to lipid rich plaque Mixed hyperlipidemia Expected: 10/02/2023, Expires: 01/01/2024 [facility] Work Phone: Comment on above: Expected: 10/02/2023, Expires: 4 Start: 10-02-2023 End: 01-01-2024 Lipid 1996 panel - Serum or Plasma LIPID PANEL BASIC Lab Routine Coronary artery disease due to lipid rich plaque Mixed hyperlipidemia Expected: 10/02/2023, Expires: 01/01/2024 [facility] Work Phone: Comment on above: Expected: 10/02/2023, Expires: 4 Start: 06-22-2023 Behavioral Health Screening Behavioral Health Screening [facility] Start: 06-22-2023 Depression Assessment Depression Assessment [facility] Start: 03-11-2023 End: 05-11-2023 Lipid 1996 panel - Serum or Plasma LIPID PANEL BASIC Lab Routine Hx of CABG Essential hypertension Stable angina (HCC) Coronary artery disease due to lipid rich plaque Former tobacco use Expected: 03/11/2023, Expires: 05/11/2023 [facility] Work Phone: Comment on above: Expected: 03/11/2023, Expires: 3 Start: 02-20-2023 Covid-19 Vaccine () Covid-19 Vaccine () [facility] Start: 02-20-2023 Influenza vaccination [facility] Start: 12-19-2022 End: 02-18-2023 Hemoglobin A1c in Blood HGB A1C Lab Routine Essential hypertension Stable angina (HCC) Coronary artery disease due to lipid rich plaque Elevated glucose Ischemia Expected: 12/19/2022, Expires: 02/18/2023 [facility] Work Phone: Comment on above: Expected: 12/19/2022, Expires: 3 Start: 12-19-2022 End: 02-18-2023 Lipid 1996 panel - Serum or Plasma LIPID PANEL BASIC Lab Routine Essential hypertension Stable angina (HCC) Coronary artery disease due to lipid rich plaque Ischemia Expected: 12/19/2022, Expires: 02/18/2023 [facility] Work Phone: Comment on above: Expected: 12/19/2022, Expires: 3 Start: 12-19-2022 End: 02-18-2023 Lipoprotein a [Mass/volume] in Serum or Plasma LIPOPROTEIN (A) Lab Routine Essential hypertension Stable angina (HCC) Coronary artery disease due to lipid rich plaque Ischemia Expected: 12/19/2022, Expires: 02/18/2023 [facility] Work Phone: Comment on above: Expected: 12/19/2022, Expires: 3 Start: 06-22-2022 DEPRESSION ASSESSMENT DEPRESSION ASSESSMENT [facility] Start: 08-13-2021 COVID-19 VACCINE (4 - Booster for Moderna series) COVID-19 VACCINE (4 - Booster for Moderna series) [facility] Start: 08-13-2021 COVID-19 VACCINE (4 - Moderna series) COVID-19 VACCINE (4 - Moderna series) [facility] Start: 12-05-2020 COVID-19 VACCINE (3 - Booster for Moderna series) COVID-19 VACCINE (3 - Booster for Moderna series) [facility] Start: 2014 SHINGRIX VACCINE (1 of 2) SHINGRIX VACCINE (1 of 2) [facility] Start: 2009 COLOGUARD (FIT-DNA) COLOGUARD (FIT-DNA) [facility] Start: 2009 Colonoscopy COLONOSCOPY [facility] Start: 2009 COLORECTAL CANCER SCREENING COLORECTAL CANCER SCREENING [facility] Start: [address] COLONOGRAPHY [facility] Start: 2009 DIABETES SCREEN DIABETES SCREEN [facility] Start: 2009 FECAL OCCULT BLOOD FECAL OCCULT BLOOD [facility] Start: 2009 Screening for malignant neoplasm of colon [facility] Start: 2009 SIGMOIDOSCOPY SIGMOIDOSCOPY [facility] Start: 1983 Administration of varicella zoster vaccine Zoster (Shingles) Vaccine (1 of 2) [facility] Start: 1983 DTaP,Tdap and Td Vaccines (1 - Tdap) DTaP,Tdap and Td Vaccines (1 - Tdap) [facility] Start: 1983 Pneumococcal Vaccine: 50+ (1 of 2 - PCV) Pneumococcal Vaccine: 50+ (1 of 2 - PCV) [facility] Start: 1983 Urine microalbumin profile [facility] Start: 1982 Adult BMI Follow Up Plan Adult BMI Follow Up Plan [facility] Start: 1982 ANNUAL PCP TEAM CHRONIC DISEASE VISIT ANNUAL PCP TEAM CHRONIC DISEASE VISIT [facility] Start: 1982 Anxiety Screening Anxiety Screening [facility] Start: 1982 BP CONTROLLED (<130/80) BP CONTROLLED (<130/80) [facility] Start: 1982 Depression Screening Depression Screening [facility] Start: 1982 HEPATITIS C SCREENING HEPATITIS C SCREENING [facility] Start: 1982 Hepatitis C screening Hepatitis C Screening [facility] Start: 1982 HIV SCREENING HIV SCREENING [facility] Start: 1982 HIV screening HIV Screening [facility] Start: 1970 Pneumococcal vaccination [facility] Start: 1964 HEPATITIS B (1 of 3 - 3-dose series) HEPATITIS B (1 of 3 - 3-dose series) [facility] Start: 1964 Hepatitis B Vaccine (1 of 3 - 3-dose series) Hepatitis B Vaccine (1 of 3 - 3-dose series) [facility] Start: 1964 Screening for malignant neoplasm of colon [facility] Arthrp knee condyle&plateau medial/lat cmprt ROBOTIC ASSISTED UNI KNEE ARTHROPLASTY Primary osteoarthritis of right knee [facility] Arthrp knee condyle&plateau medial/lat cmprt ROBOTIC ASSISTED UNI KNEE ARTHROPLASTY Primary osteoarthritis of right knee [facility] End: 11-09-2024 CT Knee - right WO contrast CT KNEE WO IVCON RIGHT Radiology Routine Chronic pain of right knee 1 Occurrences starting 10/11/2023 until 11/09/2024 [facility] Work Phone: Comment on above: 1 Occurrences starting 10/11/2023 until 11/09/2024 Dermatopathology exam Dermatopat hology exam Pathology and Cytology Timed Neoplasm of unspecified behavior of bone, soft tissue, and skin Release Upon Ordering for 1 Occurrences starting 10/18/2024 [facility] Work Phone: Comment on above: Release Upon Ordering for 1 Occurrences starting 10/18/2024 End: 12-18-2023 ECG COMPLETE ECG COMPLETE ECG Routine Other heart disorders in diseases classified elsewhere 1 Occurrences starting 12/17/2022 until 12/18/2023 [facility] Work Phone: Comment on above: 1 Occurrences starting 12/17/2022 until 12/18/2023 End: 10-01-2024 ECG COMPLETE ECG COMPLETE ECG Routine Essential hypertension Coronary artery disease due to lipid rich plaque Elevated glucose 1 Occurrences starting 10/02/2023 until 10/01/2024 [facility] Work Phone: Comment on above: 1 Occurrences starting 10/02/2023 until 10/01/2024 End: 03-11-2024 Echocardiography ECHO Cardiology Routine Hx of CABG Essential hypertension Stable angina (HCC) Coronary artery disease due to lipid rich plaque Former tobacco use 1 Occurrences starting 03/11/2023 until 03/11/2024 [facility] Work Phone: Comment on above: 1 Occurrences starting 03/11/2023 until 03/11/2024 Manipulation knee venkat int under general anesthesia MANIPULATION KNEE JOINT UNDER GENERAL ANES Status post right partial knee replacement [facility] End: 05-23-2024 MRI KNEE WO IVCON RIGHT MRI KNEE WO IVCON RIGHT Radiology Routine Chronic pain of right knee 1 Occurrences starting 04/24/2023 until 05/23/2024 [facility] Work Phone: Comment on above: 1 Occurrences starting 04/24/2023 until 05/23/2024 End: 11-25-2024 XR Knee - left 4 Views XR KNEE GENERAL 4V AP BOTH/PA BOTH/LAT/MERC LEFT Radiology Routine Pain 1 Occurrences starting 10/27/2023 until 11/25/2024 [facility] Work Phone: Comment on above: 1 Occurrences starting 10/27/2023 until 11/25/2024 End: 07-17-2025 XR Knee - left 4 Views XR KNEE GENERAL 4V AP BOTH/PA BOTH/LAT/MERC LEFT Radiology Routine Primary osteoarthritis of left knee 1 Occurrences starting 06/17/2024 until 07/17/2025 [facility] Work Phone: Comment on above: 1 Occurrences starting 06/17/2024 until 07/17/2025 End: 03-04-2025 XR Knee AP and Lateral and Merchants XR KNEE POST OP 3V AP/LAT/MERCHANT RIGHT Radiology Routine Status post right partial knee replacement 1 Occurrences starting 02/03/2024 until 03/04/2025 [facility] Work Phone: Comment on above: 1 Occurrences starting 02/03/2024 until 03/04/2025 End: 05-23-2024 XR KNEE SPECIFY 1V RIGHT XR KNEE SPECIFY 1V RIGHT Radiology Routine Primary osteoarthritis of right knee 1 Occurrences starting 04/24/2023 until 05/23/2024 [facility] Work Phone: Comment on above: 1 Occurrences starting 04/24/2023 until 05/23/2024 [facility] [employer]SE [employer] [facility] CT & VAS [facility] Immunizations Immunization Date Immunization Notes Care Provider [facility] 06-18-2021 Influenza, injectabl e, Madin Cally Canine Kidney, preservative free, quadrivalent Beatriz Ramirez MD Work Phone: [facility] 06-18-2021 influenza virus vaccine, unspecified formulation Nato Atnonio MD Work Phone: [facility] 10-10-2020 COVID-19, mRNA, LNP- S, PF, 100mcg/0.5mL Dose Beatriz Ramirez MD Work Phone: [facility] 09-12-2020 COVID-19, mRNA, LNP- S, PF, 100mcg/0.5mL Dose Beatriz Ramirez MD Work Phone: [facility] Payers Date Payer Category Payer [facility] [id number] [id number] 2016 Unknown [id number] 2016 Unknown [id number] 1964 Unknown [id number] 2.16.84 [id number] 1964 Unknown [id number] 2.16.84 [id number] 1964 Unknown [id number] 2.16.8 [id number] 1964 Unknown [id number] 2.16.8 [id number] 1964 Unknown [id number] 2.16.8 [id number] 1964 Unknown [id number] 2.16.8 [id number] 1964 Unknown [id number] 2.16.8 [id number] 1964 Unknown [id number] 2.16.84 [id number] 1964 Unknown [id number] 2.16.84 [id number] 1959 Unknown [id number] Social History Date Type Detail Facility Tobacco smoking stat [facility] Tobacco smoking consumption unknown [facility] Start: 1965 Sex Assigned At Not on file [facility] Start: 12-19-2022 End: 03-04-2024 Tobacco smoking status NHIS Ex-smoker [facility] End: 09-21-1987 History of tobacco use Current smoker [facility] End: 09-21-1987 History of tobacco use Cigarette Smoker [facility] Start: 11-18-2022 End: 12-19-2022 Tobacco use and exposure Smokeless tobacco non-user [facility] Start: 12-19-2022 End: 12-15-2024 Alcohol intake Lifetime non-drinker (finding) [facility] Start: 1965 Sex Assigned At Male [facility] Start: 12-19-2022 End: 12-15-2024 History of Social function [facility] Start: 12-19-2022 End: 12-15-2024 Tobacco use panel [facility] National Score (1-10 0), lower number is lower risk 74 [facility] Start: 12-19-2022 Gender identity Identifies as male gender (finding) [facility] Start: 12-19-2022 Sexual orientation Heterosexual (finding) [facility] History of tobacco use Passive smoker [facility] Has the [employer], or [employer] company threatened to shut off services in your home in past 12Mo No [facility] Are you now , , , , never or living with a partner? [facility] How hard is it for y ou to pay for the very basics like food, housing, medical care, and heating Not very hard [facility] Do you feel stress - tense, restless, nervous, or anxious, or unable to sleep at night because your mind is troubled all the time - these days [OSQ] Not at all [facility] Start: 04-25-2022 Tobacco Comment Quit 30 years ago as a teenager [facility] Start: 11-18-2022 Tobacco smoking status NHIS Never smoked tobacco [facility] Medical Equipment Procedure Code Equipment Code Equipment Original Text Equipment Identifier Dates Lizemores Thk1.65mm P tfe 4x.5in Cardiovascular Sterile - [id number] Start: 01-22-2023 Cement Simplex P Bone Radiopaque Full Dose Sterile - [id number] Start: 01-13-2024 Insert Antwon 5 X3 8mm Tibial Unicompartmental Onlay Sterile Knee [id number] Start: 01-13-2024 Baseplate Tibial Restoris 5 Knee Right Medial Left Lateral [place] - [id number] Start: 01-13-2024 Mck Iztlspr-Tl-J l-Sz 5 - [id number] Start: 01-13-2024 Mesh Rt [id number] 70% Clgn 30% Glyc Pllc Acd Pet Progrip Slf - [id number] Start: 05-09-2022 Goals Date Patient Goal Desired Activity /State Personal health goal Functional Status Date Assessment Result Facility 01-14-2024 Are you deaf, or do you have serious difficulty hearing No 01/14/2024 12:53 PM Sarah Childers RN No [facility] 01-14-2024 Are you blind, or do you have serious difficulty seeing, even when wearing glasses No 01/14/2024 12:53 PM Sarah Childers, CARMELO No [facility] 01-14-2024 Do you have serious difficulty walking or climbing stairs No 01/14/2024 12:53 PM Sarah Childers, CARMELO [facility] 01-14-2024 Do you have difficul ty dressing or bathing No 01/14/2024 12:53 PM Sarah Childers, CARMELO [facility] 01-14-2024 Because of a physica l, mental, or emotional condition, do you have difficulty doing errands alone such as visiting a physician's office or shopping No 01/14/2024 12:53 PM Sarah Childers, CARMELO [facility] Mental Status Date Assessment Result Facility 01-14-2024 Because of a physica l, mental, or emotional condition, do you have serious difficulty concentrating, remembering, or making decisions No 01/14/2024 12:53 PM Sarah Childers, CARMELO No [facility] Clinical Notes 12-19-2022 to 12-15-2024 Bennie Keen DO - 12/15/2024 2:15 PM Nilo Soler MD - 12/15/2024 8:45 AM Marcy Angeles MD - 11/18/2024 10:30 AM Marcy Angeles MD - 10/18/2024 9:15 AM EDTPatient Instructions Note Date & Type Note Facility 12-15-2024 History of Present illness Narrative Subjective Patient ID: Silvano Menendez is a 59 y.o. male who presents for Mohs Reconstruction (New patient : Mohs left roman catholic) HPI 59-year-old white male presents today for evaluation of Mohs defect of the left cheek and temporal region. Recently underwent excision of basal cell carcinoma in the region of the left roman catholic. Left with a large soft tissue defect. [...] bid x 10 days., Disp: 20 capsule, Rfl: 0 ezetimibe (Zetia) 10 MG tablet, Take 10 [...] Resource Strain: Low Risk (01/05/2024) Received from [facility] Overall Financial Resource Strain (CARDIA) Difficulty of Paying Living Expenses: Not very hard Food Insecurity: No Food Insecurity (01/30/2024) Received from [facility] Hunger Screening Within the past 12 months we worried whether our food would run out before we got money to buy more.: Never True Within the past 12 months the food we bought just didn't last and we didn't have money to get more.: Never True Transportation Needs: No Transportation Needs (01/05/2024) Received from [facility] PRAPARE - Transportation Lack of Transportation (Medical): No Lack of Transportation (Non-Medical): No Physical Activity: Insufficiently Active (01/05/2024) Received from [facility] Exercise Vital Sign Days of Exercise per Week: 2 days Minutes of Exercise per Session: 60 min Stress: No Stress Concern Present (01/05/2024) Received from [facility] [employer] [place] [employer] - Occupational Stress Questionnaire Feeling of Stress : Not at all Social Connections: Moderately Integrated (01/05/2024) Received from [facility] Social Connection and Isolation Panel [NHANES] Frequency of Communication with Friends and Family: More than three times a week Frequency of Social Gatherings with Friends and Family: More than three times a week Attends Rastafari Services: More than 4 times per year Active Member of Clubs or Organizations: No Attends Club or Organization Meetings: Never Marital Status: Intimate Partner Violence: Not on file Housing Stability: Low Risk (01/05/2024) Received from [facility] Housing Stability Vital Sign Unable to Pay for Housing in the Last Year: No Number of Places Lived in the Last Year: 1 Unstable Housing in the Last Year: No Objective ENT Physical Exam General Examination: General overview: Normal, age-appropriate, no evidence of distress Head: Normocephalic, large soft tissue defect in the region of the left roman catholic measuring 3 x 3 cm. No evidence of active bleeding. Eyes: Pupils are equally round and reactive to light and accommodation, extraocular muscles are intact Ears: External ear architecture within normal limits, ear canals are patent, tympanic membranes are intact. Nose: External nose unremarkable, nares patent, septum [...] serous disability, and documented in this encounter [facility] 12-15-2024 History of Present illness Narrative Images from the original note were not [...] meds, nerve injury, and recurrence were addressed.) [place] Protocol: Procedure explained and questions answered to [...] sodium bicarbonate Procedure Details: Biopsy accession number: [id number] Biopsy lab: [facility] Date of biopsy: 10/18/2024 Frozen section biopsy [...] tissue sections, stained, and evaluated by Dr. Soler for interpretation of deep and peripheral margins. [...] tissue sections, stained, and evaluated by Dr. Soler for interpretation of deep and peripheral margins. [...] tissue sections, stained, and evaluated by Dr. Soler for interpretation of deep and peripheral margins. [...] of repair: Referred for repair to Cat Keen DO Wound Care: A pressure dressing was placed on the surgical wound. Post-operative instructions were given in writing and were reviewed with the patient in great detail. A follow-up appointment was made, and instructions were given to follow-up sooner if necessary. Related Procedures Ambulatory referral to ENT Next visit: 05/23/2025 documented in this encounter [facility] 11-18-2024 History of Present illness Narrative Images from the original note were not included. Follow up Diagnosis: Basal Cell Carcinoma Location: Right upper back Last visit: 10/18/2024 Procedure performed: Shave biopsy Current treatment: Here today for ED+C All pertinent medical history, medications, and allergies were reviewed. General Exam: alert, oriented to person, place, and time, normal affect, well appearing A focused exam completed based on patient reported problems, see below: Skin Exam 1. BASAL CELL CARCINOMA OF UPPER BACK Right Upper Back Erythematous macule at the biopsy site Destr of lesion Complexity: simple Destruction method: electrodesiccation and curettage Informed consent: discussed and consent obtained Informed consent comment: The risks of the procedure were discussed, including, but not limited to risks of scarring, darker or document control manager pigmentary changes, recurrence, infection, and incomplete removal Timeout: patient name, date of , surgical site, and procedure verified Timeout comment: Patient and provider identified site. Site was marked. Photo was taken and shown to patient, patient verified this is the correct site. Procedure prep: Patient was prepped and draped in usual sterile fashion Prep type: Chlorhexidine Anesthesia: the lesion was anesthetized in a standard fashion Anesthetic: 1% lidocaine w/ epinephrine 1-100,000 buffered w/ 8.4% NaHCO3 Curettage performed in three different directions: Yes Electrodesiccation performed over the curetted area: Yes Curettage cycles: 3 Lesion length (cm): 1.2 Lesion width (cm): 0.5 Margin per side (cm): 0 Final wound size (cm): 1.2 Hemostasis achieved with: aluminum chloride Outcome: patient tolerated procedure well with no complications Post-procedure details: wound care instructions given Post-procedure details comment: Post-procedure instructions were given verbally and in writing. The office will be contacted if the lesion fails to resolve despite treatment, or if a side effect develops such as abnormal crusting, scabbing, reddness, discharge, or tenderness. Additional details: Amount of lidocaine used: 1.5 cc Previous accession number: [id number] Notify office for any signs of recurrence. Next Visit: as scheduled for Mohs documented in this encounter [facility] 10-18-2024 History of Present illness Narrative Images from the original note were not included. Skin Check Location: Patient requests a full body skin examination Dermatologic history: history of Actinic Keratosis, history of Basal Cell Carcinoma Last visit: 1 year ago Established patient Lesion(s) Location: left sideburn, right cheek, left chest Duration: months Quality: painful, denies itch, denies bleeding Associated symptoms: non-healing, red, rough Treatments: none All pertinent medical history, medications, and allergies were reviewed. General Exam: alert , oriented to person, place, and time , normal affect, well appearing Accompanied by spouse Scalp, Examined Right leg Examined Head, Face Examined Left leg Examined Neck Examined Right foot Examined Chest Examined Left foot Examined Back Examined Buttocks Examined Abdomen Examined Digits,nails: Examined Right arm Examined Left arm Examined Lymphatics: Not examined Hands Examined Skin Exam 1. SEBORRHEIC KERATOSIS (3) Left Arm, Right Arm, Torso - Posterior (Back) Stuck on verrucous, hook-brown papules and plaques. Patient was counseled regarding these benign growths. Removal is normally not necessary, but they may be removed if they are symptomatic or for cosmetic reasons. 2. LENTIGINES Generalized Scattered hook macules in sun-exposed areas. The patient was informed that lentigines are benign pigmented lesions that occur on sun-exposed and sun-damaged skin. No treatment is necessary. Recommended regular use of broad spectrum sunscreen SPF 30 or higher 3. NEOPLASM OF UNSPECIFIED BEHAVIOR OF BONE, SOFT TISSUE, AND SKIN (2) Left Temporal Scalp [place] pearly papule Lesion biopsy Type of biopsy: tangential Informed consent: discussed and consent obtained Informed consent comment: The risks and benefits of the biopsy were discussed. Risks include but are not limited to bleeding, infection, scarring, pain, and nerve damage. An opportunity to ask questions prior to the procedure was permitted and all questions were answered. Patient was prepped and draped in usual sterile fashion: area cleansed with alcohol. Anesthesia: the lesion was anesthetized in a standard fashion Anesthetic: 1% lidocaine w/ epinephrine 1-100,000 buffered w/ 8.4% NaHCO3 Instrument used: DermaBlade Hemostasis achieved with: electrodesiccation Outcome: patient tolerated procedure well Outcome comment: The specimen was placed in a prelabeled formalin container to be sent for pathology Post-procedure details: sterile dressing applied and wound care instructions given Post-procedure details comment: Emphasized need to contact clinic for any signs of infection, uncontrollable bleeding, or complications. Dressing type: bandage Additional details: Photo taken Amount of lidocaine used: 1.0 cc Specimen A - Dermatopathology exam Differential Diagnosis: BCC Check Margins: No Size of lesion: 1.0 x 1.0 cm Right Upper Back White papule Lesion biopsy Type of biopsy: tangential Informed consent: discussed and consent obtained Informed consent comment: The risks and benefits of the biopsy were discussed. Risks include but are not limited to bleeding, infection, scarring, pain, and nerve damage. An opportunity to ask questions prior to the procedure was permitted and all questions were answered. Patient was prepped and draped in usual sterile fashion: area cleansed with alcohol. Anesthesia: the lesion was anesthetized in a standard fashion Anesthetic: 1% lidocaine w/ epinephrine 1-100,000 buffered w/ 8.4% NaHCO3 Instrument used: DermaBlade Hemostasis achieved with: electrodesiccation Outcome: patient tolerated procedure well Outcome comment: The specimen was placed in a prelabeled formalin container to be sent for pathology Post-procedure details: sterile dressing applied and wound care instructions given Post-procedure details comment: Emphasized need to contact clinic for any signs of infection, uncontrollable bleeding, or complications. Dressing type: bandage Additional details: Photo taken Amount of lidocaine used: 1.0 cc Specimen B - Dermatopathology exam Differential Diagnosis: BCC Check Margins: No Size of lesion: 1.2 x 0.5 cm 4. ACTINIC KERATOSIS (2) Head - Anterior (Face), Left Hand - Posterior Erythematous scaly papules Patient was counseled regarding these sun-induced growths that can develop into squamous cell carcinoma if left untreated. Discussed treatment options, including cryotherapy and topical preparations. It was emphasized that any treated lesions that fail to resolve should be re-evaluated. Patient elected for treatment with Efudex as this has become a chronic issue. Educated on Efudex treatment. Apply to forehead, cheeks, temples, top of nose, and ears twice a day for two weeks. Discussed that treated areas will become red, crusty, and inflamed. If areas become too uncomfortable, patient may use OTC hydrocortisone cream to help decrease irritation and can discontinue treatment early. Sun exposure should be avoided during treatment. Patient instructed to contact office for any questions or issues during treatment. Lesions that fail to resolve once treated area is healed should be re-evaluated in the office. Handout given to patient Cryotherapy to 1 lesion on the left hand. Patient was counseled regarding these sun-induced growths that can develop into squamous cell carcinoma if left untreated. Discussed treatment with cryotherapy. It was emphasized that any treated lesions that fail to resolve should be re-evaluated. Cryotherapy performed today; see procedure note Diagnosis: Actinic keratosis Indication: Precancerous Location: see skin exam Consent: Verbal consent was obtained and risks were discussed, including, but not limited to risks of scarring, darker or document control manager pigmentary changes, recurrence, incomplete removal and infection. Method: Liquid nitrogen was used to treat the lesion(s) with two 5-10 second freeze-thaw cycles. Number of lesions treated: 1 Post-procedure instructions: Instructions were given orally and in writing. The office will be contacted if the lesion fails to resolve despite treatment, or if a side effect develops such as abnormal crusting, scabbing, redness or tenderness Cryotherapy, skin lesion - Left Hand - Posterior Related Medications fluorouracil (Efudex) 5 % cream Apply to directed areas on the forehead, ears, top of nose, temples , and cheeks twice a day x 14 days. Dispense 30 day supply but only use for 14 days. 5. SEBORRHEIC KERATOSIS, INFLAMED Left Breast [place] and brown stuck on verrucous scaly papule with surrounding erythema The patient was informed that symptomatic seborrheic keratoses are benign growths that become inflamed, itchy, tender, traumatized, caught on clothing, or bleed. Symptomatic lesions can be treated with cryotherapy or curretage. Thicker lesions treated with cryotherapy may require more than one treatment. The patient was instructed to notify the office if abnormal redness or tenderness develops at the treatment site. Cryotherapy today, see procedure note. Diagnosis: Inflamed seborrheic keratosis Indication: Inflamed Consent: Verbal consent was obtained and risks were discussed, including, but not limited to risks of scarring, darker or document control manager pigmentary changes, recurrence, incomplete removal and infection. Method: Liquid nitrogen was used to treat the lesion(s) with two 5-10 second freeze-thaw cycles Number of lesions treated: 1 Post-procedure instructions: Instructions were given orally and in writing. The office will be contacted if the lesion fails to resolve despite treatment, or if a side effect develops such as abnormal crusting, scabbing, redness or tenderness Cryotherapy, skin lesion - Left Breast Next Visit: pending biopsy results documented in this encounter [facility] 09-26-2024 Telephone encounter Note Patient used MyChart to request a refill on the medication(s) below: Requested Prescriptions Pending Prescriptions Disp Refills atorvastatin (LIPITOR) 80 mg tablet 90 tablet 1 Sig: Take 1 tablet by mouth daily at bedtime. Patient last seen: 10/02/23 next appt is 03/07/25 Janie Benavides Director Of Product Development II September 26, 2024 10:15 AM [facility] 09-26-2024 Miscellaneous Notes Patient used MyChart to request a refill on the medication(s) below: Requested Prescriptions Pending Prescriptions Disp Refills atorvastatin (LIPITOR) 80 mg tablet 90 tablet 1 Sig: Take 1 tablet by mouth daily at bedtime. Patient last seen: 10/02/23 next appt is 03/07/25 Janie Benavides Director Of Product Development II September 26, 2024 10:15 AM documented in this encounter [facility] 08-24-2024 Telephone encounter Note Call from pharmacy requesting refill. Requested Prescriptions Pending Prescriptions Disp Refills ezetimibe (ZETIA) 10 mg tablet [Pharmacy Med Name: Ezetimibe 10 MG Oral Tablet] 90 tablet 3 Sig: TAKE 1 TABLET BY MOUTH ONCE DAILY Patient last seen 08/11/23 Rona Moseley [facility] 08-24-2024 Miscellaneous Notes Call from pharmacy requesting refill. Requested Prescriptions Pending Prescriptions Disp Refills ezetimibe (ZETIA) 10 mg tablet [Pharmacy Med Name: Ezetimibe 10 MG Oral Tablet] 90 tablet 3 Sig: TAKE 1 TABLET BY MOUTH ONCE DAILY Patient last seen 08/11/23 Rona Moseley documented in this encounter [facility] 08-19-2024 Telephone encounter Note Pharmacy used [facility] to request a refill on the medication(s) below: Requested Prescriptions Pending Prescriptions Disp Refills amLODIPine (NORVASC) 2.5 mg tablet [Pharmacy Med Name: amLODIPine Besylate 2.5 MG Oral Tablet] 90 tablet 0 Sig: TAKE 1 TABLET BY MOUTH ONCE DAILY PHARMACY NAME [facility] / PHONE NUMBER: [phone] Mail Order RX Physician's Name: Nato Antonio M.D. Last seen in office: 10/02/2023 Last VV: N/A If last appointment greater than one year or no follow up scheduled, sent to schedulers No - Next Appt: N/A Janie Benavides Director Of Product Development II August 19, 2024 1:50 PM [facility] 08-19-2024 Miscellaneous Notes Pharmacy used [facility] to request a refill on the medication(s) below: Requested Prescriptions Pending Prescriptions Disp Refills amLODIPine (NORVASC) 2.5 mg tablet [Pharmacy Med Name: amLODIPine Besylate 2.5 MG Oral Tablet] 90 tablet 0 Sig: TAKE 1 TABLET BY MOUTH ONCE DAILY PHARMACY NAME [facility] / PHONE NUMBER: [phone] Mail Order RX Physician's Name: Nato Antonio M.D. Last seen in office: 10/02/2023 Last VV: N/A If last appointment greater than one year or no follow up scheduled, sent to schedulers No - Next Appt: N/A Janie Benavides Director Of Product Development II August 19, 2024 1:50 PM documented in this encounter [facility] 07-26-2024 Telephone encounter Note Patient used MyChart to request a refill on the medication(s) below: Requested Prescriptions Pending Prescriptions Disp Refills atorvastatin (LIPITOR) 80 mg tablet [Pharmacy Med Name: Atorvastatin Calcium 80 MG Oral Tablet] 90 tablet 3 Sig: TAKE 1 TABLET BY MOUTH DAILY AT BEDTIME PHARMACY NAME [facility] / PHONE NUMBER: [phone] Mail Order RX Physician's Name: Nato Antonio M.D. Last seen in office: 11/20/23 If last appointment greater than one year or no follow up scheduled, sent to schedulers No Leyda Gomez 07/26/2024 [facility] 07-26-2024 Miscellaneous Notes Patient used MyChart to request a refill on the medication(s) below: Requested Prescriptions Pending Prescriptions Disp Refills atorvastatin (LIPITOR) 80 mg tablet [Pharmacy Med Name: Atorvastatin Calcium 80 MG Oral Tablet] 90 tablet 3 Sig: TAKE 1 TABLET BY MOUTH DAILY AT BEDTIME PHARMACY NAME [facility] / PHONE NUMBER: [phone] Mail Order RX Physician's Name: Nato Antonio M.D. Last seen in office: 11/20/23 If last appointment greater than one year or no follow up scheduled, sent to schedulers No Leyda Gomez 07/26/2024 documented in this encounter [facility] 07-26-2024 Telephone encounter Note Opened in error. Leyda Gomez [facility] 07-26-2024 Miscellaneous Notes Opened in error. Leyda Gomez documented in this encounter [facility] 06-20-2024 Note HNO ID: [id number] Author: MILAGRO CASTLE PA-C Service: ? Author Type: Physician Place Change Roof Bolter Type: Progress Notes Filed: 06/20/2024 11:20 Note Text: SERVICE DATE: June 20, 2024 PCP: Beatriz Edgar MD Subjective Patient ID: Silvano is a 58 year old male. Chief Complaint: Patient presents with: Left Knee - New, Knee Pain, Swelling PAIN EVALUATION 06/16/2024 1042 Pain Level: 5 Pain Location: Knee-Left Description: Aching;Sore;Spasm Duration Amount of Time: 2 Duration Units: Weeks Frequency: Continuous Intervention/Comfort measure: Cold Silvano is a 58 year old established patient presenting for new left knee pain. He had a right medial uni knee replacement by Dr. Mason and is progressing well after that surgery. He notes in the past 3 months, increased swelling of the left knee, pain and difficulty walking long distances. He enjoys walking with his for exercise, and is unable to do the distance he is used to due to left knee discomfort. He notes medial knee pain, pain with certain movements such as twisting the knee He denies injury or surgery to the left knee. He is interested in trialing left knee cortisone injection, if able. He takes tylenol and has tried topical pain creams Review of Systems All other systems reviewed and are negative. ACTIVE PROBLEM LIST Pre-Op Testing Obesity, Class I, Bmi 30-34.9 Coronary Artery Disease With Exertional Angina (Hcc) Incidental Lung Nodule Hypokalemia Dvt of Popliteal Vein (Hcc) Primary Hypertension Mixed Hyperlipidemia Sinus Bradycardia By Electrocardiography Localized Osteoarthritis of Right Knee PAST MEDICAL HISTORY Diagnosis Date DVT of popliteal vein (HCC) post right knee scope- 2010 PAST SURGICAL HISTORY Procedure Laterality Date CABG (5) VENOUS GRAFTS AND ARTERIAL GRAFT(S) 01/22/23 PAST SURGICAL HISTORY OF Right 2010 knee scope PAST SURGICAL HISTORY OF IVC filter - 2010 due to DVT histroy PAST SURGICAL HISTORY OF vasectomy PAST SURGICAL HISTORY OF wisdom teeth removal REPAIR EPIGASTRIC HERNIA,REDUC 04/2022 TONSILLECTOMY HX age 29 FAMILY HISTORY Problem Relation Age of Onset Heart disease Father Hyperlipidemia Father Heart Failure Father Hyperlipidemia Mother Heart disease Maternal Grandmother Heart disease Paternal Grandmother Anesthesia Problems No Family History Social History Tobacco Use Smoking status: Former Current packs/day: 0.00 Types: Cigarettes Quit date: 09/21/1987 Years since quittin.7 Passive exposure: Past Smokeless tobacco: Never Vaping Use Vaping status: Never Used Substance Use Topics Alcohol use: Never Drug use: Never ALLERGIES No Known Allergies MEDICATIONS: ezetimibe (ZETIA) 10 mg tablet TAKE 1 TABLET BY MOUTH ONCE DAILY amLODIPine (NORVASC) 2.5 mg tablet Take 1 tablet by mouth once daily. metoprolol succinate ER (TOPROL XL) 100 mg TAKE 1 TABLET BY MOUTH IN THE MORNING AND ONE-HALF TABLET BY MOUTH IN THE EVENING acetaminophen (TYLENOL) 500 mg tablet Take 2 tablets by mouth every 8 hours. bisacodyl EC (DULCOLAX) 5 mg EC tablet Take 2 tablets by mouth once daily. Patient should start on January 15, 2024. docusate sodium (COLACE) 100 mg capsule Take 1 capsule by mouth two times a day. senna (SENOKOT) 8.6 mg tab Take 2 tablets by mouth daily at bedtime. atorvastatin (LIPITOR) 80 mg tablet Take 1 tablet by mouth daily at bedtime. aspirin, enteric coated (ASPIRIN, ENTERIC COATED) 81 mg EC tablet Take 81 mg by mouth once daily. MULTIVITAMIN ORAL Take by mouth. Allergies, medications, past surgical history, family history and past medical history were reviewed per this encounter. Objective Left Knee Exam Tenderness The patient is experiencing tenderness in the medial joint line. Range of Motion Extension: 0 Flexion: 120 Tests Surekha: Medial - positive Varus: negative Patellar apprehension: negative Other Erythema: absent Sensation: normal Pulse: present Swelling: mild Effusion: effusion present Comments: Mild limp favoring left leg Crepitus with ROM Mild effusion Left knee XR from October 2023 shows mild medial joint space narrowing and PF joint space narrowing Assessment/Plan ASSESSMENT Diagnosis (M17.12) Primary osteoarthritis of left knee (primary encounter diagnosis) Plan: XR KNEE GENERAL 4V AP BOTH/PA BOTH/LAT/MERC LEFT Office Visit on 06/17/24 XR KNEE GENERAL 4V AP BOTH/PA BOTH/LAT/MERC LEFT PLAN Proceeded with left knee CSI today Continue with low impact activities, HEP, compression sleeve for support if needed Tylenol PRN Topical pain cream PRN Follow up in September for consideration of repeat CSI left knee prior to trip to [place]. Recommend updated left knee XR at next visit- ordered Large Joint Arthro/Inj: L knee joint Informed Consent Consent Obtained: Verbal [place] Protocol A moment to CARE was completed. SIGN IN Personnel directly i (more content not included)... [facility] 06-20-2024 History of Present illness Narrative Associated Order(s): Large Joint Arthro/Inj: L knee joint Post-Procedure Diagnose(s): Primary osteoarthritis of left knee Images from the original note were not included. SERVICE DATE: June 20, 2024 PCP: Beatriz Edgar MD Subjective Patient ID: Silvano is a 58 year old male. Chief Complaint: Patient presents with: Left Knee - New, Knee Pain, Swelling PAIN EVALUATION 06/16/2024 1042 Pain Level: 5 Pain Location: Knee-Left Description: Aching;Sore;Spasm Duration Amount of Time: 2 Duration Units: Weeks Frequency: Continuous Intervention/Comfort measure: Cold Silvano is a 58 year old established patient presenting for new left knee pain. He had a right medial uni knee replacement by Dr. Mason and is progressing well after that surgery. He notes in the past 3 months, increased swelling of the left knee, pain and difficulty walking long distances. He enjoys walking with his for exercise, and is unable to do the distance he is used to due to left knee discomfort. He notes medial knee pain, pain with certain movements such as twisting the knee He denies injury or surgery to the left knee. He is interested in trialing left knee cortisone injection, if able. He takes tylenol and has tried topical pain creams Review of Systems All other systems reviewed and are negative. ACTIVE PROBLEM LIST Pre-Op Testing Obesity, Class I, Bmi 30-34.9 Coronary Artery Disease With Exertional Angina (Hcc) Incidental Lung Nodule Hypokalemia Dvt of Popliteal Vein (Hcc) Primary Hypertension Mixed Hyperlipidemia Sinus Bradycardia By Electrocardiography Localized Osteoarthritis of Right Knee PAST MEDICAL HISTORY Diagnosis Date DVT of popliteal vein (HCC) post right knee scope- 2010 PAST SURGICAL HISTORY Procedure Laterality Date CABG (5) VENOUS GRAFTS & ARTERIAL GRAFT(S) 01/22/23 PAST SURGICAL HISTORY OF Right 2011 knee scope PAST SURGICAL HISTORY OF IVC filter - 2010 due to DVT histroy PAST SURGICAL HISTORY OF vasectomy PAST SURGICAL HISTORY OF wisdom teeth removal REPAIR EPIGASTRIC HERNIA,REDUC 04/2022 TONSILLECTOMY HX age 29 FAMILY HISTORY Problem Relation Age of Onset Heart disease Father Hyperlipidemia Father Heart Failure Father Hyperlipidemia Mother Heart disease Maternal Grandmother Heart disease Paternal Grandmother Anesthesia Problems No Family History Social History Tobacco Use Smoking status: Former Current packs/day: 0.00 Types: Cigarettes Quit date: 09/21/1987 Years since quittin.7 Passive exposure: Past Smokeless tobacco: Never Vaping Use Vaping status: Never Used Substance Use Topics Alcohol use: Never Drug use: Never ALLERGIES No Known Allergies MEDICATIONS: ezetimibe (ZETIA) 10 mg tablet TAKE 1 TABLET BY MOUTH ONCE DAILY amLODIPine (NORVASC) 2.5 mg tablet Take 1 tablet by mouth once daily. metoprolol succinate ER (TOPROL XL) 100 mg TAKE 1 TABLET BY MOUTH IN THE MORNING AND ONE-HALF TABLET BY MOUTH IN THE EVENING acetaminophen (TYLENOL) 500 mg tablet Take 2 tablets by mouth every 8 hours. bisacodyl EC (DULCOLAX) 5 mg EC tablet Take 2 tablets by mouth once daily. Patient should start on January 15, 2024. docusate sodium (COLACE) 100 mg capsule Take 1 capsule by mouth two times a day. senna (SENOKOT) 8.6 mg tab Take 2 tablets by mouth daily at bedtime. atorvastatin (LIPITOR) 80 mg tablet Take 1 tablet by mouth daily at bedtime. aspirin, enteric coated (ASPIRIN, ENTERIC COATED) 81 mg EC tablet Take 81 mg by mouth once daily. MULTIVITAMIN ORAL Take by mouth. Allergies, medications, past surgical history, family history and past medical history were reviewed per this encounter. Objective Left Knee Exam Tenderness The patient is experiencing tenderness in the medial joint line. Range of Motion Extension: 0 Flexion: 120 Tests Surekha: Medial - positive Varus: negative Patellar apprehension: negative Other Erythema: absent Sensation: normal Pulse: present Swelling: mild Effusion: effusion present Comments: Mild limp favoring left leg Crepitus with ROM Mild effusion Left knee XR from October 2023 shows mild medial joint space narrowing and PF joint space narrowing Assessment/Plan ASSESSMENT Diagnosis (M17.12) Primary osteoarthritis of left knee (primary encounter diagnosis) Plan: XR KNEE GENERAL 4V AP BOTH/PA BOTH/LAT/MERC LEFT Office Visit on 06/17/24 XR KNEE GENERAL 4V AP BOTH/PA BOTH/LAT/MERC LEFT PLAN Proceeded with left knee CSI today Continue with low impact activities, HEP, compression sleeve for support if needed Tylenol PRN Topical pain cream PRN Follow up in September for consideration of repeat CSI left knee prior to trip to [place]. Recommend updated left knee XR at next visit- ordered Large Joint Arthro/Inj: L knee joint Informed Consent Consent Obtained: Verbal [place] Protocol A moment to CARE was completed. SIGN IN Personnel directly involved with the procedure wore the appropriate PPE. Special Equipment: N/A Patient/Surrogate Stated/Verified: Patient name, Date of , Relevant allergies and Intended procedure TIME OUT Intended patient and procedure match the source document(s). Consent documented and matches the intended procedure. Relevant labs, photos, and/or imaging studies have been reviewed. Correct side/site marked and visible. Medications required for procedure verified. Fire risk assessed and interventions discussed. No implant(s) inserted. 06/17/2024 11:15 AM The procedure site was prepped in the usual sterile fashion. Site: L knee joint Medications: 80 mg triamcinolone acetonide 40 mg/mL Anesthetics: 4 mL lidocaine (PF) 10 mg/mL (1 %); 4 mL ROPivacaine (PF) 5 mg/mL (0.5 %) Outcome: Tolerated well, no immediate complications Post-injection instructions were reviewed with the patient and the patient voiced understanding of these instructions. SIGN OUT All instruments, equipment, possible retained foreign bodies accounted for. SIGNATURE: Milagro Castle PA-C PATIENT NAME: Silvano Menendez DATE: June 20, 2024 TIME: 11:13 AM documented in this encounter [facility] 03-18-2024 Telephone encounter Note Pharmacy electronic RX request to request a refill on the medication(s) below: Requested Prescriptions Pending Prescriptions Disp Refills amLODIPine (NORVASC) 2.5 mg tablet [Pharmacy Med Name: amLODIPine Besylate 2.5 MG Oral Tablet] 90 tablet 1 Sig: Take 1 tablet by mouth once daily. metoprolol succinate ER (TOPROL XL) 100 mg [Pharmacy Med Name: Metoprolol Succinate ER 100 MG Oral Tablet Extended Release 24 Hour] 135 tablet 3 Sig: TAKE 1 TABLET BY MOUTH IN THE MORNING AND ONE-HALF TABLET BY MOUTH IN THE EVENING PHARMACY NAME [facility] / PHONE NUMBER: Mail Order RX Physician's Name: Nato Antonio M.D. Last seen in office: 10/02/2023 If last appointment greater than one year or no follow up scheduled, sent to schedulers Francia Graham 03/18/2024 [facility] 03-18-2024 Miscellaneous Notes Pharmacy electronic RX request to request a refill on the medication(s) below: Requested Prescriptions Pending Prescriptions Disp Refills amLODIPine (NORVASC) 2.5 mg tablet [Pharmacy Med Name: amLODIPine Besylate 2.5 MG Oral Tablet] 90 tablet 1 Sig: Take 1 tablet by mouth once daily. metoprolol succinate ER (TOPROL XL) 100 mg [Pharmacy Med Name: Metoprolol Succinate ER 100 MG Oral Tablet Extended Release 24 Hour] 135 tablet 3 Sig: TAKE 1 TABLET BY MOUTH IN THE MORNING AND ONE-HALF TABLET BY MOUTH IN THE EVENING PHARMACY NAME [facility] / PHONE NUMBER: Mail Order RX Physician's Name: Nato Antonio M.D. Last seen in office: 10/02/2023 If last appointment greater than one year or no follow up scheduled, sent to schedulers Francia Graham 03/18/2024 documented in this encounter [facility] 03-04-2024 Note HNO ID: [id number] Author: MILAGRO CASTLE PA-C Service: ? Author Type: Physician Place Change Roof Bolter Type: Progress Notes Filed: 03/14/2024 22:23 Note Text: Ortho Knee Follow Up Note Narrative Referring Provider: Ino Mason [address] [facility] [id number] PCP: Beatriz Edgar MD IMPRESSION/PLAN: 58 year old s/p Right unicompartmental arthroplasty on 01/13/24 and WINTER right knee completed on 02/17/2024. Recent Surgeries this specialty 02/17/2024 (2w, 2d) MANIPULATION KNEE JOINT UNDER GENERAL ANES (Right) Ino Mason MD; Kaleb Pak MD; Nathaniel Lua MD - Posted 01/13/2024 (7w, 2d) ROBOTIC ASSISTED UNI KNEE ARTHROPLASTY; COMPUTER ASSIST MUSCULOSKETAL SURG NAVIGATION ORTHO PROCED W/IMAGE GUIDANCE BASED ON CT/MRI IMAGES (Right; Right) Ino Mason MD; Nathaniel Lua MD - Posted PAIN EVALUATION 02/26/2024 2200 Description: Aching;Stiffness Frequency: Continuous Intervention/Comfort measure: Medication;Cold;Pillow support IMPRESSION: Progressing well s/p WINTER with history of right medial uni knee replacement PLAN: -Continue with PT for ROM and strength -Ice as needed -continue with home exercises - Follow up in 4-6 weeks for continued monitoring with Dr. Mason Silvano Menendez presents today for a a routine 1st post-op visit. He had his right WINTER 2 weeks ago, and has been working with PT locally. He has noted improvement in symptoms, improved motion. He uses ice as needed for pain. He has been ABLE TO progress activities well- walking longer distances. He notes some swelling after walking, but no additional pain ACTIVE PROBLEM LIST Pre-Op Testing Obesity, Class I, Bmi 30-34.9 Coronary Artery Disease With Exertional Angina (Hcc) Incidental Lung Nodule Hypokalemia Dvt of Popliteal Vein (Hcc) Primary Hypertension Mixed Hyperlipidemia Sinus Bradycardia By Electrocardiography Localized Osteoarthritis of Right Knee Status post op: BMI: There is no height or weight on file to calculate BMI. ED Visits AND Hospitalizations - Last 180 days 02/17/24 Ino Mason MD, [facility] Postoperative pain ..., Admission (Discharged) 01/13/24 Ino Mason MD, [id number] Status post right partial knee replacement ..., Admission (Discharged) EXAM: POST OP KNEE Right knee Extension just shy of 0, flexion 110 Normal gait Incision well healed Mild swelling knee Neg homans sign SILT 4+/5 quad strength Stable to varus/ valgus XR 1 view right knee shows implant in good alignment Provider: Milagro Castle PA-C Completed by: Milagro Castle PA-C [facility] 03-04-2024 History of Present illness Narrative Images from the original note were not included. Ortho Knee Follow Up Note Narrative Referring Provider: Ino Mason [address] [facility] [address] PCP: Beatriz Edgar MD IMPRESSION/PLAN: 58 year old s/p Right unicompartmental arthroplasty on 01/13/24 and WINTER right knee completed on 02/17/2024. Recent Surgeries this specialty 02/17/2024 (2w, 2d) MANIPULATION KNEE JOINT UNDER GENERAL ANES (Right) Ino Mason MD; Kaleb Pak MD; Nathaniel Lua MD - Posted 01/13/2024 (7w, 2d) ROBOTIC ASSISTED UNI KNEE ARTHROPLASTY; COMPUTER ASSIST MUSCULOSKETAL SURG NAVIGATION ORTHO PROCED W/IMAGE GUIDANCE BASED ON CT/MRI IMAGES (Right; Right) Ino Mason MD; Nathaniel Lua MD - Posted PAIN EVALUATION 02/26/2024 2200 Description: Aching;Stiffness Frequency: Continuous Intervention/Comfort measure: Medication;Cold;Pillow support IMPRESSION: Progressing well s/p WINTER with history of right medial uni knee replacement PLAN: -Continue with PT for ROM and strength -Ice as needed -continue with home exercises - Follow up in 4-6 weeks for continued monitoring with Dr. Mason Silvano Menendez presents today for a a routine 1st post-op visit. He had his right WINTER 2 weeks ago, and has been working with PT locally. He has noted improvement in symptoms, improved motion. He uses ice as needed for pain. He has been ABLE TO progress activities well- walking longer distances. He notes some swelling after walking, but no additional pain ACTIVE PROBLEM LIST Pre-Op Testing Obesity, Class I, Bmi 30-34.9 Coronary Artery Disease With Exertional Angina (Hcc) Incidental Lung Nodule Hypokalemia Dvt of Popliteal Vein (Hcc) Primary Hypertension Mixed Hyperlipidemia Sinus Bradycardia By Electrocardiography Localized Osteoarthritis of Right Knee Status post op: BMI: There is no height or weight on file to calculate BMI. ED Visits & Hospitalizations - Last 180 days 02/17/24 Ino Mason MD, [facility] Postoperative pain ..., Admission (Discharged) 01/13/24 Ino Mason MD, [id number] Status post right partial knee replacement ..., Admission (Discharged) EXAM: POST OP KNEE Right knee Extension just shy of 0, flexion 110 Normal gait Incision well healed Mild swelling knee Neg homans sign SILT 4+/5 quad strength Stable to varus/ valgus XR 1 view right knee shows implant in good alignment Provider: Milagro Castle PA-C Completed by: Milagro Castle PA-C documented in this encounter [facility] 03-04-2024 History of Present illness Narrative Radiology Service Progress Note PATIENT NAME: Silvano Menendez DATE OF SERVICE: March 04, 2024 TIME: 9:46 AM PATIENT IDENTITY VERIFICATION COMPLETED USING TWO (2) IDENTIFIERS: Name and Date of confirmed by patient verbally. FALL SCREENING: Has the patient had 2 falls in the last year or 1 fall with injury or currently using an Ambulatory Assistive Device (Walker, Cane, Wheelchair, Crutches, etc.)? No PATIENT GENDER DATA: Male PATIENT RELEVANT IMPLANT DATA REVIEWED: Not Applicable PATIENT PRESENTS WITH AN IMPLANTABLE OR ATTACHED STOCK HANDLER: No RADIOLOGY DEPARTMENT: General X-ray: Exam(s) Completed: Lower Extremity X-Ray(s): Knee, AP Only Right PERIPHERAL IV DATA: Not applicable SIGNED BY: RT Fernando(Chivo) March 04, 2024 9:46 AM documented in this encounter [facility] 03-04-2024 Note HNO ID: [id number] Author: NACHO SWIFT RT(R) Service: Radiology Author Type: Technologist Type: Progress Notes Filed: 03/04/2024 09:47 Note Text: Radiology Service Progress Note PATIENT NAME: Silvano Menendez DATE OF SERVICE: March 04, 2024 TIME: 9:46 AM PATIENT IDENTITY VERIFICATION COMPLETED USING TWO (2) IDENTIFIERS: Name and Date of confirmed by patient verbally. FALL SCREENING: Has the patient had 2 falls in the last year or 1 fall with injury or currently using an Ambulatory Assistive Device (Walker, Cane, Wheelchair, Crutches, etc.)? No PATIENT GENDER DATA: Male PATIENT RELEVANT IMPLANT DATA REVIEWED: Not Applicable PATIENT PRESENTS WITH AN IMPLANTABLE OR ATTACHED STOCK HANDLER: No RADIOLOGY DEPARTMENT: General X-ray: Exam(s) Completed: Lower Extremity X-Ray(s): Knee, AP Only Right PERIPHERAL IV DATA: Not applicable SIGNED BY: RT Fernando(Chivo) March 04, 2024 9:46 AM [facility] 02-17-2024 Note HNO ID: [id number] Author: DEVON SULTANA MD Service: ? Author Type: Anesthesiologist Type: Anesthesia Procedure Notes Filed: 02/17/2024 12:43 Note Text: ANESTHESIOLOGY PROCEDURE NOTE Peripheral Nerve Block General Information Procedure Start Time/Medication Administration: 02/17/2024 10:20 AM Procedure End time: 02/17/2024 10:26 AM Patient location during procedure: induction room Timeout Performed Pre-procedure: timeout performed Consent Obtained: Yes Patient identity confirmed: arm band, care marketing team lead and patient Reason for block: post-op pain management/at surgeon's request Staffing Anesthesiologist: Devon Sultana MD Resident: Taj Thorpe DO Performed by: anesthesiologist and resident Preparation Sterility Preparation: hand hygiene performed prior to procedure, sterile gloves, drapes, and procedure tray, surgical cap used, mask used, sterile drape used during line insertion, skin prep agent completely dried prior to procedure Sterility Technique Not Completely Performed Due to Extreme Emergency: Yes Site Prep: Chloraprep Pre-Procedure Neuro Exam Location: RLE Sensory: intact Motor: intact Procedure Details Patient Position: supine Monitoring: Pulse OX, EKG and NIBP Block Type Lower Extremity: distal femoral (adductor canal) Laterality: right Injection Technique: single-shot Ultrasound Guided: Yes Image in Chart: yes Moderate Sedation: Yes Needle Needle Gauge: 20 G Needle Length: 100 mm Needle Localization: ultrasound Assessment Injection assessment: negative aspiration, incremental injection and local visualized surrounding nerve on ultrasound Medications Administered dexamethasone sodium phosphate injection (DECADRON) - peripheral nerve block 4 mg - 02/17/2024 10:20:00 AM ropivacaine (PF) 5 mg/mL (0.5 %) injection (NAROPIN) - peripheral nerve block 20 mL - 02/17/2024 10:20:00 AM SIGNATURE: Taj Thorpe DO PATIENT NAME: Silvano Menendez DATE: February 17, 2024 TIME: 10:33 AM CSN: [id number] Attending Note For the Bedside procedure, I was physically present during the entire procedure. Resident prepared and positioned patient, exposed, and retracted, under direct supervision and the remainder of the procedure was performed by the primary surgeon/proceduralist with assistance. Signature: Devon Sultana MD Date: 02/17/2024 Time: 12:43 PM [facility] 02[facility]10[facility]24 Instructions Phi Calhoun APRN.[facility] - 02/10/2024 9:30 AM EDT Images from the original note were not included. [facility] Pre-Anesthesia Consultation [facility] PATIENT PREOPERATIVE INSTRUCTIONS Ino Mason MD has scheduled you for your procedure at this surgery center: [facility] Scheduling Office: [phone] --[address] [place] [address]. Please read below carefully for your personalized instructions. Dietary Restrictions: - No solid food after midnight. - You may have 12 ounces of clear liquids (water, clear juices such as apple juice or gatorade, carbonated beverages, clear tea, black coffee, jello) until 2 hours before scheduled arrival at facility. Medications: Unless instructed differently below, stay on all of your medications until your surgery. If you start any new medications after today's visit, please contact your surgeon. Pre-Surgery Med Instructions Medication Instructions oxyCODONE IR (ROXICODONE) 5 mg immediate release tablet Do not take the day of surgery acetaminophen (TYLENOL) 500 mg tablet Do not take the day of surgery atorvastatin (LIPITOR) 80 mg tablet Take the day of surgery with a small sip of water metoprolol succinate ER (TOPROL XL) 100 mg Take the day of surgery with a small sip of water ezetimibe (ZETIA) 10 mg tablet Take the day of surgery with a small sip of water amLODIPine (NORVASC) 2.5 mg tablet Take the day of surgery with a small sip of water aspirin, enteric coated (ASPIRIN, ENTERIC COATED) 81 mg EC tablet Do not take the day of surgery MULTIVITAMIN ORAL Stop 7 days before surgery If you take any medications for erectile dysfunction-Cialis (Tadalafil), Levitra, Staxyn (Vardenafil) Viagra (Sildenenafil please do not take these for 48 hours before surgery. If you start any new medications after today's visit, please contact the surgeon's office. Blood Thinning Medications: - Stop NSAIDS (Ibuprofen, Advil, Aleve, Motrin, Celebrex, Mobic, etc.) 7 days before surgery, as directed by your surgeon. - Do NOT stop aspirin or other anticoagulants without consulting with your mail sorting supervisor or prescribing physician. - Stop Vitamin E, ALL multi-vitamins, herbals and dietary supplements 7 days before surgery. - You may take Tylenol (Acetaminophen) or any of your pain medications that do not contain aspirin or NSAIDS as needed. Important Reminders: - Candy, mints, and tobacco products are NOT permitted the morning of surgery. - Hearing aids, dentures and glasses may be worn the morning of surgery. - NO jewelry, body piercings, makeup, hairpins or contacts are to be worn the day of surgery. If you develop symptoms such as a fever, cold, or flu, or have other changes to your health within TWO DAYS of scheduled surgery or the morning of surgery, please contact the surgery center above. Personal Belongings: -Please have photo ID and insurance cards. -If you do not have a copy of advance directives on file with us, please bring a copy with you on the day of surgery. - Leave ALL valuables and money at home or with family members. For Outpatient Procedures: - YOU MUST HAVE A RESPONSIBLE BONDING MACHINE OPERATOR TAKE YOU HOME. A SOCIAL SCIENCE MANAGER OR SHRIMP POND LABORER CANNOT BE MADE A RESPONSIBLE BONDING MACHINE OPERATOR. - We recommend that a responsible person stays with you overnight to take care of you. - You cannot stay in a hotel alone after outpatient surgery. You will not be permitted to have your surgery, if you do not have someone to take care of you. Arrival Time for Surgery: - The Surgery Center or hospital where you are having surgery will call the afternoon before surgery (or Thursday for Thursday surgery) with a scheduled arrival time. - If you have not heard by 4 pm, please contact the surgery center above. Please be aware that emergency situations arise, which may delay or change your surgical time. If this happens, we will notify you as soon as possible and regret any inconvenience. If you already have an Advance Directive, please fax a copy to [phone] or email to for it to be added to your chart. If you do not have an Advance Directive, you can find the appropriate form and more information at [email or web address]. We recommend that you complete the Advance Directive form found on the website and bring it with you the day of your surgery. It can be witnessed and scanned into your chart that day. Phi Calhoun APRN.[facility] documented in this encounter [facility] 02-10-2024 History and physical note PREANESTHESIA CONSULT CLINIC TELEHEALTH VISIT Patient has been identified by name and date of : Yes This is a virtual visit using [employer] Video Visit. It require patient-provider interaction for the medical decision making as documented below. Reason for contact: PACC visit Accompanied by: Self Scheduled Surgery: manipulation right knee Subjective CHIEF COMPLAINT: No chief complaint on file. HPI: This is a 58 year old male who presents with h/o TKR January 13, 2024 c/o decreased ROM post op, I can't bend my knee . ACTIVE PROBLEM LIST Pre-Op Testing Obesity, Class I, Bmi 30-34.9 Coronary Artery Disease With Exertional Angina (Hcc) Incidental Lung Nodule Hypokalemia Dvt of Popliteal Vein (Hcc) Primary Hypertension Mixed Hyperlipidemia Sinus Bradycardia By Electrocardiography Localized Osteoarthritis of Right Knee PAST MEDICAL HISTORY No date: DVT of popliteal vein (HCC) Comment: post right knee scope- 2010 PAST SURGICAL HISTORY No date: CABG (5) VENOUS GRAFTS & ARTERIAL GRAFT(S) Comment: 01/22/232010: PAST SURGICAL HISTORY OF; Right Comment: knee scope No date: PAST SURGICAL HISTORY OF Comment: IVC filter - 2010 due to DVT histroy No date: PAST SURGICAL HISTORY OF Comment: vasectomy No date: PAST SURGICAL HISTORY OF Comment: wisdom teeth removal 04/2022: REPAIR EPIGASTRIC HERNIA,REDUC No date: TONSILLECTOMY HX Comment: age 29 FAMILY HISTORY Problem Relation Age of Onset Heart disease Father Hyperlipidemia Father Heart Failure Father Hyperlipidemia Mother Heart disease Maternal Grandmother Heart disease Paternal Grandmother Anesthesia Problems No Family History Social History Tobacco Use Smoking status: Former Current packs/day: 0.00 Types: Cigarettes Quit date: 09/21/1987 Years since quittin.4 Passive exposure: Past Smokeless tobacco: Never Vaping Use Vaping status: Never Used Substance Use Topics Alcohol use: Never Drug use: Never ALLERGIES No Known Allergies MEDICATIONS: Current Outpatient Medications Medication Sig oxyCODONE IR (ROXICODONE) 5 mg immediate release tablet Take 1 tablet by mouth every 6 hours as needed for up to 7 days. acetaminophen (TYLENOL) 500 mg tablet Take 2 tablets by mouth every 8 hours. atorvastatin (LIPITOR) 80 mg tablet Take 1 tablet by mouth daily at bedtime. metoprolol succinate ER (TOPROL XL) 100 mg Take 1 tablet by mouth once daily. PM ezetimibe (ZETIA) 10 mg tablet Take 1 tablet by mouth once daily. amLODIPine (NORVASC) 2.5 mg tablet TAKE 1 TABLET BY MOUTH ONCE DAILY aspirin, enteric coated (ASPIRIN, ENTERIC COATED) 81 mg EC tablet Take 81 mg by mouth once daily. MULTIVITAMIN ORAL Take by mouth. bisacodyl EC (DULCOLAX) 5 mg EC tablet Take 2 tablets by mouth once daily. Patient should start on January 15, 2024. docusate sodium (COLACE) 100 mg capsule Take 1 capsule by mouth two times a day. senna (SENOKOT) 8.6 mg tab Take 2 tablets by mouth daily at bedtime. No current facility-administered medications for this visit. COVID VACCINATION STATUS: Partially vaccinated REVIEW OF SYSTEMS: Pain Assessment: General: No weight loss, malaise or fevers. Neuro: No history of TIA's, stroke, RECREATION TECHNICIAN tumor, impaired sensorium, hemiplegia, paraplegia or quadraplegia. No neurological symptoms or problems. Respiratory: No history of current cough or dyspnea, or pneumonia in the past 6 weeks. No history of respiratory/pulmonary symptoms or problems. Cardiovascular: Positive for: CAD; Trim Carpenter: , HLD, Hypertension GI: No history of GI symptoms or problems. No history of esophageal varices, recent ascites, or ETOH greater than 2 drinks per day. : No history of dysuria, frequency or incontinence,, stones or chronic kidney disease Endocrine: Hematology: Chronic anti-coagulation / platelet meds (Aspirin) Oncology: No history of CA metastasis, chemo within 30 days, or radiotherapy within 90 days. Has not lost 10% of body wt in 6 months. No history of oncological symptoms or problems. Psych: No history of psychiatric symptoms or problems. Musculoskeletal: See HPI Skin: Negative for lesions, rash and itching. Objective PHYSICAL EXAM: BP 124/72 Ht 5' 9 (1.75m) Wt 215 lb (97.5kg) BMI 31.74 kg/(m^2). VIDEO EXAM: (if completed, performed via video enabled technology) GENERAL: alert and appropriate, in no distress, well-hydrated, well nourished, and happy, smiling, interactive SKIN: no rash noted HEAD: normocephalic, no abnormality or lesion noted OROPHARYNX: moist mucus membranes NECK: full ROM, no cervical LNs noted RESPIRATORY: breathing non-labored CHEST: equal chest rise with normal respiratory effort HEART: no jvd, no c/o palpitations. Diagnostic tests reviewed for today's visit: Lab Value Units Date High Low HB 14.6 g/dL 01/14/2024 17.0 13.0 HCT 43.7 % 01/14/2024 51.0 39.0 WBC 17.34 k/uL 01/14/2024 11.00 3.70 PLT 180 k/uL 01/14/2024 400 150 NA 139 mmol/L 01/14/2024 144 136 K 4.4 mmol/L 01/14/2024 5.1 3.7 GLUC 177 mg/dL 01/14/2024 99 74 BUN 14 mg/dL 01/14/2024 24 9 CREAT 0.84 mg/dL 01/14/2024 1.22 0.73 PTSEC No results within date range. INR No results within date range. APTT No results within date range. ALT 30 U/L 01/05/2024 54 10 AST 19 U/L 01/05/2024 40 14 TBILI 0.6 mg/dL 01/05/2024 1.3 0.2 TSH No results within date range. Lab Value Units Date High Low HCGQT No results within date range. UHCG No results within date range. HCG, BODY* No results within date range. Lab Value Units Date High Low ABORHD No results within date range. ABSCREEN No results within date range. Hemoglobin A1C (%) Date Value 01/21/2023 5.9 Impression/Recommendations ASSESSMENT: Primary hypertension Managed with amlodipine and metoprolol. Mixed hyperlipidemia On lipitor and zetia. 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) S/p CABG X 5 RUTH to LAD, RSVG to PDA, RSVG to Diagonal, LRA to OM1, Free CHICO to OM Monitored by cardiology, Dr Antonio last OPV 10/02/2023 DVT of popliteal vein (HCC) 2010, s/p IVC filter. METS: Climb a flight of stairs or walk up a hill (5.50 METs) Patient denies any chest pain or undue shortness of breath with the above physical activity. ASA Class: 2 ANESTHESIA FINDINGS: Intubation History: No history of difficult intubation Significant Anesthesia Considerations: None Airway Exam: General: Normal appearance Mallampati Score is CLASS II ULBT: Class I - Lower incisors can bite the upper lip above the robert line Neck: Normal appearance and function, Distance from hyoid to mentum during neck extension is at least 3 finger breaths Mouth: Normal tongue size Dentition: Intact Airway History: No abnormal airway history STOP BANG Score: Criteria: Snoring Hypertension Age over 50 (58 year old) Male gender Score = 4 PLAN: This patient is optimally prepared for surgery pending dos exam. CONSULTS: Patient does not require consults for optimization at this time. The Following Tests/Procedures Have Been Initiated: Labs not indicated per PACC protocol Planned Anesthetic: Per anesthesia choice Instructions Given to Patient: Patient given verbal instructions and voices comprehension and compliance. Copy sent electronically via My Chart, email, or mobile device. I spent a total of 10 minutes on the date of the service which included obtaining and/or reviewing separately obtained history, performing a medically appropriate examination, and counseling and educating the patient/family/caregiver This is a virtual visit. It required patient-provider interaction for the medical decision making as documented above. SIGNATURE: Phi Calhoun APRN.CNP PATIENT NAME: Silvano Menendez DATE: February 10, 2024 TIME: 8:55 AM PAGER/CONTACT #: [facility] 02-10-2024 History and physical note PREANESTHESIA CONSULT CLINIC TELEHEALTH VISIT Patient has been identified by name and date of : Yes This is a virtual visit using [employer] Video Visit. It require patient-provider interaction for the medical decision making as documented below. Reason for contact: PACC visit Accompanied by: Self Scheduled Surgery: manipulation right knee Subjective CHIEF COMPLAINT: No chief complaint on file. HPI: This is a 58 year old male who presents with h/o TKR January 13, 2024 c/o decreased ROM post op, I can't bend my knee . ACTIVE PROBLEM LIST Pre-Op Testing Obesity, Class I, Bmi 30-34.9 Coronary Artery Disease With Exertional Angina (Hcc) Incidental Lung Nodule Hypokalemia Dvt of Popliteal Vein (Hcc) Primary Hypertension Mixed Hyperlipidemia Sinus Bradycardia By Electrocardiography Localized Osteoarthritis of Right Knee PAST MEDICAL HISTORY No date: DVT of popliteal vein (HCC) Comment: post right knee scope- 2010 PAST SURGICAL HISTORY No date: CABG (5) VENOUS GRAFTS & ARTERIAL GRAFT(S) Comment: 8/3/23 2011: PAST SURGICAL HISTORY OF; Right Comment: knee scope No date: PAST SURGICAL HISTORY OF Comment: IVC filter - 2011 due to DVT histroy No date: PAST SURGICAL HISTORY OF Comment: vasectomy No date: PAST SURGICAL HISTORY OF Comment: wisdom teeth removal 04/2022: REPAIR EPIGASTRIC HERNIA,REDUC No date: TONSILLECTOMY HX Comment: age 29 FAMILY HISTORY Problem Relation Age of Onset Heart disease Father Hyperlipidemia Father Heart Failure Father Hyperlipidemia Mother Heart disease Maternal Grandmother Heart disease Paternal Grandmother Anesthesia Problems No Family History Social History Tobacco Use Smoking status: Former Current packs/day: 0.00 Types: Cigarettes Quit date: 09/21/1987 Years since quittin.4 Passive exposure: Past Smokeless tobacco: Never Vaping Use Vaping status: Never Used Substance Use Topics Alcohol use: Never Drug use: Never ALLERGIES No Known Allergies MEDICATIONS: Current Outpatient Medications Medication Sig oxyCODONE IR (ROXICODONE) 5 mg immediate release tablet Take 1 tablet by mouth every 6 hours as needed for up to 7 days. acetaminophen (TYLENOL) 500 mg tablet Take 2 tablets by mouth every 8 hours. atorvastatin (LIPITOR) 80 mg tablet Take 1 tablet by mouth daily at bedtime. metoprolol succinate ER (TOPROL XL) 100 mg Take 1 tablet by mouth once daily. PM ezetimibe (ZETIA) 10 mg tablet Take 1 tablet by mouth once daily. amLODIPine (NORVASC) 2.5 mg tablet TAKE 1 TABLET BY MOUTH ONCE DAILY aspirin, enteric coated (ASPIRIN, ENTERIC COATED) 81 mg EC tablet Take 81 mg by mouth once daily. MULTIVITAMIN ORAL Take by mouth. bisacodyl EC (DULCOLAX) 5 mg EC tablet Take 2 tablets by mouth once daily. Patient should start on January 15, 2024. docusate sodium (COLACE) 100 mg capsule Take 1 capsule by mouth two times a day. senna (SENOKOT) 8.6 mg tab Take 2 tablets by mouth daily at bedtime. No current facility-administered medications for this visit. COVID VACCINATION STATUS: Partially vaccinated REVIEW OF SYSTEMS: Pain Assessment: General: No weight loss, malaise or fevers. Neuro: No history of TIA's, stroke, RECREATION TECHNICIAN tumor, impaired sensorium, hemiplegia, paraplegia or quadraplegia. No neurological symptoms or problems. Respiratory: No history of current cough or dyspnea, or pneumonia in the past 6 weeks. No history of respiratory/pulmonary symptoms or problems. Cardiovascular: Positive for: CAD; Trim Carpenter: , HLD, Hypertension GI: No history of GI symptoms or problems. No history of esophageal varices, recent ascites, or ETOH greater than 2 drinks per day. : No history of dysuria, frequency or incontinence,, stones or chronic kidney disease Endocrine: Hematology: Chronic anti-coagulation / platelet meds (Aspirin) Oncology: No history of CA metastasis, chemo within 30 days, or radiotherapy within 90 days. Has not lost 10% of body wt in 6 months. No history of oncological symptoms or problems. Psych: No history of psychiatric symptoms or problems. Musculoskeletal: See HPI Skin: Negative for lesions, rash and itching. Objective PHYSICAL EXAM: BP 124/72 Ht 5' 9 (1.75m) Wt 215 lb (97.5kg) BMI 31.74 kg/(m^2). VIDEO EXAM: (if completed, performed via video enabled technology) GENERAL: alert and appropriate, in no distress, well-hydrated, well nourished, and happy, smiling, interactive SKIN: no rash noted HEAD: normocephalic, no abnormality or lesion noted OROPHARYNX: moist mucus membranes NECK: full ROM, no cervical LNs noted RESPIRATORY: breathing non-labored CHEST: equal chest rise with normal respiratory effort HEART: no jvd, no c/o palpitations. Diagnostic tests reviewed for today's visit: Lab Value Units Date High Low HB 14.6 g/dL 01/14/2024 17.0 13.0 HCT 43.7 % 01/14/2024 51.0 39.0 WBC 17.34 k/uL 01/14/2024 11.00 3.70 PLT 180 k/uL 01/14/2024 400 150 NA 139 mmol/L 01/14/2024 144 136 K 4.4 mmol/L 01/14/2024 5.1 3.7 GLUC 177 mg/dL 01/14/2024 99 74 BUN 14 mg/dL 01/14/2024 24 9 CREAT 0.84 mg/dL 01/14/2024 1.22 0.73 PTSEC No results within date range. INR No results within date range. APTT No results within date range. ALT 30 U/L 01/05/2024 54 10 AST 19 U/L 01/05/2024 40 14 TBILI 0.6 mg/dL 01/05/2024 1.3 0.2 TSH No results within date range. Lab Value Units Date High Low HCGQT No results within date range. UHCG No results within date range. HCG, BODY* No results within date range. Lab Value Units Date High Low ABORHD No results within date range. ABSCREEN No results within date range. Hemoglobin A1C (%) Date Value 01/21/2023 5.9 Impression/Recommendations ASSESSMENT: Primary hypertension Managed with amlodipine and metoprolol. Mixed hyperlipidemia On lipitor and zetia. 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) S/p CABG X 5 RUTH to LAD, RSVG to PDA, RSVG to Diagonal, LRA to OM1, Free CHICO to OM Monitored by cardiology, Dr Antonio last OPV 10/02/2023 DVT of popliteal vein (HCC) 2010, s/p IVC filter. METS: Climb a flight of stairs or walk up a hill (5.50 METs) Patient denies any chest pain or undue shortness of breath with the above physical activity. ASA Class: 2 ANESTHESIA FINDINGS: Intubation History: No history of difficult intubation Significant Anesthesia Considerations: None Airway Exam: General: Normal appearance Mallampati Score is CLASS II ULBT: Class I - Lower incisors can bite the upper lip above the robert line Neck: Normal appearance and function, Distance from hyoid to mentum during neck extension is at least 3 finger breaths Mouth: Normal tongue size Dentition: Intact Airway History: No abnormal airway history STOP BANG Score: Criteria: Snoring Hypertension Age over 50 (58 year old) Male gender Score = 4 PLAN: This patient is optimally prepared for surgery pending dos exam. CONSULTS: Patient does not require consults for optimization at this time. The Following Tests/Procedures Have Been Initiated: Labs not indicated per PACC protocol Planned Anesthetic: Per anesthesia choice Instructions Given to Patient: Patient given verbal instructions and voices comprehension and compliance. Copy sent electronically via My Chart, email, or mobile device. I spent a total of 10 minutes on the date of the service which included obtaining and/or reviewing separately obtained history, performing a medically appropriate examination, and counseling and educating the patient/family/caregiver This is a virtual visit. It required patient-provider interaction for the medical decision making as documented above. SIGNATURE: Phi Calhoun APRN.CNP PATIENT NAME: Silvano Menendez DATE: February 10, 2024 TIME: 8:55 AM PAGER/CONTACT #: documented in this encounter [facility] 02-10-2024 Note HNO ID: [id number] Author: YOLI REARDON Cast Tech Service: ? Author Type: Truck Engine Technician Type: Progress Notes Filed: 02/10/2024 08:40 Note Text: PT ASSESSMENT - CASTING ROOM Silvano presents for application of a 20 knee immobilizer per provider VO. Applied knee immobilizer to the RLE. Patient has been instructed in care and proper application of immobilizer. Amberly New Beeper: [id number] [facility] 02-09-2024 Note HNO ID: [id number] Author: ?, ?, ? Service: ? Author Type: ? Type: Progress Notes Filed: 02/09/2024 11:43 Note Text: QOL Call Tracking Documentation Follow-Up Type: Phone Call Call Attempt: 1st Attempt Call Status: Patient will complete in [facility] 02-09-2024 History of Present illness Narrative QOL Call Tracking Documentation Follow-Up Type: Phone Call Call Attempt: 1st Attempt Call Status: Patient will complete in [facility] documented in this encounter [facility] 02-09-2024 Note Patient Outreach ([facility] [facility]) SILVANO MENENEDZ ([id number]) 1965 M Date Time Provider Department 02/09/24 TORIE APARICIO During your visit today, we recorded the following information about you: Torie Aparicio 02/09/2024 11:43 AM Signed QOL Call Tracking Documentation Follow-Up Type: Phone Call Call Attempt: 1st Attempt Call Status: Patient will complete in [facility] Allergies As of Date: 02/09/2024 (No Known Allergies) Date Reviewed: 02/05/2024 Reviewed by: Kaushik Thurman, RN - Fully Assessed Prescriptions as of 02/09/2024 - oxyCODONE IR (ROXICODONE) 5 mg immediate release tablet Take 1 tablet by mouth every 6 hours as needed for up to 7 days. - acetaminophen (TYLENOL) 500 mg tablet Take 2 tablets by mouth every 8 hours. - bisacodyl EC (DULCOLAX) 5 mg EC tablet Take 2 tablets by mouth once daily. Patient should start on January 15, 2024. - docusate sodium (COLACE) 100 mg capsule Take 1 capsule by mouth two times a day. - senna (SENOKOT) 8.6 mg tab Take 2 tablets by mouth daily at bedtime. - atorvastatin (LIPITOR) 80 mg tablet Take 1 tablet by mouth daily at bedtime. - metoprolol succinate ER (TOPROL XL) 100 mg Take 1 tablet by mouth once daily. PM - ezetimibe (ZETIA) 10 mg tablet Take 1 tablet by mouth once daily. - amLODIPine (NORVASC) 2.5 mg tablet TAKE 1 TABLET BY MOUTH ONCE DAILY - aspirin, enteric coated (ASPIRIN, ENTERIC COATED) 81 mg EC tablet Take 81 mg by mouth once daily. - MULTIVITAMIN ORAL Take by mouth. Problem List As Of Date 02/09/2024 Noted Resolved Discharge planning issues [Z75.8] 01/21/2023 01/05/2024 Pre-op testing [Z01.818] 01/21/2023 Obesity, Class I, BMI 30-34.9 [E66.9] 01/22/2023 Coronary artery disease with exertional angina *01/22/2023 Hypotension, unspecified [I95.9] 01/22/2023 01/24/2023 Postoperative pain [G89.18] 01/22/2023 01/05/2024 Stress hyperglycemia [R73.9] 01/22/2023 01/27/2023 Postoperative hypovolemia [E89.89, E86.1] 01/22/2023 01/24/2023 Coagulopathy (HCC) [D68.9] 01/22/2023 01/24/2023 Atelectasis [J98.11] 01/23/2023 01/05/2024 Encounter for support and coordination of trans*01/26/2023 01/05/2024 Volume overload [E87.70] 01/26/2023 01/05/2024 Acute blood loss anemia [D62] 01/26/2023 01/05/2024 Thrombocytopenia (HCC) [D69.6] 01/26/2023 01/05/2024 Incidental lung nodule [R91.1] 01/26/2023 Pressure injury of mucous membrane [L89.899] 01/26/2023 01/05/2024 ISTAP type 2 skin tear of left lower leg [S81.8*01/26/2023 01/05/2024 Hypokalemia [E87.6] 01/26/2023 Pneumothorax, postoperative [J95.811] 01/26/2023 01/05/2024 DVT of popliteal vein (HCC) [I82.439] Primary hypertension [I10] Mixed hyperlipidemia [E78.2] On mechanically assisted ventilation (HCC) [Z99*04/01/2023 01/05/2024 Sinus bradycardia by electrocardiography [R00.1]01/05/2024 Localized osteoarthritis of right knee [M17.11] 01/13/2024 Encounter Status:Closed by TORIE APARICIO on 02/09/24 [facility] 02-05-2024 Note HNO ID: [id number] Author: INO MASON MD Service: ? Author Type: Physician Type: Progress Notes Filed: 02/09/2024 08:46 Note Text: Orthopaedic Oncology Clinic Follow-Up Note CC: Right Knee OA Date of Surgery: 01/13/2024, Right unicompartmental arthroplasty HPI Silvano Menendez is a 58 year old male who presents 3 week postop from right unicompartmental TKA. At his first postop visit, he had stiffness and we recommended PT and that he obtian labs/repeat XR if not resolved. Today, he still has stiffness of the right knee with flexion limited to 70, fairly consistent with last visit. PT has not helped. Current Outpatient Medications Medication Sig oxyCODONE IR (ROXICODONE) 5 mg immediate release tablet Take 1 tablet by mouth every 6 hours as needed for up to 7 days. acetaminophen (TYLENOL) 500 mg tablet Take 2 tablets by mouth every 8 hours. bisacodyl EC (DULCOLAX) 5 mg EC tablet Take 2 tablets by mouth once daily. Patient should start on January 15, 2024. docusate sodium (COLACE) 100 mg capsule Take 1 capsule by mouth two times a day. senna (SENOKOT) 8.6 mg tab Take 2 tablets by mouth daily at bedtime. atorvastatin (LIPITOR) 80 mg tablet Take 1 tablet by mouth daily at bedtime. metoprolol succinate ER (TOPROL XL) 100 mg Take 1 tablet by mouth once daily. PM ezetimibe (ZETIA) 10 mg tablet Take 1 tablet by mouth once daily. amLODIPine (NORVASC) 2.5 mg tablet TAKE 1 TABLET BY MOUTH ONCE DAILY aspirin, enteric coated (ASPIRIN, ENTERIC COATED) 81 mg EC tablet Take 81 mg by mouth once daily. MULTIVITAMIN ORAL Take by mouth. No current facility-administered medications for this visit. ROS As per history of present illness, other complete review of systems is negative for fevers, chills, malaise, unintentional weight loss, bone pain, soft tissue masses, swollen lymph nodes or skin lesions. PHYSICAL EXAMINATION: There were no vitals taken for this visit. General: Alert, oriented, no apparent distress Breathing: Normal respiratory rate, breathing is non-labored. Gait: Antalgic gait. R knee exam: Healing incision overlying R knee. Right knee range of motion is 5 to 80 degrees on my exam. He reaches 80 degrees when seated, when lying supine I am only able to get him to 65 degrees. RESULTS REVIEW: ESR 2 mm/h CRP <0.3 mg/dL IMPRESSION: s/p R unicompartmental knee arthroplasty complicated by stiffness. No clinical or laboratory evidence of infection PLAN: - We will follow up on CRP and ESR labs drawn today to rule out infection -Gave knee immobilizer to wear at night -Will schedule for manipulation under anesthesia of right knee -Emphasized importance of leg straightening exercises to strengthen quad muscles Ferny Diamond, MS4 ATTENDING PHYSICIAN NOTE I have personally interviewed and examined the patient. I agree with the findings in the above note. I have corroborated the above history and review of systems obtained by the medical student, and performed and documented my own exam, imaging review, impression and plan. Ino Mason MD Silverware Cleaner, Orthopaedic Surgery Division of Musculoskeletal Oncology [facility] 02-05-2024 History of Present illness Narrative Orthopaedic Oncology Clinic Follow-Up Note CC: Right Knee OA Date of Surgery: 01/13/2024, Right unicompartmental arthroplasty HPI Silvano Menendez is a 58 year old male who presents 3 week postop from right unicompartmental TKA. At his first postop visit, he had stiffness and we recommended PT and that he obtian labs/repeat XR if not resolved. Today, he still has stiffness of the right knee with flexion limited to 70, fairly consistent with last visit. PT has not helped. Current Outpatient Medications Medication Sig oxyCODONE IR (ROXICODONE) 5 mg immediate release tablet Take 1 tablet by mouth every 6 hours as needed for up to 7 days. acetaminophen (TYLENOL) 500 mg tablet Take 2 tablets by mouth every 8 hours. bisacodyl EC (DULCOLAX) 5 mg EC tablet Take 2 tablets by mouth once daily. Patient should start on January 15, 2024. docusate sodium (COLACE) 100 mg capsule Take 1 capsule by mouth two times a day. senna (SENOKOT) 8.6 mg tab Take 2 tablets by mouth daily at bedtime. atorvastatin (LIPITOR) 80 mg tablet Take 1 tablet by mouth daily at bedtime. metoprolol succinate ER (TOPROL XL) 100 mg Take 1 tablet by mouth once daily. PM ezetimibe (ZETIA) 10 mg tablet Take 1 tablet by mouth once daily. amLODIPine (NORVASC) 2.5 mg tablet TAKE 1 TABLET BY MOUTH ONCE DAILY aspirin, enteric coated (ASPIRIN, ENTERIC COATED) 81 mg EC tablet Take 81 mg by mouth once daily. MULTIVITAMIN ORAL Take by mouth. No current facility-administered medications for this visit. ROS As per history of present illness, other complete review of systems is negative for fevers, chills, malaise, unintentional weight loss, bone pain, soft tissue masses, swollen lymph nodes or skin lesions. PHYSICAL EXAMINATION: There were no vitals taken for this visit. General: Alert, oriented, no apparent distress Breathing: Normal respiratory rate, breathing is non-labored. Gait: Antalgic gait. R knee exam: Healing incision overlying R knee. Right knee range of motion is 5 to 80 degrees on my exam. He reaches 80 degrees when seated, when lying supine I am only able to get him to 65 degrees. RESULTS REVIEW: ESR 2 mm/h CRP <0.3 mg/dL IMPRESSION: s/p R unicompartmental knee arthroplasty complicated by stiffness. No clinical or laboratory evidence of infection PLAN: - We will follow up on CRP and ESR labs drawn today to rule out infection -Gave knee immobilizer to wear at night -Will schedule for manipulation under anesthesia of right knee -Emphasized importance of leg straightening exercises to strengthen quad muscles Ferny Diamond, MS4 ATTENDING PHYSICIAN NOTE I have personally interviewed and examined the patient. I agree with the findings in the above note. I have corroborated the above history and review of systems obtained by the medical student, and performed and documented my own exam, imaging review, impression and plan. Ino Mason MD Silverware Cleaner, Orthopaedic Surgery Division of Musculoskeletal Oncology documented in this encounter [facility] 02-05-2024 History of Present illness Narrative Radiology Service Progress Note PATIENT NAME: Silvano Menendez DATE OF SERVICE: February 05, 2024 TIME: 12:29 PM PATIENT IDENTITY VERIFICATION COMPLETED USING TWO (2) IDENTIFIERS: Name and Date of confirmed by patient verbally. FALL SCREENING: Has the patient had 2 falls in the last year or 1 fall with injury or currently using an Ambulatory Assistive Device (Walker, Cane, Wheelchair, Crutches, etc.)? No PATIENT GENDER DATA: Male PATIENT RELEVANT IMPLANT DATA REVIEWED: Not Applicable PATIENT PRESENTS WITH AN IMPLANTABLE OR ATTACHED STOCK HANDLER: No RADIOLOGY DEPARTMENT: General X-ray: Exam(s) Completed: Lower Extremity X-Ray(s): Knee, AP / Lat / Merchant Right and Wt. Bearing PERIPHERAL IV DATA: Not applicable SIGNED BY: RT Sana(R) February 05, 2024 12:29 PM documented in this encounter [facility] 02-05-2024 Note HNO ID: [id number] Author: ADELIA MCCURDY RT(R) Service: Radiology Author Type: Technologist Type: Progress Notes Filed: 02/05/2024 12:29 Note Text: Radiology Service Progress Note PATIENT NAME: Silvano Menendez DATE OF SERVICE: February 05, 2024 TIME: 12:29 PM PATIENT IDENTITY VERIFICATION COMPLETED USING TWO (2) IDENTIFIERS: Name and Date of confirmed by patient verbally. FALL SCREENING: Has the patient had 2 falls in the last year or 1 fall with injury or currently using an Ambulatory Assistive Device (Walker, Cane, Wheelchair, Crutches, etc.)? No PATIENT GENDER DATA: Male PATIENT RELEVANT IMPLANT DATA REVIEWED: Not Applicable PATIENT PRESENTS WITH AN IMPLANTABLE OR ATTACHED STOCK HANDLER: No RADIOLOGY DEPARTMENT: General X-ray: Exam(s) Completed: Lower Extremity X-Ray(s): Knee, AP / Lat / Merchant Right and Wt. Bearing PERIPHERAL IV DATA: Not applicable SIGNED BY: RT Sana(Chivo) February 05, 2024 12:29 PM [facility] 02-04-2024 Note Addended by: KAUSHIK THURMAN on: 02/04/2024 03:00 PM Modules accepted: Orders [facility] 02-04-2024 Miscellaneous Notes Addended by: KAUSHIK THURMAN on: 02/04/2024 03:00 PM Modules accepted: Orders documented in this encounter [facility] 02-03-2024 Instructions Kaushik Thurman RN - 02/03/2024 10:14 AM EDT Continue exercise and aggressive flexion. Call office in 2 weeks if no increase in flexion or decreased flexion. documented in this encounter [facility] 02-03-2024 Note HNO ID: [id number] Author: KAUSHIK THURMAN RN Service: ? Author Type: Registered Nurse Type: Progress Notes Filed: 02/04/2024 15:00 Note Text: Ortho Knee Follow Up Note Narrative Referring Provider: Ino Mason [address] [facility] [id number] PCP: Beatriz Edgar MD IMPRESSION/PLAN: 58 year old s/p Right unicompartmental arthroplasty completed on 01/13/2024. Recent Surgeries this specialty No cases to display PAIN EVALUATION No data found in the last 1 encounters. IMPRESSION: Slow post-operative recovery. Patient doing well in all areas except flexion PLAN: Modify medical management: None. Patient Reassurance: Patient reassured and supported. All questions answered. Follow up 3 weeks X-Rays Needed Silvano Menendez presents today for a a routine 1st post-op visit ACTIVE PROBLEM LIST Pre-Op Testing Obesity, Class I, Bmi 30-34.9 Coronary Artery Disease With Exertional Angina (Hcc) Incidental Lung Nodule Hypokalemia Dvt of Popliteal Vein (Hcc) Primary Hypertension Mixed Hyperlipidemia Sinus Bradycardia By Electrocardiography Localized Osteoarthritis of Right Knee Status post op: BMI: There is no height or weight on file to calculate BMI. Post-operative recovery was complicated by uneventful/none. Readmission(s) since surgery (90 days post)? No ED Visits AND Hospitalizations - Last 180 days 01/13/24 Ino Mason MD, [id number] Status post right partial knee replacement ..., Admission (Discharged) Patient rates their condition as improving, except flexion Does the patient still experience pain? see nursing note section in Epic Chart Post Op discharge patient location: in home. Functional Assessment is as follows: is ready to begin outpatient PT. Functional difficulties: Interferes with sleep. Pain Medication: Narcotic , once a day Currently Ambulating with: no ambulation aides EXAM: POST OP KNEE Right Post-Operative Knee Ambulates with a limp favoring the right. SKIN: Appropriate postop appearance and No evidence of erythema, warmth, discharge or drainage. Range of motion is lacking a few degrees secondary to tight hamstrings degrees in extension and 65 degrees of flexion. Extension La degrees Pain with ROM: No There is Slight effusion. Mal-alignment: No Tender to the palpation of None Neurovascular Status: Sensation Intact, Moves foot and ankle up AND down, and 2+ dorsalis pedis Stability:Anterior/Posterior- Yes, stable and Varus/Valgus- Yes, stable Quad strength: weak Imagin. None today. Patient right knee flexion concerning, states knee tight a painful after 65 degree flexion. Discussed exercise options and use of band for flexion exercises. Informed I would discuss limitations with Dr Mason. Instructed to focus on flexion exercises for next two weeks and call office in 2 weeks if no increase in flexion or any decrease. Received call from patient post visit and discussion with Dr Mason, labs and xray ordered, will discuss WINTER procedure as soon as results available. Provider: Kaushik Thurman RN Completed by: Kaushik Thurman RN [facility] 02-03-2024 History of Present illness Narrative Ortho Knee Follow Up Note Narrative Referring Provider: Ino Mason [address] [facility] [id number] PCP: Beatriz Edgar MD IMPRESSION/PLAN: 58 year old s/p Right unicompartmental arthroplasty completed on 01/13/2024. Recent Surgeries this specialty No cases to display PAIN EVALUATION No data found in the last 1 encounters. IMPRESSION: Slow post-operative recovery. Patient doing well in all areas except flexion PLAN: Modify medical management: None. Patient Reassurance: Patient reassured and supported. All questions answered. Follow up 3 weeks X-Rays Needed Silvano Menendez presents today for a a routine 1st post-op visit ACTIVE PROBLEM LIST Pre-Op Testing Obesity, Class I, Bmi 30-34.9 Coronary Artery Disease With Exertional Angina (Hcc) Incidental Lung Nodule Hypokalemia Dvt of Popliteal Vein (Hcc) Primary Hypertension Mixed Hyperlipidemia Sinus Bradycardia By Electrocardiography Localized Osteoarthritis of Right Knee Status post op: BMI: There is no height or weight on file to calculate BMI. Post-operative recovery was complicated by uneventful/none. Readmission(s) since surgery (90 days post)? No ED Visits & Hospitalizations - Last 180 days 01/13/24 Ino Mason MD, [id number] Status post right partial knee replacement ..., Admission (Discharged) Patient rates their condition as improving, except flexion Does the patient still experience pain? see nursing note section in Epic Chart Post Op discharge patient location: in home. Functional Assessment is as follows: is ready to begin outpatient PT. Functional difficulties: Interferes with sleep. Pain Medication: Narcotic , once a day Currently Ambulating with: no ambulation aides EXAM: POST OP KNEE Right Post-Operative Knee Ambulates with a limp favoring the right. SKIN: Appropriate postop appearance and No evidence of erythema, warmth, discharge or drainage. Range of motion is lacking a few degrees secondary to tight hamstrings degrees in extension and 65 degrees of flexion. Extension La degrees Pain with ROM: No There is Slight effusion. Mal-alignment: No Tender to the palpation of None Neurovascular Status: Sensation Intact, Moves foot and ankle up & down, and 2+ dorsalis pedis Stability:Anterior/Posterior- Yes, stable and Varus/Valgus- Yes, stable Quad strength: weak Imagin. None today. Patient right knee flexion concerning, states knee tight a painful after 65 degree flexion. Discussed exercise options and use of band for flexion exercises. Informed I would discuss limitations with Dr Mason. Instructed to focus on flexion exercises for next two weeks and call office in 2 weeks if no increase in flexion or any decrease. Received call from patient post visit and discussion with Dr Mason, labs and xray ordered, will discuss WINTER procedure as soon as results available. Provider: Kaushik Thurman RN Completed by: Kaushik Harpreet, RN documented in this encounter [facility] 02-01-2024 Miscellaneous Notes ----- Message from Dr. Beatriz Ramirez MD sent at 02/10/2023 12:55 PM EDT ----- Low dose ct- f/u lung nodules 3mm x 3 Pt will need 1 year f/u CT lung for f/u lung nodules and pt was in ER recently for abdominal pain and may need f/u? and documented in this encounter [facility] 02-01-2024 Telephone encounter Note ----- Message from Dr. Beatriz Ramirez MD sent at 02/10/2023 12:55 PM EDT ----- Low dose ct- f/u lung nodules 3mm x 3 [facility] 02-01-2024 Telephone encounter Note Pt will need 1 year f/u CT lung for f/u lung nodules and pt was in ER recently for abdominal pain and may need f/u? and [facility] 01-14-2024 Note HNO ID: [id number] Author: JENY ROBERTS MD Service: ? Author Type: Anesthesiologist Type: Anesthesia Procedure Notes Filed: 01/14/2024 14:12 Note Text: ANESTHESIOLOGY PROCEDURE NOTE Spinal Block General Information Procedure Start Time/Medication Administration: 01/13/2024 12:25 PM Procedure End time: 01/13/2024 12:40 PM Patient location during procedure: OR Timeout Performed Pre-procedure: timeout performed Consent Obtained: Yes Patient identity confirmed: arm band Reason for Block: primary surgical anesthetic Staffing Performed by: anesthesiologist Preparation Sterility Preparation: hand hygiene performed prior to procedure, sterile gloves, drapes, and procedure tray, gown used during line insertion, surgical cap used, mask used, sterile drape used during line insertion, skin prep agent completely dried prior to procedure Site Prep: Betadine Procedure Details Patient Position: sitting Ultrasound Guided: No Monitoring: Pulse Ox, EKG and NIBP Approach: Midline Location: L3-4 Needle Needle Type: cutting Needle Gauge: 22 G Needle Length: 3.5 in Assessment Sensory Level: T7 Events: tolerated well Medications Administered bupivacaine (PF) 0.5 % (5 mg/mL) injection - EPIDURAL 15 mg - 01/13/2024 12:25:00 PM Comments I evaluated the patient and personally participated in the fontanez components. I agree with the resident's findings and plan as documented and have discussed the case and management of the patient's care with the resident. Signature: Jeny Roberts MD Service Date: 01/14/2024 Service Time: 2:07 PM SIGNATURE: Jeny Roberts MD PATIENT NAME: Silvano Menendez DATE: January 14, 2024 TIME: 2:06 PM CSN: [id number] [facility] 01-14-2024 Note HNO ID: [id number] Author: HARPREET CORTES PA-C Service: Orthopaedic Surgery Author Type: Physician Place Change Roof Bolter Type: Plan of Care Filed: 01/14/2024 12:33 Note Text: Orthopaedic Surgery Plan of Care Procedure: Procedure(s) (LRB): ROBOTIC ASSISTED UNI KNEE ARTHROPLASTY (Right) Post-OP Day: 1 Service Date: 01/14/24 Service Time: 12:30 PM S: Silvano Menendez is a 58 year old (Female/Male) Male POD 1 s/p Procedure(s) (LRB): ROBOTIC ASSISTED UNI KNEE ARTHROPLASTY (Right) with (Physician) . The patient states that his pain is controlled at this time with current analgesic regimen. No acute issues reported overnight. The patient is doing well with no current acute issues. The patient is tolerating PT/OT, who recommends Home PT and is progressing on schedule. Patient has a history of DVT in right lower leg after a knee arthroscopy. He also has an IVC filter in place. Eliquis 2.5mg BID will be prescribed due to his history. The patient denies any further medical complaints or pain. The patient denies headache, lightheadedness, dizziness, C/P, SOB, ABD pain, dysuria, N/V/D, fever, chills, or excessive calf pain/tenderness. Orthopaedic Comorbidities: Principal Problem: Localized osteoarthritis of right knee Obesity w/ BMI 30.0 - 34.9 (adult) (wt in last 30 days) POA: Yes O: Orthopaedic Exam: NAD. Afebrile. AANDOX3. VSS. Labs WNL or at baseline. Silerlon dressing C/D/I Calf is soft and non-tender Vital Signs: BP: 119/50 Temp: 36.6 ?C (97.9 ?F) Temp src: Oral Pulse: 64 Resp: 16 O2 Therapy: Room Air SpO2: 96 % CBC: Hemoglobin (g/dL) Date Value 01/14/2024 14.6 Hematocrit (%) Date Value 01/14/2024 43.7 WBC (k/uL) Date Value 01/14/2024 17.34 BMP: Glucose (mg/dL) Date Value 01/14/2024 177 Potassium (mmol/L) Date Value 01/14/2024 4.4 Sodium (mmol/L) Date Value 01/14/2024 139 Chloride (mmol/L) Date Value 01/14/2024 105 CO2 (mmol/L) Date Value 01/14/2024 23 Creatinine (mg/dL) Date Value 01/14/2024 0.84 BUN (mg/dL) Date Value 01/14/2024 14 Anion Gap (mmol/L) Date Value 01/14/2024 11 Calcium, Total (mg/dL) Date Value 01/14/2024 9.3 Vital signs and labs reviewed. A/P: - Activity: WBAT - Wound: silverlon - Pain: Multimodal, PO and IV breakthrough - DVT Prophylaxis: Eliquis 2.5mg x 21 days - Antibiotics: Christina-operative x 24 hours - Hoffmann: Per nursing protocol - Drains: none - Diet: regular - MIVF, HLIV when tolerating sufficient PO - Acute Blood Loss Anemia: Hgb >7.0, stable with no indication for transfusion at this time - Electrolytes/Renal: BMP WNL or at baseline, otherwise PO potassium protocol - Consults: PT/OT/CM - PT/OT: Skilled for Home PT Plan: PT clearance HHC acceptance needed Pain control Anticipate discharge today Plan of Care: The plan of care was discussed with the Provider, RN, and Patient. All questions and concerns regarding the plan of care were addressed to the satisfaction of all participants. Thank you, I sincerely appreciate the opportunity to participate in this patient's care. Harpreet Cortes PA-C Physician Place Change Roof Bolter I Orthopaedic Surgery [facility] [place] [phone] Between 5 PM (17:00) - 7 AM (07:00) during weekdays (Mon - Fri), all day on weekends (Sat AND Sun), or if urgent, please page on-call orthopaedic surgery resident for any issues at: [phone]) for Main [place] patients [facility] 01-14-2024 Note HNO ID: [id number] Author: JOSEE FLORES RN Service: Care Management Author Type: Registered Nurse Type: Care Mgt Initial Assessment Filed: 01/14/2024 13:08 Note Text: ORTHOPAEDIC COORDINATION OF CARE Pre-Op Assessment Discharge Disposition (Planned): Home with Home Health Discharge Transportation: Car PRIMARY CARE PHYSICIAN: Beatriz Edgar MD OR Surgery Date: 01/13/2024 [facility] Appointment: 01/13/2024 Joint: Jointtype: Knee Side: right Health Insurance: [employer] ACC[employer] PPO Primary Contact: Extended Emergency Contact Information Primary Emergency Contact: Address: [address] [place] [address] [facility] Mobile Relation: Spouse Have you had joint replacement surgery before?: No Social: Pre-Hospital Baseline Mental Status: Alert AND Oriented Informant: Self and Spouse Living Arrangement: Home Who able to assist you at home once you discharge? Spouse Are they available for at least 2 weeks? Yes Stairs: One story home No stairs inside home Bedroom Location: First Bathroom Location: First Do you have problems that affect your ability to perform normal activities of daily living such as bathing, dressing, or toileting yourself? No = 0 What is your current functional status?: Perform ADLs independently Are you able to afford your medications/Food? Yes Social Determinants of Health Tobacco Use: Medium Risk (10/02/2023) Patient History Smoking Tobacco Use: Former Smokeless Tobacco Use: Never Passive Exposure: Past Alcohol Use: Not At Risk (01/24/2019) Received from [facility] Frequency of Alcohol Consumption: Never Average Number of Drinks: Not on file Frequency of Binge Drinking: Not on file Financial Resource Strain: Low Risk (01/05/2024) Overall Financial Resource Strain (CARDIA) Difficulty of Paying Living Expenses: Not very hard Food Insecurity: No Food Insecurity (05/22/2023) Received from [facility], [facility] Hunger Screening Within the past 12 months we worried whether our food would run out before we got money to buy more.: Never True Within the past 12 months the food we bought just didn't last and we didn't have money to get more.: Never True Transportation Needs: No Transportation Needs (01/05/2024) PRAPARE - Transportation Lack of Transportation (Medical): No Lack of Transportation (Non-Medical): No Physical Activity: Insufficiently Active (01/05/2024) Exercise Vital Sign Days of Exercise per Week: 2 days Minutes of Exercise per Session: 60 min Stress: No Stress Concern Present (01/05/2024) [employer] [place] [employer] - Occupational Stress Questionnaire Feeling of Stress : Not at all Social Connections: Moderately Integrated (01/05/2024) Social Connection and Isolation Panel [NHANES] Frequency of Communication with Friends and Family: More than three times a week Frequency of Social Gatherings with Friends and Family: More than three times a week Attends Rastafari Services: More than 4 times per year Active Member of Clubs or Organizations: No Attends Club or Organization Meetings: Never Marital Status: Intimate Partner Violence: Not At Risk (01/05/2024) Safe at Home? Fear of Current or Ex-Partner: No Emotionally Abused: No Physically Abused: No Sexually Abused: No Safe at Home?: Not on file Depression: Not at risk (12/30/2023) PHQ-2 PHQ-2 Score: 0 Housing Stability: Low Risk (01/05/2024) Housing Stability Vital Sign Unable to Pay for Housing in the Last Year: No Number of Places Lived in the Last Year: 1 Unstable Housing in the Last Year: No Utilities: Not At Risk (01/05/2024) [facility] Utilities Threatened with loss of utilities: No Area Deprivation Index: Medium Risk (12/19/2022) Area Deprivation Index National Score (1-100), lower number is lower risk: 74 State Score (1-10), lower number is lower risk: 6 Data from: https://www.neighborhoodatlas.[facility] Last address used for calculation: [address] Equipment: Do you currently use any equipment at home for your medical condition or to help you get around? None Patient has crutches at home and is planning to borrow a walker from family. Patient also has high rise toilet seats at home Active Services/Needs: None Transportation: Do you have reliable transportation to and from surgery/appointments?: Yes Who will provide discharge transportation: Spouse Contact information for patient's ride: Will your ride be available for 1200 discharge time? Yes Office Visit Follow Up Did you receive the antiseptic wipes from your surgeon?s office? No, If no, plan for correction is: Patient should receive wipes during pre-op with surgeon today 01/05/24 Did you receive a prescription for an assistive device (walker or (more content not included)... [facility] 01-14-2024 Note HNO ID: [id number] Author: NATHANIEL LUA MD Service: Orthopaedic Surgery Author Type: Resident Type: Progress Notes Filed: 01/14/2024 06:27 Note Text: Inpatient Progress Note Orthopaedic Surgery If Urgent AND unable to reach [phone] OR If 5p-7a/Wknd: p2BONE Assessment 58 year old male who is s/p R UKA by Dr. Mason on 01/13/24. Progressing well postoperatively. Plan - Weightbearing: WBAT RLE - Dressing: Mepilex dressing to be removed POD14 - Drains: None - Hoffmann: Per nursing protocol - Diet: Regular - MIVF while NPO - HLIV when tolerating adequate PO - DVT Prophylaxis: 81 ASA BID x28d, SCDs - Antibiotics: Ancef periop x3 doses - Consults: PT/OT care management, appreciate recs Dispo: Pending PT/OT recs, anticipate dc home today (POD1) Plan of care discussed with: Provider, RN, Patient. Rounding Subjective No o/n issues Pain well controlled. Denies nausea, vomiting, chest pain, shortness of breath. Eager to go home today. Objective Blood pressure 115/65, pulse (!) 58, temperature 36.4 ?C (97.5 ?F), temperature source Oral, resp. rate 16, SpO2 98%. Physical Exam AAOx3, NAD Breathing comfortably at rest RRR to peripheral palpation Right Lower Extremity Inspection: Dressing c/d/i. No evidence of swelling, deformity or erythema. No knee effusion noted. Palpation: TTP to R knee diffusely Compartments: Soft, compressible Sensory: Mildly diminished sensation diffusely to SP/DP/T/S/S distributions Motor: Fires DF/PF/EHL Vascular: DP 2+ to palp; CR < 2 sec; foot warm AND well-perfused Lab Review Creatinine (mg/dL) Date Value 01/14/2024 0.84 01/05/2024 0.92 10/02/2023 0.92 Sodium (mmol/L) Date Value 01/14/2024 139 01/05/2024 141 10/02/2023 140 Potassium (mmol/L) Date Value 01/14/2024 4.4 01/05/2024 4.6 10/02/2023 4.9 Hemoglobin (g/dL) Date Value 01/14/2024 14.6 01/05/2024 16.1 02/04/2023 11.4 (L) Hematocrit (%) Date Value 01/14/2024 43.7 01/05/2024 48.5 02/04/2023 36.1 (L) WBC (k/uL) Date Value 01/14/2024 17.34 (H) 01/05/2024 10.47 02/04/2023 11.77 (H) INR (no units) Date Value 01/25/2023 1.0 01/22/2023 1.1 01/22/2023 1.2 Glucose, Point of Care (mg/dL) Date Value 01/26/2023 131 (A) 01/25/2023 127 (A) 01/25/2023 128 (A) 01/23/2023 148 (A) 01/23/2023 115 (A) 01/23/2023 126 (A) Please scroll above for Assessment AND Plan. Nathaniel Lua MD PGY-4 Orthopaedic Surgery Between 5PM to 7AM, or if urgent, please page the orthopaedic on-call resident at: [phone] ([phone]) for [facility] patients [phone] for [facility] patients [phone] for [facility] patients [id number] for [facility] patients [phone] for [facility] patients Please page 2BONE [phone]) from 7am-5pm and on weekends for any issues. [facility] 01-13-2024 Note HNO ID: [id number] Author: SALINA PETER MD Service: ? Author Type: Fellow Type: Anesthesia Procedure Notes Filed: 01/13/2024 12:09 Note Text: Attestation signed by Salina Peter MD at 01/13/2024 12:[address] Salina Peter supervised the entire procedure, performed by the resident. No apparent complications and the patient tolerated the procedure very well. Salina Peter MD ANESTHESIOLOGY PROCEDURE NOTE Peripheral Nerve Block General Information Procedure Start Time/Medication Administration: 01/13/2024 11:05 AM Procedure End time: 01/13/2024 11:12 AM Patient location during procedure: OR Timeout Performed Pre-procedure: timeout performed Consent Obtained: Yes Patient identity confirmed: arm band, patient and care marketing team lead Reason for block: post-op pain management/at surgeon's request Staffing Anesthesiologist: Salina Peter MD Resident: Kaushik Vargas MD Performed by: anesthesiologist and resident Preparation Sterility Preparation: hand hygiene performed prior to procedure, sterile gloves, drapes, and procedure tray, surgical cap used, mask used, sterile drape used during line insertion, skin prep agent completely dried prior to procedure Sterility Technique Not Completely Performed Due to Extreme Emergency: No Site Prep: Chloraprep Pre-Procedure Neuro Exam Location: RLE Sensory: intact Motor: intact Procedure Details Patient Position: supine Monitoring: Pulse OX, EKG and NIBP Block Type Lower Extremity: distal femoral (adductor canal) Laterality: right Injection Technique: single-shot Ultrasound Guided: Yes Image in Chart: yes Moderate Sedation: Yes Local Infiltration: Yes Needle Needle Type: echogenic Needle Gauge: 20 G Needle Length: 10 cm Needle Localization: ultrasound and anatomical landmarks Assessment Injection assessment: negative aspiration, incremental injection, local visualized surrounding nerve on ultrasound and no paresthesia on injection Paresthesia: none Post-Procedure Neuro Exam Expected Regional Anesthesia: Yes Medications Administered dexamethasone sodium phosphate injection (DECADRON) - peripheral nerve block 4 mg - 01/13/2024 11:05:00 AM ropivacaine (PF) 5 mg/mL (0.5 %) injection (NAROPIN) - peripheral nerve block 20 mL - 01/13/2024 11:05:00 AM Comments Patient is confirmed by two identifiers, the Risks, benefits and alternatives of the regional anesthesia procedure were explained and confirmed with the patient who agrees to proceed. Standard ASA monitors were applied according to the procedure protocol. Procedure performed post-induction. Vital signs were stable throughout the procedure. No Complications. Minimal or no blood loss. SIGNATURE: Kaushik Vargas MD PATIENT NAME: Silvano Menendez DATE: January 13, 2024 TIME: 11:17 AM CSN: [id number] [facility] 01-05-2024 Note HNO ID: [id number] Author: INO MASON MD Service: ? Author Type: Physician Type: Progress Notes Filed: 01/07/2024 15:20 Note Text: Established Patient Ortho Knee Consult Note ASSESSMENT AND PLAN Impression: Right Knee Severe Degenerative Osteoarthritis, Primary Silvano Menendez has radiograph and physical exam evidence of degenerative joint disease and wishes to pursue surgery. This patient appears to have sufficient symptoms to warrant surgical intervention and is an appropriate candidate for right Unicompartmental Knee Arthroplasty as evidenced by six months of unsuccessful non-operative treatment as outlined in the HPI below and progressive symptoms. Progressive Symptoms Include: Pain impacting sleep or causing fatigue Pain impacting work Pain worsened by weight bearing Pain limiting ability to stay fit and healthy. This patient has the following risk factors: Previous knee laceration with transverse medial scar I have discussed the risks/benefits/alternatives of total knee arthroplasty with the patient at length. Specific risks of surgery discussed included: Bleeding, infection, neurovascular injury, DVT/PE, wound healing complications, incomplete pain relief, extensor mechanism maltracking, stiffness, instability, aseptic loosening, intraoperative fracture, postoperative fracture, late hematogenous infection, potential need for future revision surgery, cardiopulmonary failure, stroke and . Benefits of the surgery discussed included improvement in pain level and function. Alternatives of the surgery discussed included continued nonsurgical management in the form activity/lifestyle modifications, oral non-narcotic pain medications, bracing and intra-articular injections. The perioperative management plan will include: 1. Blood management: IV tranexamic acid, 1 g prior to incision and 1 g at closing 2. DVT prophylaxis: Early mobilization, mechanical compression devices, chemoprophylaxis with aspirin 81 mg PO bid x 4 weeks 3. Antibiotics: Will treat with topical/nasal mupirocin and chlorhexidine wipes; Ancef 2g IV q8 hours x 23 hours 4. Disposition: Anticipate discharge to home with home health 5. Special considerations: Cardiology clearance provided on 12/29/23 (encounter 10/02/2023 Dr. Nato Antonio) Christina-operative blood management and transfusion issues were discussed, and options clearly outlined. The patient has consented to the use of the banked allogenic blood if medically necessary. The patient has elected to schedule surgery at this time . Shared decision making occurred while obtaining informed consent. The patient will be scheduled for a pre-operative education class at which time they will have their nasal swab completed and will be given CHG cloths along with the verbal and written instructions for their use. Patient has been instructed and has been scheduled or will call to schedule attendence in one of the total joint perioperative classes offered prior to proceeding with TKA. The patient has been ordered: No orders placed today. CONSULTS: IMPACT/PACE Consult for preoperative clearance. ACTIVE PROBLEM LIST Pre-Op Testing Obesity, Class I, Bmi 30-34.9 Coronary Artery Disease With Exertional Angina (Hcc) Incidental Lung Nodule Hypokalemia Dvt of Popliteal Vein (Hcc) Primary Hypertension Mixed Hyperlipidemia Sinus Bradycardia By Electrocardiography SUBJECTIVE CHIEF COMPLAINT: Knee Pain HPI: Silvano Menendez is a 58 year old patient here for evaluation and management of right knee pain. Patient has had progressive problems with the knee(s) most of the day over the past 9 month(s) interfering with activities which include exercise, participating in family activities, rising from a sitting position, getting in and out of a car, and climbing stairs. The problem began limiting activities 7-12 months ago. Currently the pain in the joint is rated at 5 out of 10 with minimal activity. The pain is intermittent and is located along the inside aspect. The pain is described as aching, boring, penetrating, soreness, stabbing, and throbbing. Relieving factors include rest, ice, over the counter medication, and repositioning. There is no specific incident that brought about this pain. Patient has no additional complaints. Total Joint Arthroplasty: Risk Calculator Silvano Menendez has a 5.82% chance of NOT returning home at discharge for a Primary total Knee replacement. Silvano's estimated Length of Stay is 2 days (Inpatient candidate). Silvano's 30 day chance of readmission is 3.99%. Readmission Probability 3.99 % (within 30 days following surgery) Estimated LOS 2 days Discharge Disposition Probability D/C to Home 94.18 % D/C to SNF 5.82 % These calculations are based on the following factors: - 58 years of age - sex is male - BMI of 31.75 kg/m2 - NarxCare score of 90 - 2 hospitalizations in the last 12 months - history (more content not included)... [facility] 01-05-[facility] History of Present illness Narrative Established Patient Ortho Knee Consult Note ASSESSMENT AND PLAN Impression: Right Knee Severe Degenerative Osteoarthritis, Primary Silvano Menendez has radiograph and physical exam evidence of degenerative joint disease and wishes to pursue surgery. This patient appears to have sufficient symptoms to warrant surgical intervention and is an appropriate candidate for right Unicompartmental Knee Arthroplasty as evidenced by six months of unsuccessful non-operative treatment as outlined in the HPI below and progressive symptoms. Progressive Symptoms Include: Pain impacting sleep or causing fatigue Pain impacting work Pain worsened by weight bearing Pain limiting ability to stay fit and healthy. This patient has the following risk factors: Previous knee laceration with transverse medial scar I have discussed the risks/benefits/alternatives of total knee arthroplasty with the patient at length. Specific risks of surgery discussed included: Bleeding, infection, neurovascular injury, DVT/PE, wound healing complications, incomplete pain relief, extensor mechanism maltracking, stiffness, instability, aseptic loosening, intraoperative fracture, postoperative fracture, late hematogenous infection, potential need for future revision surgery, cardiopulmonary failure, stroke and . Benefits of the surgery discussed included improvement in pain level and function. Alternatives of the surgery discussed included continued nonsurgical management in the form activity/lifestyle modifications, oral non-narcotic pain medications, bracing and intra-articular injections. The perioperative management plan will include: 1. Blood management: IV tranexamic acid, 1 g prior to incision and 1 g at closing 2. DVT prophylaxis: Early mobilization, mechanical compression devices, chemoprophylaxis with aspirin 81 mg PO bid x 4 weeks 3. Antibiotics: Will treat with topical/nasal mupirocin and chlorhexidine wipes; Ancef 2g IV q8 hours x 23 hours 4. Disposition: Anticipate discharge to home with home health 5. Special considerations: Cardiology clearance provided on 12/29/23 (encounter 10/02/2023 Dr. Nato Antonio) Christina-operative blood management and transfusion issues were discussed, and options clearly outlined. The patient has consented to the use of the banked allogenic blood if medically necessary. The patient has elected to schedule surgery at this time . Shared decision making occurred while obtaining informed consent. The patient will be scheduled for a pre-operative education class at which time they will have their nasal swab completed and will be given CHG cloths along with the verbal and written instructions for their use. Patient has been instructed and has been scheduled or will call to schedule attendence in one of the total joint perioperative classes offered prior to proceeding with TKA. The patient has been ordered: No orders placed today. CONSULTS: IMPACT/PACE Consult for preoperative clearance. ACTIVE PROBLEM LIST Pre-Op Testing Obesity, Class I, Bmi 30-34.9 Coronary Artery Disease With Exertional Angina (Hcc) Incidental Lung Nodule Hypokalemia Dvt of Popliteal Vein (Hcc) Primary Hypertension Mixed Hyperlipidemia Sinus Bradycardia By Electrocardiography SUBJECTIVE CHIEF COMPLAINT: Knee Pain HPI: Silvano Menendez is a 58 year old patient here for evaluation and management of right knee pain. Patient has had progressive problems with the knee(s) most of the day over the past 9 month(s) interfering with activities which include exercise, participating in family activities, rising from a sitting position, getting in and out of a car, and climbing stairs. The problem began limiting activities 7-12 months ago. Currently the pain in the joint is rated at 5 out of 10 with minimal activity. The pain is intermittent and is located along the inside aspect. The pain is described as aching, boring, penetrating, soreness, stabbing, and throbbing. Relieving factors include rest, ice, over the counter medication, and repositioning. There is no specific incident that brought about this pain. Patient has no additional complaints. Total Joint Arthroplasty: Risk Calculator Silvano Menendez has a 5.82% chance of NOT returning home at discharge for a Primary total Knee replacement. Silvano's estimated Length of Stay is 2 days (Inpatient candidate). Silvano's 30 day chance of readmission is 3.99%. Readmission Probability 3.99 % (within 30 days following surgery) Estimated LOS 2 days Discharge Disposition Probability D/C to Home 94.18 % D/C to SNF 5.82 % These calculations are based on the following factors: - 58 years of age - sex is male - BMI of 31.75 kg/m2 - NarxCare score of 90 - 2 hospitalizations in the last 12 months - history of heart disease - no history of diabetes - no history of COPD - history of anemia - preoperative ambulation: independent community distances - 4 step(s) to enter home - bed location is on the first floor - bath location is on the first floor - caregiver is occassionally available 2-4 days / week - home is not more than 150 miles away - PROMIS-10 Mental Health T score 41-49 - Marital status: PREVIOUS TREATMENTS: Attempted Weight Loss Medical Treatments: OTC NSAIDS for 3 Months or Greater (Ibuprofen) Physical Therapy: Shoe Wear, Braces, Orthotics, etc., Activities Modified, and PT Three Months or Greater 1-2 times per week Risk Factors for Total Joint Arthroplasty (TJA) Obesity Moderate Risk High: BMI > 40 Moderate: BMI 30-40 Normal: BMI < 30 Diabetes normal High: A1C > 8 Moderate: A1C 7-8 Normal: A1C < 7 Smoking normal High: Current smoker Normal: Non smoker Anemia High Risk High: Hgb < 13 (men) N/A: Hgb >= 13 (men) Nutritional Status normal High: Alb<3.4, or prealb<15, or serum transferrin<200, or total lymphocyte count<1500 Normal: normal labs COPD normal High: dx of COPD Normal: no dx of COPD MRSA normal High: dx of MRSA or positive lab test Normal: no MRSA CKD normal High: eGFR<60 Moderate: eGFR 60-89 Normal: eGFR>90 Hx of DVT / PE High Risk High: dx of DVT / PE Normal: no dx of DVT / PE Narcotics Use normal High:NarxCare >=300 Moderate: 100-299 Normal: 0-99 CAROL normal High: dx of CAROL N/A: no dx of CAROL Coagulation normal High:PT Sec>13, or PT INR>1.3, or APTT>32.4, or Plt ct<150k Moderate: on anticoag but none of the above Normal: none Obesity: weight management recommended BMI Readings from Last 3 Encounters: 01/05/24 : 31.97 kg/m 01/05/24 : 31.75 kg/m 10/02/23 : 31.93 kg/m Anemia Hemoglobin (g/dL) Date Value 01/05/2024 16.1 02/04/2023 11.4 History of DVT/PE Other Risk Factors Coronary Artery Disease PHYSICAL EXAM: Ht 175.3 cm (5' 9 ) Wt 97.5 kg (215 lb) BMI 31.75 kg/m All other systems deferred. GENERAL: Obese HABITUS: Obese GAIT: Normal, the patient did not have trouble getting onto the exam table. KNEE EXAM: Right: Alignment: Varus Range of motion is 0 degrees in extension and 130 degrees of flexion. Extension La degrees Pain with ROM: No Effusion: None Tender to the palpation of None Pain with patellar compression: No Stability: Anterior/Posterior stable and Varus/Valgus stable Hip Exam: flexion to 100+ degrees, full extension, internal/external rotation adequate and no pain with log roll Neurovascular Status: Sensation Intact and Moves foot and ankle up & down DATA: Diagnostic tests reviewed for today's visit: Right knee X-Ray: Medial joint space noted to have severe degenerative changes, Preservation of the lateral joint space(s), and Bone on bone contact of the medial joint space(s) SIGNATURE: Ino Mason MD PATIENT NAME: Silvano Menendez DATE: January 07, 2024 TIME: 3:02 PM documented in this encounter [facility] 01-05-2024 History of Present illness Narrative Radiology Service Progress Note PATIENT NAME: Silvano Menendez DATE OF SERVICE: January 05, 2024 TIME: 2:53 PM PATIENT IDENTITY VERIFICATION COMPLETED USING TWO (2) IDENTIFIERS: Name and Date of confirmed by patient verbally and Name and Date of confirmed by identification band. FALL SCREENING: Has the patient had 2 falls in the last year or 1 fall with injury or currently using an Ambulatory Assistive Device (Walker, Cane, Wheelchair, Crutches, etc.)? No PATIENT GENDER DATA: Male PATIENT RELEVANT IMPLANT DATA REVIEWED: Yes PATIENT PRESENTS WITH AN IMPLANTABLE OR ATTACHED STOCK HANDLER: No RADIOLOGY DEPARTMENT: CT; Exam(s) Completed: Lower extremity PERIPHERAL IV DATA: Not applicable SIGNED BY: RT Anusha(Chivo) January 05, 2024 2:53 PM documented in this encounter [facility] 01-05-2024 Note HNO ID: [id number] Author: FREDIS NOWAK RT(R) Service: Radiology Author Type: Technologist Type: Progress Notes Filed: 01/05/2024 15:11 Note Text: Radiology Service Progress Note PATIENT NAME: Silvano Menendez DATE OF SERVICE: January 05, 2024 TIME: 2:53 PM PATIENT IDENTITY VERIFICATION COMPLETED USING TWO (2) IDENTIFIERS: Name and Date of confirmed by patient verbally and Name and Date of confirmed by identification band. FALL SCREENING: Has the patient had 2 falls in the last year or 1 fall with injury or currently using an Ambulatory Assistive Device (Walker, Cane, Wheelchair, Crutches, etc.)? No PATIENT GENDER DATA: Male PATIENT RELEVANT IMPLANT DATA REVIEWED: Yes PATIENT PRESENTS WITH AN IMPLANTABLE OR ATTACHED STOCK HANDLER: No RADIOLOGY DEPARTMENT: CT; Exam(s) Completed: Lower extremity PERIPHERAL IV DATA: Not applicable SIGNED BY: Fredis Nowak, RT(R) January 05, 2024 2:53 PM [facility] 01-05-2024 Instructions Leon Anderson APRN.STACK YIELD ENGINEER - 01/05/2024 2:30 PM EDT PATIENT PREOPERATIVE INSTRUCTIONS Ino Mason MD has scheduled you for your procedure at this surgery center: If no call by 4pm the day before surgery, please call this number. [facility] [place] [facility] Scheduling Office: [phone] --[address] [place] [address]. Please read below carefully for your personalized instructions. Dietary Restrictions: - No solid food after midnight. - You may have 12 ounces of clear liquids (water, clear juices such as apple juice or gatorade, carbonated beverages, clear tea, black coffee, jello) until 2 hours before scheduled arrival at facility. - Do not drink any alcohol after midnight the night before your surgery. Medications: Unless instructed differently below, stay on all of your medications until your surgery. If you start any new medications after today's visit, please contact your surgeon. Pre-Surgery Med Instructions Medication Instructions atorvastatin (LIPITOR) 80 mg tablet Take the day of surgery with a small sip of water metoprolol succinate ER (TOPROL XL) 100 mg Take the day of surgery with a small sip of water ezetimibe (ZETIA) 10 mg tablet Take the day of surgery with a small sip of water amLODIPine (NORVASC) 2.5 mg tablet Take the day of surgery with a small sip of water aspirin, enteric coated (ASPIRIN, ENTERIC COATED) 81 mg EC tablet Take the day of surgery with a small sip of water MULTIVITAMIN ORAL Stop 7 days before surgery If you take any medications for erectile dysfunction-Cialis (Tadalafil), Levitra, Staxyn (Vardenafil) Viagra (Sildenenafil please do not take these for 48 hours before surgery. If you start any new medications after today's visit, please contact the surgeon's office. Blood Thinning Medications: - Stop NSAIDS (Ibuprofen, Advil, Aleve, Motrin, Celebrex, Mobic, etc.) 7 days before surgery, as directed by your surgeon. - Stop Aspirin 7 days before surgery, as directed by your surgeon. - Stop Vitamin E, ALL multi-vitamins, herbals and dietary supplements 7 days before surgery. - You may take Tylenol (Acetaminophen) or any of your pain medications that do not contain aspirin or NSAIDS as needed. Important Reminders: - If you use CPAP/BIPAP, bring the machine with you to the surgery center. - If you are prescribed inhalers for breathing, continue using them. - Candy, mints, and tobacco products are NOT permitted the morning of surgery. - Hearing aids, dentures and glasses may be worn the morning of surgery. - NO jewelry, body piercings, makeup, hairpins or contacts are to be worn the day of surgery. If you develop symptoms such as a fever, cold, or flu, or have other changes to your health within TWO DAYS of scheduled surgery or the morning of surgery, please contact the surgery center above. Personal Belongings: -Please have photo ID and insurance cards. -If you do not have a copy of advance directives on file with us, please bring a copy with you on the day of surgery. - Leave ALL valuables and money at home or with family members. For Outpatient Procedures: - YOU MUST HAVE A RESPONSIBLE BONDING MACHINE OPERATOR TAKE YOU HOME. A SOCIAL SCIENCE MANAGER OR SHRIMP POND LABORER CANNOT BE MADE A RESPONSIBLE BONDING MACHINE OPERATOR. - We recommend that a responsible person stays with you overnight to take care of you. - You cannot stay in a hotel alone after outpatient surgery. You will not be permitted to have your surgery, if you do not have someone to take care of you. Arrival Time for Surgery: - To obtain your arrival time for surgery, call your physician's office the day before your surgery. - If your surgery is scheduled for Thursday, call the Thursday before. Your surgeon s manager sterile will tell you what time to call the office. - If you have not reached the departmental manager sterile by 5 P.M., call [phone] after 5 P.M. the day before your surgery. Please be aware that emergency situations arise, which may delay or change your surgical time. If this happens, we will notify you as soon as possible and regret any inconvenience. If you already have an Advance Directive, please fax a copy to [phone] or email to for it to be added to your chart. If you do not have an Advance Directive, you can find the appropriate form and more information at [email or web address]. We recommend that you complete the Advance Directive form found on the website and bring it with you the day of your surgery. It can be witnessed and scanned into your chart that day. Leon Anderson APRN.CNP documented in this encounter [facility] 01-05-2024 History and physical note Images from the original note were not included. 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) Hx CABG (01/22/2023) CABG X 5: RUTH to LAD, RSVG to PDA, RSVG to Diagonal, LRA to OM1, Free CHICO to OM2 Follows with Cardiology Nato Antonio MD [place] September 2023 Managed on asa, statin and Bp medications ECHO and EKG reviewed and accepted from September 2023 Denies cardiac symptoms EKG reviewed and accepted from today Primary hypertension Managed on amlodipine, metoprolol BP today 120/69 ECHO reviewed and accepted from September 2023 Denies cardiac symptoms EKG reviewed and accepted from today Sinus bradycardia by electrocardiography Sinus calixto HR 50 on EKG Denies cardiac symptoms [place] Activity Status Index: METS: Climb a flight of stairs or walk up a hill (5.50 METs) DASI Score: 5.5 Patient denies any chest pain or undue shortness of breath with the above physical activity. Clinical Frailty Scale: 3. Well, with treated comorbid disease STOP-Bang Score: Has or is being treated for high blood pressure Patient over 49 years old Male patient Denies snoring loudly Denies feeling tired, fatigued, or sleepy during the daytime Has not been observed to stop breathing or choking/gasping during sleep BMI less than or equal to 35 kg/m^2 Does not have a large neck STOP-Bang Score: 3 [id number] Score: Hypertension history: Yes [id number] Score: ANESTHESIA FINDINGS: Intubation History: No history of difficult intubation. No abnormal airway history Significant Anesthesia Considerations: none Airway History: No history of difficult airway No abnormal airway history I - PHYSICAL EVALUATION AIRWAY Patient intubated: No. Tracheostomy tube not present Mallampati: III. TM distance: >3 FB. Neck ROM: full ROM without neurological symptoms. Mouth opening: adequate. Short neck: no. Thick neck: yes Johnson present: no Lip Bite Test: III Microretrognathia/Micronagthia/Re cessed Chin: No DENTAL Normal dental observations. Dental findings: teeth intact. II - ANESTHESIA PLAN Anesthetic plan additional comments: *PACC/TCI - anesthesia choice. Beta Sharon Monitoring Plan Post Procedure Analgesic Plan Prepared for Surgery: optimally prepared for surgery, pending [see comment]. T&S, CMP, CBC ordered by surgical service EKG reviewed and accepted from today ECHO and EKG reviewed and accepted from September 2023 CONSULTS: The following consults have been initiated at this time: cardiology (see below). Planned Anesthetic: anesthesia choice Cardiac clearance ADDENDUM: Based on above, no further cardiac testing needed prior to planned right knee partial arthroplasty. Overall, he is at an elevated but acceptable risk to proceed with his surgery. Continue aspirin, metop, statin, zetia perioperatively. Monitor on telemetry. ECG for any clinical cardiac concern with cardiology consult as appropriate. Nato Antonio MD December 29, 2023, 2:49 PM The Following Tests/Procedures Have Been Initiated: No orders of the defined types were placed in this encounter. REASON FOR VISIT: Silvano Menendez is a 58 year old male who is scheduled for Procedure(s): ROBOTIC ASSISTED UNI KNEE ARTHROPLASTY (Right) at the request of Ino Farmer MD for consultation. My final recommendation will be communicated back to the requesting physician by way of shared medical record or letter. Subjective The patient has the following: ACTIVE PROBLEM LIST Pre-Op Testing Obesity, Class I, Bmi 30-34.9 Coronary Artery Disease With Exertional Angina (Hcc) Incidental Lung Nodule Hypokalemia Dvt of Popliteal Vein (Hcc) Primary Hypertension Mixed Hyperlipidemia Sinus Bradycardia By Electrocardiography COVID-19 Immunization Status Overdue - Covid-19 Vaccine ( season) Overdue since 02/20/2023 06/18/2021 Imm Admin: COVID-19 original vaccine, full dose, monovalent (MODERNA) 10/10/2020 Imm Admin: COVID-19 original vaccine, full dose, monovalent (MODERNA) 09/12/2020 Imm Admin: COVID-19 original vaccine, full dose, monovalent (MODERNA) Only the first 3 history entries have been loaded, but more history exists. CHIEF COMPLAINT: Preop exam HPI: Silvano Menendez is a 58 year old male with PMHx htn, hld, cad, thrombocytopenia, hx dvt, obesity. Presents to [facility] today for preop exam. Patient is scheduled for the above procedure on 01/13/24. Patient with primary osteoarthritis of R knee with severe pain. Plan for above procedure. Denies fevers, chills, chest pain, and SOB. REVIEW OF SYSTEMS: General: Obesity Negative for: weight loss >10% of BW in last 6 months, malaise and fever. Neurological: Negative for: RECREATION TECHNICIAN tumor, delirium, dementia, headaches, multiple sclerosis, seizures, TIA and strokes. Respiratory: Negative for: asthma, COPD, current cough, dyspnea, home oxygen, pneumonia within 6 weeks, tobacco use, URI < 2 weeks and obstructive sleep apnea. Cardiovascular: Positive for: anticoagulation therapy (ASA), DVT/PE (R knee DVT x5 - 2011 sp IVC filter), hyperlipidemia (atorvastatin, zetia), hypertension (amlodipine, metoprolol) and open heart surgery (CABG) Negative for: angina, arrhythmia, CAD, chest pain, CHF and recent IA. GI: Negative for: abdominal pain, colon cancer, dysphagia, GERD, heartburn, irritable bowel syndrome, inflammatory bowel disease, liver disease, nausea, pancreatitis, history of polyps, rectal cancer and vomiting. : Negative for: BPH, dysuria, hematuria, urinary incontinence, nephrolithiasis, renal failure and urinary tract infection. Endocrine: Negative for: diabetes mellitus, diabetic neuropathy, hyperthyroidism, hypothyroidism, hyperparathyroidism and steroid for chronic problem. Hematology: Positive for: chronic anti-coagulation/platelet meds. Patient is on anti-coagulation/platelet medication(s): Aspirin. Negative for: anemia and bruises/bleeds easily. Oncology: Positive for: CA metastasis. Negative for: chemo within 30 days.Disseminated cancer: basal cell carincoma sp excision from face and chest. Psych: Negative for: anxiety, bipolar disorder and depression. Musculoskeletal: See HPI. Positive for: joint pain (R knee). Negative for: back pain. Skin: Negative for: lesions, itching and rash. PAST MEDICAL HISTORY Diagnosis Date DVT of popliteal vein (HCC) post right knee scope- 2010 PAST SURGICAL HISTORY Procedure Laterality Date CABG (5) VENOUS GRAFTS & ARTERIAL GRAFT(S) 01/22/23 PAST SURGICAL HISTORY OF Right 2011 knee scope PAST SURGICAL HISTORY OF IVC filter - 2010 due to DVT histroy PAST SURGICAL HISTORY OF vasectomy PAST SURGICAL HISTORY OF wisdom teeth removal REPAIR EPIGASTRIC HERNIA,REDUC 04/2022 TONSILLECTOMY HX age 29 FAMILY HISTORY Problem Relation Age of Onset Heart disease Father Hyperlipidemia Father Heart Failure Father Hyperlipidemia Mother Heart disease Maternal Grandmother Heart disease Paternal Grandmother Anesthesia Problems No Family History Social History Tobacco Use Smoking status: Former Types: Cigarettes Quit date: 09/21/1987 Years since quittin.3 Passive exposure: Past Smokeless tobacco: Never Vaping Use Vaping Use: Never used Substance Use Topics Alcohol use: Never Drug use: Never Prior to Admission medications as of 01/05/24 1431 Medication Sig Last Dose Taking atorvastatin (LIPITOR) 80 mg tablet Take 1 tablet by mouth daily at bedtime. Taking Yes metoprolol succinate ER (TOPROL XL) 100 mg Take 1 tablet by mouth once daily. PM Taking Yes ezetimibe (ZETIA) 10 mg tablet Take 1 tablet by mouth once daily. Taking Yes amLODIPine (NORVASC) 2.5 mg tablet TAKE 1 TABLET BY MOUTH ONCE DAILY Taking Yes aspirin, enteric coated (ASPIRIN, ENTERIC COATED) 81 mg EC tablet Take 81 mg by mouth once daily. Taking Yes MULTIVITAMIN ORAL Take by mouth. Taking Yes No medication comments found. ALLERGIES No Known Allergies Objective PHYSICAL EXAM: General: alert and oriented, healthy appearance and obese. Pertinent negatives noted - not distressed. Skin: normal color, no rash or lesions. HEENT: EOM intact and pupils equal round. Cardiovascular: regular rate and rhythm, normal S1 and S2, no rub, murmurs, or gallop. Respiratory: normal breath sounds, no wheezes or crackles. No chest wall deformity or tenderness. Abdomen: bowel sounds present and soft. Pertinent negatives noted - not tender. Extremities: no deformity, no edema or tenderness, no joint swelling or clubbing. Neurological: normal cognition and motor skills. Gait normal. No weakness or sensory deficit. PAIN ASSESSMENT: Pain Pain Level: 4 Pain Location: Knee-Right Description: Aching, Stiffness Duration Amount of Time: 1 Duration Units: Years Frequency: Continuous Intervention/Comfort measure: Declined VITALS: BP 120/69 Pulse 62 Temp (Src) 98 (Temporal) Resp 18 Ht 5' 9 (1.75m) Wt 216 lb 7.9 oz (98.2kg) SpO2 96% BMI 31.96 kg/(m^2). Diagnostic tests reviewed for today's visit: Lab Value Units Date High Low HB 16.1 g/dL 01/05/2024 17.0 13.0 HCT 48.5 % 01/05/2024 51.0 39.0 WBC 10.47 k/uL 01/05/2024 11.00 3.70 PLT 216 k/uL 01/05/2024 400 150 NA 140 mmol/L 10/02/2023 144 136 K 4.9 mmol/L 10/02/2023 5.1 3.7 GLUC 100 mg/dL 10/02/2023 99 74 BUN 20 mg/dL 10/02/2023 24 9 CREAT 0.92 mg/dL 10/02/2023 1.22 0.73 PTSEC No results within date range. INR No results within date range. APTT No results within date range. ALT 30 U/L 10/02/2023 54 10 AST 20 U/L 10/02/2023 40 14 TBILI 0.7 mg/dL 10/02/2023 1.3 0.2 TSH No results within date range. Lab Value Units Date High Low HCGQT No results within date range. UHCG No results within date range. HCG, BODY* No results within date range. Lab Value Units Date High Low ABORHD No results within date range. ABSCREEN No results within date range. Hemoglobin A1C (%) Date Value 01/21/2023 5.9 Recent Results (from the past 8760 hour(s)) ECG COMPLETE Collection Time: 01/05/24 12:25 PM Result Value Ventricular Rate 59 Atrial Rate 59 P-R Interval 188 QRS Duration 82 QT Interval 422 QTC Calculation (Bazett) 417 Calculated P [place] 61 Calculated R [place] 13 Calculated T [place] 28 Impression SINUS BRADYCARDIA WITH OCCASIONAL PREMATURE VENTRICULAR COMPLEXES OTHERWISE NORMAL ECG Recent Results (from the past 75733 hour(s)) ECHO Collection Time: 10/02/23 12:11 PM Impression CONCLUSIONS: - Exam indication: S/P CABG - The left ventricle is normal in size. Left ventricular systolic function is normal. EF = 61 5% (2D biplane) Normal left ventricular diastolic function. - The right ventricle is normal in size. Right ventricular systolic function is normal. - Exam was compared with the prior [facility] echocardiographic exam performed on 01/22/2023 (INTRAOP). * * * Final * * * Instructions Given to Patient: Instructions located in the after visit summary. Patient given verbal and written preop instructions and voices comprehension and compliance. SIGNATURE: Leon Anderson APRN.CNP PATIENT NAME: Silvano Menendez DATE: January 05, 2024 TIME: 3:09 PM PAGER/CONTACT #: [facility] 01-05-2024 History and physical note Images from the original note were not included. 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) Hx CABG (01/22/2023) CABG X 5: RUTH to LAD, RSVG to PDA, RSVG to Diagonal, LRA to OM1, Free CHICO to OM2 Follows with Cardiology Nato Antonio MD [place] September 2023 Managed on asa, statin and Bp medications ECHO and EKG reviewed and accepted from September 2023 Denies cardiac symptoms EKG reviewed and accepted from today Primary hypertension Managed on amlodipine, metoprolol BP today 120/69 ECHO reviewed and accepted from September 2023 Denies cardiac symptoms EKG reviewed and accepted from today Sinus bradycardia by electrocardiography Sinus calixto HR 50 on EKG Denies cardiac symptoms [place] Activity Status Index: METS: Climb a flight of stairs or walk up a hill (5.50 METs) DASI Score: 5.5 Patient denies any chest pain or undue shortness of breath with the above physical activity. Clinical Frailty Scale: 3. Well, with treated comorbid disease STOP-Bang Score: Has or is being treated for high blood pressure Patient over 49 years old Male patient Denies snoring loudly Denies feeling tired, fatigued, or sleepy during the daytime Has not been observed to stop breathing or choking/gasping during sleep BMI less than or equal to 35 kg/m^2 Does not have a large neck STOP-Bang Score: 3 [id number] Score: Hypertension history: Yes [id number] Score: ANESTHESIA FINDINGS: Intubation History: No history of difficult intubation. No abnormal airway history Significant Anesthesia Considerations: none Airway History: No history of difficult airway No abnormal airway history I - PHYSICAL EVALUATION AIRWAY Patient intubated: No. Tracheostomy tube not present Mallampati: III. TM distance: >3 FB. Neck ROM: full ROM without neurological symptoms. Mouth opening: adequate. Short neck: no. Thick neck: yes Johnson present: no Lip Bite Test: III Microretrognathia/Micronagthia/Re cessed Chin: No DENTAL Normal dental observations. Dental findings: teeth intact. II - ANESTHESIA PLAN Anesthetic plan additional comments: *PACC/TCI - anesthesia choice. Beta Sharon Monitoring Plan Post Procedure Analgesic Plan Prepared for Surgery: optimally prepared for surgery, pending [see comment]. T&S, CMP, CBC ordered by surgical service EKG reviewed and accepted from today ECHO and EKG reviewed and accepted from September 2023 CONSULTS: The following consults have been initiated at this time: cardiology (see below). Planned Anesthetic: anesthesia choice Cardiac clearance ADDENDUM: Based on above, no further cardiac testing needed prior to planned right knee partial arthroplasty. Overall, he is at an elevated but acceptable risk to proceed with his surgery. Continue aspirin, metop, statin, zetia perioperatively. Monitor on telemetry. ECG for any clinical cardiac concern with cardiology consult as appropriate. Nato Antonio MD December 29, 2023, 2:49 PM The Following Tests/Procedures Have Been Initiated: No orders of the defined types were placed in this encounter. REASON FOR VISIT: Silvano Menendez is a 58 year old male who is scheduled for Procedure(s): ROBOTIC ASSISTED UNI KNEE ARTHROPLASTY (Right) at the request of Ino Farmer MD for consultation. My final recommendation will be communicated back to the requesting physician by way of shared medical record or letter. Subjective The patient has the following: ACTIVE PROBLEM LIST Pre-Op Testing Obesity, Class I, Bmi 30-34.9 Coronary Artery Disease With Exertional Angina (Hcc) Incidental Lung Nodule Hypokalemia Dvt of Popliteal Vein (Hcc) Primary Hypertension Mixed Hyperlipidemia Sinus Bradycardia By Electrocardiography COVID-19 Immunization Status Overdue - Covid-19 Vaccine () Overdue since 02/20/2023 06/18/2021 Imm Admin: COVID-19 original vaccine, full dose, monovalent (MODERNA) 10/10/2020 Imm Admin: COVID-19 original vaccine, full dose, monovalent (MODERNA) 09/12/2020 Imm Admin: COVID-19 original vaccine, full dose, monovalent (MODERNA) Only the first 3 history entries have been loaded, but more history exists. CHIEF COMPLAINT: Preop exam HPI: Silvano Menendez is a 58 year old male with PMHx htn, hld, cad, thrombocytopenia, hx dvt, obesity. Presents to [facility] today for preop exam. Patient is scheduled for the above procedure on 01/13/24. Patient with primary osteoarthritis of R knee with severe pain. Plan for above procedure. Denies fevers, chills, chest pain, and SOB. REVIEW OF SYSTEMS: General: Obesity Negative for: weight loss >10% of BW in last 6 months, malaise and fever. Neurological: Negative for: RECREATION TECHNICIAN tumor, delirium, dementia, headaches, multiple sclerosis, seizures, TIA and strokes. Respiratory: Negative for: asthma, COPD, current cough, dyspnea, home oxygen, pneumonia within 6 weeks, tobacco use, URI < 2 weeks and obstructive sleep apnea. Cardiovascular: Positive for: anticoagulation therapy (ASA), DVT/PE (R knee DVT x5 - 2011 sp IVC filter), hyperlipidemia (atorvastatin, zetia), hypertension (amlodipine, metoprolol) and open heart surgery (CABG) Negative for: angina, arrhythmia, CAD, chest pain, CHF and recent IA. GI: Negative for: abdominal pain, colon cancer, dysphagia, GERD, heartburn, irritable bowel syndrome, inflammatory bowel disease, liver disease, nausea, pancreatitis, history of polyps, rectal cancer and vomiting. : Negative for: BPH, dysuria, hematuria, urinary incontinence, nephrolithiasis, renal failure and urinary tract infection. Endocrine: Negative for: diabetes mellitus, diabetic neuropathy, hyperthyroidism, hypothyroidism, hyperparathyroidism and steroid for chronic problem. Hematology: Positive for: chronic anti-coagulation/platelet meds. Patient is on anti-coagulation/platelet medication(s): Aspirin. Negative for: anemia and bruises/bleeds easily. Oncology: Positive for: CA metastasis. Negative for: chemo within 30 days.Disseminated cancer: basal cell carincoma sp excision from face and chest. Psych: Negative for: anxiety, bipolar disorder and depression. Musculoskeletal: See HPI. Positive for: joint pain (R knee). Negative for: back pain. Skin: Negative for: lesions, itching and rash. PAST MEDICAL HISTORY Diagnosis Date DVT of popliteal vein (HCC) post right knee scope- 2010 PAST SURGICAL HISTORY Procedure Laterality Date CABG (5) VENOUS GRAFTS & ARTERIAL GRAFT(S) 01/22/23 PAST SURGICAL HISTORY OF Right 2011 knee scope PAST SURGICAL HISTORY OF IVC filter - 2011 due to DVT histroy PAST SURGICAL HISTORY OF vasectomy PAST SURGICAL HISTORY OF wisdom teeth removal REPAIR EPIGASTRIC HERNIA,REDUC 04/2022 TONSILLECTOMY HX age 29 FAMILY HISTORY Problem Relation Age of Onset Heart disease Father Hyperlipidemia Father Heart Failure Father Hyperlipidemia Mother Heart disease Maternal Grandmother Heart disease Paternal Grandmother Anesthesia Problems No Family History Social History Tobacco Use Smoking status: Former Types: Cigarettes Quit date: 09/21/1987 Years since quittin.3 Passive exposure: Past Smokeless tobacco: Never Vaping Use Vaping Use: Never used Substance Use Topics Alcohol use: Never Drug use: Never Prior to Admission medications as of 01/05/24 1431 Medication Sig Last Dose Taking atorvastatin (LIPITOR) 80 mg tablet Take 1 tablet by mouth daily at bedtime. Taking Yes metoprolol succinate ER (TOPROL XL) 100 mg Take 1 tablet by mouth once daily. PM Taking Yes ezetimibe (ZETIA) 10 mg tablet Take 1 tablet by mouth once daily. Taking Yes amLODIPine (NORVASC) 2.5 mg tablet TAKE 1 TABLET BY MOUTH ONCE DAILY Taking Yes aspirin, enteric coated (ASPIRIN, ENTERIC COATED) 81 mg EC tablet Take 81 mg by mouth once daily. Taking Yes MULTIVITAMIN ORAL Take by mouth. Taking Yes No medication comments found. ALLERGIES No Known Allergies Objective PHYSICAL EXAM: General: alert and oriented, healthy appearance and obese. Pertinent negatives noted - not distressed. Skin: normal color, no rash or lesions. HEENT: EOM intact and pupils equal round. Cardiovascular: regular rate and rhythm, normal S1 and S2, no rub, murmurs, or gallop. Respiratory: normal breath sounds, no wheezes or crackles. No chest wall deformity or tenderness. Abdomen: bowel sounds present and soft. Pertinent negatives noted - not tender. Extremities: no deformity, no edema or tenderness, no joint swelling or clubbing. Neurological: normal cognition and motor skills. Gait normal. No weakness or sensory deficit. PAIN ASSESSMENT: Pain Pain Level: 4 Pain Location: Knee-Right Description: Aching, Stiffness Duration Amount of Time: 1 Duration Units: Years Frequency: Continuous Intervention/Comfort measure: Declined VITALS: BP 120/69 Pulse 62 Temp (Src) 98 (Temporal) Resp 18 Ht 5' 9 (1.75m) Wt 216 lb 7.9 oz (98.2kg) SpO2 96% BMI 31.96 kg/(m^2). Diagnostic tests reviewed for today's visit: Lab Value Units Date High Low HB 16.1 g/dL 01/05/2024 17.0 13.0 HCT 48.5 % 01/05/2024 51.0 39.0 WBC 10.47 k/uL 01/05/2024 11.00 3.70 PLT 216 k/uL 01/05/2024 400 150 NA 140 mmol/L 10/02/2023 144 136 K 4.9 mmol/L 10/02/2023 5.1 3.7 GLUC 100 mg/dL 10/02/2023 99 74 BUN 20 mg/dL 10/02/2023 24 9 CREAT 0.92 mg/dL 10/02/2023 1.22 0.73 PTSEC No results within date range. INR No results within date range. APTT No results within date range. ALT 30 U/L 10/02/2023 54 10 AST 20 U/L 10/02/2023 40 14 TBILI 0.7 mg/dL 10/02/2023 1.3 0.2 TSH No results within date range. Lab Value Units Date High Low HCGQT No results within date range. UHCG No results within date range. HCG, BODY* No results within date range. Lab Value Units Date High Low ABORHD No results within date range. ABSCREEN No results within date range. Hemoglobin A1C (%) Date Value 01/21/2023 5.9 Recent Results (from the past 8760 hour(s)) ECG COMPLETE Collection Time: 01/05/24 12:25 PM Result Value Ventricular Rate 59 Atrial Rate 59 P-R Interval 188 QRS Duration 82 QT Interval 422 QTC Calculation (Bazett) 417 Calculated P [place] 61 Calculated R [place] 13 Calculated T [place] 28 Impression SINUS BRADYCARDIA WITH OCCASIONAL PREMATURE VENTRICULAR COMPLEXES OTHERWISE NORMAL ECG Recent Results (from the past 61087 hour(s)) ECHO Collection Time: 10/02/23 12:11 PM Impression CONCLUSIONS: - Exam indication: S/P CABG - The left ventricle is normal in size. Left ventricular systolic function is normal. EF = 61 5% (2D biplane) Normal left ventricular diastolic function. - The right ventricle is normal in size. Right ventricular systolic function is normal. - Exam was compared with the prior echocardiographic exam performed on 01/22/2023 (INTRAOP). * * * Final * * * Instructions Given to Patient: Instructions located in the after visit summary. Patient given verbal and written preop instructions and voices comprehension and compliance. SIGNATURE: Leon Anderson APRN.CNP PATIENT NAME: Silvano Menendez DATE: January 05, 2024 TIME: 3:09 PM PAGER/CONTACT #: documented in this encounter [facility] 01-05-2024 Telephone encounter Note ORTHOPAEDIC COORDINATION OF CARE Pre-Op Assessment Discharge Disposition (Planned): Home with Home Health Discharge Transportation: Car PRIMARY CARE PHYSICIAN: Beatriz Edgar MD OR Surgery Date: 01/13/2024 [facility] Appointment: 01/13/2024 Joint: Jointtype: Knee Side: right Health Insurance: [employer] ACCESS PPO Primary Contact: Extended Emergency Contact Information Primary Emergency Contact: Address: [address] [place] [address] Mobile Relation: Spouse Have you had joint replacement surgery before?: No Social: Pre-Hospital Baseline Mental Status: Alert & Oriented Informant: Self and Spouse Living Arrangement: Home Who able to assist you at home once you discharge? Spouse Are they available for at least 2 weeks? Yes Stairs: One story home No stairs inside home Bedroom Location: First Bathroom Location: First Do you have problems that affect your ability to perform normal activities of daily living such as bathing, dressing, or toileting yourself? No = 0 What is your current functional status?: Perform ADLs independently Are you able to afford your medications/Food? Yes Social Determinants of Health Tobacco Use: Medium Risk (10/02/2023) Patient History Smoking Tobacco Use: Former Smokeless Tobacco Use: Never Passive Exposure: Past Alcohol Use: Not At Risk (01/24/2019) Received from [facility] Frequency of Alcohol Consumption: Never Average Number of Drinks: Not on file Frequency of Binge Drinking: Not on file Financial Resource Strain: Low Risk (01/05/2024) Overall Financial Resource Strain (CARDIA) Difficulty of Paying Living Expenses: Not very hard Food Insecurity: No Food Insecurity (05/22/2023) Received from [facility], [facility] Hunger Screening Within the past 12 months we worried whether our food would run out before we got money to buy more.: Never True Within the past 12 months the food we bought just didn't last and we didn't have money to get more.: Never True Transportation Needs: No Transportation Needs (01/05/2024) PRAPARE - Transportation Lack of Transportation (Medical): No Lack of Transportation (Non-Medical): No Physical Activity: Insufficiently Active (01/05/2024) Exercise Vital Sign Days of Exercise per Week: 2 days Minutes of Exercise per Session: 60 min Stress: No Stress Concern Present (01/05/2024) [employer] [place] [employer] - Occupational Stress Questionnaire Feeling of Stress : Not at all Social Connections: Moderately Integrated (01/05/2024) Social Connection and Isolation Panel [NHANES] Frequency of Communication with Friends and Family: More than three times a week Frequency of Social Gatherings with Friends and Family: More than three times a week Attends Rastafari Services: More than 4 times per year Active Member of Clubs or Organizations: No Attends Club or Organization Meetings: Never Marital Status: Intimate Partner Violence: Not At Risk (01/05/2024) Safe at Home? Fear of Current or Ex-Partner: No Emotionally Abused: No Physically Abused: No Sexually Abused: No Safe at Home?: Not on file Depression: Not at risk (12/30/2023) PHQ-2 PHQ-2 Score: 0 Housing Stability: Low Risk (01/05/2024) Housing Stability Vital Sign Unable to Pay for Housing in the Last Year: No Number of Places Lived in the Last Year: 1 Unstable Housing in the Last Year: No Utilities: Not At Risk (01/05/2024) [facility] Utilities Threatened with loss of utilities: No Area Deprivation Index: Medium Risk (12/19/2022) Area Deprivation Index National Score (1-100), lower number is lower risk: 74 State Score (1-10), lower number is lower risk: 6 Data from: https://www.neighborhoodatlas.[facility]/. Last address used for calculation: [address] Equipment: Do you currently use any equipment at home for your medical condition or to help you get around? None Patient has crutches at home and is planning to borrow a walker from family. Patient also has high rise toilet seats at home Active Services/Needs: None Transportation: Do you have reliable transportation to and from surgery/appointments?: Yes Who will provide discharge transportation: Spouse Contact information for patient's ride: Will your ride be available for 1200 discharge time? Yes Office Visit Follow Up Did you receive the antiseptic wipes from your surgeon s office? No, If no, plan for correction is: Patient should receive wipes during pre-op with surgeon today 01/05/24 Did you receive a prescription for an assistive device (walker or crutches) from your surgeon s office and fill it or do you already have one at home? No, If no, plan for correction is: Patient is planning to borrow a walker from family Did you attend a joint education class/Watched video? Yes Did you read the education book provided to you? No Have you let your PCP know you are having a joint replacement surgery? No, If no, plan for correction is: Patient advised to notify PCP office of upcoming surgery If you are currently being seen by pain management, are they aware you are having a joint replacement surgery? N/A Have you informed any specialty care providers of your upcoming joint replacement surgery? Yes Have you made arrangements for your pets? Yes Is your house ready for your recovery? Yes PLAN OF CARE VISIT DISCUSSED: Yes FREEDOM OF CHOICE: Level of Care Discussed: Home Care Provider List: Home Care Provider list within the patient's requested geographic area offered to the patient/family: Yes - Within [address] of [address] [place], [place] [address] Total Joint Arthroplasty (TJA) Surgical Risk Procedure: Primary total Knee replacement Date assessed: risk assessed on 10/02/2023 10/02/2023 TJA Risk Procedure Primary total Knee replacement Estimated Length of Stay (# of days) 2 Chance of NOT Returning Home at Discharge 5.69 30 Day Chance of Readmission 3.34 Patient lives outside of [facility] service area. Patient and spouse are in agreement with referrals being sent for multiple agencies near home to determine who could accept. Plan for spouse to provide D/C transport home following surgery. Plan for patient to remain in the hospital overnight following surgery SIGNATURE: ROSITA Montes DATE: January 05, 2024 TIME: 10:04 AM [facility] 01-05-2024 Miscellaneous Notes ORTHOPAEDIC COORDINATION OF CARE Pre-Op Assessment Discharge Disposition (Planned): Home with Home Health Discharge Transportation: Car PRIMARY CARE PHYSICIAN: Beatriz Edgar MD OR Surgery Date: 01/13/2024 [facility] Appointment: 01/13/2024 Joint: Jointtype: Knee Side: right Health Insurance: [employer] ACCESS PPO Primary Contact: Extended Emergency Contact Information Primary Emergency Contact: Address: [address] [place] [id number] [facility] Mobile Relation: Spouse Have you had joint replacement surgery before?: No Social: Pre-Hospital Baseline Mental Status: Alert & Oriented Informant: Self and Spouse Living Arrangement: Home Who able to assist you at home once you discharge? Spouse Are they available for at least 2 weeks? Yes Stairs: One story home No stairs inside home Bedroom Location: First Bathroom Location: First Do you have problems that affect your ability to perform normal activities of daily living such as bathing, dressing, or toileting yourself? No = 0 What is your current functional status?: Perform ADLs independently Are you able to afford your medications/Food? Yes Social Determinants of Health Tobacco Use: Medium Risk (10/02/2023) Patient History Smoking Tobacco Use: Former Smokeless Tobacco Use: Never Passive Exposure: Past Alcohol Use: Not At Risk (01/24/2019) Received from [facility] Frequency of Alcohol Consumption: Never Average Number of Drinks: Not on file Frequency of Binge Drinking: Not on file Financial Resource Strain: Low Risk (01/05/2024) Overall Financial Resource Strain (CARDIA) Difficulty of Paying Living Expenses: Not very hard Food Insecurity: No Food Insecurity (05/22/2023) Received from [facility], [facility] Hunger Screening Within the past 12 months we worried whether our food would run out before we got money to buy more.: Never True Within the past 12 months the food we bought just didn't last and we didn't have money to get more.: Never True Transportation Needs: No Transportation Needs (01/05/2024) PRAPARE - Transportation Lack of Transportation (Medical): No Lack of Transportation (Non-Medical): No Physical Activity: Insufficiently Active (01/05/2024) Exercise Vital Sign Days of Exercise per Week: 2 days Minutes of Exercise per Session: 60 min Stress: No Stress Concern Present (01/05/2024) [employer] [place] [employer] - Occupational Stress Questionnaire Feeling of Stress : Not at all Social Connections: Moderately Integrated (01/05/2024) Social Connection and Isolation Panel [NHANES] Frequency of Communication with Friends and Family: More than three times a week Frequency of Social Gatherings with Friends and Family: More than three times a week Attends Rastafari Services: More than 4 times per year Active Member of Clubs or Organizations: No Attends Club or Organization Meetings: Never Marital Status: Intimate Partner Violence: Not At Risk (01/05/2024) Safe at Home? Fear of Current or Ex-Partner: No Emotionally Abused: No Physically Abused: No Sexually Abused: No Safe at Home?: Not on file Depression: Not at risk (12/30/2023) PHQ-2 PHQ-2 Score: 0 Housing Stability: Low Risk (01/05/2024) Housing Stability Vital Sign Unable to Pay for Housing in the Last Year: No Number of Places Lived in the Last Year: 1 Unstable Housing in the Last Year: No Utilities: Not At Risk (01/05/2024) [facility] Utilities Threatened with loss of utilities: No Area Deprivation Index: Medium Risk (12/19/2022) Area Deprivation Index National Score (1-100), lower number is lower risk: 74 State Score (1-10), lower number is lower risk: 6 Data from: https://www.neighborhoodatlas.[facility]/. Last address used for calculation: [facility] [address] Equipment: Do you currently use any equipment at home for your medical condition or to help you get around? None Patient has crutches at home and is planning to borrow a walker from family. Patient also has high rise toilet seats at home Active Services/Needs: None Transportation: Do you have reliable transportation to and from surgery/appointments?: Yes Who will provide discharge transportation: Spouse Contact information for patient's ride: Will your ride be available for 1200 discharge time? Yes Office Visit Follow Up Did you receive the antiseptic wipes from your surgeon s office? No, If no, plan for correction is: Patient should receive wipes during pre-op with surgeon today 01/05/24 Did you receive a prescription for an assistive device (walker or crutches) from your surgeon s office and fill it or do you already have one at home? No, If no, plan for correction is: Patient is planning to borrow a walker from family Did you attend a joint education class/Watched video? Yes Did you read the education book provided to you? No Have you let your PCP know you are having a joint replacement surgery? No, If no, plan for correction is: Patient advised to notify PCP office of upcoming surgery If you are currently being seen by pain management, are they aware you are having a joint replacement surgery? N/A Have you informed any specialty care providers of your upcoming joint replacement surgery? Yes Have you made arrangements for your pets? Yes Is your house ready for your recovery? Yes PLAN OF CARE VISIT DISCUSSED: Yes FREEDOM OF CHOICE: Level of Care Discussed: Home Care Provider List: Home Care Provider list within the patient's requested geographic area offered to the patient/family: Yes - Within [address] [place], [place] [address] Total Joint Arthroplasty (TJA) Surgical Risk Procedure: Primary total Knee replacement Date assessed: risk assessed on 10/02/2023 10/02/2023 TJA Risk Procedure Primary total Knee replacement Estimated Length of Stay (# of days) 2 Chance of NOT Returning Home at Discharge 5.69 30 Day Chance of Readmission 3.34 Patient lives outside of [facility] service area. Patient and spouse are in agreement with referrals being sent for multiple agencies near home to determine who could accept. Plan for spouse to provide D/C transport home following surgery. Plan for patient to remain in the hospital overnight following surgery SIGNATURE: ROSITA Montes DATE: January 05, 2024 TIME: 10:04 AM documented in this encounter [facility] 12-29-2023 Telephone encounter Note Messaged Dr. Antonio via [employer] to make her aware. Niecy Pearson RN [facility] 12-29-[address] Antonio via [employer] to make her aware. Niecy Pearson RN November 20, 2023 Patient last seen within the last year: Yes Date of last office visit: 10/02/2023 Reason For Call: Dr. Manny Mason's office called requesting cardiac clearance for knee surgery scheduled for 01/13/2024. They said it can be sent directly to the doctor through [employer]. Physician: Nato Antonio MD documented in this encounter [facility] 11-20-2023 Telephone encounter Note Patient DOS changed to 01/12 for right partial knee arthroplasty, at patient request. Call made to Nato Antonio MD office for cardiac clearance, last seen in 10/01. [facility] Work Phone: 11-20-2023 Miscellaneous Notes Patient DOS changed to 01/12 for right partial knee arthroplasty, at patient request. Call made to Nato Antonio MD office for cardiac clearance, last seen in 10/01. documented in this encounter [facility] 11-20-2023 Telephone encounter Note November 20, 2023 Patient last seen within the last year: Yes Date of last office visit: 10/02/2023 Reason For Call: Dr. Manny Mason's office called requesting cardiac clearance for knee surgery scheduled for 01/13/2024. They said it can be sent directly to the doctor through [employer]. Physician: Nato Antonio MD [facility] 10-28-2023 Instructions Parveen Araujo PA-C - 10/28/2023 10:31 AM EDT Images from the original note were not included. CORTICOSTEROID INJECTION AFTERCARE -A normal response to the injection is decreased pain from the lidocaine (numbing medication) for several hours followed by increased pain for hours to several days. -The cortisone will usually kick in within 2-3 days but can take up to 10 days to have the full effect. -Avoid heavy activity until pain subsides. -Ice 10-15min several times for the next day or so or until pain subsides. -Tylenol and/or NSAIDs for pain -If you experience redness or a flushing sensation in your face and neck, you should rest, apply cold compress, or try a benadryl. This reaction is normal and should lessen over 24 hours. -Every injection carries the risk of infection. If you experience increased redness, swelling, pain, fever, chills, or other concern for infection please contact our office immediately. If night or weekend, go to nearest emergency room. PLEASE BE AWARE THAT CORTISONE INJECTIONS WILL RAISE YOUR BLOOD SUGAR AND WHITE BLOOD CELL COUNT (WBC) FOR SEVERAL DAYS. *DIABETICS SHOULD NOT ADJUST MEDICATIONS TO THIS INCREASE, THIS IS VERY TEMPORARY. ADDING MORE MEDICATION/INSULIN CAN MAKE YOUR BLOOD SUGARS DROP TOO LOW, WHICH IS DANGEROUS. - SHELTON treatment as needed for symptom management (see below). -VOLTAREN GEL 3-4x/day to the left knee as needed. -Knee ROM, strengthening exercises as instructed. QUAD SETS Sit on the floor with your legs straight in front of you. You can roll a towel and put it under your lower leg (injured one), between the calf and ankle. Slightly lean back and place your hands on the floor with your arms straight and fingers pointing back. That s the starting position. Flex your right knee slightly and then extend it until you feel the contraction in your quad (thigh). Pause for five seconds, then repeat. Do it ten times. You can also perform this exercise by sitting on the floor and resting your back on the wall for support. SHORT ARCS Sit or lie on the floor with your legs straight in front of you. Roll a towel or pillow and put it under your knee (injured one). Lift your foot/ankle off the ground and extend (straighten) your knee until you feel the contraction in your quad (thigh). Pause for five seconds, then repeat. Do it ten times. documented in this encounter [facility] 10-28-2023 Note HNO ID: [id number] Author: PARVEEN ARAUJO PA-C Service: ? Author Type: Physician Place Change Roof Bolter Type: Progress Notes Filed: 10/28/2023 11:37 Note Text: DEPARTMENT OF ORTHOPAEDICS Silvano Menendez is a patient of Beatriz Edgar MD. CHIEF COMPLAINT: Silvano Menendez is a 58 year old male who presents today for new evaluation of left knee pain. HISTORY OF PRESENT ILLNESS: PAIN EVALUATION 10/28/2023 0959 Pain Level: 3 Pain Location: Knee-Left Description: Throbbing Duration Units: Years Frequency: Intermittent Intervention/Comfort measure: Medication;Relaxation;Reposition Patient reports 2 to 3 years of intermittent left knee pain. Over the past few weeks, he noticed worsening medial left knee pain, especially when walking or going up/down stairs. He walks 3 miles a day with his , and notes this does aggravate his left knee. Wearing OTC knee sleeve; has taken ibuprofen, meloxicam in the past but discontinued due to cardiac bypass. Currently taking tylenol. He is here to discuss treatment options for increased left knee pain. He has known right knee medial compartment osteoarthritis, scheduled for uni knee replacement surgery with Dr. Mason in January for this. Recently received a cortisone injection into the right knee, which helped immensely. Location of pain: left knee Injury? No Any numbness or tingling? No Any locking or instability ? No Swelling:Patient notes intermittent swelling of the joint.. 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 NSAIDs: No; does not tolerate due to history of quadruple bypass surgery last year Injections: None to left knee Surgeries: No Physical Therapy: No Past medical history significant for DVT (on 81mg aspirin; IVC filter), thrombocytopenia, CAD (quadruple bypass in 2022), hypertension, hyperlipidemia. ROS: REVIEW OF SYSTEMS: Constitutional: Fever/chills: No Cardiovascular: Chest Pain: No Respiratory: SOB: No Musculoskeletal: as noted in the HPI Neurologic: as noted in the HPI Endocrine: Diabetes: No Hemoglobin A1C (%) Date Value 01/21/2023 5.9 Tobacco user? No SOCIAL HISTORY: Tobacco Use: Quit 09/21/1987. Types: Cigarettes FAMILY HISTORY: FAMILY HISTORY Problem Relation Age of Onset Hyperlipidemia Mother Heart disease Father Hyperlipidemia Father Heart Failure Father Heart disease Maternal Grandmother Heart disease Paternal Grandmother PAST MEDICAL HISTORY Diagnosis Date DVT of popliteal vein (HCC) post right knee scope- 2010 PAST SURGICAL HISTORY Procedure Laterality Date CABG (5) VENOUS GRAFTS AND ARTERIAL GRAFT(S) 01/22/23 PAST SURGICAL HISTORY OF 2010 knee scope PAST SURGICAL HISTORY OF IVC filter - 2010 due to DVT histroy REPAIR EPIGASTRIC HERNIA,REDUC 04/2022 FAMILY HISTORY Problem Relation Age of Onset Hyperlipidemia Mother Heart disease Father Hyperlipidemia Father Heart Failure Father Heart disease Maternal Grandmother Heart disease Paternal Grandmother Social History Tobacco Use Smoking status: Former Types: Cigarettes Quit date: 09/21/1987 Years since quittin.1 Passive exposure: Past Smokeless tobacco: Never Vaping Use Vaping Use: Never used Substance Use Topics Alcohol use: Never Drug use: Never ALLERGIES No Known Allergies Current Outpatient Medications Medication Sig Dispense Refill atorvastatin (LIPITOR) 80 mg tablet Take 1 tablet by mouth daily at bedtime. 90 tablet 3 metoprolol succinate ER (TOPROL XL) 100 mg Take 1 tablet by mouth once daily. PM ezetimibe (ZETIA) 10 mg tablet Take 1 tablet by mouth once daily. 90 tablet 3 amLODIPine (NORVASC) 2.5 mg tablet TAKE 1 TABLET BY MOUTH ONCE DAILY 90 tablet 3 aspirin, enteric coated (ASPIRIN, ENTERIC COATED) 81 mg EC tablet Take 81 mg by mouth once daily. MULTIVITAMIN ORAL Take by mouth. nitroglycerin sublingual (NITROQUICK) 0.3 mg SL tablet Dissolve 1 tablet under the tongue every 5 minutes as needed for chest pain. (Patient not taking: Reported on 10/02/2023) 30 tablet 0 No current facility-administered medications for this visit. Physical Exam: Vitals: There were no vitals taken for this visit. BMI: 31.93 kg/m2 Body Habitus:well nourished and no acute distress Orientation: Normal: Oriented to person, place and time Psych: normal and appropriate Skin: Color, texture, turgor normal. No rashes or lesions Sensation: sensation to light touch is grossly normal bilaterally Focused Musculoskeletal Physical Exam: Knee Examination Right Knee Left Knee Skin No evidence of eythema, warmth, bruising, abrasions, scars, swelling, atrophy,masses or deformity about bilateral lower extremities. No evidence of eythema, warmth, bruising, abrasions, scars, swelling, (more content not included)... [facility] 10[facility] History of Present illness Narrative Associated Order(s): Large Joint Arthro/Inj: L knee joint Post-Procedure Diagnose(s): Primary osteoarthritis of left knee Images from the original note were not included. DEPARTMENT OF ORTHOPAEDICS Silvano Menendez is a patient of Beatriz Edgar MD. CHIEF COMPLAINT: Silvano Menendez is a 58 year old male who presents today for new evaluation of left knee pain. HISTORY OF PRESENT ILLNESS: PAIN EVALUATION 10/28/2023 0959 Pain Level: 3 Pain Location: Knee-Left Description: Throbbing Duration Units: Years Frequency: Intermittent Intervention/Comfort measure: Medication;Relaxation;Reposition Patient reports 2 to 3 years of intermittent left knee pain. Over the past few weeks, he noticed worsening medial left knee pain, especially when walking or going up/down stairs. He walks 3 miles a day with his , and notes this does aggravate his left knee. Wearing OTC knee sleeve; has taken ibuprofen, meloxicam in the past but discontinued due to cardiac bypass. Currently taking tylenol. He is here to discuss treatment options for increased left knee pain. He has known right knee medial compartment osteoarthritis, scheduled for uni knee replacement surgery with Dr. Mason in January for this. Recently received a cortisone injection into the right knee, which helped immensely. Location of pain: left knee Injury? No Any numbness or tingling? No Any locking or instability ? No Swelling:Patient notes intermittent swelling of the joint.. 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 NSAIDs: No; does not tolerate due to history of quadruple bypass surgery last year Injections: None to left knee Surgeries: No Physical Therapy: No Past medical history significant for DVT (on 81mg aspirin; IVC filter), thrombocytopenia, CAD (quadruple bypass in 2022), hypertension, hyperlipidemia. ROS: REVIEW OF SYSTEMS: Constitutional: Fever/chills: No Cardiovascular: Chest Pain: No Respiratory: SOB: No Musculoskeletal: as noted in the HPI Neurologic: as noted in the HPI Endocrine: Diabetes: No Hemoglobin A1C (%) Date Value 01/21/2023 5.9 Tobacco user? No SOCIAL HISTORY: Tobacco Use: Quit 09/21/1987. Types: Cigarettes FAMILY HISTORY: FAMILY HISTORY Problem Relation Age of Onset Hyperlipidemia Mother Heart disease Father Hyperlipidemia Father Heart Failure Father Heart disease Maternal Grandmother Heart disease Paternal Grandmother PAST MEDICAL HISTORY Diagnosis Date DVT of popliteal vein (HCC) post right knee scope- 2010 PAST SURGICAL HISTORY Procedure Laterality Date CABG (5) VENOUS GRAFTS & ARTERIAL GRAFT(S) 01/22/23 PAST SURGICAL HISTORY OF 2010 knee scope PAST SURGICAL HISTORY OF IVC filter - 2010 due to DVT histroy REPAIR EPIGASTRIC HERNIA,REDUC 04/2022 FAMILY HISTORY Problem Relation Age of Onset Hyperlipidemia Mother Heart disease Father Hyperlipidemia Father Heart Failure Father Heart disease Maternal Grandmother Heart disease Paternal Grandmother Social History Tobacco Use Smoking status: Former Types: Cigarettes Quit date: 09/21/1987 Years since quittin.1 Passive exposure: Past Smokeless tobacco: Never Vaping Use Vaping Use: Never used Substance Use Topics Alcohol use: Never Drug use: Never ALLERGIES No Known Allergies Current Outpatient Medications Medication Sig Dispense Refill atorvastatin (LIPITOR) 80 mg tablet Take 1 tablet by mouth daily at bedtime. 90 tablet 3 metoprolol succinate ER (TOPROL XL) 100 mg Take 1 tablet by mouth once daily. PM ezetimibe (ZETIA) 10 mg tablet Take 1 tablet by mouth once daily. 90 tablet 3 amLODIPine (NORVASC) 2.5 mg tablet TAKE 1 TABLET BY MOUTH ONCE DAILY 90 tablet 3 aspirin, enteric coated (ASPIRIN, ENTERIC COATED) 81 mg EC tablet Take 81 mg by mouth once daily. MULTIVITAMIN ORAL Take by mouth. nitroglycerin sublingual (NITROQUICK) 0.3 mg SL tablet Dissolve 1 tablet under the tongue every 5 minutes as needed for chest pain. (Patient not taking: Reported on 10/02/2023) 30 tablet 0 No current facility-administered medications for this visit. Physical Exam: Vitals: There were no vitals taken for this visit. BMI: 31.93 kg/m2 Body Habitus:well nourished and no acute distress Orientation: Normal: Oriented to person, place and time Psych: normal and appropriate Skin: Color, texture, turgor normal. No rashes or lesions Sensation: sensation to light touch is grossly normal bilaterally Focused Musculoskeletal Physical Exam: Knee Examination Right Knee Left Knee Skin No evidence of eythema, warmth, bruising, abrasions, scars, swelling, atrophy,masses or deformity about bilateral lower extremities. No evidence of eythema, warmth, bruising, abrasions, scars, swelling, atrophy,masses or deformity about bilateral lower extremities. Effusion Mild swelling Mild swelling Alignment normal normal Range of motion Normal range of motion Normal range of motion Quadriceps examination full (5/5) quadriceps strength bilaterally without signs of atrophy full (5/5) quadriceps strength bilaterally without signs of atrophy Patellar examination Normal patellar mobility Negative patellar grind testing. patellofemoral crepitus noted. Normal patellar mobility Negative patellar grind testing. patellofemoral crepitus noted. Tenderness medial joint line medial joint line and medial femoral condyle Meniscus Negative medial and lateral Surekha's/Thessaly's testing Negative medial and lateral Surekha's/Thessaly's testing Stability Collateral and cruciate knee ligaments (ACL/PCL/LCL/MCL) are all intact with no significant laxity noted bilaterally Collateral and cruciate knee ligaments (ACL/PCL/LCL/MCL) are all intact with no significant laxity noted bilaterally Additional Testing no significant restriction in hip range of motion and no contribution to the knee complaints today Mild antalgia, favoring LLE. Not using ambulatory aid today. IMAGING: Final results and radiologist's interpretation, available in the [facility] health record. Images were reviewed with the patient/family members in the office today. My personal interpretation of the performed imaging is moderate joint space narrowing of the medial compartment, left knee. Patella tracking appropriately. CLINICAL IMPRESSION / ASSESSMENT: (M17.12) Primary osteoarthritis of left knee (primary encounter diagnosis) RECOMMENDATION / PLAN: The natural history and treatment options (surgical and non-surgical) were discussed including risks, benefits, alternatives and prognosis and all questions were answered. Patient has OA of the left knee. Discussed treatment options including NSAIDs (oral, topical), PT vs HEP, bracing, activity modifications, modalities, CSI vs visco. The following plan was agreed upon: -Recommend voltaren gel 3-4x/week to the medial left knee. Avoid NSAIDs due to cardiology history. -Let pain, swelling be his guide with activities. -Encouraged SHELTON treatment as needed for symptom management. -Discussed CSI vs Visco. He has had success in the past with right knee CSI and is requesting left knee CSI today. After discussion of risks, benefits, he elected to proceed. CSI left knee performed as described below. -Offered medial business executive brace for left knee, but he finds his OTC knee sleeve beneficial so will defer business executive brace at this time. Followup PRN as symptoms dictate. Instructed to reach out to our office in 3-4 weeks if he does not note improvement in symptoms. If no relief from CSI, he would be a candidate for visco injection. Large Joint Arthro/Inj: L knee joint Informed Consent Consent Obtained: Verbal [place] Protocol A moment to CARE was completed. SIGN IN Personnel directly involved with the procedure wore the appropriate PPE. Special Equipment: N/A Patient/Surrogate Stated/Verified: Patient name, Date of , Relevant allergies and Intended procedure TIME OUT Intended patient and procedure match the source document(s). Consent documented and matches the intended procedure. Relevant labs, photos, and/or imaging studies have been reviewed. Correct side/site marked and visible. Medications required for procedure verified. Fire risk assessed and interventions discussed. No implant(s) inserted. 10/28/2023 11:36 AM The procedure site was prepped in the usual sterile fashion. Site: L knee joint Medications: 80 mg triamcinolone acetonide 40 mg/mL Anesthetics: 4 mL lidocaine (PF) 10 mg/mL (1 %); 2 mL bupivacaine (PF) 0.25 % (2.5 mg/mL) Outcome: Tolerated well, no immediate complications Post-injection instructions were reviewed with the patient and the patient voiced understanding of these instructions. SIGN OUT All instruments, equipment, possible retained foreign bodies accounted for. Post-procedure follow-up management communicated and Plan of Care Visit completed when applicable Secondary safety check performed by Sarina Tarango MA. Anterolateral approach. Verbal health education was given to patient. Patient verbalizes understanding and agrees with the treatment plan as detailed above. Parveen Araujo PA-C This note is created with the assistance of a speech-recognition program. documented in this encounter [facility] 10-28-2023 Note HNO ID: [id number] Author: ELSY GARCIA RT(R) Service: ? Author Type: Technologist Type: Progress Notes Filed: 10/28/2023 09:56 Note Text: Radiology Service Progress Note PATIENT NAME: Silvano Menendez DATE OF SERVICE: October 28, 2023 TIME: 9:55 AM PATIENT IDENTITY VERIFICATION COMPLETED USING TWO (2) IDENTIFIERS: Name and Date of confirmed by patient verbally. FALL SCREENING: Has the patient had 2 falls in the last year or 1 fall with injury or currently using an Ambulatory Assistive Device (Walker, Cane, Wheelchair, Crutches, etc.)? No PATIENT GENDER DATA: Male PATIENT RELEVANT IMPLANT DATA REVIEWED: Not Applicable PATIENT PRESENTS WITH AN IMPLANTABLE OR ATTACHED STOCK HANDLER: No RADIOLOGY DEPARTMENT: General X-ray: Exam(s) Completed: Lower Extremity X-Ray(s): Knee, AP / Lat / Tunne / Merchant Left and Wt. Bearing PERIPHERAL IV DATA: Not applicable SIGNED BY: RT Billy(R) October 28, 2023 9:55 AM [facility] 10-28-2023 History of Present illness Narrative Radiology Service Progress Note PATIENT NAME: Silvano Menendez DATE OF SERVICE: October 28, 2023 TIME: 9:55 AM PATIENT IDENTITY VERIFICATION COMPLETED USING TWO (2) IDENTIFIERS: Name and Date of confirmed by patient verbally. FALL SCREENING: Has the patient had 2 falls in the last year or 1 fall with injury or currently using an Ambulatory Assistive Device (Walker, Cane, Wheelchair, Crutches, etc.)? No PATIENT GENDER DATA: Male PATIENT RELEVANT IMPLANT DATA REVIEWED: Not Applicable PATIENT PRESENTS WITH AN IMPLANTABLE OR ATTACHED STOCK HANDLER: No RADIOLOGY DEPARTMENT: General X-ray: Exam(s) Completed: Lower Extremity X-Ray(s): Knee, AP / Lat / Tunne / Merchant Left and Wt. Bearing PERIPHERAL IV DATA: Not applicable SIGNED BY: RT Billy(R) October 28, 2023 9:55 AM documented in this encounter [facility] 10-02-2023 Instructions Nato Antonio MD - 10/02/2023 3:05 PM EDT Stop the pm metoprolol succinate dose and only take the metoprolol succinate 100 mg in the am. Continue th remaining meds. Let me know if you have any issue with your BP. Continue the fantastic work with your diet and exercise. Gradually build up with any new exercise. Seek ER care with any concerning symptoms. documented in this encounter [facility] 10-02-2023 Note HNO ID: [id number] Author: MILAGRO CASTLE PA-C Service: ? Author Type: Physician Place Change Roof Bolter Type: Progress Notes Filed: 10/11/2023 13:39 Note Text: CONSULT ORTHOPAEDIC: KNEE PRIMARY CARE PHYSICIAN: Beatriz Edgar MD REFERRING PROVIDER: No referring provider defined for this encounter. ASSESSMENT AND PLAN Impression: Right Knee Moderate Degenerative Osteoarthritis, Primary medial compartmental Diagnoses: (M17.11) Primary osteoarthritis of right knee (primary encounter diagnosis) Silvano is to the point where he is having continued pain affecting his activities of daily living. He is interested in pursuing a knee replacement due to his symptoms. We discussed that he could potentially be a candidate for a partial knee replacement based on his symptoms and current x-rays along with his MRI which was done in May. We also discussed that this would likely be robotic assisted and he would get it CT scan prior to the surgery . We would have him follow back up with Dr. Mason and since [place], may be have him schedule the preop's along with the CT and appointment at the same time or somehow coordinate with other appointments that he is having in the next few months. He would be interested in surgery in January and would like an injection today to help buy him some time. Proceeded with corticosteroid injection today Would obtain cardiac clearance by Joe Thayer- has appt today ( HX of CABG 02/2023) Large Joint Arthro/Inj: R knee joint Informed Consent Consent Obtained: Verbal [place] Protocol A moment to CARE was completed. SIGN IN Personnel directly involved with the procedure wore the appropriate PPE. Special Equipment: N/A Patient/Surrogate Stated/Verified: Patient name, Date of , Relevant allergies and Intended procedure TIME OUT Intended patient and procedure match the source document(s). Consent documented and matches the intended procedure. Relevant labs, photos, and/or imaging studies have been reviewed. Correct side/site marked and visible. Medications required for procedure verified. Fire risk assessed and interventions discussed. No implant(s) inserted. 10/02/2023 2:11 PM The procedure site was prepped in the usual sterile fashion. Site: R knee joint Medications: 80 mg triamcinolone acetonide 40 mg/mL Anesthetics: 4 mL lidocaine (PF) 10 mg/mL (1 %); 4 mL ROPivacaine (PF) 5 mg/mL (0.5 %) Outcome: Tolerated well, no immediate complications Post-injection instructions were reviewed with the patient and the patient voiced understanding of these instructions. SIGN OUT All instruments, equipment, possible retained foreign bodies accounted for. Total Joint Arthroplasty: Risk Calculator Silvano Menendez has a 5.69% chance of NOT returning home at discharge for a Primary total Knee replacement. Silvano's estimated Length of Stay is 2 days (Inpatient candidate). Silvano's 30 day chance of readmission is 3.34%. Readmission Probability 3.34 % (within 30 days following surgery) Estimated LOS 2 days Discharge Disposition Probability D/C to Home 94.31 % D/C to SNF 5.69 % These calculations are based on the following factors: - 58 years of age - sex is male - BMI of 31.47 kg/m2 - NarxCare score of 90 - 2 hospitalizations in the last 12 months - history of heart disease - no history of diabetes - no history of COPD - history of anemia - preoperative ambulation: independent community distances - 4 step(s) to enter home - bed location is on the first floor - bath location is on the first floor - caregiver is occassionally available 2-4 days / week - home is more than 150 miles away - PROMIS-10 Mental Health T score 50+ - Marital status: Risk Factors for Total Knee Arthroplasty (TKA) Major Risk Factors Obesity Moderate Risk High: BMI > 40 Moderate: BMI 30-40 Normal: BMI < 30 Diabetes normal High: A1C > 8 Moderate: A1C 7-8 Normal: A1C < 7 Hx of DVT / PE High Risk High: dx of DVT / PE Normal: no dx of DVT / PE Smoking normal High: Current smoker Normal: Non smoker Narcotics Use normal High:NarxCare >=300 Moderate: 100-299 Normal: 0-99 Depression Moderate Risk High: PHQ-9 >14 Moderate: PHQ-9 5-14 Normal: PHQ-9 < 5 Area Deprivation Index (DIONISIO) Moderate Risk High: DIONISIO Score > 75 Moderate: DIONISIO 50-75 Normal: DIONISIO < 50 Obesity: weight management recommended BMI Readings from Last 3 Encounters: 10/02/23 : 31.47 kg/m? 08/11/23 : 30.78 kg/m? 04/24/23 : 30.42 kg/m? Area Deprivation Index (DIONISIO) 12/19/2022 DIONISIO Score National Score 74 Patient Health Questionnaire (PHQ-9) 04/23/2023 09/25/2023 PHQ-9 PHQ-2 Score 4 0 PHQ-9 Score 6 (0-4) minimal depression, (5-9) mild depression, (10-14) moderate depression, (15-19) moderately severe depression, (20-27) severe depression Bone Density Risk Screen Silvano Menendez is low risk for bone loss based on his age and having no previous diagnoses of (more content not included)... [facility] 10-02-[facility] History of Present illness Narrative Associated Order(s): Large Joint Arthro/Inj: R knee joint Post-Procedure Diagnose(s): Primary osteoarthritis of right knee Images from the original note were not included. CONSULT ORTHOPAEDIC: KNEE PRIMARY CARE PHYSICIAN: Beatriz Edgar MD REFERRING PROVIDER: No referring provider defined for this encounter. ASSESSMENT & PLAN Impression: Right Knee Moderate Degenerative Osteoarthritis, Primary medial compartmental Diagnoses: (M17.11) Primary osteoarthritis of right knee (primary encounter diagnosis) Silvano is to the point where he is having continued pain affecting his activities of daily living. He is interested in pursuing a knee replacement due to his symptoms. We discussed that he could potentially be a candidate for a partial knee replacement based on his symptoms and current x-rays along with his MRI which was done in May. We also discussed that this would likely be robotic assisted and he would get it CT scan prior to the surgery . We would have him follow back up with Dr. Mason and since he is from [place] of state, may be have him schedule the preop's along with the CT and appointment at the same time or somehow coordinate with other appointments that he is having in the next few months. He would be interested in surgery in January and would like an injection today to help buy him some time. Proceeded with corticosteroid injection today Would obtain cardiac clearance by Joe Thayer- has appt today ( HX of CABG 02/2023) Large Joint Arthro/Inj: R knee joint Informed Consent Consent Obtained: Verbal [place] Protocol A moment to CARE was completed. SIGN IN Personnel directly involved with the procedure wore the appropriate PPE. Special Equipment: N/A Patient/Surrogate Stated/Verified: Patient name, Date of , Relevant allergies and Intended procedure TIME OUT Intended patient and procedure match the source document(s). Consent documented and matches the intended procedure. Relevant labs, photos, and/or imaging studies have been reviewed. Correct side/site marked and visible. Medications required for procedure verified. Fire risk assessed and interventions discussed. No implant(s) inserted. 10/02/2023 2:11 PM The procedure site was prepped in the usual sterile fashion. Site: R knee joint Medications: 80 mg triamcinolone acetonide 40 mg/mL Anesthetics: 4 mL lidocaine (PF) 10 mg/mL (1 %); 4 mL ROPivacaine (PF) 5 mg/mL (0.5 %) Outcome: Tolerated well, no immediate complications Post-injection instructions were reviewed with the patient and the patient voiced understanding of these instructions. SIGN OUT All instruments, equipment, possible retained foreign bodies accounted for. Total Joint Arthroplasty: Risk Calculator Silvano Menendez has a 5.69% chance of NOT returning home at discharge for a Primary total Knee replacement. Silvano's estimated Length of Stay is 2 days (Inpatient candidate). Silvano's 30 day chance of readmission is 3.34%. Readmission Probability 3.34 % (within 30 days following surgery) Estimated LOS 2 days Discharge Disposition Probability D/C to Home 94.31 % D/C to SNF 5.69 % These calculations are based on the following factors: - 58 years of age - sex is male - BMI of 31.47 kg/m2 - NarxCare score of 90 - 2 hospitalizations in the last 12 months - history of heart disease - no history of diabetes - no history of COPD - history of anemia - preoperative ambulation: independent community distances - 4 step(s) to enter home - bed location is on the first floor - bath location is on the first floor - caregiver is occassionally available 2-4 days / week - home is more than 150 miles away - PROMIS-10 Mental Health T score 50+ - Marital status: Risk Factors for Total Knee Arthroplasty (TKA) Major Risk Factors Obesity Moderate Risk High: BMI > 40 Moderate: BMI 30-40 Normal: BMI < 30 Diabetes normal High: A1C > 8 Moderate: A1C 7-8 Normal: A1C < 7 Hx of DVT / PE High Risk High: dx of DVT / PE Normal: no dx of DVT / PE Smoking normal High: Current smoker Normal: Non smoker Narcotics Use normal High:NarxCare >=300 Moderate: 100-299 Normal: 0-99 Depression Moderate Risk High: PHQ-9 >14 Moderate: PHQ-9 5-14 Normal: PHQ-9 < 5 Area Deprivation Index (DIONISIO) Moderate Risk High: DIONISIO Score > 75 Moderate: DIONISIO 50-75 Normal: DIONISIO < 50 Obesity: weight management recommended BMI Readings from Last 3 Encounters: 10/02/23 : 31.47 kg/m 08/11/23 : 30.78 kg/m 04/24/23 : 30.42 kg/m Area Deprivation Index (DIONISIO) 12/19/2022 DIONISIO Score National Score 74 Patient Health Questionnaire (PHQ-9) 04/23/2023 09/25/2023 PHQ-9 PHQ-2 Score 4 0 PHQ-9 Score 6 (0-4) minimal depression, (5-9) mild depression, (10-14) moderate depression, (15-19) moderately severe depression, (20-27) severe depression Bone Density Risk Screen Silvano Menendez is low risk for bone loss based on his age and having no previous diagnoses of osteopenia, osteoporosis, Paget's disease of bone, or cancer of bone. Other risk factors are listed below to determine if they pose a significant risk for bone loss, and if so, recommend ordering a bone densitometry and, upon receiving a result, as needed, order a consult to a bone health specialist (Rheumatology, Endocrinology, or Women's Health) for bone assessment. 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 He was last seen approximately 4 months ago for his right knee advanced osteoarthritis of the medial compartment. This was noted on x-rays and MRI. He does have symptoms only in the medial compartment. We attempted a corticosteroid injection in May and this helped for couple months. He is interested in another injection today I have time but overall is interested in surgical intervention for this knee the pain is affecting his activities of daily living. He follows with , has an appt today. He cannot take NSAIDs. Has tried topical pain creams knee brace home exercises physical therapy and activity modification. Silvano reports a current pain level of 4 (Knee-Right). He describes the pain as Aching, Sore, Throbbing. The pain is Intermittent, and has lasted for 4 Years. Interventions tried include Medication, Reposition, Cold, Pillow support (knee sleeve physical therapy approx 2010). PROMIS Physical Function Score Descriptive Summary for PROMIS Physical Function T-score = 46 (Percentile 34) Little difficulty - Walk more than a mile (1.6 km). Little difficulty - Do chores such as vacuuming or yard work. 04/23/2023 09/25/2023 PROMIS CAT Physical Function T-Score 41 (mild dysfunction) 46 (within normal limits) Percentile 18* 34 PREVIOUS TREATMENTS: Most recent knee injection: Large Joint Arthro/Inj: R knee joint (injected on 04/24/2023 by Milagro Mareth) Past anti-inflammatory medications (not necessarily for this reason for visit): hydrocortisone sodium succ/PF, triamcinolone acetonide REVIEW OF SYSTEMS: GENERAL: Denies fever, chills malaise and weight loss.. PAIN ASSESSMENT: See HPI. HEENT: No recent change in vision or hearing.. CARDIOVASCULAR: History of CABG 02/2023 . RESPIRATORY: Denies SOB, sputum production, dyspnea, COPD and hemoptysis.. GI: Denies GI ulcers, inflammatory disease, ascites or liver disease.. MUSCULOSKELETAL: See HPI. SKIN: Denies rash or itching.. PSYCHOLOGICAL: Denies uncontrolled depression or anxiety.. NEURO: Denies CVA, seizures, headaches.. ENDOCRINE: Denies diabetes, thyroid disease.. HEMATOLOGY/LYMPHOLOGY: DVT RLE in 2010 after right knee arthroscopy- has IVC filter .. 01/26/2023 Malnutrition Screening Tool (MST) Lost Weight Recently Without Trying? If Yes, Amount of Weight Loss(lbs) 0:No Eating Poorly Because of a Decreased Appetite 0:No Weight Loss Score (Calculated) 0 Appetite Score (Calculated) 0 Total MST Score (Calculated) 0 PAST MEDICAL HISTORY Diagnosis Date DVT of popliteal vein (HCC) post right knee scope- 2010 PAST SURGICAL HISTORY Procedure Laterality Date CABG (5) VENOUS GRAFTS & ARTERIAL GRAFT(S) 01/22/23 PAST SURGICAL HISTORY OF 2010 knee scope PAST SURGICAL HISTORY OF IVC filter - 2010 due to DVT histroy REPAIR EPIGASTRIC HERNIA,REDUC 04/2022 FAMILY HISTORY Problem Relation Age of Onset Hyperlipidemia Mother Heart disease Father Hyperlipidemia Father Heart Failure Father Heart disease Maternal Grandmother Heart disease Paternal Grandmother Social History Tobacco Use Smoking status: Former Types: Cigarettes Quit date: 09/21/1987 Years since quittin.0 Passive exposure: Past Smokeless tobacco: Never Vaping Use Vaping Use: Never used Substance Use Topics Alcohol use: Never Drug use: Never ALLERGIES: Patient has no known allergies. MEDICATIONS: ezetimibe (ZETIA) 10 mg tablet Take 1 tablet by mouth once daily. metoprolol succinate ER (TOPROL XL) 100 mg Take 1 tablet by mouth two times a day. NOTE TAKE 1 tab in the am and 1/2 tab in the pm. 100 mg AM and 50 mg PM amLODIPine (NORVASC) 2.5 mg tablet TAKE 1 TABLET BY MOUTH ONCE DAILY aspirin, enteric coated (ASPIRIN, ENTERIC COATED) 81 mg EC tablet Take 81 mg by mouth once daily. MULTIVITAMIN ORAL Take by mouth. nitroglycerin sublingual (NITROQUICK) 0.3 mg SL tablet Dissolve 1 tablet under the tongue every 5 minutes as needed for chest pain. atorvastatin (LIPITOR) 80 mg tablet Take 1 tablet by mouth daily at bedtime. OBJECTIVE PHYSICAL EXAM: Ht 174 cm (5' 8.5 ) Wt 95.3 kg (210 lb 0.3 oz) BMI 31.47 kg/m All other systems deferred. GENERAL: Appears healthy, well-nourished, no deformities. HABITUS: Obese GAIT: Antalgic to the right KNEE EXAM: Right: Alignment: Neutral Range of motion is 0 degrees in extension and 120 degrees of flexion. Extension La degrees Pain with ROM: Yes Effusion: Slight Tender to the palpation of Medial femoral condyle Pain with patellar compression: No Stability: Anterior/Posterior stable and Varus/Valgus stable Hip Exam: flexion to 100+ degrees, full extension, internal/external rotation adequate, and no pain with log roll Neurovascular Status: Sensation Intact, Moves foot and ankle up & down, and 2+ dorsalis pedis DATA: Most recent knee imaging was completed on 05/27/2023 (MRI KNEE WO IVCON RIGHT) . Attached is imaging for the order.The most recent knee injection was Large Joint Arthro/Inj: R knee joint, injected on 04/24/2023 by Milagro Castle. Diagnostic tests reviewed for today's visit: MRI right knee from May 2023 Medial Femoral Condyle: Moderate sized area(s) of predominantly low grade (less than 50% thickness) cartilage loss and or fissuring with smaller area(s) of full thickness cartilage loss and or fissuring Medial Tibial Plateau: Large area(s) of full thickness cartilage loss/fissuring Lateral Femoral Condyle: Normal Lateral Tibial Plateau: Normal Patella: Moderate sized area(s) of full thickness cartilage loss and or fissuring Trochlea: Small area(s) of full thickness cartilage loss and or fissuring TENDONS: The distal quadriceps and patellar tendons are intact. The popliteus tendon is intact. SIGNATURE: Milagro Castle PA-C PATIENT NAME: Silvano Menendez DATE: October 02, 2023 TIME: 2:10 PM documented in this encounter [facility] 10-02-2023 History of Present illness Narrative Images from the original note were not included. [facility] Department of Cardiovascular Medicine SECTION OF CLINICAL CARDIOLOGY OUTPATIENT VISIT DATE March 11, 2023 OUTPATIENT VISIT TYPE EST PRIMARY CARE PHYSICIAN: Beatriz Edgar MD ([facility]) [address] [place] [id number] REFERRING PHYSICIAN: No referring provider defined for this encounter. CHIEF COMPLAINT: Follow up HISTORY OF PRESENT ILLNESS: Mr. Menendez is a 58 year old male with a PMH of untreated HTN, untreated hyperlipidemia, former tobacco use (quit over 30 years ago), DVTs in 2004, IVC filter, family history of premature , seen in 11/2022 for chest pain found to have severe MVD s/p CABG (01/22/2023) here for follow up. He is accompanied by his . See my last note for details of his symptoms. He underwent CABG X 5: RUTH to LAD, RSVG to PDA, RSVG to Diagonal, LRA to OM1, Free CHICO to OM2. He had a left pneumothorax. Since the last visit, he feels great. No cardiac symptoms. BP have abeen well controlled. He made drastic changes to his diet. Adherent to meds without any side effects. PAST CARDIAC HISTORY: As above Past Medical History: No date: DVT of popliteal vein (HCC) Comment: post right knee scope- 2010 Past Surgical History: No date: CABG (5) VENOUS GRAFTS & ARTERIAL GRAFT(S) Comment: 01/22/232010: PAST SURGICAL HISTORY OF Comment: knee scope No date: PAST SURGICAL HISTORY OF Comment: IVC filter - 2010 due to DVT histroy 04/2022: REPAIR EPIGASTRIC HERNIA,REDUC ALLERGIES No Known Allergies Current Outpatient Medications: metoprolol succinate ER (TOPROL XL) 100 mg ezetimibe (ZETIA) 10 mg tablet amLODIPine (NORVASC) 2.5 mg tablet aspirin, enteric coated (ASPIRIN, ENTERIC COATED) 81 mg EC tablet MULTIVITAMIN ORAL atorvastatin (LIPITOR) 80 mg tablet nitroglycerin sublingual (NITROQUICK) 0.3 mg SL tablet Family/social hx unchanged and not repeated. PHYSICAL EXAMINATION: BP 130/73 (BP Site: Right Arm, BP Position: Sitting, BP Cuff Size: Regular Adult) Pulse (!) 57 Resp 16 Ht 172.7 cm (5' 8 ) Wt 95.3 kg (210 lb) SpO2 95% BMI 31.93 kg/m General: Well developed, well nourished, looks stated age. Alert and oriented and in no visible distress. HEENT: Face symmetric. Gaze Conjugate. Neck: supple, without thyromegaly. No carotid bruits, 2+ upstrokes bilaterally. No nodes felt in neck. Thyroid no nodules. Lungs: clear without rales, rhonchi or wheezing throughout. Cardiovascular: regular rate and rhythm, no murmurs, no extra heart sounds heard. JVP 6 cm H2O, neg HJR. non Carotid bruits bilaterally, +2 radial pulses bilaterally, +2 DP pulses bilaterally. Warm and well perfused. Extremeties: + no Peripheral edema bilaterally . No Clubbing or cyanosis of extremeties. Abdomen: benign without organomegaly. Normal bowel sounds. Non palpable abdominal aorta. Neuro: Memory and judgement intact. Essentially normal neuropyschiatric exam. Well healed sternal incision Pertinent labs reviewed: 10/02/2023: CMP normal barring mildly elevated glucose. 02/04/2023 CMP normal barring mildly elevated glucose. CBC WBC 11, hgb 11, plts 525 A1C 5.9. Lipids 10/02/2023: Last set of lipids revealed: Total Chol 105: HDL 29: LDL 47: TG 145. 01/21/2023 LDL 83, lipoprotein a 106. CARDIOVASCULAR MEDICINE TESTING: Electrocardiogram 12/19/2022: NSR HR 69 bpm, Normal Qtc. Coronary angio : Abnormal coronary angiogram with triple vessel CAD. 90% stenosis in the mid RCA and 70% stenosis in the distal RCA. 70% stenosis of the mid LAD and 60% stenosis of the ostial 1st diagonal. 90% stenosis of the mid to distal LCX and 50 stenosis of the OM1 and OM2 branches. Right dominant system. OSH NUC STRESS EXERCISE 12/16/22 Narrative Perfusion Comments: Left ventricular perfusion is abnormal. Based on the perfusion study data, risk of cardiovascular events is intermediate risk. The study is consistent with ischemia. There is a left ventricular function defect that is moderate in size with moderate reduction in uptake present in the mid to basal inferior location(s) that is reversible. The defect appears to be ischemia. Stress Function Comments: Left ventricular function post-stress is normal. Stress ejection fraction is 72 %. The stress end diastolic cavity size is normal. Stress ECG Findings: There is [address] depression in the inferior leads (II, III, aVF, V6 and V5). ST deviation began at 3 minute(s) ST segment returned to baseline after 5-9 minutes of recovery. Overall, the patient's functional capacity was average. The stress ECG was positive. The calculated Grissom Treadmill Score of -0.02 represents an intermediate risk only with regards to the exercise findings. There is a left ventricular function defect that is moderate in size with moderate reduction in uptake present in the mid to basal inferior location(s) that is reversible. The defect appears to be ischemia. OSH ECHO 12/05/22 Narrative Left Ventricle: Systolic function is normal with an ejection fraction of 60-65%. Normal diastolic function is present. Lateral E' is 11.30 cm/s. Medial E' is 9.46 cm/s. I have personally reviewed the Electrocardiogram, Laboratory Testing, Echocardiogram, and Stress Test: Nuclear (Non-PET). IMPRESSION and PLAN Mr. Menendez is a 58 year old male with a PMH of previously untreated hypertension/ hyperlipidemia, former tobacco use (quit over 30 years ago), DVTs in 2004, IVC filter, family history of premature , seen in 11/2022 for chest pain found to have severe MVD s/p CABG (01/22/2023, RUTH to LAD, RSVG to PDA, RSVG to Diagonal, LRA to OM1, Free CHICO to OM2) here for follow up. He is accompanied by his . Overall, Silvano Menendez is stable and asymptomatic. He has recovered well post CABG. There is no evidence of active ischemia, decompensated heart failure, or malignant arrhythmias and he appears euvolemic on exam. Plan for medication optimization, risk factor modification with aggressive secondary prevention efforts. Continue aspirin, BB and high intensity statin and Zetia added by my prevention colleague Dr. Velásquez with excelled lipid control. Goal of LDL < 70, < 55 preferred. Lipoprotein a is elevated but no trials ongoing at this time, will follow up with prevention. Fortunately, he quit smoking. Follow up with PCP re: glycemic control. I recommend he adhere to adhere to the mediterranean diet. Participated in cardiac rehab HR in the 50's, asymptomatic, but will change BB to once daily. He will let me know if there are any issues with his BP. I have provided anticipatory guidance on when to seek ER care. Follow up with me in 1 year or sooner as needed, with labs. Follow up with PCP and specialists as planned. The patient and his were in agreement with the plan. As always, I appreciate the opportunity to participate in the care of your patients, and look forward to collaborating with you further. Please don't hesitate to contact me if any questions or problems arise. With best wishes and warmest personal regards, Nato Antonio MD October 27, 2023, 4:51 PM documented in this encounter [facility] 10-02-2023 Note HNO ID: [id number] Author: NATO ANTONIO MD Service: ? Author Type: Physician Type: Progress Notes Filed: 12/29/2023 14:51 Note Text: [facility] Department of Cardiovascular Medicine SECTION OF CLINICAL CARDIOLOGY OUTPATIENT VISIT DATE March 11, 2023 OUTPATIENT VISIT TYPE EST PRIMARY CARE PHYSICIAN: Beatriz Edgar MD ([facility]) [address] [place] [address] REFERRING PHYSICIAN: No referring provider defined for this encounter. CHIEF COMPLAINT: Follow up HISTORY OF PRESENT ILLNESS: Mr. Menendez is a 58 year old male with a PMH of untreated HTN, untreated hyperlipidemia, former tobacco use (quit over 30 years ago), DVTs in 2004, IVC filter, family history of premature , seen in 11/2022 for chest pain found to have severe MVD s/p CABG (01/22/2023) here for follow up. He is accompanied by his . See my last note for details of his symptoms. He underwent CABG X 5: RUTH to LAD, RSVG to PDA, RSVG to Diagonal, LRA to OM1, Free CHICO to OM2. He had a left pneumothorax. Since the last visit, he feels great. No cardiac symptoms. BP have abeen well controlled. He made drastic changes to his diet. Adherent to meds without any side effects. PAST CARDIAC HISTORY: As above Past Medical History: No date: DVT of popliteal vein (HCC) Comment: post right knee scope- 2010 Past Surgical History: No date: CABG (5) VENOUS GRAFTS AND ARTERIAL GRAFT(S) Comment: 01/22/232010: PAST SURGICAL HISTORY OF Comment: knee scope No date: PAST SURGICAL HISTORY OF Comment: IVC filter - 2010 due to DVT histroy 04/2022: REPAIR EPIGASTRIC HERNIA,REDUC ALLERGIES No Known Allergies Current Outpatient Medications: metoprolol succinate ER (TOPROL XL) 100 mg ezetimibe (ZETIA) 10 mg tablet amLODIPine (NORVASC) 2.5 mg tablet aspirin, enteric coated (ASPIRIN, ENTERIC COATED) 81 mg EC tablet MULTIVITAMIN ORAL atorvastatin (LIPITOR) 80 mg tablet nitroglycerin sublingual (NITROQUICK) 0.3 mg SL tablet Family/social hx unchanged and not repeated. PHYSICAL EXAMINATION: BP 130/73 (BP Site: Right Arm, BP Position: Sitting, BP Cuff Size: Regular Adult) Pulse (!) 57 Resp 16 Ht 172.7 cm (5' 8 ) Wt 95.3 kg (210 lb) SpO2 95% BMI 31.93 kg/m? General: Well developed, well nourished, looks stated age. Alert and oriented and in no visible distress. HEENT: Face symmetric. Gaze Conjugate. Neck: supple, without thyromegaly. No carotid bruits, 2+ upstrokes bilaterally. No nodes felt in neck. Thyroid no nodules. Lungs: clear without rales, rhonchi or wheezing throughout. Cardiovascular: regular rate and rhythm, no murmurs, no extra heart sounds heard. JVP 6 cm H2O, neg HJR. non Carotid bruits bilaterally, +2 radial pulses bilaterally, +2 DP pulses bilaterally. Warm and well perfused. Extremeties: + no Peripheral edema bilaterally . No Clubbing or cyanosis of extremeties. Abdomen: benign without organomegaly. Normal bowel sounds. Non palpable abdominal aorta. Neuro: Memory and judgement intact. Essentially normal neuropyschiatric exam. Well healed sternal incision Pertinent labs reviewed: 10/02/2023: CMP normal barring mildly elevated glucose. 02/04/2023 CMP normal barring mildly elevated glucose. CBC WBC 11, hgb 11, plts 525 A1C 5.9. Lipids 10/02/2023: Last set of lipids revealed: Total Chol 105: HDL 29: LDL 47: TG 145. 01/21/2023 LDL 83, lipoprotein a 106. CARDIOVASCULAR MEDICINE TESTING: ECG 10/02/2023 sinus bradycardia with possible old septal IA. Electrocardiogram 12/19/2022: NSR HR 69 bpm, Normal Qtc. Coronary angio : Abnormal coronary angiogram with triple vessel CAD. 90% stenosis in the mid RCA and 70% stenosis in the distal RCA. 70% stenosis of the mid LAD and 60% stenosis of the ostial 1st diagonal. 90% stenosis of the mid to distal LCX and 50 stenosis of the OM1 and OM2 branches. Right dominant system. OSH NUC STRESS EXERCISE 12/16/22 Narrative Perfusion Comments: Left ventricular perfusion is abnormal. Based on the perfusion study data, risk of cardiovascular events is intermediate risk. The study is consistent with ischemia. There is a left ventricular function defect that is moderate in size with moderate reduction in uptake present in the mid to basal inferior location(s) that is reversible. The defect appears to be ischemia. Stress Function Comments: Left ventricular function post-stress is normal. Stress ejection fraction is 72 %. The stress end diastolic cavity size is normal. Stress ECG Findings: There is [address] depression in the inferior leads (II, III, aVF, V6 and V5). ST deviation began at 3 minute(s) ST segment returned to baseline after 5-9 minutes of recovery. Overall, the patient's functional capacity was average. The stress ECG was positive. The calculated Grissom Treadmill Score of -0.02 represents an intermediate ri (more content not included)... [facility] 08-11-2023 Note HNO ID: [id number] Author: BRAXTON VELÁSQUEZ MD Service: ? Author Type: Physician Type: Progress Notes Filed: 08/13/2023 07:20 Note Text: [facility] Department of Cardiovascular Medicine SECTION OF PREVENTIVE CARDIOLOGY Silvano Menendez 08/11/2023 CHIEF COMPLAINT: Patient presents with: CARD New Patient Consult Phase 3 Session: CAD, HTN, Angina HISTORY OF PRESENT CARDIOVASCULAR ILLNESS: Silvano Menendez is a 58 year old male with a PMH significant for: - HTN - HLD - CAD sp CABG in January 2023 X 5: RUTH to LAD, RSVG to PDA, RSVG to Diagonal, LRA to OM1, Free CHICO to OM2 - DVT in 2004, sp IVC filter in 2010 - Former smoker - Premature in the family Presents for evaluation of hyperlipidemia. The patient follows with Dr Antonio ever since he had CABG in January 2023. 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 He was therefore referred for possible enrollment in Lp(a) trials. Upon cardiovascular review of systems the patient denies chest pain, SOB, palpitations, syncope, light-headedness, PND , orthopnea, intermittent claudication. ROS only positive for occasional tingling in his right hand, and occasional stiffness in his shoulders when walking. After his CABG, the patient underwent cardiac rehab successfully and is walking 3 to 5 times a week to stay active. CARDIAC RISK FACTORS: N/A Exercise: Three to five times per week Family History of CAD: Positive (male<55, female<65) Walks or biking for an hour - Father (unknown age) - Uncle of heart attack at 59 - Paternal grandmother had heart attack in the 70s - Maternal grandmother had CABG in hr mid 60s Avg. Sleep Hours Per Night?: 7-8 STATIN INTOLERANCE: Adverse Effect History of Statin Intolerance:: No Current Statin Freq: Every Day USE OF PCSK9 INHIBITORS: CARDIOVASCULAR DISEASE HISTORY: Atherosclerosis by ALT Imaging: Yes 01/21/23 CABG: Yes 01/22/23 Atherosclerosis by ALT Imaging: Yes Valve Disease: None Arrythmias: None HEART FAILURE/CARDIOMYOPATHY: None RELATED DISEASE HISTORY: CURRENT MEDS: Current Outpatient Medications Medication Sig atorvastatin (LIPITOR) 80 mg tablet Take 1 tablet by mouth daily at bedtime. metoprolol succinate ER (TOPROL XL) 100 mg Take 1 tablet by mouth two times a day. NOTE TAKE 1 tab in the am and 1/2 tab in the pm. 100 mg AM and 50 mg PM amLODIPine (NORVASC) 2.5 mg tablet TAKE 1 TABLET BY MOUTH ONCE DAILY aspirin, enteric coated (ASPIRIN, ENTERIC COATED) 81 mg EC tablet Take 81 mg by mouth once daily. MULTIVITAMIN ORAL Take by mouth. nitroglycerin sublingual (NITROQUICK) 0.3 mg SL tablet Dissolve 1 tablet under the tongue every 5 minutes as needed for chest pain. No current facility-administered medications for this visit. ALLERGIES: ALLERGIES No Known Allergies FAMILY AND SOCIAL HISTORY: Lifestyle Tobacco use in the last year: No Alcohol Use: Never REVIEW OF SYSTEMS: CONSTITUTIONAL: No Changes. RESPIRATORY: Negative for cough, hemoptysis, wheezing, COPD, dyspnea or shortness of breath, has cold and runny nose CARDIOVASCULAR: See HPI Otherwise not reviewed PHYSICAL EXAMINATION: Vital Signs and General Appearance BP 119/59 (BP Site: Right Arm, BP Position: Sitting, BP Cuff Size: Large Adult) Pulse (!) 57 Ht 175.3 cm (5' 9 ) Wt 94.5 kg (208 lb 6.4 oz) BMI 30.78 kg/m? Average Blood Pressure: 119/59 BMI 30.78 kg/(m2) Well developed, well nourished, alert, active 58 year old male in no apparent distress. Eyes: Normal, PERRLA Skin: Xanthomas - none Neck: Normal, supple with full range of motion Lungs: Clear to auscultation and percussion Lower Extremities: Normal exam of the extremities Neurological:Oriented to person, place and time and No focal motor or sensory deficits Pulses: Carotid: Left: 2+, Right: 2+, Bruit: No Heart Sounds: S1: Normal S2: Normal S3: Absent S4: Absent Murmurs: Systolic Murmur Present: No Diastolic Murmur Present: No CLINICAL TESTING RESULTS: I have personally reviewed the following: Most recent ECG Tracing: (PVC), (performed on 08/11), which I independently visualized. Most Recent TTE: (normal),(performed on January 2023) CONCLUSIONS: - Exam indication: Pre op CABG 3 vessel - The left ventricle is normal in size. Left ventricular systolic function is normal. EF = 55 ? 5% (visual est.) - The right ventricle is normal in size. Right ventricular systolic function is normal. - The patient has not had a prior CC echocardiographic exam for comparison. Other recent cardiac testing: Coronary angio 01/08/2023: Abnormal coronary angiogram with triple vessel CAD. 90% stenosis in the mid RCA and 70% stenosis in the distal RCA. 70% stenosis of the mid LAD and 60% stenosis of the ostial 1st diagonal. 90% stenosis of the mid to distal LCX and 50 stenosis of the OM1 and OM2 branches. Right (more content not included)... [facility] 08-11-[facility] History of Present illness Narrative Images from the original note were not included. [facility] Department of Cardiovascular Medicine SECTION OF PREVENTIVE CARDIOLOGY Silvano Menendez 08/11/2023 CHIEF COMPLAINT: Patient presents with: CARD New Patient Consult Phase 3 Session: CAD, HTN, Angina HISTORY OF PRESENT CARDIOVASCULAR ILLNESS: Silvano Menendez is a 58 year old male with a PMH significant for: - HTN - HLD - CAD sp CABG in January 2023 X 5: RUTH to LAD, RSVG to PDA, RSVG to Diagonal, LRA to OM1, Free HCICO to OM2 - DVT in 2004, sp IVC filter in 2010 - Former smoker - Premature in the family Presents for evaluation of hyperlipidemia. The patient follows with Dr Antonio ever since he had CABG in January 2023. 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 He was therefore referred for possible enrollment in Lp(a) trials. Upon cardiovascular review of systems the patient denies chest pain, SOB, palpitations, syncope, light-headedness, PND , orthopnea, intermittent claudication. ROS only positive for occasional tingling in his right hand, and occasional stiffness in his shoulders when walking. After his CABG, the patient underwent cardiac rehab successfully and is walking 3 to 5 times a week to stay active. CARDIAC RISK FACTORS: N/A Exercise: Three to five times per week Family History of CAD: Positive (male<55, female<65) Walks or biking for an hour - Father (unknown age) - Uncle of heart attack at 59 - Paternal grandmother had heart attack in the 70s - Maternal grandmother had CABG in hr mid 60s Avg. Sleep Hours Per Night?: 7-8 STATIN INTOLERANCE: Adverse Effect History of Statin Intolerance:: No Current Statin Freq: Every Day USE OF PCSK9 INHIBITORS: CARDIOVASCULAR DISEASE HISTORY: Atherosclerosis by ALT Imaging: Yes 01/21/23 CABG: Yes 01/22/23 Atherosclerosis by ALT Imaging: Yes Valve Disease: None Arrythmias: None HEART FAILURE/CARDIOMYOPATHY: None RELATED DISEASE HISTORY: CURRENT MEDS: Current Outpatient Medications Medication Sig atorvastatin (LIPITOR) 80 mg tablet Take 1 tablet by mouth daily at bedtime. metoprolol succinate ER (TOPROL XL) 100 mg Take 1 tablet by mouth two times a day. NOTE TAKE 1 tab in the am and 1/2 tab in the pm. 100 mg AM and 50 mg PM amLODIPine (NORVASC) 2.5 mg tablet TAKE 1 TABLET BY MOUTH ONCE DAILY aspirin, enteric coated (ASPIRIN, ENTERIC COATED) 81 mg EC tablet Take 81 mg by mouth once daily. MULTIVITAMIN ORAL Take by mouth. nitroglycerin sublingual (NITROQUICK) 0.3 mg SL tablet Dissolve 1 tablet under the tongue every 5 minutes as needed for chest pain. No current facility-administered medications for this visit. ALLERGIES: ALLERGIES No Known Allergies FAMILY AND SOCIAL HISTORY: Lifestyle Tobacco use in the last year: No Alcohol Use: Never REVIEW OF SYSTEMS: CONSTITUTIONAL: No Changes. RESPIRATORY: Negative for cough, hemoptysis, wheezing, COPD, dyspnea or shortness of breath, has cold and runny nose CARDIOVASCULAR: See HPI Otherwise not reviewed PHYSICAL EXAMINATION: Vital Signs and General Appearance BP 119/59 (BP Site: Right Arm, BP Position: Sitting, BP Cuff Size: Large Adult) Pulse (!) 57 Ht 175.3 cm (5' 9 ) Wt 94.5 kg (208 lb 6.4 oz)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 age. Alert and oriented and in no visible distress. HEENT: Face symmetric. Gaze Conjugate. Neck: supple, without thyromegaly. No carotid bruits, 2+ upstrokes bilaterally. No nodes felt in neck. Thyroid no nodules. Lungs: clear without rales, rhonchi or wheezing throughout. Cardiovascular: regular rate and rhythm, no murmurs, no extra heart sounds heard. JVP 6 cm H2O, neg HJR. non Carotid bruits bilaterally, +2 radial pulses bilaterally, +2 DP pulses bilaterally. Warm and well perfused. Extremeties: + no Peripheral edema bilaterally . No Clubbing or cyanosis of extremeties. Abdomen: benign without organomegaly. Normal bowel sounds. Non palpable abdominal aorta. Neuro: Memory and judgement intact. Essentially normal neuropyschiatric exam. Well healed sternal incision, right radial incisions Pertinent labs reviewed: 02/04/2023 CMP normal barring mildly elevated glucose. CBC WBC 11, hgb 11, plts 525 01/21/2023 LDL 83, lipoprotein a 106. CARDIOVASCULAR MEDICINE TESTING: Electrocardiogram 12/19/2022: NSR HR 69 bpm, Normal Qtc. Coronary angio : Abnormal coronary angiogram with triple vessel CAD. 90% stenosis in the mid RCA and 70% stenosis in the distal RCA. 70% stenosis of the mid LAD and 60% stenosis of the ostial 1st diagonal. 90% stenosis of the mid to distal LCX and 50 stenosis of the OM1 and OM2 branches. Right dominant system. OSH NUC STRESS EXERCISE 12/16/22 Narrative Perfusion Comments: Left ventricular perfusion is abnormal. Based on the perfusion study data, risk of cardiovascular events is intermediate risk. The study is consistent with ischemia. There is a left ventricular function defect that is moderate in size with moderate reduction in uptake present in the mid to basal inferior location(s) that is reversible. The defect appears to be ischemia. Stress Function Comments: Left ventricular function post-stress is normal. Stress ejection fraction is 72 %. The stress end diastolic cavity size is normal. Stress ECG Findings: There is [address] depression in the inferior leads (II, III, aVF, V6 and V5). ST deviation began at 3 minute(s) ST segment returned to baseline after 5-9 minutes of recovery. Overall, the patient's functional capacity was average. The stress ECG was positive. The calculated Grissom Treadmill Score of -0.02 represents an intermediate risk only with regards to the exercise findings. There is a left ventricular function defect that is moderate in size with moderate reduction in uptake present in the mid to basal inferior location(s) that is reversible. The defect appears to be ischemia. OSH ECHO 12/05/22 Narrative Left Ventricle: Systolic function is normal with an ejection fraction of 60-65%. Normal diastolic function is present. Lateral E' is 11.30 cm/s. Medial E' is 9.46 cm/s. I have personally reviewed the Electrocardiogram, Laboratory Testing, Echocardiogram, and Stress Test: Nuclear (Non-PET). IMPRESSION and PLAN Mr. Menendez is a 57 year old male with a PMH of untreated HTN, untreated hyperlipidemia, former tobacco use (quit over 30 years ago), DVTs in 2004, IVC filter, family history of premature , seen in 11/2022 for chest pain found to have severe MVD s/p CABG (01/22/2023) here for follow up. He is accompanied by his . Overall, Silvano Menendez is stable and currently asymptomatic. He is recovering well post CABG. There is no evidence of active ischemia, decompensated heart failure, or malignant arrhythmias and he appears euvolemic on exam. Plan for medication optimization, risk factor modification. Continue aspirin, BB and high intensity statin. On amlodipine for radial graft. Check lipids now. May need to add Zetia to achieve goal of LDL < 70, < 55 preferred. Lipoprotein a is elevated. Referral to prevention cards for consideration of lipo a trial enrollment. Fortunately, he quit smoking. I recommend he adhere to adhere to the mediterranean diet. Continue cardiac rehab. I have provided anticipatory guidance on when to seek ER care. Follow up with me in 6 months with echo. Follow up with PCP and specialists as planned. The patient and his were in agreement with the plan. As always, I appreciate the opportunity to participate in the care of your patients, and look forward to collaborating with you further. Please don't hesitate to contact me if any questions or problems arise. With best wishes and warmest personal regards, Naot Antonio MD March 12, 2023, 5:21 PM documented in this encounter [facility] 02-26-2023 Miscellaneous Notes Faxed signed form over with confirmation. Niecy Pearson RN Images from the original note were not included. February 24, 2023 Patient Contact Number: [phone] Patient last seen within the last year: Yes Date of last office visit: 12/19/2022 Reason For Call: Patient called stated [facility] is refusing to fill Rx. Additional information is needed. Was able to locate fax. Form needs to be completed prior to [facility] filling rx. Form saved in OPD folder. Physician: Nato Antonio MD Patient was informed that non-urgent calls may be returned within the next three business days. Yes Charu Castro Director Of Product Development February 24, 2023 9:47 AM documented in this encounter [facility] 02-24-2023 History of Present illness Narrative QOL Call Tracking Documentation Follow-Up Type: Phone Call Call Attempt: 1st Attempt Call Status: Patient will complete in MyChart documented in this encounter [facility] 02-24-2023 Miscellaneous Notes February 24, 2023 Patient Contact Number: [phone] Patient last seen within the last year: Yes Date of last office visit: 12/19/22 Reason For Call: Patient is asking if he could have his STD papers extended the on 03/04/23 Physician: Nato Antonio MD Patient was informed that non-urgent calls may be returned within the next three business days. Yes Christy Scott documented in this encounter [facility] 02-20-2023 Miscellaneous Notes February 20, 2023 Patient Contact Number: [phone] Patient last seen within the last year: Yes Date of last office visit: 12/19/2022 Reason For Call: Patient was prescribed metoprolol, amlodipine and lipitor during hospital admission. Patient would like to know if Dr. Antonio can have the refill request changed to [facility]. Explained Dr. Antonio was not the prescribing physician, and he said he put a message to the prescribing physician but wanted to ask Dr. Antonio as well, since she is his mail sorting supervisor. Physician: Nato Antonio MD Patient was informed that non-urgent calls may be returned within the next three business days. Yes Charu Castro Director Of Product Development February 20, 2023 8:48 AM documented in this encounter [facility] 02-11-2023 History of Present illness Narrative Incidental Lung Nodule Enrollment Outreach attempt: 1st Attempt Outreach status: Complete Enrolled in Lung Nodule program: No Declined reason: Finding reviewed deemed low risk. No further work up recommended at this time. Letter/brochure notifying patient sent to patient s home mailing address. Lung Nodule Program Location: [place] documented in this encounter [facility] 02-04-2023 Instructions Renee Myers APRN.CNP - 02/04/2023 11:29 AM EDT Follow up with PCP next week with repeat cbc and cmp Follow up with mail sorting supervisor in 4-6 weeks. documented in this encounter [facility] 02-04-2023 History of Present illness Narrative Images from the original note were not included. [facility] [place] Vanessa Gill Department of Cardiovascular Medicine DEPARTMENT OF CARDIAC SURGERY OUTPATIENT VISIT DATE February 04, 2023 OUTPATIENT VISIT TYPE POSTOPERATIVE Silvano Menendez is a 57 year old male who presents who is here for post operative follow up HPI: S/P on 01/22/2023 [facility] Surgeon: Ari Pedro MD SURGERY: CABG X 5: RUTH to LAD, RSVG to PDA, RSVG to Diagonal, LRA to OM1, Free CHICO to OM2 Discharged on 01/28/2023 PAST MEDICAL HISTORY Diagnosis Date DVT of popliteal vein (HCC) post knee scope PAST SURGICAL HISTORY Procedure Laterality Date PAST SURGICAL HISTORY OF 2010 knee scope REPAIR EPIGASTRIC HERNIA,REDUC 04/2022 ALLERGIES No Known Allergies Current Outpatient Medications Medication Sig atorvastatin (LIPITOR) 80 mg tablet Take 1 tablet by mouth daily at bedtime. amLODIPine (NORVASC) 2.5 mg tablet Take 1 tablet by mouth once daily. acetaminophen (TYLENOL) 325 mg tablet Take 2 tablets by mouth every 4 hours as needed for pain. lidocaine (SALONPAS) 4 % patch Apply 3 Patches as directed once daily for 5 days. APPLY TO: around incisional site, left wrist site and SVG sites. Remove patch after [address] (PROTONIX) 20 mg tablet Take 1 tablet by mouth DAILY (6 AM). polyvinyl alcohol (LIQUIFILM TEARS) 1.4 % ophthalmic solution Use 2 Drops in both eyes as needed (dry eyes). senna-docusate (SENNA-S) 8.6-50 mg per tablet Take 1 tablet by mouth twice daily. furosemide (LASIX) 20 mg tablet Take 1 tablet by mouth once daily for 7 days. oxyCODONE IR (ROXICODONE) 5 mg immediate release tablet Take 1 tablet by mouth every 6 hours as needed for pain for up to 7 days. potassium chloride ER (KLOR-CON M10) 10 mEq tablet Take 1 tablet by mouth once daily for 7 days. metoprolol succinate ER (TOPROL XL) 25 mg 24 hr tablet Take 4 tablets by mouth once daily AND 2 tablets daily at bedtime. aspirin, enteric coated (ASPIRIN, ENTERIC COATED) 81 mg EC tablet Take 81 mg by mouth once daily. MULTIVITAMIN ORAL Take by mouth. nitroglycerin sublingual (NITROQUICK) 0.3 mg SL tablet Dissolve 1 tablet under the tongue every 5 minutes as needed for chest pain. No current facility-administered medications for this visit. Chief Complaints: I'm doing ok considering Discharge Post Operative Course: Pain scale :Yes Chest wall and back. Straddling medication well Appetite: appetite good Activity: Walking ad matt around the house Elimination: normal, no constipation , urination is normal Sleep: difficulty staying asleep Mood: normal and good Incisions/Wounds: healing Review of Systems: HEENT: Negative for fevers since discharge and Positive for temp variation Cardiac: Denies significant problems, chest pain, Arrhythmia, and RLE Respiratory: denies cough, orthopnea, winded after walking recovers quickly Musculoskeletal: No history of joint swelling, joint pain, or loss of range of motion. Neuro: Denies neurological complaints Physical Exam: BP 122/84 Pulse 73 Temp 36.6 C (97.9 F) (Oral) Ht 175.3 cm (5' 9 ) Wt 91.4 kg (201 lb 8 oz) SpO2 100% BMI 29.76 kg/m Appearance: well groomed, white male, in no acute distress Neck: No neck vein distention Cardiac: regular S1, S2, No murmur, No rub Lungs: Clear breath sounds bilaterally with decreased air entry at the bases bilaterally Abdomen: soft, non tender, Normal bowel sounds Extremities: Edema: RLE 1+ Sternum: stable, no click Sternotomy site: healing, clean, dry and intact Wound: NA SV Maurice sites: Location: Right LE, posterior, mid, distal, and ankle, healing, and clean, dry and intact Radial Artery Maurice site: Location: Left arm Procedures: Sutures removed from chest tube sites without difficulty. IMPRESSION & PLAN: 1.S/P on 01/22/2023 [facility] Surgeon: Ari Pedro MD SURGERY: CABG X 5: RUTH to LAD, RSVG to PDA, RSVG to Diagonal, LRA to OM1, Free CHICO to OM2 Discharged on 01/28/2023 2. CAD - continue asa, bb and statin - Norvasc for radial graft harvest (6-12mo then at discretion of managing Trim Carpenter whether to remain on ) EC02/04/2023 Diagnosis: NORMAL SINUS RHYTHM NONSPECIFIC ST AND T WAVE ABNORMALITY ABNORMAL ECG 3. Atelectasis/FVO - left pneumo resolved, improving - weight: down 13lbs since discharge - no further diuretic once complete - encouraged to continue deep breathing exercises and walking CXR: 02/05/2023 RESULT: Lines, tubes, and devices: None. Lungs and pleura: Increase of partial atelectasis at the bases. Superimposed infiltrate/infection cannot be entirely excluded. Decrease in size of trace right and small left pleural effusions. No pneumothorax. Cardiomediastinal silhouette: Unchanged. Bones and soft tissues: Median sternotomy. Generous osteopenia. 4. ABLA - post op (no transfusion) - currently improving 11.4/36.1 LABS: Component Latest Ref Rng & Units 01/28/2023 02/04/2023 Alkaline Phosphatase 38 - 113 U/L 54 91 AST 14 - 40 U/L 39 20 ALT 10 - 54 U/L 31 33 Glucose 74 - 99 mg/dL 106 (H) 104 (H) BUN 9 - 24 mg/dL 21 21 Creatinine 0.73 - 1.22 mg/dL 0.96 1.08 Sodium 136 - 144 mmol/L 140 137 Potassium 3.7 - 5.1 mmol/L 3.5 (L) 4.7 Component Latest Ref Rng & Units 01/28/2023 02/04/2023 WBC 3.70 - 11.00 k/uL 11.24 (H) 11.77 (H) RBC 4.20 - 6.00 m/uL 2.94 (L) 3.84 (L) Hemoglobin 13.0 - 17.0 g/dL 8.9 (L) 11.4 (L) Hematocrit 39.0 - 51.0 % 26.3 (L) 36.1 (L) Platelet Count 150 - 400 k/uL 188 525 (H) Summary: See above. Follow up with PCP next week with repeat cbc and cmp Follow up with mail sorting supervisor in 4-6 weeks. Call [facility] with any issues, concerns or worsening surgical symptoms. Post op care and discharge orders reviewed with the patient- all questions were answered. Surgical sites healing without complication Discussed new medications, dosage, route of administration and side effects Reviewed walking program at home Reviewed diet guidelines for recovery from surgery Return to the clinic prn with signs or symptoms of infection, fevers, SOB, or pleural effusion SBE prophylaxis reviewed Discussed wound care Renee Myers APRN.STACK YIELD ENGINEER documented in this encounter [facility] 02-04-2023 History of Present illness Narrative Radiology Service Progress Note PATIENT NAME: Silvano Menendez DATE OF SERVICE: February 04, 2023 TIME: 9:41 AM PATIENT IDENTITY VERIFICATION COMPLETED USING TWO (2) IDENTIFIERS: Name and Date of confirmed by patient verbally. FALL SCREENING: Has the patient had 2 falls in the last year or 1 fall with injury or currently using an Ambulatory Assistive Device (Walker, Cane, Wheelchair, Crutches, etc.)? No PATIENT GENDER DATA: Male PATIENT RELEVANT IMPLANT DATA REVIEWED: Not Applicable RADIOLOGY DEPARTMENT: General X-ray: Exam(s) Completed: Chest X-Ray PERIPHERAL IV DATA: Not applicable SIGNED BY: RT Sampson(R) February 04, 2023 9:41 AM documented in this encounter [facility] 02-03-2023 Miscellaneous Notes We are calling to check on how you are doing since our last phone call. Are you having any medical concerns we can help you with today? Pt reported he is feeling a little better today and does not have any concerns today. Pt stated he has an appointment tomorrow morning with cardiology. Pt asked if he had to fast for appt. PD RN reviewed discharge instructions and instructions stated pt does not have to fast. PD RN shared information with pt. Pt stated he went on a walk this afternoon and tolerated well. Stated his left arm and right leg are still painful, but not worsened since discharge. Stated his left arm feels like it is falling asleep at times, but also not worsened since discharge. Pt confirmed he has 24-hour resource nurse phone number for any questions or concerns. PD nurse confirmed/verified patient's and full name. All clear. Closing statement given. Ross Moses RN documented in this encounter [facility] 02-02-2023 Miscellaneous Notes [facility] Contact Center Inbound Phone Encounter DATE of SERVICE: 02/02/2023 TIME of SERVICE: 7:24 AM Status: FYI Service/Provider: Cardiac Surgery Ari Pedro M.D. Reason for call: Medication Issue/Question and Pain Contact information: [phone] Resolution: Reinforced education Comments: Son and pt calling [facility] line. Pt experiencing pain in Left arm incisional area. Denies redness or heat. States yesterday evening it was extremely painful but patient took pain medication and it went away. Notes that same pain/discomfort at leg incision as well. Educated on elevate, reduce use and cold/warm compress to site. If pain continues or worsens to be seen in ER for prompt attention. Pt has [facility]PD appt 02/04/23. Encouraged to call with any additional questions. Ann Velasquez RN Date of Resolution: 02/02/2023 Time of Resolution 7:24 AM documented in this encounter [facility] 01-31-2023 Miscellaneous Notes [facility] Contact Center Follow Up Phone Encounter Date: January 31, 2023 Time: 8:44 AM Service Provider: Cardiac Surgery Ari Pedro M.D. Reason for call: Spoke with who reports that this morning they took his BP and it was 99/63 and HR was 77. Advised to take medication as prescribed. Follow up with STACK YIELD ENGINEER on 02/04. Quyen Clifford APRN.STACK YIELD ENGINEER documented in this encounter [facility] 01-29-2023 Miscellaneous Notes [facility] Contact Center Inbound Phone Encounter DATE of SERVICE: 01/29/2023 TIME of SERVICE: 8:56 AM Status: FYI Service/Provider: Cardiac Surgery Ari Pedro M.D. Reason for call: Medication Issue/Question Contact information: [phone] Resolution: Reinforced education Comments: Spouse calling [facility] line. Questions on Metoprolol. Reviewed medications dosage BID. Reinforced education on Suleiman Hose, Elevate legs, daily Wt, IS/ambulation/exercises, HH Med Diet and avoid Na=/2LFR. Encouraged to call with any further questions. Pt has [facility]PD appt on 02/04/23. Ann Velasquez RN Date of Resolution: 01/29/2023 Time of Resolution 8:56 AM documented in this encounter [facility] 01-22-2023 History of Past i llness Narrative Problem Noted Date Diagnosed Date Resolved Date Hypotension, unspecified 01/22/202310/2022 Overview: Stress hyperglycemia 01/22/2023 023 Overview: Postoperative hypovolemia 01/22/2023 Overview: Coagulopathy 01/22/2023 01/24/2023 documented as of this encounter (statuses as of 01/29/2023) [facility] History of Past illness Narrative* Problem Noted Date Diagnosed Date Resolved Date Hypotension, unspecified 01/22/202310/2022 Overview: Stress hyperglycemia 01/22/2023 023 Overview: Postoperative hypovolemia 01/22/2023 Overview: Coagulopathy 01/22/2023 01/24/2023 documented as of this encounter (statuses as of 01/31/2023) [facility] History of Past illness Narrative* Problem Noted Date Diagnosed Date Resolved Date Hypotension, unspecified 01/22/202310/2022 Overview: Stress hyperglycemia 01/22/2023 023 Overview: Postoperative hypovolemia 01/22/2023 Overview: Coagulopathy 01/22/2023 01/24/2023 documented as of this encounter (statuses as of 02/02/2023) [facility] History of Past illness Narrative* Problem Noted Date Diagnosed Date Resolved Date Hypotension, unspecified 01/22/202310/2022 Overview: Stress hyperglycemia 01/22/2023 023 Overview: Postoperative hypovolemia 01/22/2023 Overview: Coagulopathy 01/22/2023 01/24/2023 documented as of this encounter (statuses as of 02/04/2023) [facility] History of Past illness Narrative* Problem Noted Date Diagnosed Date Resolved Date Hypotension, unspecified 01/22/202310/2022 Overview: Stress hyperglycemia 01/22/2023 023 Overview: Postoperative hypovolemia 01/22/2023 Overview: Coagulopathy 01/22/2023 01/24/2023 documented as of this encounter (statuses as of 02/05/2023) [facility] History of Past illness Narrative* Problem Noted Date Diagnosed Date Resolved Date Hypotension, unspecified 01/22/202310/2022 Overview: Stress hyperglycemia 01/22/2023 023 Overview: Postoperative hypovolemia 01/22/2023 Overview: Coagulopathy 01/22/2023 01/24/2023 documented as of this encounter (statuses as of 02/06/2023) [facility] History of Past illness Narrative* Problem Noted Date Diagnosed Date Resolved Date Hypotension, unspecified 01/22/202310/2022 Overview: Stress hyperglycemia 01/22/2023 023 Overview: Postoperative hypovolemia 01/22/2023 Overview: Coagulopathy 01/22/2023 01/24/2023 documented as of this encounter (statuses as of 02/11/2023) [facility] History of Past illness Narrative* Problem Noted Date Diagnosed Date Resolved Date Hypotension, unspecified 01/22/202310/2022 Overview: Stress hyperglycemia 01/22/2023 023 Overview: Postoperative hypovolemia 01/22/2023 Overview: Coagulopathy 01/22/2023 01/24/2023 documented as of this encounter (statuses as of 02/21/2023) [facility] History of Past illness Narrative* Problem Noted Date Diagnosed Date Resolved Date Hypotension, unspecified 01/22/202310/2022 Overview: Stress hyperglycemia 01/22/2023 023 Overview: Postoperative hypovolemia 01/22/2023 Overview: Coagulopathy 01/22/2023 01/24/2023 documented as of this encounter (statuses as of 02/24/2023) [facility] History of Past illness Narrative* Problem Noted Date Diagnosed Date Resolved Date Hypotension, unspecified 01/22/202310/2022 Overview: Stress hyperglycemia 01/22/2023 023 Overview: Postoperative hypovolemia 01/22/2023 Overview: Coagulopathy 01/22/2023 01/24/2023 documented as of this encounter (statuses as of 02/24/2023) [facility] History of Past illness Narrative* Problem Noted Date Diagnosed Date Resolved Date Hypotension, unspecified 01/22/202310/2022 Overview: Stress hyperglycemia 01/22/2023 023 Overview: Postoperative hypovolemia 01/22/2023 Overview: Coagulopathy 01/22/2023 01/24/2023 documented as of this encounter (statuses as of 02/26/2023) [facility] History of Past illness Narrative* Problem Noted Date Diagnosed Date Resolved Date Hypotension, unspecified 01/22/202310/2022 Overview: Stress hyperglycemia 01/22/2023 023 Overview: Postoperative hypovolemia 01/22/2023 Overview: Coagulopathy 01/22/2023 01/24/2023 documented as of this encounter (statuses as of 03/13/2023) [facility] History of Past illness Narrative* Problem Noted Date Diagnosed Date Resolved Date Hypotension, unspecified 01/22/202310/2022 Overview: Stress hyperglycemia 01/22/2023 023 Overview: Postoperative hypovolemia 01/22/2023 Overview: Coagulopathy 01/22/2023 01/24/2023 documented as of this encounter (statuses as of 03/17/2023) [facility] History of Past illness Narrative* Problem Noted Date Diagnosed Date Resolved Date Hypotension, unspecified 01/22/202310/2022 Overview: Stress hyperglycemia 01/22/2023 023 Overview: Postoperative hypovolemia 01/22/2023 Overview: Coagulopathy 01/22/2023 01/24/2023 documented as of this encounter (statuses as of 04/03/2023) [facility] History of Past illness Narrative* Problem Noted Date Diagnosed Date Resolved Date Hypotension, unspecified 01/22/202310/2022 Overview: Stress hyperglycemia 01/22/2023 023 Overview: Postoperative hypovolemia 01/22/2023 Overview: Coagulopathy 01/22/2023 01/24/2023 documented as of this encounter (statuses as of 04/26/2023) [facility] History of Past illness Narrative* Problem Noted Date Diagnosed Date Resolved Date Hypotension, unspecified 01/22/202310/2022 Overview: Stress hyperglycemia 01/22/2023 023 Overview: Postoperative hypovolemia 01/22/2023 Overview: Coagulopathy 01/22/2023 01/24/2023 documented as of this encounter (statuses as of 04/29/2023) [facility] History of Past illness Narrative* Problem Noted Date Diagnosed Date Resolved Date Hypotension, unspecified 01/22/202310/2022 Overview: Stress hyperglycemia 01/22/2023 023 Overview: Postoperative hypovolemia 01/22/2023 Overview: Coagulopathy 01/22/2023 01/24/2023 documented as of this encounter (statuses as of 05/26/2023) [address]03-2023 History of Past illness Narrative* Problem Noted Date Diagnosed Date Resolved Date Hypotension, unspecified 01/22/202310/2022 Overview: Stress hyperglycemia 01/22/2023 023 Overview: Postoperative hypovolemia 01/22/2023 Overview: Coagulopathy 01/22/2023 01/24/2023 documented as of this encounter (statuses as of 05/28/2023) [facility] History of Past illness Narrative* Problem Noted Date Diagnosed Date Resolved Date Hypotension, unspecified 01/22/202310/2022 Overview: Stress hyperglycemia 01/22/2023 023 Overview: Postoperative hypovolemia 01/22/2023 Overview: Coagulopathy 01/22/2023 01/24/2023 documented as of this encounter (statuses as of 07/29/2023) [facility] History of Past illness Narrative* Problem Noted Date Diagnosed Date Resolved Date Hypotension, unspecified 01/22/202310/2022 Overview: Stress hyperglycemia 01/22/2023 023 Overview: Postoperative hypovolemia 01/22/2023 Overview: Coagulopathy 01/22/2023 01/24/2023 documented as of this encounter (statuses as of 08/13/2023) [facility]08-03[facility] History of Past illness Narrative* Problem Noted Date Diagnosed Date Resolved Date Hypotension, unspecified 01/22/202310/2022 Overview: Stress hyperglycemia 01/22/2023 023 Overview: Postoperative hypovolemia 01/22/2023 Overview: Coagulopathy 01/22/2023 01/24/2023 documented as of this encounter (statuses as of 10/11/2023) [facility]08-02-2023 History of Present illness Narrative* Vensu Persaud RN - 01/21/2023 5:03 PM EDT AMBULATORY PATIENT EDUCATION READINESS TO LEARN Cognitive Ability: Alert and oriented Motivation To Learn: Interested Family Support: High - Very involved in pt care Instruction Provided To: Patient & Family Patient Learns Best By: Multiple Methods Factors Affecting Learning: None Physical Limitations Affecting Learning: None LEARNING RESPONSE Diagnosis: CAD Education Topic: Pre-Op Open Heart Surgery Instructions Teaching Points: Logistics / Protocols /Complication Prevention How prepared do you feel you are for this visit: 6 Instruction/Supplemental Materials: Cardiac Surgery Information Binder Individual Instruction Patient/Family Response: Well prepared Follow up plan: Patient/Family to call [facility] with any further questions Referral (Recommendation): None Teach completed, topic: Patient provided with Cardiac Surgery binder and reviewed. Patient educatedon pre-operative instructions and advised to call [facility] with any further questions documented in this encounterL[facility] History of Present illness Narrative* Jackeline Smith APRN.CNP - 01/21/2023 2:16 PM EDT Please see [facility] note for H&P. Jackeline Smith APRN.CNP January 21, 2023 documented in this encounterLake[facility] History and physical note * Ari Pedro MD - 01/21/2023 1:00 PM EDT Images from the original note were not included. [facility] [place] DEPARTMENT OF CARDIAC SURGERY OUTPATIENT VISIT DATE January 21, 2023 OUTPATIENT VISIT PCP: Beatriz Edgar MD ([facility]) [address] [place] [address] Referring Physician: Nato Antonio MD [facility] Patient Type: New Visit to Determine Surgery: Yes HPI: Mr. Silvano Menendez is a pleasant 57 year old male seen regarding candidacy for CABG at the request of Dr. Antonio. Exertional indigestion and +FH for CVD prompted a stress test (+) and subsequent LHC revealing 3-v cad. Referred for CABG. 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 I have personally reviewed and analyzed all records that pertain to the patient's prior course in addition to the following studies: Last CT Result Conclusion CT CHEST CARDIAC WO IVCON Exam End: 01/21/2023 7:41 AM (Final result) Impression: IMPRESSION: 1. The thoracic aorta is normal in course and caliber. Mild focal calcification at the sinotubular junction; the remainder portions of the thoracic aorta are free from calcific wall changes. 2. Diffuse coronary artery calcifications. 3. Small pulmonary nodules as described. Incidental Finding: Follow-up Acuity: Incidental Finding: Solid: <6 mm (solitary or multiple) Routing Code: N/A Recommendation: No imaging follow-up is recommended Time Frame: N/A Comments: If there are risk factors for lung malignancy, a follow-up chest CT exam could be obtained in 12 months Lobbyist: [employer] Transcribe Date/Time: Jan 21 2023 8:25A Dictated by : HARJIT THOMAS MD This examination was interpreted and the report reviewed and electronically signed by: HARJIT THOMAS MD on Jan 21 2023 8:45AM EST Last ECHO Result Conclusion ECHO Collected: 01/21/2023 8:06 AM (Final result) Impression: CONCLUSIONS: - Exam indication: Pre op CABG 3 vessel - The left ventricle is normal in size. Left ventricular systolic function is normal. EF = 55 5% (visual est.) - The right ventricle is normal in size. Right ventricular systolic function is normal. - The patient has not had a prior CC echocardiographic exam for comparison. * * * Final * * * PE - strong. BMI 31.75. Impression: Symptomatic MV CAD with sig LAD disease. CABG indicated. I discussed the indications for surgery as well as the risks, benefits, alternatives and the conduit options with him and answered all questions. He desires to proceed. Plan: CABG with BITAs. Evaluate PIs for radials. The risks, benefits and anticipated outcomes of the procedure, the risks and benefits of the alternatives to the procedure, and the roles and tasks of the personnel to be involved, were discussed with the patient, and the patient consents to the procedure and agrees to proceed. We discussed the possibility that there could be two patients undergoing surgery in two separate rooms (concurrent surgery) and that I would be present for the critical components of all operations. We also discussed that in an emergency situation, a qualified backup surgeon is available and in the rare event of such aserious situation, that colleague might take over the operation. These findings will be communicated back to the requesting physician via electronic medical record. Ari Pedro MD documented in this encounterL[facility] History and physical note * Venus Persaud RN - 01/21/2023 12:36 PM EDT CHART COPY-DO NOT DISCARD CARDIOVASCULAR SURGERY PRE-OPERATIVE ASSESSMENT NAME: Silvano Menendez Alert Notes: DATE: 01/21/2023 SEX: male : 1965 AGE: [age] year old Estimated body mass index is 31.45 kg/m as calculated from the following: Height as of this encounter: 175.3 cm (5' 9 ). Weight as of this encounter: 96.6 kg (213 lb). STS Score Surgeon: Ari Pedro MD Intended procedure: CABG Patient scheduled for surgery on: 01/22/2023 [facility] MD: Nato Antonio MD CHIEF COMPLAINT: Pre-Op Open Heart Surgery MEDICATIONS: Current Outpatient Medications Medication Sig nitroglycerin sublingual (NITROQUICK) 0.3 mg SL tablet Dissolve 1 tablet under the tongue every 5 minutes as needed for chest pain. mupirocin (BACTROBAN) 2 % ointment Apply a small amount in each nostril using a cotton swab twice the day before surgery and once the morning of surgery. metoprolol succinate ER (TOPROL XL) 25 mg 24 hr tablet Take 1 tablet by mouth once daily. atorvastatin (LIPITOR) 80 mg tablet Take 1 tablet by mouth daily at bedtime. aspirin, enteric coated (ASPIRIN, ENTERIC COATED) 81 mg EC tablet Take 81 mg by mouth once daily. MULTIVITAMIN ORAL Take by mouth. No current facility-administered medications for this visit. ALLERGIES: ALLERGIES No Known Allergies LATEX ALLERGY: No FOOD SENSITIVITIES: No ANTICOAGULANTS: ASA 81mg to remain STEROIDS: No HISTORIES: FAMILY HISTORY Problem Relation Age of Onset Hyperlipidemia Mother Heart disease Father Hyperlipidemia Father Heart Failure Father Heart disease Maternal Grandmother Heart disease Paternal Grandmother PAST MEDICAL HISTORY Diagnosis Date DVT of popliteal vein (HCC) post knee scope PAST SURGICAL HISTORY Procedure Laterality Date PAST SURGICAL HISTORY OF 2010 knee scope REPAIR EPIGASTRIC HERNIA,REDUC 04/2022 Social History Tobacco Use Smoking status: Former Types: Cigarettes Quit date: 1987 Years since quittin.6 Smokeless tobacco: Never Vaping Use Vaping Use: Never used Substance Use Topics Alcohol use: Never Drug use: Never REVIEW OF SYSTEMS: GEN: Fatigue over the course of the last 6 months and gradually getting worse - Can complete all ADLs independently and still works, but has started needing more sleep over night and falls asleep when relaxing HEENT: Glasses, Hard of Hearing mild to moderate deficit, s/p tonsillectomy at 29 years of age DERM: Denies Dermatological Complaints, basal cell carcinoma on RCW s/p excision and several small on face s/p cryotherapy RECREATION TECHNICIAN: Denies Neurological Complaints RESP: Dyspnea with moderate to heavy exertion CARD: HTN , CAD GI: Hiatal Hernia s/p repair : Denies complaints ENDO: Denies Endocrine Complaints HEME: Denies Hematological complaints MUSC/SKEL: torn right meniscus s/p repair c/b DVT 2010 s/p IVC filter PVD: Denies PVD Varicose Veins: Yes, mild BLLE on inner thighs BRUITS (Carotid): No PULSES: Pedal Left 2 Right 2 NYHA CLASSIFICATION: Class 1 FAMILY HISTORY OF CAD: Yes maternal and paternal Physical exam completed by Jackeline Smith APRN.STACK YIELD ENGINEER General: Stable appearing male in NAD noted AAOX 3 Skin:Skin intact Head/Eyes: Sclera clear, intact conjunctiva. EOMI. Mouth/Pharynx: Teeth: Stable dentition. No lesions. Neck: No JVD. Supple. Lungs: BBS essentially diminished throughout Heart: S1, S2. noted. Peripheral Vascular/Arteries: Carotid pulse noted +DP/+Radial pulses noted Abdomen: Soft abdomen, nontender, nondistended without mass. No hepatosplenomegaly. Normal bowel sounds. Musculoskeletal: No kyphoscoliosis. + joint deformities. Extremities: No clubbing or cyanosis. No LE edema. Varcosities tibias/ankles-bilat Neurologic/Psychiatric: Stable affect. No gross focal neurologic deficits. Abbreviated ROS Mr. Menendez reports he feels well just nervous about the surgery. He denies any Shortness of breath or chest pain. He denies any history of stroke, ministrokes or seizures. He denies any swallowing problems. His last bowel movement was this morning. He is willing to accept blood. He writes with his left hand. He denies any blood in his stool or urine. He denies any painful or burning with urination. Jackeline Smith, COMMUNITY ENGAGEMENT REPRESENTATIVE.STACK YIELD ENGINEER January 21, 2023 PERFUSION INDEX: Pacer Check: NA CARDIAC EVALUATION: Cardiac Cath: Date - 01/08/2023 Ultrasound: Date - 01/21/2023 PFT: Date - ECHO: Last ECHO Result Conclusion ECHO Collected: 01/21/2023 8:06 AM (Final result) Impression: CONCLUSIONS: - Exam indication: Pre op CABG 3 vessel - The left ventricle is normal in size. Left ventricular systolic function is normal. EF = 55 5% (visual est.) - The right ventricle is normal in size. Right ventricular systolic function is normal. - The patient has not had a prior CC echocardiographic exam for comparison. * * * Final * * * CT Scan: Last CT Result Conclusion CT CHEST CARDIAC WO IVCON Exam End: 01/21/2023 7:41 AM (Final result) Impression: IMPRESSION: 1. The thoracic aorta is normal in course and caliber. Mild focal calcification at the sinotubular junction; the remainder portions of the thoracic aorta are free from calcific wall changes. 2. Diffuse coronary artery calcifications. 3. Small pulmonary nodules as described. Incidental Finding: Follow-up Acuity: Incidental Finding: Solid: <6 mm (solitary or multiple) Routing Code: N/A Recommendation: No imaging follow-up is recommended Time Frame: N/A Comments: If there are risk factors for lung malignancy, a follow-up chest CT exam could be obtained in 12 months Lobbyist: [facility] Transcribe Date/Time: Jan 21 2023 8:25A Dictated by : HARJIT THOMAS MD This examination was interpreted and the report reviewed and electronically signed by: HARJIT THOMAS MD on Jan 21 2023 8:45AM EST MRI: CXR: XR CHEST 2V FRONTAL/LAT Result Date: 01/21/2023 IMPRESSION: No acute radiographic abnormality. Lobbyist: [facility] Transcribe Date/Time: Jan 21 2023 8:42A Dictated by : SAUL KUMAR MD This examination was interpreted and the report reviewed andelectronically signed by: SAUL KUMAR MD on Jan 21 2023 8:43AM EST EKG: Last EKG Result Conclusion ECG COMPLETE Collected: 12/19/2022 12:08 PM (Final result) Impression: NORMAL SINUS RHYTHM NORMAL ECG Confirmed by VALERIE LAWRENCE MD ([id number]) on 12/24/2022 7:23:46 PM Dental: Cleared ? Recent Labs 01/21/23 0706 WBC 9.21 HB 15.9 HCT 47.0 PLT 205 INR 0.9 APTT 26.1 PTSEC 9.7 Pre Op Instructions per protocol reviewed and handout given to patient . Patient Education completed and documented. Instructed to start Bactroban per protocol. Emotional support provided to patient and family. All questions and concerns adressed. Signature: Venus Persaud RN See Cardiology History and Physical dated 12/19/2022 documented in this encounterL[facility] History of Present illness Narrative* Ulises Torres MD - 01/21/2023 9:39 AM EDT Cardiothoracic Anesthesiology Preoperative Assessment Service Date: 01/21/2023 Service Time: 9:39 AM Primary Care Physician: Beatriz Edgar Subjective Patient Entered Data: Cardiothoracic Surgery Pre-Op Questionnaire 01/17/2023 01/17/2023 Previous anesthesia problems No No Family history anesthesia problems No No Blood consent Yes Yes Esophageal history Hiatal Hernia Hiatal Hernia Implanted devices No No History difficult airway No No Airway surgery No No Ongoing pain issues Yes Yes Pain medications No No Heparin intolerance No No Daily alcohol use No No Illicit drug use No No Scheduled procedure: CABG Surgeon: Ari Pedro Scheduled date: 01/22/2023 HPI: 57 year old man with a PMH of HTN, HLD, former smoker, DVT and CAD coming for preop eval for CABG. Review (Hiatal hernia repair 2021) no known heparin intolerance no non-cardiac IEDs present esophageal disorder(s) - Patient reports the following contraindications: hiatal hernia blood transfusion consented - COVID-19 Immunization Status Overdue - COVID-19 VACCINE (4 - Moderna series) Overdue since 08/13/2021 06/18/2021 Imm Admin: COVID-19 original vaccine, full dose, monovalent (MODERNA) 10/10/2020 Imm Admin: COVID-19 original vaccine, full dose, monovalent (MODERNA) 09/12/2020 Imm Admin: COVID-19 original vaccine, full dose, monovalent (MODERNA) The patient has the following: ACTIVE PROBLEM LIST Discharge Planning Issues Pre-Op Testing PAST MEDICAL HISTORY Diagnosis Date DVT of popliteal vein (HCC) post knee scope PAST SURGICAL HISTORY Procedure Laterality Date PAST SURGICAL HISTORY OF 2010 knee scope REPAIR EPIGASTRIC HERNIA,REDUC 04/2022 FAMILY HISTORY Problem Relation Age of Onset Hyperlipidemia Mother Heart disease Father Hyperlipidemia Father Heart Failure Father Heart disease Maternal Grandmother Heart disease Paternal Grandmother Social History Tobacco Use Smoking status: Former Types: Cigarettes Quit date: 1987 Years since quittin.6 Smokeless tobacco: Never Vaping Use Vaping Use: Never used Substance Use Topics Alcohol use: Never Drug use: Never Prior to Admission medications as of 01/08/23 1007 Medication Sig Last Dose Taking metoprolol succinate ER (TOPROL XL) 25 mg 24 hr tablet Take 1 tablet by mouth once daily. atorvastatin (LIPITOR) 80 mg tablet Take 1 tablet by mouth daily at bedtime. aspirin, enteric coated (ASPIRIN, ENTERIC COATED) 81 mg EC tablet Take 81 mg by mouth once daily. MULTIVITAMIN ORAL Take by mouth. nitroglycerin sublingual (NITROQUICK) 0.3 mg SL tablet Dissolve 1 tablet under the tongue every 5 minutes as needed for chest pain. No medication comments found. ALLERGIES No Known Allergies Objective Pain Assessment: Vitals: There were no vitals taken for this visit. Diagnostic tests reviewed for today's visit: Lab Value Units Date High Low HB 15.9 g/dL 01/21/2023 17.0 13.0 HCT 47.0 % 01/21/2023 51.0 39.0 WBC 9.21 k/uL 01/21/2023 11.00 3.70 PLT 205 k/uL 01/21/2023 400 150 NA No results within date range. K No results within date range. GLUC No results within date range. BUN No results within date range. CREAT No results within date range. PTSEC 9.7 sec 01/21/2023 13.0 9.7 INR 0.9 no uni* 01/21/2023 1.3 0.9 APTT 26.1 sec 01/21/2023 32.4 23.0 ALT No results within date range. AST No results within date range. TBILI No results within date range. TSH No results within date range. Lab Value Units Date High Low HCGQT No results within date range. UHCG No results within date range. HCG, BODY* No results within date range. Lab Value Units Date High Low ABORHD No results within date range. ABSCREEN No results within date range. No results found for: HBA1C Recent Results (from the past 8760 hour(s)) ECHO Collection Time: 01/21/23 8:06 AM Impression CONCLUSIONS: - Exam indication: Pre op CABG 3 vessel - The left ventricle is normal in size. Left ventricular systolic function is normal. EF = 55 5% (visual est.) - The right ventricle is normal in size. Right ventricular systolic function is normal. - The patient has not had a prior CC echocardiographic exam for comparison. * * * Final * * * XR CHEST 2V FRONTAL/LAT Collection Time: 01/21/23 7:53 AM Impression IMPRESSION: No acute radiographic abnormality. Lobbyist: [employer] Transcribe Date/Time: Jan 21 2023 8:42A Dictated by : SAUL KUMAR MD This examination was interpreted and the report reviewed and electronically signed by: SAUL KUMAR MD on Jan 21 2023 8:43AM EST CT CHEST CARDIAC WO IVCON Collection Time: 01/21/23 7:41 AM Impression IMPRESSION: 1. The thoracic aorta is normal in course and caliber. Mild focal calcification at the sinotubular junction; the remainder portions of the thoracic aorta are free from calcific wall changes. 2. Diffuse coronary artery calcifications. 3. Small pulmonary nodules as described. Incidental Finding: Follow-up Acuity: Incidental Finding: Solid: <6 mm (solitary or multiple) Routing Code: N/A Recommendation: No imaging follow-up is recommended Time Frame: N/A Comments: If there are risk factors for lung malignancy, a follow-up chest CT exam could be obtained in 12 months Lobbyist: [employer] Transcribe Date/Time: Jan 21 2023 8:25A Dictated by : HARJIT THOMAS MD This examination was interpreted and the report reviewed and electronically signed by: HARJIT THOMAS MD on Jan 21 2023 8:45AM EST ECG COMPLETE Collection Time: 12/19/22 12:08 PM Impression NORMAL SINUS RHYTHM NORMAL ECG Confirmed by VALERIE LAWRENCE MD ([id number]) on 12/24/2022 7:23:46 PM Assessment No problem-specific Assessment & Plan notes found for this encounter. ANESTHESIA FINDINGS: Intubation History: No history of difficult intubation. No abnormal airway history Significant Anesthesia Considerations: Airway History: No history of difficult airway No abnormal airway history Prepared for Surgery: optimally prepared for surgery, pending [see comment]. labs The Following Tests/Procedures Have Been Initiated: Orders Placed This Encounter mupirocin (BACTROBAN) 2 % ointment Sig: Apply a small amount in each nostril using a cotton swab twice the day before surgery and oncethe morning of surgery. Dispense: 22 g Refill: 0 Order Comments: Supply patient with Q-tips and instruction sheet ASA Class: 4 Planned Anesthetic: general I - PHYSICAL EVALUATION AIRWAY Patient intubated: No. Tracheostomy tube not present Mallampati: IV. TM distance: >3 FB. Neck ROM: full ROM without neurological symptoms. Mouth opening: adequate. Short neck: no. Thick neck: no II - ANESTHESIA PLAN ASA Score: 4 Anesthetic Plan: general Airway type: ETT Beta Sharon Monitoring Plan Post Procedure Analgesic Plan Informed Consent Anesthetic risks, benefits, alternatives, personnel and consent discussed: yes. Patient / Responsible Democrat agrees to proceed: yes Patient / Surrogate agrees to blood products: Yes Instructions Given to Patient: Instructions located in the after visit summary. Patient given verbal and written preop instructions and voices comprehension and compliance. documented in this encounterL[facility] History of Present illness Narrative* Fredis Nowak RT(R) - 01/21/2023 7:00 AM EDT Radiology Service Progress Note PATIENT NAME: Silvano Menendez DATE OF SERVICE: January 21, 2023 TIME: 7:38 AM PATIENT IDENTITY VERIFICATION COMPLETED USING TWO (2) IDENTIFIERS: Name and Date of confirmedby patient verbally and Name and Date of confirmed by identification band. FALL SCREENING: Has the patient had 2 falls in the last year or 1 fall with injury or currently using an Ambulatory Assistive Device (Walker, Cane, Wheelchair, Crutches, etc.)? No PATIENT GENDER DATA: Male PATIENT RELEVANT IMPLANT DATA REVIEWED: Yes RADIOLOGY DEPARTMENT: CT; Exam(s) Completed: Cardiac PERIPHERAL IV DATA: Not applicable SIGNED BY: RT Anusha(R) January 21, 2023 7:38 AM documented in this encounterLake[facility]07-28-2023 Miscellaneous Notes* Telephone Encounter - Debra Quevedo RN - 01/16/2023 2:50 PM EDT Images from the original note were not included. * Telephone Encounter - Meghan Gilmore - 01/15/2023 9:48 AM EDTSummary: 4 PGS IN OPD FILE Images from the original note were not included. Via [employer] documented in this encounterLake[facility]07-27-[facility]23 History of Present illness Narrative* Jewell Stiles, Research Coordinator - 01/15/2023 2:09 PM EDT QOL Call Tracking Documentation Follow-Up Type: Phone Call Call Attempt: 2nd Attempt Call Status: Patient will complete in [facility] ( Called Back and I gave him the instruction concerning the QOL Assessment coming into his MyChart) documented in this encounterLake[facility]07-25-2023 Telephone encounter Note * Telephone Encounter - Chaka Milligan - 01/13/2023 11:08 AM EDT [place] [facility] Work Phone: [phone] Miscellaneous Notes* Telephone Encounter - Chaka Milligan - 01/13/2023 11:08 AM EDT [place] * Telephone Encounter - Johanna Henry - 01/13/2023 10:20 AM EDT Insurance Card(s) scanned into [employer] Please register/advise Thank You! documented in this encounterLake[facility]07-25-2023 Telephone encounter Note * Telephone Encounter - Johanna Henry - 01/13/2023 10:20 AM EDT Insurance Card(s) scanned into [employer] Please register/advise Thank You! [facility]07-19-[facility]23 Miscellaneous Notes* Telephone Encounter - Becky Vieira RN - 01/07/2023 2:43 PM EDT CARDIOVASCULAR LAB INSTRUCTIONS: Readiness to Learn: Cognitive Ability: Alert and oriented Motivation To Learn: Interested Family/Significant Other Support: Unable to assess - Family not present Instruction Provided To: Patient Patient Learns Best By: Individual Instruction Factors Affecting Learning: None Physical Limitations Affecting Learning: None Learning Response: Procedure: Diagnostic Cath with Intervention Pre procedure education topics: Arrival time/NPO Status/Medications/Travel Instructions/Restrictions- instructed to be accompanied by adult funeral driver at discharge Patient/Family Response Evaluation: Verbalizes understanding Follow Up Plan and Medication: As directed by physician Instruction/Supplemental Material Given: Cardiac catheterization instructions, procedure information, hospital information, hotel information. Instructed By Becky Vieira RN, RN. In Department of CARDIOLOGY. documented in this encounterLakehealth [facility]06-30-2023 Instructions* Patient Instructions* Nato Antonio MD - 12/19/2022 2:40 PM EDT Please start taking aspirin 81 mg daily, atorvastatin 80 mg daily, metoprolol succinate 25 mg daily. Please get your blood work completed in 6-8 weeks and send me the results. Please follow up with Dr. Ramirez re: your blood pressures in the next 2-3 weeks. We can arrange for a catheterization. Try to adhere to a Mediterranean diet (which includes foods like vegetables, fruits, olive oil, nuts (amount that can fit in your fist), legumes, lentils, etc). Avoid: red meat, fried foods, and fullfat dairy products, including whole milk cheeses). Avoid: refined carbs (white starches & simple sugars). Avoid processed foods. Suggested resource: Google search [place] mediterranean diet Follow up in 2 months after the cath. Follow up with your PCP. Seek ER care with any concerning symptoms. documented in this encounterLake[facility]06-30-2023 Miscellaneous Notes* Telephone Encounter - Meghan Gilmore - 12/19/2022 1:46 PM EDTSummary: UPLOADED TO [employer] Images from the original note were not included. documented in this encounterLakehealth [facility] Center06-30-2023 History of Present illness Narrative* Nato Antonio MD - 12/19/2022 12:45 PM EDT Images from the original note were not included. [facility] [place] Vanessa Gill Department of Cardiovascular Medicine SECTION OF CLINICAL CARDIOLOGY OUTPATIENT VISIT DATE December 19, 2022 OUTPATIENT VISIT TYPE NEW PRIMARY CARE PHYSICIAN: Beatriz Edgar MD ([facility]) [address] [place] [address] REFERRING PHYSICIAN: No referring provider defined for this encounter. CHIEF COMPLAINT: Second opinion and cardiac evaluation. HISTORY OF PRESENT ILLNESS: Mr. Menendez is a 57 year old male with a PMH of untreated HTN, untreated hyperlipidemia, former tobacco use (quit over 30 years ago), DVTs in 2004, IVC filter, coronary artery disease, family history of premature , who presents today for a second opinion and cardiac evaluation. He is accompaniedby his . The patient denies a prior history of decompensated HF/malignant arrhythmias/significant valvular disease/diabetes/CVA. He had been in his usual state of health until three weeks ago. Three weeks ago, he started to experience indigestion and a dull epigastric pain especially after drinking coffee. Symptoms lasted for 4 days. Tums did not help much. He denies any associated nausea, emesis, palpitations, presyncope or syncope. He saw his PCP for ordered a stress test. During the stress test which was abnormal with inferior ischemia, he felt very fatigued. After a few minutes of rest, he recalls feeling terribly and breaking out in a sweat in the waiting area. He felt lightheaded. Symptoms took a few minutes to resolves. He noted he fatigued easily. He was informed to follow up with cardiology but chose to come to [facility]. He was started on aspirin only. Since that time, he has noted no recurrence in symptoms. Specifically, he denies chest pain, shortness of breath, orthopnea, cough, edema, palpitations, PND, lightheadedness or syncope. Fatigues easily. Only other med was a multivitamin. He was taking taking NSAIDS and tylenol for knee pain, for yearsbut stopped. Prior reportedly provoked DVT, not on A/C. Unclear why he has a filter and why had has not been removed. Paternal unclear at 59. MGM 4V CABG. Father PAD, leg amputation. Nursing Intake : Patient presents today for cardiac evaluation. Patient had some chest pain and expressed this to his PCP. 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 Patient has never seen a mail sorting supervisor in the past. Symptoms: -chest pains that began 2-3 weeks ago, but he relates this to taking 325 mg aspirin due to aches and pains ileo-tibial band lasted 4 day and has not returned -post stress test, patient became clammy, diaphoretic, and lightheaded Patient walks, rides his bicycle for exercise at least twice per week. He is also active around thehouse a lot. 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 Patient does not follow a particular diet. PAST CARDIAC HISTORY: As above Past Medical History: No date: DVT of popliteal vein (HCC) Comment: post knee scope Past Surgical History: 2010: PAST SURGICAL HISTORY OF Comment: knee scope 04/2022: REPAIR EPIGASTRIC HERNIA,REDUC ALLERGIES No Known Allergies Current Outpatient Medications: aspirin, enteric coated (ASPIRIN, ENTERIC COATED) 81 mg EC tablet MULTIVITAMIN ORAL metoprolol succinate ER (TOPROL XL) 25 mg 24 hr tablet atorvastatin (LIPITOR) 80 mg tablet nitroglycerin sublingual (NITROQUICK) 0.3 mg SL tablet FAMILY HISTORY: family history includes Heart Failure in his father; Heart disease in his father, maternal grandmother, and paternal grandmother; Hyperlipidemia in his father and mother. SOCIAL HISTORY: He reports that he quit smoking about 35 years ago. His smoking use included cigarettes. He has never used smokeless tobacco. He reports that he does not drink alcohol and does not use drugs. REVIEW OF SYSTEMS: GENERAL: Negative for: Weight loss or gain, Fever or Chills, Weakness and Sleep difficulties. HEENT: Negative for: Headache, Impaired Vision, Glasses, Hearing Impairment, Ringing in Ears, Nosebleeds, Poor dental care, Bleeding Gums, Dentures NECK: Negative for: Swelling, Pain, Stiffness RESPIRATORY: Negative for: Cough, Blood in Sputum, Shortness of breath, Wheezing, Apnea GASTROINTESTINAL: Negative for: Trouble swallowing, Heartburn, Change in bowel habits, Blood in stool, Dark black stools MUSCULOSKELETAL: Negative for: Muscle or joint pain, Stiffness , Joint swelling NEUROLOGIC/PSYCHIATRIC: Negative for: Weakness, Paralysis, Numbness, Tingling, Tremor, Nervousness,Depressed mood, Memory loss SKIN: Negative for: Rashes, Itching HEMATOLOGICAL/LYMPHATIC: Negative for: Easy bruising , Easy bleeding ENDOCRINE: Negative for: Heat or cold intolerance, Excessive sweating, Frequent urination, Frequentthirst PHYSICAL EXAMINATION: BP 140/91 (BP Site: Right Arm) Pulse 65 Resp 12 Ht 175.3 cm (5' 9 ) Wt 95.3 kg (210 lb) SpO2 99% BMI 31.01 kg/m General: Well developed, well nourished, looks stated age. Alert and oriented and in no visible distress. HEENT: Face symmetric. Gaze Conjugate. Neck: supple, without thyromegaly. No carotid bruits, 2+ upstrokes bilaterally. No nodes felt in neck. Thyroid no nodules. Lungs: clear without rales, rhonchi or wheezing throughout. Cardiovascular: regular rate and rhythm, no murmurs, no extra heart sounds heard. JVP 6 cm H2O, negHJR. non Carotid bruits bilaterally, +2 radial pulses bilaterally, +2 DP pulses bilaterally. Warm and well perfused. Extremeties: + no Peripheral edema bilaterally . No Clubbing or cyanosis of extremeties. Abdomen: benign without organomegaly. Normal bowel sounds. Non palpable abdominal aorta. Neuro: Memory and judgement intact. Essentially normal neuropyschiatric exam. Pertinent labs reviewed: CARDIOVASCULAR MEDICINE TESTING: Electrocardiogram 12/19/2022: NSR HR 69 bpm, Normal Qtc. OSH NUC STRESS EXERCISE 12/16/22 Narrative Perfusion Comments: Left ventricular perfusion is abnormal. Based on the perfusion study data, risk of cardiovascular events is intermediate risk. The study is consistent with ischemia. There is a left ventricular function defect that is moderate in size with moderate reduction in uptake present in the mid to basal inferior location(s) that is reversible. The defect appears to be ischemia. Stress Function Comments: Left ventricular function post-stress is normal. Stress ejection fraction is 72 %. The stress end diastolic cavity size is normal. Stress ECG Findings: There is [address] depression in the inferior leads (II, III, aVF, V6 and V5). ST deviation began at 3 minute(s) ST segment returned to baseline after 5-9 minutes of recovery. Overall, the patient's functional capacity was average. The stress ECG was positive. The calculated Grissom Treadmill Score of -0.02 represents an intermediate risk only with regards to the exercise findings. There is a left ventricular function defect that is moderate in size with moderate reduction in uptake present in the mid to basal inferior location(s) that is reversible. The defect appears to be ischemia. OSH ECHO 12/05/22 Narrative Left Ventricle: Systolic function is normal with an ejection fraction of 60-65%. Normal diastolic function is present. Lateral E' is 11.30 cm/s. Medial E' is 9.46 cm/s. I have personally reviewed the Electrocardiogram, Laboratory Testing, Echocardiogram, and Stress Test: Nuclear (Non-PET). IMPRESSION and PLAN Mr. Menendez is a 57 year old male with a PMH of untreated HTN, untreated hyperlipidemia, former tobacco use (quit over 30 years ago), DVTs in 2004, IVC filter, coronary artery disease, family history of premature , who presents today for a second opinion and cardiac evaluation. He is accompaniedby his . Overall, Silvano Menendez is stable and currently asymptomatic. There is no evidence of active ischemia,decompensated heart failure, or malignant arrhythmias and he appears euvolemic on exam. ECG with NSR and no evidence of ischemia or infarct. It sounds like he had probably suffered an ischemic cardiac event manifesting as indigestion . Nuclear stress revealed moderate intensity moderate sized infer ior defect. No reported TID. Review of his OSH echocardiogram reveals normal BIV size and function with no obvious regional wall motion abnormalities. Fortunately, he is asymptomatic at this time minus some fatigue. Plan for medication optimization, risk factor modification and coronary angiographyfor anatomic delineation of his coronary arteries. Start aspirin 81 mg daily , metoprolol [id number] mg daily, and high intensity statin. Nitro only prn and counseled on avoiding use with PDEi. Check labs in 2 months including lipids, lipoprotein a, and A1C. I recommend he follow up with is PCP in 2 for BP mngt. Fortunately, he quit smoking. I recommend he adhere to adhere to the mediterranean diet. He will schedule the coronary angio and follow up. I have provided anticipatory guidance on when to seek ER care. Follow up with me in 2 months to discuss results. Follow up with PCP and specialists as planned. We discussed his findings, risk/benefits of medications and plan and the patient and his were in agreement with the plan. As always, I appreciate the opportunity to participate in the care of your patients, and look forward to collaborating with you further. Please don't hesitate to contact me if any questions or problems arise. With best wishes and warmest personal regards, Nato Antonio MD December 25, 2022, 11:22 AM [facility] Other heart disorders in diseases classified elsewhere- Primary documented in this [facility]* Diagnosis Essential hypertension- Primary Unspecified essential hypertension Stable angina (HCC) Other and unspecified angina pectoris Coronary artery disease due to lipid rich plaque Elevated glucose Other abnormal glucose Ischemia Unspecified circulatory system disorder Former tobacco use Personal history of tobacco use, presenting hazards to health documented in this encounter [facility]* Diagnosis Pre-op exam- Primary Preoperative examination, unspecified Coronary artery disease involving l[place] heart, unspecified vessel or lesion type, unspecified whether angina present Encounter for preoperative vascular examination Other specified pre-operative examination Pre-operative cardiovascular examination Atherosclerosis of coronary artery of [place] heart, unspecified vessel or lesion type, unspecified whether angina present documented in this [facility]* Diagnosis Encounter for preoperative anesthesiology assessment for cardiac surgery- Primary documented in this encounter [facility]* Diagnosis Encounter for preoperative vascular examination Other specified pre-operative examination Pre-operative cardiovascular examination Atherosclerosis of coronary artery of [place] heart, unspecified vessel or lesion type, unspecified whether angina present documented in this encounter [facility]* Diagnosis Encounter for preoperative vascular examination Other specified pre-operative examination Pre-operative cardiovascular examination Atherosclerosis of coronary artery of [place] heart, unspecified vessel or lesion type, unspecified whether angina present documented in this encounter [facility]* Diagnosis Coronary artery disease involving l[place] coronary artery of l[place] heart, unspecified whether angina present- Primary documented in this encounter [facility]* Diagnosis Coronary artery disease involving [place] heart, unspecified vessel or lesion type, unspecified whether angina present- Primary documented in this [facility]* Diagnosis Surgery follow-up Follow-up examination, following unspecified surgery documented in this encounter [facility] note* Diagnosis S/P CABG (coronary artery bypass graft)- Primary Postsurgical aortocoronary bypass status [facility] Diagnosis Coronary artery disease due to lipid rich plaque- Primary Ischemia Unspecified circulatory system disorder Essential hypertension Unspecified essential hypertension Stable angina (HCC) Other and unspecified angina pectoris Elevated glucose Other abnormal glucose [facility] Diagnosis Hx of CABG- Primary Postsurgical aortocoronary bypass status Essential hypertension Unspecified essential hypertension Stable angina Other and unspecified angina pectoris Coronary artery disease due to lipid rich plaque Former tobacco use Personal history of tobacco use, presenting hazards to health Mixed hyperlipidemia Elevated lipoprotein(a) Other disorders of lipoid metabolism [facility] Diagnosis Primary osteoarthritis of right knee- Primary Primary localized osteoarthrosis, lower leg Chronic pain of right knee [facility] Diagnosis Ischemia Unspecified circulatory system disorder Essential hypertension Unspecified essential hypertension Stable angina Other and unspecified angina pectoris Coronary artery disease due to lipid rich plaque Elevated glucose Other abnormal glucose [facility] Diagnosis Chronic pain of right knee [facility] Diagnosis Mixed hyperlipidemia- Primary Hx of CABG Postsurgical aortocoronary bypass status Essential hypertension Unspecified essential hypertension Stable angina Other and unspecified angina pectoris Coronary artery disease due to lipid rich plaque Former tobacco use Personal history of tobacco use, presenting hazards to health [facility] Diagnosis Primary osteoarthritis of right knee- Primary Primary localized osteoarthrosis, lower leg Chronic pain of right knee [facility] Diagnosis Primary osteoarthritis of right knee- Primary Primary localized osteoarthrosis, lower leg [facility] Diagnosis Pain- Primary Generalized pain [facility] Diagnosis Coronary artery disease due to lipid rich plaque- Primary Essential hypertension Unspecified essential hypertension Elevated glucose Other abnormal glucose Primary hypertension Unspecified essential hypertension Mixed hyperlipidemia 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) Hx of CABG Postsurgical aortocoronary bypass status Former tobacco use Personal history of tobacco use, presenting hazards to health [facility] Diagnosis Primary osteoarthritis of left knee- Primary Primary localized osteoarthrosis, lower leg [facility] Diagnosis Pre-op evaluation- Primary Preoperative examination, unspecified Primary osteoarthritis of right knee Primary localized osteoarthrosis, lower leg Obesity, Class I, BMI 30-34.9 Obesity, unspecified Deep vein thrombosis (DVT) of popliteal vein of right lower extremity, unspecified chronicity (HCC) Mixed hyperlipidemia 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) Primary hypertension Unspecified essential hypertension Sinus bradycardia by electrocardiography Primary osteoarthritis of right knee Primary localized osteoarthrosis, lower leg * Assessment & Plan Note - Leon Anderson APRN.CNP - 01/05/2024 3:09 PM EDT Associated Problem(s): Sinus bradycardia by electrocardiography Sinus calixto HR 50 on EKG Denies cardiac symptoms * Assessment & Plan Note - Leon Anderson APRN.CNP - 01/05/2024 3:09 PM EDT Associated Problem(s): Primary hypertension Managed on amlodipine, metoprolol BP today 120/69 ECHO reviewed and accepted from September 2023 Denies cardiac symptoms EKG reviewed and accepted from today * Assessment & Plan Note - Leon Anderson APRN.CNP - 01/05/2024 3:08 PM EDT Associated Problem(s): 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) Hx CABG (01/22/2023) CABG X 5: RUTH to LAD, RSVG to PDA, RSVG to Diagonal, LRA to OM1, Free CHICO to OM2 Follows with Cardiology Nato Antonio MD [place] September 2023 Managed on asa, statin and Bp medications ECHO and EKG reviewed and accepted from September 2023 Denies cardiac symptoms EKG reviewed and accepted from today * Assessment & Plan Note - Leno Anderson APRN.CNP - 01/05/2024 3:07 PM EDT Associated Problem(s): Mixed hyperlipidemia Managed on atorvastatin, zetia * Assessment & Plan Note - Leon Anderson APRN.CNP - 01/05/2024 3:07 PM EDT Associated Problem(s): DVT of popliteal vein (HCC) R knee DVT x5 - 2011 sp IVC filter Managed on asa * Assessment & Plan Note - Leon Anderson APRN.CNP - 01/05/2024 3:07 PM EDT Associated Problem(s): Obesity, Class I, BMI 30-34.9 BMI 31.97 [facility] Chronic pain of right knee Primary osteoarthritis of right knee Primary localized osteoarthrosis, lower leg [facility] Diagnosis Primary osteoarthritis of right knee- Primary Primary localized osteoarthrosis, lower leg Primary osteoarthritis of right knee Primary localized osteoarthrosis, lower leg [facility] Diagnosis Status post right partial knee replacement- Primary Knee joint replacement by other means [facility] Diagnosis Status post right partial knee replacement Knee joint replacement by other means [facility] Diagnosis Pre-op evaluation- Primary Preoperative examination, unspecified Primary osteoarthritis of right knee Primary localized osteoarthrosis, lower leg Obesity, Class I, BMI 30-34.9 Obesity, unspecified Deep vein thrombosis (DVT) of popliteal vein of right lower extremity, unspecified chronicity (HCC) Mixed hyperlipidemia 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) Primary hypertension Unspecified essential hypertension Sinus bradycardia by electrocardiography Status post right partial knee replacement Knee joint replacement by other means [facility] Diagnosis Pre-op evaluation- Primary Preoperative examination, unspecified Primary osteoarthritis of right knee Primary localized osteoarthrosis, lower leg Obesity, Class I, BMI 30-34.9 Obesity, unspecified Deep vein thrombosis (DVT) of popliteal vein of right lower extremity, unspecified chronicity (HCC) Mixed hyperlipidemia 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) Primary hypertension Unspecified essential hypertension Sinus bradycardia by electrocardiography Status post right partial knee replacement- Primary Knee joint replacement by other means Status post right partial knee replacement Knee joint replacement by other means [facility]* Diagnosis Pre-op evaluation- Primary Preoperative examination, unspecified Primary osteoarthritis of right knee Primary localized osteoarthrosis, lower leg Obesity, Class I, BMI 30-34.9 Obesity, unspecified Deep vein thrombosis (DVT) of popliteal vein of right lower extremity, unspecified chronicity (HCC) Mixed hyperlipidemia 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) Primary hypertension Unspecified essential hypertension Sinus bradycardia by electrocardiography Status post right partial knee replacement- Primary Knee joint replacement by other means Arthrofibrosis of knee joint, right Pre-op evaluation- Primary Preoperative examination, unspecified Primary hypertension Unspecified essential hypertension Mixed hyperlipidemia 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) Deep vein thrombosis (DVT) of popliteal vein of right lower extremity, unspecified chronicity (HCC) Status post right partial knee replacement Knee joint replacement by other means documented in this encounter [facility]* Diagnosis Pre-op evaluation- Primary Preoperative examination, unspecified Primary osteoarthritis of right knee Primary localized osteoarthrosis, lower leg Obesity, Class I, BMI 30-34.9 Obesity, unspecified Deep vein thrombosis (DVT) of popliteal vein of right lower extremity, unspecified chronicity (HCC) Mixed hyperlipidemia 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) Primary hypertension Unspecified essential hypertension Sinus bradycardia by electrocardiography Pre-op evaluation- Primary Preoperative examination, unspecified Primary hypertension Unspecified essential hypertension Mixed hyperlipidemia 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) Deep vein thrombosis (DVT) of popliteal vein of right lower extremity, unspecified chronicity (HCC) Status post right partial knee replacement Knee joint replacement by other means * Assessment & Plan Note - Phi Calhoun APRN.STACK YIELD ENGINEER - 02/09/2024 10:32 AM EDT Associated Problem(s): DVT of popliteal vein (HCC) 2011, s/p IVC filter. * Assessment & Plan Note - Phi Calhoun APRN.CNP - 02/09/2024 10:30 AM EDT Associated Problem(s): 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) S/p CABG X 5 RUTH to LAD, RSVG to PDA, RSVG to Diagonal, LRA to OM1, Free CHICO to OM Monitored by cardiology, Dr Antonio last OPV 10/02/2023 * Assessment & Plan Note - Phi Calhoun APRN.CNP - 02/09/2024 10:26 AM EDT Associated Problem(s): Mixed hyperlipidemia On lipitor and zetia. * Assessment & Plan Note - Phi Calhoun APRN.CNP - 02/09/2024 10:26 AM EDT Associated Problem(s): Primary hypertension Managed with amlodipine and metoprolol. [facility] Pre-op evaluation- Primary Preoperative examination, unspecified Primary osteoarthritis of right knee Primary localized osteoarthrosis, lower leg Obesity, Class I, BMI 30-34.9 Obesity, unspecified Deep vein thrombosis (DVT) of popliteal vein of right lower extremity, unspecified chronicity (HCC) Mixed hyperlipidemia 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) Primary hypertension Unspecified essential hypertension Sinus bradycardia by electrocardiography Pre-op evaluation- Primary Preoperative examination, unspecified Primary hypertension Unspecified essential hypertension Mixed hyperlipidemia 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) Deep vein thrombosis (DVT) of popliteal vein of right lower extremity, unspecified chronicity (HCC) Status post right partial knee replacement Knee joint replacement by other means [facility] Diagnosis Pain Generalized pain Pre-op evaluation- Primary Preoperative examination, unspecified Primary osteoarthritis of right knee Primary localized osteoarthrosis, lower leg Obesity, Class I, BMI 30-34.9 Obesity, unspecified Deep vein thrombosis (DVT) of popliteal vein of right lower extremity, unspecified chronicity (HCC) Mixed hyperlipidemia 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) Primary hypertension Unspecified essential hypertension Sinus bradycardia by electrocardiography Pre-op evaluation- Primary Preoperative examination, unspecified Primary hypertension Unspecified essential hypertension Mixed hyperlipidemia 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) Deep vein thrombosis (DVT) of popliteal vein of right lower extremity, unspecified chronicity (HCC) documented in this encounter [facility]* Diagnosis Pre-op evaluation- Primary Preoperative examination, unspecified Primary osteoarthritis of right knee Primary localized osteoarthrosis, lower leg Obesity, Class I, BMI 30-34.9 Obesity, unspecified Deep vein thrombosis (DVT) of popliteal vein of right lower extremity, unspecified chronicity (HCC) Mixed hyperlipidemia 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) Primary hypertension Unspecified essential hypertension Sinus bradycardia by electrocardiography Pre-op evaluation- Primary Preoperative examination, unspecified Primary hypertension Unspecified essential hypertension Mixed hyperlipidemia 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) Deep vein thrombosis (DVT) of popliteal vein of right lower extremity, unspecified chronicity (HCC) Primary osteoarthritis of right knee Primary localized osteoarthrosis, lower leg documented in this encounter [facility] note* Diagnosis Pre-op evaluation- Primary Preoperative examination, unspecified Primary osteoarthritis of right knee Primary localized osteoarthrosis, lower leg Obesity, Class I, BMI 30-34.9 Obesity, unspecified Deep vein thrombosis (DVT) of popliteal vein of right lower extremity, unspecified chronicity (HCC) Mixed hyperlipidemia 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) Primary hypertension Unspecified essential hypertension Sinus bradycardia by electrocardiography Pre-op evaluation- Primary Preoperative examination, unspecified Primary hypertension Unspecified essential hypertension Mixed hyperlipidemia 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) Deep vein thrombosis (DVT) of popliteal vein of right lower extremity, unspecified chronicity (HCC) Status post right partial knee replacement- Primary Knee joint replacement by other means Arthrofibrosis of knee joint, right [facility] Diagnosis Pre-op evaluation- Primary Preoperative examination, unspecified Primary osteoarthritis of right knee Primary localized osteoarthrosis, lower leg Obesity, Class I, BMI 30-34.9 Obesity, unspecified Deep vein thrombosis (DVT) of popliteal vein of right lower extremity, unspecified chronicity (HCC) Mixed hyperlipidemia 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) Primary hypertension Unspecified essential hypertension Sinus bradycardia by electrocardiography Pre-op evaluation- Primary Preoperative examination, unspecified Primary hypertension Unspecified essential hypertension Mixed hyperlipidemia 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) Deep vein thrombosis (DVT) of popliteal vein of right lower extremity, unspecified chronicity (HCC) Ischemia Unspecified circulatory system disorder Essential hypertension Unspecified essential hypertension Stable angina (HCC) Other and unspecified angina pectoris Coronary artery disease due to lipid rich plaque Elevated glucose Other abnormal glucose [facility] Diagnosis Pre-op evaluation- Primary Preoperative examination, unspecified Primary osteoarthritis of right knee Primary localized osteoarthrosis, lower leg Obesity, Class I, BMI 30-34.9 Obesity, unspecified Deep vein thrombosis (DVT) of popliteal vein of right lower extremity, unspecified chronicity (HCC) Mixed hyperlipidemia 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) Primary hypertension Unspecified essential hypertension Sinus bradycardia by electrocardiography Pre-op evaluation- Primary Preoperative examination, unspecified Primary hypertension Unspecified essential hypertension Mixed hyperlipidemia 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) Deep vein thrombosis (DVT) of popliteal vein of right lower extremity, unspecified chronicity (HCC) Hx of CABG Postsurgical aortocoronary bypass status Coronary artery disease due to lipid rich plaque Mixed hyperlipidemia [facility] Diagnosis Pre-op evaluation- Primary Preoperative examination, unspecified Primary osteoarthritis of right knee Primary localized osteoarthrosis, lower leg Obesity, Class I, BMI 30-34.9 Obesity, unspecified Deep vein thrombosis (DVT) of popliteal vein of right lower extremity, unspecified chronicity (HCC) Mixed hyperlipidemia 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) Primary hypertension Unspecified essential hypertension Sinus bradycardia by electrocardiography Pre-op evaluation- Primary Preoperative examination, unspecified Primary hypertension Unspecified essential hypertension Mixed hyperlipidemia 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) Deep vein thrombosis (DVT) of popliteal vein of right lower extremity, unspecified chronicity (HCC) Primary osteoarthritis of left knee- Primary Primary localized osteoarthrosis, lower leg [facility] Diagnosis Pre-op evaluation- Primary Preoperative examination, unspecified Primary osteoarthritis of right knee Primary localized osteoarthrosis, lower leg Obesity, Class I, BMI 30-34.9 Obesity, unspecified Deep vein thrombosis (DVT) of popliteal vein of right lower extremity, unspecified chronicity (HCC) Mixed hyperlipidemia 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) Primary hypertension Unspecified essential hypertension Sinus bradycardia by electrocardiography Pre-op evaluation- Primary Preoperative examination, unspecified Primary hypertension Unspecified essential hypertension Mixed hyperlipidemia 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) Deep vein thrombosis (DVT) of popliteal vein of right lower extremity, unspecified chronicity (HCC) Essential hypertension Unspecified essential hypertension Coronary artery disease due to lipid rich plaque Elevated glucose Other abnormal glucose [facility]* Diagnosis Incidental lung nodule- Primary Other diseases of lung, not elsewhere classified Multiple lung nodules on CT [facility] Diagnosis Pre-op evaluation- Primary Preoperative examination, unspecified Primary osteoarthritis of right knee Primary localized osteoarthrosis, lower leg Obesity, Class I, BMI 30-34.9 Obesity, unspecified Deep vein thrombosis (DVT) of popliteal vein of right lower extremity, unspecified chronicity (HCC) Mixed hyperlipidemia 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) Primary hypertension Unspecified essential hypertension Sinus bradycardia by electrocardiography Pre-op evaluation- Primary Preoperative examination, unspecified Primary hypertension Unspecified essential hypertension Mixed hyperlipidemia 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) Deep vein thrombosis (DVT) of popliteal vein of right lower extremity, unspecified chronicity (HCC) Ischemia Unspecified circulatory system disorder Essential hypertension Unspecified essential hypertension Stable angina (HCC) Other and unspecified angina pectoris Coronary artery disease due to lipid rich plaque Elevated glucose Other abnormal glucose [facility] Diagnosis Pre-op evaluation- Primary Preoperative examination, unspecified Primary osteoarthritis of right knee Primary localized osteoarthrosis, lower leg Obesity, Class I, BMI 30-34.9 Obesity, unspecified Deep vein thrombosis (DVT) of popliteal vein of right lower extremity, unspecified chronicity (HCC) Mixed hyperlipidemia 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) Primary hypertension Unspecified essential hypertension Sinus bradycardia by electrocardiography Pre-op evaluation- Primary Preoperative examination, unspecified Primary hypertension Unspecified essential hypertension Mixed hyperlipidemia 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) Deep vein thrombosis (DVT) of popliteal vein of right lower extremity, unspecified chronicity (HCC) Hx of CABG Postsurgical aortocoronary bypass status Coronary artery disease due to lipid rich plaque Mixed hyperlipidemia [facility] Diagnosis Pre-op evaluation- Primary Preoperative examination, unspecified Primary osteoarthritis of right knee Primary localized osteoarthrosis, lower leg Obesity, Class I, BMI 30-34.9 Obesity, unspecified Deep vein thrombosis (DVT) of popliteal vein of right lower extremity, unspecified chronicity (HCC) Mixed hyperlipidemia Coronary artery disease with exertional angina Primary hypertension Unspecified essential hypertension Sinus bradycardia by electrocardiography Pre-op evaluation- Primary Preoperative examination, unspecified Primary hypertension Unspecified essential hypertension Mixed hyperlipidemia Coronary artery disease with exertional angina Deep vein thrombosis (DVT) of popliteal vein of right lower extremity, unspecified chronicity (HCC) Essential hypertension Unspecified essential hypertension Coronary artery disease due to lipid rich plaque Elevated glucose Other abnormal glucose [facility] Diagnosis Seborrheic keratosis- Primary Lentigines Neoplasm of unspecified behavior of bone, soft tissue, and skin Actinic keratosis Seborrheic keratosis, inflamed documented in this encounter [facility]* Diagnosis Pre-op evaluation- Primary Preoperative examination, unspecified Primary osteoarthritis of right knee Primary localized osteoarthrosis, lower leg Obesity, Class I, BMI 30-34.9 Obesity, unspecified Deep vein thrombosis (DVT) of popliteal vein of right lower extremity, unspecified chronicity (HCC) Mixed hyperlipidemia Coronary artery disease with exertional angina Primary hypertension Unspecified essential hypertension Sinus bradycardia by electrocardiography Pre-op evaluation- Primary Preoperative examination, unspecified Primary hypertension Unspecified essential hypertension Mixed hyperlipidemia Coronary artery disease with exertional angina Deep vein thrombosis (DVT) of popliteal vein of right lower extremity, unspecified chronicity (HCC) Hx of CABG Postsurgical aortocoronary bypass status Coronary artery disease due to lipid rich plaque Mixed hyperlipidemia [facility] Diagnosis Basal cell carcinoma of upper back- Primary documented in this encounter [facility]* Diagnosis Basal cell carcinoma of skin of scalp and neck documented in this encounter [facility]* Diagnosis Mohs defect- Primary Basal cell carcinoma of skin of scalp and neck [facility] Outpatient Procedure (Routine) - Authorized Specialty Diagnoses / Procedures Referred By John solomon Referred To [facility] Diagnoses Other heart disorders in diseases classified elsewhere Procedures ECG COMPLETE ECG ROUTINE ECG W/LEAST 12 LDS W/I&R Nato Antonio MD [address] [place] [address] [facility] [address] [address] Referral ID Status Reason Start Date Expiration Date Visits Requested Visits Authorized [id number] Authorized Auto-Generat ed Referral 12/17/2022 12/17/2023 1 1 [facility] for referral (narrative)* Diagnostic Procedure Only (Routine) - Authorized Specialty Diagnoses / Procedures Referred By John solomon Referred To Contact XR IMAGING Diagnoses Pain Procedures XR KNEE GENERAL 4V AP BOTH/PA BOTH/LAT/MERC LEFT RADIOLOGIC EXAM KNEE COMPLETE 4/MORE VIEWS Parveen Araujo PA-C [address] [place] [address] Xr Imaging [facility]95 Referral ID Status Reason Start Date Expiration Date Visits Requested Visits Authorized [id number] Authorized Auto-Generat ed Referral 10/27/2023 11/25/2024 1 1 [facility] for referral (narrative)* Outpatient Procedure (Routine) - Pending Review Specialty Diagnoses / Procedures Referred By John solomon Referred To [facility] Diagnoses Essential hypertension Stable angina (HCC) Coronary artery disease due to lipid rich plaque Elevated glucose Procedures ECG COMPLETE ECG ROUTINE ECG W/LEAST 12 LDS W/I&R Nato Antonio MD [address] [place] [address] [facility] [address] [address] Referral ID Status Reason Start Date Expiration Date Visits Requested Visits Authorized [id number] Pending Review Auto-Generat ed Referral 10/02/2023 10/01/2024 1 1 * Transition of Care (Routine) - Ref Not Required Specialty Diagnoses / Procedures Referred By John t Referred To Contact [facility] Diagnoses Essential hypertension Stable angina (HCC) Coronary artery disease due to lipid rich plaque Elevated glucose Procedures CARDIOVASCULAR MEDICINE OP FOLLOW UP APPT ORDER Nato Antonio MD [address] [place] [address] [facility] [place] [facility] [place] [address] Referral ID Status Reason Start Date Expiration Date Visits Requested Visits Authorized [id number] Ref Not Required PCP Requested Referral 07/03/2024 10/01/2024 1 1 [facility] for referral (narrative)* Diagnostic Procedure Only (Routine) - New Request Specialty Diagnoses / Procedures Referred By John solomon Referred To Contact XR IMAGING Diagnoses Status post right partial knee replacement Procedures XR KNEE POST OP 3V AP/LAT/MERCHANT RIGHT RADIOLOGIC EXAMINATION KNEE 3 VIEWS Milagro Castle PA-C [address] [place] [address] X[facility] [place] [address] Referral ID Status Reason Start Date Expiration Date Visits Requested Visits Authorized [id number] New Request Auto-Generat ed Referral 02/03/2024 03/04/2025 1 1 * Physical Therapy (Routine) - Pending Review Specialty Diagnoses / Procedures Referred By John t Referred To Contact [facility] Diagnoses Status post right partial knee replacement Procedures CONSULT TO PHYSICAL THERAPY PHYSICAL THERAPY EVALUATION HIGH COMPLEX 45 MINS Milagro Castle PA-C [address] [place] [address] [facility] [place] [address] [place] [address] Referral ID Status Reason Start Date Expiration Date Visits Requested Visits Authorized [id number] Pending Review Auto-Generat ed Referral 02/03/2024 02/02/2025 1 1 [facility] for referral (narrative)* Diagnostic Procedure Only (Routine) - Closed Specialty Diagnoses / Procedures Referred By Contac t Referred To Contact XR IMAGING Diagnoses Status post right partial knee replacement Procedures XR KNEE POST OP 3V AP/LAT/MERCHANT RIGHT RADIOLOGIC EXAMINATION KNEE 3 VIEWS Milagro Castle PA-C [address] [place] [id number] Xr Imaging [facility]95 Referral ID Status Reason Start Date Expiration Date V isits Requested Visits Authorized [id number] Closed Auto-Generate d Referral 02/03/2024 03/04/2025 1 1 [facility] for referral (narrative)* Diagnostic Procedure Only (Routine) - Closed Specialty Diagnoses / Procedures Referred By Contac t Referred To Contact XR IMAGING Diagnoses Pain Procedures XR KNEE GENERAL 4V AP BOTH/PA BOTH/LAT/MERC LEFT RADIOLOGIC EXAM KNEE COMPLETE 4/MORE VIEWS Parveen Araujo PA-C [address] [place] [address] Xr Imaging [facility]95 Referral ID Status Reason Start Date Expiration Date V isits Requested Visits Authorized [id number] Closed Auto-Generate d Referral 10/27/2023 11/25/2024 1 1 [facility] for referral (narrative)* Diagnostic Procedure Only (Routine) - Closed Specialty Diagnoses / Procedures Referred By Contac t Referred To Contact XR IMAGING Diagnoses Primary osteoarthritis of right knee Procedures XR KNEE SPECIFY 1V RIGHT RADIOLOGIC EXAMINATION KNEE 1/2 VIEWS Milagro Castle PA-C [address] [place] [id number] Xr Imaging [facility]95 Referral ID Status Reason Start Date Expiration Date V isits Requested Visits Authorized [id number] Closed Auto-Generate d Referral 04/24/2023 05/23/2024 1 1 [facility] for referral (narrative)* Diagnostic Procedure Only (Routine) - New Request Specialty Diagnoses / Procedures Referred By John t Referred To Contact XR IMAGING Diagnoses Primary osteoarthritis of left knee Procedures XR KNEE GENERAL 4V AP BOTH/PA BOTH/LAT/MERC LEFT RADIOLOGIC EXAM KNEE COMPLETE 4/MORE VIEWS Milagro Castle PA-C [address] [place] [address] [place] [address] Referral ID Status Reason Start Date Expiration Date Visits Requested Visits Authorized [id number] New Request Auto-Generat ed Referral 07/17/2025 1 1 [facility] for visit Narrative* Diagnostic Procedure Only (Routine) - Closed Specialty Diagnoses / Procedures Referred By John t Referred To Contact XR IMAGING Diagnoses Status post right partial knee replacement Procedures XR KNEE POST OP 3V AP/LAT/MERCHANT RIGHT RADIOLOGIC EXAMINATION KNEE 3 VIEWS Milagro Castle PA-C [address] [place] [address] Xr Imaging [facility]95 Referral ID Status Reason Start Date Expiration Date V isits Requested Visits Authorized [id number] Closed Auto-Generate d Referral 02/03/2024 03/04/2025 1 1 [facility] for visit Narrative* Diagnostic Procedure Only (Routine) - Closed Specialty Diagnoses / Procedures Referred By John t Referred To Contact XR IMAGING Diagnoses Pain Procedures XR KNEE GENERAL 4V AP BOTH/PA BOTH/LAT/MERC LEFT RADIOLOGIC EXAM KNEE COMPLETE 4/MORE VIEWS Parveen Araujo PA-C [address] [place] [address] Xr Imaging [place] [address] Referral ID Status Reason Start Date Expiration Date V isits Requested Visits Authorized [id number] Closed Auto-Generate d Referral 10/27/2023 11/25/2024 1 1 [facility] Summary Purpose Family History No Family History Records FoundNo Family History Records FoundNo Family History Records FoundNo Family History Records FoundNo Family History Records Found Advance Directives No Advanced Directives Records FoundNo Advanced Directives Records FoundNo Advanced Directives Records FoundNo Advanced Directives Records FoundNo Advanced Directives Records Found Reason for Referral Specialty Diagnoses / Procedures Referred By Contac t Referred To Contact CT IMAGING Diagnoses Encounter for preoperative vascular examination Pre-operative cardiovascular examination Atherosclerosis of coronary artery of [place] heart, unspecified vessel or lesion type, unspecified whether angina present Procedures CT CHEST CARDIAC WO IVCON DIAGNOSTIC COMPUTED TOMOGRAPHY THORAX W/O Ari Soto MD [address] [place] [address] Ct Imaging Referral ID Status Reason Start Date Expiration Date V isits Requested Visits Authorized [id number] Closed Auto-Generate d Referral 01/13/2023 02/12/2024 1 1 Specialty Diagnoses / Procedures Referred By Contac t Referred To Contact Diagnoses Hx of CABG Essential hypertension Stable angina Coronary artery disease due to lipid rich plaque Former tobacco use Procedures CONSULT TO PREVENTIVE CARD OFFICE/OUTPATIENT [facility] MDM 60-74 MINUTES Nato Antonio MD [address] [place] [address] Referral ID Status Reason Start Date Expiration Date Visits Requested Visits Authorized [id number] Authorized PCP Requested Referral 03/11/2023 03/10/2024 1 1 Specialty Diagnoses / Procedures Referred By Contac t Referred To [facility] Diagnoses Hx of CABG Essential hypertension Stable angina Coronary artery disease due to lipid rich plaque Former tobacco use Procedures ECHO ECHO TTHRC R-T 2D W/WOM-MODE COMPL SPEC&COLR D Nato Antonio MD [address] [place] [address] [facility] [place] [address] [place] [address] Referral ID Status Reason Start Date Expiration Date Visits Requested Visits Authorized [id number] Authorized Auto-Generat ed Referral 03/11/2023 03/10/2024 1 1 Specialty Diagnoses / Procedures Referred By Contac t Referred To Contact MR IMAGING Diagnoses Chronic pain of right knee Procedures MRI KNEE WO IVCON RIGHT MRI ANY JT LOWER EXTREM W/O CONTRAST MATRL Milagro Castle, PA-C [address] [place] [address] Mr Imaging [place] [address] Referral ID Status Reason Start Date Expiration Date Visits Requested Visits Authorized [id number] Authorized Auto-Generat ed Referral 04/24/2023 05/23/2024 1 1 Specialty Diagnoses / Procedures Referred By Contac t Referred To Contact XR IMAGING Diagnoses Primary osteoarthritis of right knee Procedures XR KNEE SPECIFY 1V RIGHT RADIOLOGIC EXAMINATION KNEE 1/2 VIEWS Milagro Castle, PA-C [address] [place] [address] Xr Imaging [place] [address] Referral ID Status Reason Start Date Expiration Date Visits Requested Visits Authorized [id number] Pending Review Auto-Generat ed Referral 04/24/2023 05/23/2024 1 1 Referral ID Status Reason Start Date Expiration Date V isits Requested Visits Authorized [id number] Closed Auto-Generate d Referral 04/24/2023 05/23/2024 1 1 Specialty Diagnoses / Procedures Referred By Contac t Referred To Contact Procedures CARDIOVASCULAR MEDICINE OP FOLLOW UP APPT ORDER Braxton Velásquez MD [address] [place] [address] Referral ID Status Reason Start Date Expiration Date Visits Requested Visits Authorized [id number] Ref Not Required PCP Requested Referral 02/09/2024 08/10/2024 1 1 Specialty Diagnoses / Procedures Referred By Contac t Referred To Contact CT IMAGING Diagnoses Chronic pain of right knee Procedures CT KNEE WO IVCON RIGHT CT LOWER EXTREMITY W/O CONTRAST MATERIAL Milagro Castle, PA-C [address] [place] [address] Ct Imaging [place] [address] Referral ID Status Reason Start Date Expiration Date Visits Requested Visits Authorized [id number] Pending Review Auto-Generat ed Referral 10/11/2023 11/09/2024 1 1 Specialty Diagnoses / Procedures Referred By John t Referred To Contact [facility] Diagnoses Primary osteoarthritis of right knee Procedures CONSULT TO PHYSICAL THERAPY PHYSICAL THERAPY EVALUATION HIGH COMPLEX 45 MINS Milagro Castle PA-C [address] [place] [address] [facility] [place] [address] [place] [id number] Referral ID Status Reason Start Date Expiration Date Visits Requested Visits Authorized [id number] Pending Review Auto-Generat ed Referral 10/27/2023 10/26/2024 1 1 Specialty Diagnoses / Procedures Referred By John t Referred To Contact Diagnoses Primary osteoarthritis of right knee Procedures REFER TO PACC - PRE ANESTHESIA CONSULTATION CLINIC OFFICE/OUTPATIENT [facility] MDM 60 MINUTES Milagro Castle PA-C [address] [place] [address] Referral ID Status Reason Start Date Expiration Date Visits Requested Visits Authorized [id number] Authorized PCP Requested Referral 10/27/2023 10/26/2024 1 1 Referral ID Status Reason Start Date Expiration Date V isits Requested Visits Authorized [id number] Closed Auto-Generate d Referral 10/11/2023 11/09/2024 1 1 Specialty Diagnoses / Procedures Referred By John solomon Referred To Contact Radiology Diagnoses Multiple lung nodules on CT Procedures CT chest without contrast Beatriz Ramirez MD [address] [place] [address]. [place] [address] Referral ID Status Reason Start Date Expiration Date V isits Requested Visits Authorized [id number] Pending Review 02/01/2024 01/31/2025 1 1 Medications Administered Section Inactive Administered Medications - up to 3 most recent administrations Medication Order MAR Action Action Date Dose Rate Site lidocaine (PF) 10 mg/mL (1 %) 4 mL injection (XYLOCAINE) 4 mL, Injection - FOR ORTHO USE ONLY, ONCE, 1 dose, Starting on Thu04/24/23 at 0913, Until Thu04/24/23 at 09 Given 04/24/2023 9:13 AM EDT 4 mL Knee, Right ROPivacaine (PF) 5 mg/mL (0.5 %) 4 mL injection (NAROPIN) 4 mL, Injection - FOR ORTHO USE ONLY, ONCE, 1 dose, Starting on Thu04/24/23 at 0913, Until Thu04/24/23 at 912 Given 04/24/2023 9:13 AM EDT 4 mL Knee, Right triamcinolone acetonide 80 mg injection (KeNALog 40) 80 mg, Injection - FOR ORTHO USE ONLY, ONCE, 1 dose, Starting on Thu04/24/23 at 0913, Until Thu04/24/23 at 912 Given 04/24/2023 9:13 AM EDT 80 mg Knee, Right Additional Source Comments (unrecognized sect ion and content) No Status Records FoundNo Status Records FoundNo Status Records FoundNo Status Records FoundNo Status Records Found INFORMATION SOURCE (unrecogn ized section and content) DATE CREATED AUTHOR 10/17/2020 [facility] DATE CREATED AUTHOR AUTHOR'S ORGANIZ ATION 05/29/2023 [facility] DATE CREATED AUTHOR AUTHOR'S ORGANIZ ATION 02/01/2024 [facility] DATE CREATED AUTHOR AUTHOR'S ORGANIZ ATION 07/28/2024 [facility] DATE CREATED AUTHOR AUTHOR'S ORGANIZ ATION 12/16/2024 [facility] EPIC Source Comments (unrecognize d section and content) In the event this informatio n is protected by the Federal Confidentiality of Alcohol and Drug Abuse Patient Records regulations: The Federal rules restrict any use of the information to criminally investigate or prosecute any alcohol or drug abuse patient.[facility] CenterIn the event this information is protected by the Federal Confidentiality of Alcohol and Drug Abuse Patient Records regulations: The Federal rules restrict any use of the information to criminally investigate or prosecute any alcohol or drug abuse patient.[facility] CenterIn the event this information is protected by the Federal Confidentiality of Alcohol and Drug Abuse Patient Records regulations: The Federal rules restrict any use of the information to criminally investigate or prosecute any alcohol or drug abuse patient.[facility] CenterIn the event this information is protected by the Federal Confidentiality of Alcohol and Drug Abuse Patient Records regulations: The Federal rules restrict any use of the information to criminally investigate or prosecute any alcohol or drug abuse patient.[facility] CenterIn the event this information is protected by the Federal Confidentiality of Alcohol and Drug Abuse Patient Records regulations: The Federal rules restrict any use of the information to criminally investigate or prosecute any alcohol or drug abuse patient.[facility] CenterIn the event this information is protected by the Federal Confidentiality of Alcohol and Drug Abuse Patient Records regulations: The Federal rules restrict any use of the information to criminally investigate or prosecute any alcohol or drug abuse patient.[facility] CenterIn the event this information is protected by the Federal Confidentiality of Alcohol and Drug Abuse Patient Records regulations: The Federal rules restrict any use of the information to criminally investigate or prosecute any alcohol or drug abuse patient.[facility] CenterIn the event this information is protected by the Federal Confidentiality of Alcohol and Drug Abuse Patient Records regulations: The Federal rules restrict any use of the information to criminally investigate or prosecute any alcohol or drug abuse patient.[facility] CenterIn the event this information is protected by the Federal Confidentiality of Alcohol and Drug Abuse Patient Records regulations: The Federal rules restrict any use of the information to criminally investigate or prosecute any alcohol or drug abuse patient.[facility] CenterIn the event this information is protected by the Federal Confidentiality of Alcohol and Drug Abuse Patient Records regulations: The Federal rules restrict any use of the information to criminally investigate or prosecute any alcohol or drug abuse patient.[facility] CenterIn the event this information is protected by the Federal Confidentiality of Alcohol and Drug Abuse Patient Records regulations: The Federal rules restrict any use of the information to criminally investigate or prosecute any alcohol or drug abuse patient.[facility] CenterIn the event this information is protected by the Federal Confidentiality of Alcohol and Drug Abuse Patient Records regulations: The Federal rules restrict any use of the information to criminally investigate or prosecute any alcohol or drug abuse patient.[facility] CenterIn the event this information is protected by the Federal Confidentiality of Alcohol and Drug Abuse Patient Records regulations: The Federal rules restrict any use of the information to criminally investigate or prosecute any alcohol or drug abuse patient.[facility] CenterIn the event this information is protected by the Federal Confidentiality of Alcohol and Drug Abuse Patient Records regulations: The Federal rules restrict any use of the information to criminally investigate or prosecute any alcohol or drug abuse patient.[facility] CenterIn the event this information is protected by the Federal Confidentiality of Alcohol and Drug Abuse Patient Records regulations: The Federal rules restrict any use of the information to criminally investigate or prosecute any alcohol or drug abuse patient.[facility] CenterIn the event this information is protected by the Federal Confidentiality of Alcohol and Drug Abuse Patient Records regulations: The Federal rules restrict any use of the information to criminally investigate or prosecute any alcohol or drug abuse patient.[facility] CenterIn the event this information is protected by the Federal Confidentiality of Alcohol and Drug Abuse Patient Records regulations: The Federal rules restrict any use of the information to criminally investigate or prosecute any alcohol or drug abuse patient.[facility] CenterIn the event this information is protected by the Federal Confidentiality of Alcohol and Drug Abuse Patient Records regulations: The Federal rules restrict any use of the information to criminally investigate or prosecute any alcohol or drug abuse patient.[facility] CenterIn the event this information is protected by the Federal Confidentiality of Alcohol and Drug Abuse Patient Records regulations: The Federal rules restrict any use of the information to criminally investigate or prosecute any alcohol or drug abuse patient.[facility] CenterIn the event this information is protected by the Federal Confidentiality of Alcohol and Drug Abuse Patient Records regulations: The Federal rules restrict any use of the information to criminally investigate or prosecute any alcohol or drug abuse patient.[facility] CenterIn the event this information is protected by the Federal Confidentiality of Alcohol and Drug Abuse Patient Records regulations: The Federal rules restrict any use of the information to criminally investigate or prosecute any alcohol or drug abuse patient.[facility] CenterIn the event this information is protected by the Federal Confidentiality of Alcohol and Drug Abuse Patient Records regulations: The Federal rules restrict any use of the information to criminally investigate or prosecute any alcohol or drug abuse patient.[facility] CenterIn the event this information is protected by the Federal Confidentiality of Alcohol and Drug Abuse Patient Records regulations: The Federal rules restrict any use of the information to criminally investigate or prosecute any alcohol or drug abuse patient.[facility] CenterIn the event this information is protected by the Federal Confidentiality of Alcohol and Drug Abuse Patient Records regulations: The Federal rules restrict any use of the information to criminally investigate or prosecute any alcohol or drug abuse patient.[facility] CenterIn the event this information is protected by the Federal Confidentiality of Alcohol and Drug Abuse Patient Records regulations: The Federal rules restrict any use of the information to criminally investigate or prosecute any alcohol or drug abuse patient.[facility] CenterIn the event this information is protected by the Federal Confidentiality of Alcohol and Drug Abuse Patient Records regulations: The Federal rules restrict any use of the information to criminally investigate or prosecute any alcohol or drug abuse patient.[facility] CenterIn the event this information is protected by the Federal Confidentiality of Alcohol and Drug Abuse Patient Records regulations: The Federal rules restrict any use of the information to criminally investigate or prosecute any alcohol or drug abuse patient.[facility] CenterIn the event this information is protected by the Federal Confidentiality of Alcohol and Drug Abuse Patient Records regulations: The Federal rules restrict any use of the information to criminally investigate or prosecute any alcohol or drug abuse patient.[facility] CenterIn the event this information is protected by the Federal Confidentiality of Alcohol and Drug Abuse Patient Records regulations: The Federal rules restrict any use of the information to criminally investigate or prosecute any alcohol or drug abuse patient.[facility] CenterIn the event this information is protected by the Federal Confidentiality of Alcohol and Drug Abuse Patient Records regulations: The Federal rules restrict any use of the information to criminally investigate or prosecute any alcohol or drug abuse patient.[facility] CenterIn the event this information is protected by the Federal Confidentiality of Alcohol and Drug Abuse Patient Records regulations: The Federal rules restrict any use of the information to criminally investigate or prosecute any alcohol or drug abuse patient.[facility] CenterIn the event this information is protected by the Federal Confidentiality of Alcohol and Drug Abuse Patient Records regulations: The Federal rules restrict any use of the information to criminally investigate or prosecute any alcohol or drug abuse patient.[facility] CenterIn the event this information is protected by the Federal Confidentiality of Alcohol and Drug Abuse Patient Records regulations: The Federal rules restrict any use of the information to criminally investigate or prosecute any alcohol or drug abuse patient.[facility] CenterIn the event this information is protected by the Federal Confidentiality of Alcohol and Drug Abuse Patient Records regulations: The Federal rules restrict any use of the information to criminally investigate or prosecute any alcohol or drug abuse patient.[facility] CenterIn the event this information is protected by the Federal Confidentiality of Alcohol and Drug Abuse Patient Records regulations: The Federal rules restrict any use of the information to criminally investigate or prosecute any alcohol or drug abuse patient.[facility] CenterIn the event this information is protected by the Federal Confidentiality of Alcohol and Drug Abuse Patient Records regulations: The Federal rules restrict any use of the information to criminally investigate or prosecute any alcohol or drug abuse patient.[facility] CenterIn the event this information is protected by the Federal Confidentiality of Alcohol and Drug Abuse Patient Records regulations: The Federal rules restrict any use of the information to criminally investigate or prosecute any alcohol or drug abuse patient.[facility] CenterIn the event this information is protected by the Federal Confidentiality of Alcohol and Drug Abuse Patient Records regulations: The Federal rules restrict any use of the information to criminally investigate or prosecute any alcohol or drug abuse patient.[facility] CenterIn the event this information is protected by the Federal Confidentiality of Alcohol and Drug Abuse Patient Records regulations: The Federal rules restrict any use of the information to criminally investigate or prosecute any alcohol or drug abuse patient.[facility] CenterIn the event this information is protected by the Federal Confidentiality of Alcohol and Drug Abuse Patient Records regulations: The Federal rules restrict any use of the information to criminally investigate or prosecute any alcohol or drug abuse patient.[facility] CenterIn the event this information is protected by the Federal Confidentiality of Alcohol and Drug Abuse Patient Records regulations: The Federal rules restrict any use of the information to criminally investigate or prosecute any alcohol or drug abuse patient.[facility] CenterIn the event this information is protected by the Federal Confidentiality of Alcohol and Drug Abuse Patient Records regulations: The Federal rules restrict any use of the information to criminally investigate or prosecute any alcohol or drug abuse patient.[facility] CenterIn the event this information is protected by the Federal Confidentiality of Alcohol and Drug Abuse Patient Records regulations: The Federal rules restrict any use of the information to criminally investigate or prosecute any alcohol or drug abuse patient.[facility] CenterIn the event this information is protected by the Federal Confidentiality of Alcohol and Drug Abuse Patient Records regulations: The Federal rules restrict any use of the information to criminally investigate or prosecute any alcohol or drug abuse patient.[facility] CenterIn the event this information is protected by the Federal Confidentiality of Alcohol and Drug Abuse Patient Records regulations: The Federal rules restrict any use of the information to criminally investigate or prosecute any alcohol or drug abuse patient.[facility] CenterIn the event this information is protected by the Federal Confidentiality of Alcohol and Drug Abuse Patient Records regulations: The Federal rules restrict any use of the information to criminally investigate or prosecute any alcohol or drug abuse patient.[facility] CenterIn the event this information is protected by the Federal Confidentiality of Alcohol and Drug Abuse Patient Records regulations: The Federal rules restrict any use of the information to criminally investigate or prosecute any alcohol or drug abuse patient.[facility] CenterIn the event this information is protected by the Federal Confidentiality of Alcohol and Drug Abuse Patient Records regulations: The Federal rules restrict any use of the information to criminally investigate or prosecute any alcohol or drug abuse patient.[facility] CenterIn the event this information is protected by the Federal Confidentiality of Alcohol and Drug Abuse Patient Records regulations: The Federal rules restrict any use of the information to criminally investigate or prosecute any alcohol or drug abuse patient.[facility] CenterIn the event this information is protected by the Federal Confidentiality of Alcohol and Drug Abuse Patient Records regulations: The Federal rules restrict any use of the information to criminally investigate or prosecute any alcohol or drug abuse patient.[facility] CenterIn the event this information is protected by the Federal Confidentiality of Alcohol and Drug Abuse Patient Records regulations: The Federal rules restrict any use of the information to criminally investigate or prosecute any alcohol or drug abuse patient.[facility] CenterIn the event this information is protected by the Federal Confidentiality of Alcohol and Drug Abuse Patient Records regulations: The Federal rules restrict any use of the information to criminally investigate or prosecute any alcohol or drug abuse patient.[facility] CenterIn the event this information is protected by the Federal Confidentiality of Alcohol and Drug Abuse Patient Records regulations: The Federal rules restrict any use of the information to criminally investigate or prosecute any alcohol or drug abuse patient.[facility] CenterIn the event this information is protected by the Federal Confidentiality of Alcohol and Drug Abuse Patient Records regulations: The Federal rules restrict any use of the information to criminally investigate or prosecute any alcohol or drug abuse patient.[facility] CenterIn the event this information is protected by the Federal Confidentiality of Alcohol and Drug Abuse Patient Records regulations: The Federal rules restrict any use of the information to criminally investigate or prosecute any alcohol or drug abuse patient.[facility] CenterIn the event this information is protected by the Federal Confidentiality of Alcohol and Drug Abuse Patient Records regulations: The Federal rules restrict any use of the information to criminally investigate or prosecute any alcohol or drug abuse patient.[facility] CenterIn the event this information is protected by the Federal Confidentiality of Alcohol and Drug Abuse Patient Records regulations: The Federal rules restrict any use of the information to criminally investigate or prosecute any alcohol or drug abuse patient.[facility] CenterIn the event this information is protected by the Federal Confidentiality of Alcohol and Drug Abuse Patient Records regulations: The Federal rules restrict any use of the information to criminally investigate or prosecute any alcohol or drug abuse patient.[facility] CenterIn the event this information is protected by the Federal Confidentiality of Alcohol and Drug Abuse Patient Records regulations: The Federal rules restrict any use of the information to criminally investigate or prosecute any alcohol or drug abuse patient.[facility] CenterIn the event this information is protected by the Federal Confidentiality of Alcohol and Drug Abuse Patient Records regulations: The Federal rules restrict any use of the information to criminally investigate or prosecute any alcohol or drug abuse patient.[facility] CenterIn the event this information is protected by the Federal Confidentiality of Alcohol and Drug Abuse Patient Records regulations: The Federal rules restrict any use of the information to criminally investigate or prosecute any alcohol or drug abuse patient.[facility] CenterIn the event this information is protected by the Federal Confidentiality of Alcohol and Drug Abuse Patient Records regulations: The Federal rules restrict any use of the information to criminally investigate or prosecute any alcohol or drug abuse patient.[facility] CenterIn the event this information is protected by the Federal Confidentiality of Alcohol and Drug Abuse Patient Records regulations: The Federal rules restrict any use of the information to criminally investigate or prosecute any alcohol or drug abuse patient.[facility] CenterIn the event this information is protected by the Federal Confidentiality of Alcohol and Drug Abuse Patient Records regulations: The Federal rules restrict any use of the information to criminally investigate or prosecute any alcohol or drug abuse patient.[facility] CenterIn the event this information is protected by the Federal Confidentiality of Alcohol and Drug Abuse Patient Records regulations: The Federal rules restrict any use of the information to criminally investigate or prosecute any alcohol or drug abuse patient.[facility] CenterIn the event this information is protected by the Federal Confidentiality of Alcohol and Drug Abuse Patient Records regulations: The Federal rules restrict any use of the information to criminally investigate or prosecute any alcohol or drug abuse patient.[facility] CenterIn the event this information is protected by the Federal Confidentiality of Alcohol and Drug Abuse Patient Records regulations: The Federal rules restrict any use of the information to criminally investigate or prosecute any alcohol or drug abuse patient.[facility] CenterIn the event this information is protected by the Federal Confidentiality of Alcohol and Drug Abuse Patient Records regulations: The Federal rules restrict any use of the information to criminally investigate or prosecute any alcohol or drug abuse patient.[facility] Reason for Visit (unrecogniz ed section and content) Reason Comments Appointment [facility] 2nd opinio n line. 1st call. Patient's scheduled for Thursday, 12/[address] Nato Antonio. Case closed. Reason Comments IMAGES RCVD VIA WALK IN Reason Comments Education Of Patient/family Reason Comments Forms Leave of Absence Reason Comments Pre-Op Exam Reason Comments Patient Education Specialty Diagnoses / Procedures Referred By Contac t Referred To Contact CT IMAGING Diagnoses Encounter for preoperative vascular examination Pre-operative cardiovascular examination Atherosclerosis of coronary artery of [place] heart, unspecified vessel or lesion type, unspecified whether angina present Procedures CT CHEST CARDIAC WO IVCON DIAGNOSTIC COMPUTED TOMOGRAPHY THORAX W/O Ari Soto MD [address] [place] [address] Ct Imaging Referral ID Status Reason Start Date Expiration Date V isits Requested Visits Authorized [id number] Closed Auto-Generate d Referral 01/13/2023 02/12/2024 1 1 Reason Comments Patient Question Reason Comments Returning Patient's Call Reason Comments Follow Up Phone Call RC f/u all clear Reason Comments Radio Main J1 Specialty Diagnoses / Procedures Referred By Contac t Referred To Contact ADMITTING Diagnoses Encounter for preoperative vascular examination Pre-operative cardiovascular examination Atherosclerosis of coronary artery of [place] heart, unspecified vessel or lesion type, unspecified whether angina present Procedures CORONARY ARTERY BYP W/VEIN & ARTERY GRAFT 1 VEIN BYPASS GRAFT ARTERY CORONARY ON-PUMP USING VENOUS GRAFT(S) AND ARTERIAL GRAFT(S) SINGLE VEIN GRAFT [facility] [address] [place] [address] Referral ID Status Reason Start Date Expiration Date Visits Re quested Visits Authorized [id number] 1 1 Specialty Diagnoses / Procedures Referred By John solomon Referred To Contact ADMITTING Diagnoses Encounter for preoperative vascular examination Pre-operative cardiovascular examination Atherosclerosis of coronary artery of [place] heart, unspecified vessel or lesion type, unspecified whether angina present Procedures CORONARY ARTERY BYP W/VEIN & ARTERY GRAFT 1 VEIN BYPASS GRAFT ARTERY CORONARY ON-PUMP USING VENOUS GRAFT(S) AND ARTERIAL GRAFT(S) SINGLE VEIN GRAFT [facility] [address] [place] [id number] Reason Comments Medication Request 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 Comments 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 Reason Comments LAB RESULTS RCVD VIA FAX Reason Comments New Pain Swelling Reason Comments Refill Request Reason Onset Date Comments Refill Request 05/21/2023 Specialty Diagnoses / Procedures Referred By John solomon Referred To Contact MR IMAGING Diagnoses Chronic pain of right knee Procedures MRI KNEE WO IVCON RIGHT MRI ANY JT LOWER EXTREM W/O CONTRAST MATRMilagro Vines PA-C [address] [employer] [facility] [place] [id number] [facility] [place] [address] Referral ID Status Reason Start Date Expiration Date V isits Requested Visits Authorized [id number] Closed Auto-Generate d Referral 04/24/2023 05/23/2024 1 1 Reason Comments CARD New Patient Consult Phase 3 Session CAD, HTN, Angina Specialty Diagnoses / Procedures Referred By John solomon Referred To Contact Diagnoses Hx of CABG Essential hypertension Stable angina Coronary artery disease due to lipid rich plaque Former tobacco use Procedures CONSULT TO PREVENTIVE CARD OFFICE/OUTPATIENT NEW HIGH MDM 60-74 MINUTES Nato Antonio MD [address] [employer] [place] [id number] Referral ID Status Reason Start Date Expiration Date V isits Requested Visits Authorized [id number] Closed PCP Requested Referral 03/11/2023 03/10/2024 1 1 Reason Comments New Swelling Numbness Knee Pain Injections Reason Comments Follow Up Reason Comments Radio Gen RMP Reason Comments New Knee Pain Reason Comments Schedule Surgery Reason Comments Insurance Authorization Reason Comments Cardiac Clearance Specialty Diagnoses / Procedures Referred By Contac t Referred To Contact Diagnoses Primary osteoarthritis of right knee Procedures REFER TO PACC - PRE ANESTHESIA CONSULTATION CLINIC OFFICE/OUTPATIENT NEW HIGH MDM 60 MINUTES Milagro Castle PA-C [address] [place] [id number] Referral ID Status Reason Start Date Expiration Date V isits Requested Visits Authorized [id number] Closed PCP Requested Referral 10/27/2023 10/26/2024 1 1 Specialty Diagnoses / Procedures Referred By Contac t Referred To Contact CT IMAGING Diagnoses Chronic pain of right knee Procedures CT KNEE WO IVCON RIGHT CT LOWER EXTREMITY W/O CONTRAST MATERIAL Milagro Castle PA-C [address] [place] [address] Ct Imaging [place] [address] Referral ID Status Reason Start Date Expiration Date V isits Requested Visits Authorized [id number] Closed Auto-Generate d Referral 10/11/2023 11/09/2024 1 1 Reason Comments Established Patient Knee Replacement Post Op Reason Onset Date Comments Refill Request 02/05/2024 Reason Comments Established Patient Knee Replacement Reason Onset Date Comments Refill Request 02/19/2024 Reason Comments Radio Gen A21 Specialty Diagnoses / Procedures Referred By Contac t Referred To Contact XR IMAGING Diagnoses Primary osteoarthritis of right knee Procedures XR KNEE SPECIFY 1V RIGHT RADIOLOGIC EXAMINATION KNEE 1/2 VIEWS TinMilagro PA-C [address] [place] [address] Xr Imaging [place] [address] Referral ID Status Reason Start Date Expiration Date V isits Requested Visits Authorized [id number] Closed Auto-Generate d Referral 04/24/2023 05/23/2024 1 1 Reason Comments New Swelling Numbness Injections Knee Pain Reason Comments New Knee Pain Swelling Reason Comments Orders Reason Onset Date Comments Refill Request 09/26/2024 Reason Comments Skin Check Reason Onset Date Comments Refill Request 11/05/2024 Reason Comments Mohs Micrographic Surgery Reason Comments Mohs Reconstruction New patient : Mohs l eft roman catholic Specialty Diagnoses / Procedures Referred By Contac t Referred To Contact Otolaryngology Diagnoses Basal cell carcinoma of skin of scalp and neck Procedures [place] OFFICE/OUTPATIENT NEW HIGH MDM 60 MINUTES Wang Soler MD [address] [place] [address] Phone: tel: fax: Bennie Keen DO [address] [place] [address] Phone: tel: fax: Referral ID Status Reason Start Date Expiration Date V isits Requested Visits Authorized [id number] Closed Specialty Services Required 12/15/2024 06/13/2025 1 1 Care Teams (unrecognized sec tion and content) Business Executive Relationship Specialty Start Date End Date de Beatriz Galvan [address] [place] [address] PCP - General Family Medicine 12/17/22 Business Executive Relationship Specialty Start Date End Date de Beatriz Galvan [address] [place] [address] PCP - General Family Medicine 12/17/22 Business Executive Relationship Specialty Start Date End Date de Beatriz Galvan [address] [place] [address] PCP - General Family Medicine 12/17/22 Nato Antonio MD [address] [place], [place] [id number] Primary Staff Physician Cardiology 12/18/22 Business Executive Relationship Specialty Start Date End Date de Beatriz Galvan [address] [place] [address] PCP - General Family Medicine 12/17/22 Nato Antonio MD [address] [place] [address] Primary Staff Physician Cardiology 12/18/22 Business Executive Relationship Specialty Start Date End Date de Beatriz Galvan [address] [place] [address] PCP - General Family Medicine 12/17/22 Nato Antonio MD [address] [place] [address] Primary Staff Physician Cardiology 12/18/22 Business Executive Relationship Specialty Start Date End Date de Beatriz Galvan [address] [place] [address] PCP - General Family Medicine 12/17/22 Nato Antonio MD [address] [place] [address] Primary Staff Physician Cardiology 12/18/22 Ari Pedro MD [address] [place] [address] Surgeon Cardiac Surg 01/13/23 Business Executive Relationship Specialty Start Date End Date Beatriz Edgar [address] [address] PCP - General Family Medicine 12/17/22 Nato Antonio MD [address] [place] [address] Primary Staff Physician Cardiology 12/18/22 Ari Pedro MD [address] [place] [address] Surgeon Cardiac Surg 01/13/23 Business Executive Relationship Specialty Start Date End Date Beatriz Edgar [address] [address] PCP - General Family Medicine 12/17/22 Nato Antonio MD [address] [place] [address] Primary Staff Physician Cardiology 12/18/22 Ari Pedro MD [address] [place] [address] Surgeon Cardiac Surg 01/13/23 Business Executive Relationship Specialty Start Date End Date de Beatriz Galvan [address] [place], [place] [id number] PCP - General Family Medicine 12/17/22 Nato Antonio MD [address] [place] [address] Primary Staff Physician Cardiology 12/18/22 Ari Pedro MD [address] [place] [address] Surgeon Cardiac Surg 01/13/23 Business Executive Relationship Specialty Start Date End Date Beatriz Edgar [address] [place], [place] [id number] PCP - General Family Medicine 12/17/22 Nato Antonio MD [address] [place] [address] Primary Staff Physician Cardiology 12/18/22 Ari Pedro MD [address] [place] [address] Surgeon Cardiac Surg 01/13/23 Business Executive Relationship Specialty Start Date End Date Beatriz Edgar [address] [place] [address] PCP - General Family Medicine 12/17/22 Nato Antonio MD [address] [place] [address] Primary Staff Physician Cardiology 12/18/22 Ari Pedro MD [address] [place] [address] Surgeon Cardiac Surg 01/13/23 Business Executive Relationship Specialty Start Date End Date de Beatriz Galvan [address] [place] [address] PCP - General Family Medicine 12/17/22 Nato Antonio MD [address] [place] [address] Primary Staff Physician Cardiology 12/18/22 Ari Pedro MD [address] [place] [address] Surgeon Cardiac Surg 01/13/23 Business Executive Relationship Specialty Start Date End Date Beatriz Edgar [address] [place] [address] PCP - General Family Medicine 12/17/22 Nato Antonio MD [address] [place] [address] Primary Staff Physician Cardiology 12/18/22 Ari Pedro MD [address] [place] [address] Surgeon Cardiac Surg 01/13/23 Business Executive Relationship Specialty Start Date End Date Beatriz Edgar [address] [place] [address] PCP - General Family Medicine 12/17/22 Nato Antonio MD [address] [place] [address] Primary Staff Physician Cardiology 12/18/22 Ari Pedro MD [address] [place] [address] Surgeon Cardiac Surg 01/13/23 Business Executive Relationship Specialty Start Date End Date Beatriz Edgar [address] [place] [address] PCP - General Family Medicine 12/17/22 Nato Antonio MD [address] [place] [address] Primary Staff Physician Cardiology 12/18/22 Ari Pedro MD [address] [facility] [place] [address] Surgeon Cardiac Surg 01/13/23 Business Executive Relationship Specialty Start Date End Date Beatriz Edgar [address] [place] [address] PCP - General Family Medicine 12/17/22 Nato Antonio MD [address] [place] [address] Primary Staff Physician Cardiology 12/18/22 Ari Pedro MD [address] [place] [address] Surgeon Cardiac Surg 01/13/23 Business Executive Relationship Specialty Start Date End Date de Beatriz Galvan [address] [place] [address] PCP - General Family Medicine 12/17/22 Nato Antonio MD [address] [place] [address] Primary Staff Physician Cardiology 12/18/22 Ari Pedro MD [address] [place] [address] Surgeon Cardiac Surg 01/13/23 Business Executive Relationship Specialty Start Date End Date de Beatriz Galvan [address] [place] [address] PCP - General Family Medicine 12/17/22 Nato Antonio MD [address] [place] [address] Primary Staff Physician Cardiology 12/18/22 Ari Pedro MD [address] [place] [address] Surgeon Cardiac Surg 01/13/23 Business Executive Relationship Specialty Start Date End Date Beatriz Edgar [address] [place], [place] [address] PCP - General Family Medicine 12/17/22 Nato Antonio MD [address] [place] [address] Primary Staff Physician Cardiology 12/18/22 Ari Pedro MD [address] [place] [address] Surgeon Cardiac Surg 01/13/23 Business Executive Relationship Specialty Start Date End Date Beatriz Edgar [address] [place] [address] PCP - General Family Medicine 12/17/22 Nato Antonio MD [address] [place] [address] Primary Staff Physician Cardiology 12/18/22 Ari Pedro MD [address] [place] [address] Surgeon Cardiac Surg 01/13/23 Business Executive Relationship Specialty Start Date End Date Beatriz Edgar [address] [place] [address] PCP - General Family Medicine 12/17/22 Nato Antonio MD [address] [place] [address] Primary Staff Physician Cardiology 12/18/22 Ari Pedro MD [address] [place] [address] Surgeon Cardiac Surg 01/13/23 Business Executive Relationship Specialty Start Date End Date Beatriz Edgar [address] [place] [address] PCP - General Family Medicine 12/17/22 Nato Antonio MD [address] [place] [address] Primary Staff Physician Cardiology 12/18/22 Ari Pedro MD [address] [place] [address] Surgeon Cardiac Surg 01/13/23 Business Executive Relationship Specialty Start Date End Date Beatriz Edgar [address] [place] [address] PCP - General Family Medicine 12/17/22 Nato Antonio MD [address] [place] [address] Primary Staff Physician Cardiology 12/18/22 Ari Pedro MD [address] [place] [address] Surgeon Cardiac Surg 01/13/23 Business Executive Relationship Specialty Start Date End Date Beatriz Edgar [address] [place] [address] PCP - General Family Medicine 12/17/22 Nato Antonio MD [address] [place] [address] Primary Staff Physician Cardiology 12/18/22 Ari Pedro MD [address] [place] [address] Surgeon Cardiac Surg 01/13/23 Business Executive Relationship Specialty Start Date End Date Beatriz Edgar [address] [place] [address] PCP - General Family Medicine 12/17/22 Nato Antonio MD [address] [place] [address] Primary Staff Physician Cardiology 12/18/22 Ari Pedro MD [address] [place] [address] Surgeon Cardiac Surg 01/13/23 Business Executive Relationship Specialty Start Date End Date de Beatriz Galvan [address] [place] [address] PCP - General Family Medicine 12/17/22 Nato Antonio MD [address] [place] [address] Primary Staff Physician Cardiology 12/18/22 Ari Pedro MD [address] [place] [address] Surgeon Cardiac Surg 01/13/23 Business Executive Relationship Specialty Start Date End Date de Beatriz Galvan [address] [place] [address] PCP - General Family Medicine 12/17/22 Nato Antonio MD [address] [place] [address] Primary Staff Physician Cardiology 12/18/22 Ari Pedro MD [address] [place] [address] Surgeon Cardiac Surg 01/13/23 Business Executive Relationship Specialty Start Date End Date Beatriz Edgar [address] [place] [address] PCP - General Family Medicine 12/17/22 Nato Antonio MD [address] [place] [address] Primary Staff Physician Cardiology 12/18/22 Ari Pedro MD [address] [place] [address] Surgeon Cardiac Surg 01/13/23 Business Executive Relationship Specialty Start Date End Date Beatriz Edgar [address] [place] [address] PCP - General Family Medicine 12/17/22 Nato Antonio MD [address] [place] [address] Primary Staff Physician Cardiology 12/18/22 Ari Pedro MD [address] [place] [address] Surgeon Cardiac Surg 01/13/23 Business Executive Relationship Specialty Start Date End Date Beatriz Edgar [address] [place] [address] PCP - General Family Medicine 12/17/22 Nato Antonio MD [address] [place] [address] Primary Staff Physician Cardiology 12/18/22 Ari Pedro MD [address] [place] [address] Surgeon Cardiac Surg 01/13/23 Business Executive Relationship Specialty Start Date End Date de Beatriz Galvan [address] [place] [address] PCP - General Family Medicine 12/17/22 Nato Antonio MD [address] [place] [address] Primary Staff Physician Cardiology 12/18/22 Ari Pedro MD [address] [place] [address] Surgeon Cardiac Surg 01/13/23 Business Executive Relationship Specialty Start Date End Date de Beatriz Galvan [address] [place] [address] PCP - General Family Medicine 12/17/22 Nato Antonio MD [address] [place] [address] Primary Staff Physician Cardiology 12/18/22 Ari Pedro MD [address] [place] [address] Surgeon Cardiac Surg 01/13/23 Business Executive Relationship Specialty Start Date End Date Beatriz Edgar [address] [place] [address] PCP - General Family Medicine 12/17/22 Nato Antonio MD [address] [place] [address] Primary Staff Physician Cardiology 12/18/22 Ari Pedro MD [address] [place] [address] Surgeon Cardiac Surg 01/13/23 Business Executive Relationship Specialty Start Date End Date Beatriz Edgar [address] [place] [address] PCP - General Family Medicine 12/17/22 Nato Antonio MD [address] [place] [address] Primary Staff Physician Cardiology 12/18/22 Ari Pedro MD [address] [place] [address] Surgeon Cardiac Surg 01/13/23 Business Executive Relationship Specialty Start Date End Date de Beatriz Galvan [address] [address] PCP - General Family Medicine 12/17/22 Nato Antonio MD [address] [place] [address] Primary Staff Physician Cardiology 12/18/22 Ari Pedro MD [address] [place] [address] Surgeon Cardiac Surg 01/13/23 Business Executive Relationship Specialty Start Date End Date Beatriz Edgar [address] [address] PCP - General Family Medicine 12/17/22 Nato Antonio MD [address] [place] [address] Primary Staff Physician Cardiology 12/18/22 Ari Pedro MD [address] [place] [address] Surgeon Cardiac Surg 01/13/23 Business Executive Relationship Specialty Start Date End Date Beatriz Edgar [address] [address] PCP - General Family Medicine 12/17/22 Nato Antonio MD [address] [place] [address] Primary Staff Physician Cardiology 12/18/22 Ari Pedro MD [address] [place] [address] Surgeon Cardiac Surg 01/13/23 Business Executive Relationship Specialty Start Date End Date Beatriz Edgar [address] [place] [address] PCP - General Family Medicine 12/17/22 Nato Antonio MD [address] [place] [address] Primary Staff Physician Cardiology 12/18/22 Ari Pedro MD [address] [place] [address] Surgeon Cardiac Surg 01/13/23 Business Executive Relationship Specialty Start Date End Date Beatriz Edgar [address] [place], [place] [address] PCP - General Family Medicine 12/17/22 Nato Antonio MD [address] [place] [address] Primary Staff Physician Cardiology 12/18/22 Ari Pedro MD [address] [place] [address] Surgeon Cardiac Surg 01/13/23 Business Executive Relationship Specialty Start Date End Date Beatriz Edgar [address] [place] [address] PCP - General Family Medicine 12/17/22 Nato Antonio MD [address] [place] [address] Primary Staff Physician Cardiology 12/18/22 Ari Pedro MD [address] [place] [address] Surgeon Cardiac Surg 01/13/23 Business Executive Relationship Specialty Start Date End Date Beatriz Edgar [address] [place] [address] PCP - General Family Medicine 12/17/22 Nato Antonio MD [address] [place] [address] Primary Staff Physician Cardiology 12/18/22 Ari Pedro MD [address] [place] [address] Surgeon Cardiac Surg 01/13/23 Business Executive Relationship Specialty Start Date End Date Beatriz Edgar [address] [place] [address] PCP - General Family Medicine 12/17/22 Nato Antonio MD [address] [place] [address] Primary Staff Physician Cardiology 12/18/22 Ari Pedro MD [address] [place] [address] Surgeon Cardiac Surg 01/13/23 Business Executive Relationship Specialty Start Date End Date Beatriz Edgar [address] [address] PCP - General Family Medicine 12/17/22 Nato Antonio MD [address] [place] [address] Primary Staff Physician Cardiology 12/18/22 Ari Pedro MD [address] [place] [address] Surgeon Cardiac Surg 01/13/23 Business Executive Relationship Specialty Start Date End Date Beatriz Edgar [address] [address] PCP - General Family Medicine 12/17/22 Nato Antonio MD [address] [place] [address] Primary Staff Physician Cardiology 12/18/22 Ari Pedro MD [address] [place] [address] Surgeon Cardiac Surg 01/13/23 Business Executive Relationship Specialty Start Date End Date Beatriz Edgar [address] [address] PCP - General Family Medicine 12/17/22 Nato Antonio MD [address] [place] [address] Primary Staff Physician Cardiology 12/18/22 Ari Pedro MD [address] [place] [address] Surgeon Cardiac Surg 01/13/23 Business Executive Relationship Specialty Start Date End Date de Beatriz Galvan [address] [place] [address] PCP - General Family Medicine 12/17/22 Nato Antonio MD [address] [place] [address] Primary Staff Physician Cardiology 12/18/22 Ari Pedro MD [address] [place] [address] Surgeon Cardiac Surg 01/13/23 Business Executive Relationship Specialty Start Date End Date de Beatriz Galvan [address] [place] [address] PCP - General Family Medicine 12/17/22 Nato Antonio MD [address] [place] [address] Primary Staff Physician Cardiology 12/18/22 Ari Pedro MD [address] [place] [address] Surgeon Cardiac Surg 01/13/23 Business Executive Relationship Specialty Start Date End Date de Beatriz Galvan [address] [address] PCP - General Family Medicine 12/17/22 Nato Antonio MD [address] [place] [address] Primary Staff Physician Cardiology 12/18/22 Ari Pedro MD [address] [place] [address] Surgeon Cardiac Surg 01/13/23 Business Executive Relationship Specialty Start Date End Date Beatriz Ramirez MD [address] [place] [address] PCP - General Family Medicine 01/30/24 Business Executive Relationship Specialty Start Date End Date Beatriz Edgar [address] [place] [address] PCP - General Family Medicine 12/17/22 Nato Antonio MD [address] [place] [address] Primary Staff Physician Cardiology 12/18/22 Ari Pedro MD [address] [place] [address] Surgeon Cardiac Surg 01/13/23 Business Executive Relationship Specialty Start Date End Date Beatriz Ramirez MD [address] [place] [address] PCP - General Family Medicine 11/18/22 Business Executive Relationship Specialty Start Date End Date Beatriz Ramirez MD [address] [place] [address] PCP - General Family Medicine 11/18/22 Business Executive Relationship Specialty Start Date End Date Beatriz Ramirez MD [address] [place] [address] PCP - General Family Medicine 11/18/22 Business Executive Relationship Specialty Start Date End Date Beatriz Ramirez MD [address] [place] [address] PCP - General Family Medicine 11/18/22 Wang Soler MD [address] [place] [address] Referring Physician Dermatology 12/15/24 Bennie Keen DO [address] [place] [address] Otolaryngology 12/15/24 Business Executive Relationship Specialty Start Date End Date Beatriz Ramirez MD [address] [place] [address] PCP - General Family Medicine 11/18/22 Wang Soler MD [address] [place] [address] Referring Physician Dermatology 12/15/24 Bennie Keen DO [address] [place] [address] Otolaryngology 12/15/24 Inactive Administered Medications - up to 3 most recent administrations Administered Medications (un recognized section and content) Medication Order MAR Action Action Date Dose Rate Site lidocaine (PF) 10 mg/mL (1 %) 4 mL injection (XYLOCAINE) 4 mL, Injection - FOR ORTHO USE ONLY, ONCE, 1 dose, Starting on Thu10/02/23 at 1411, Until Thu10/02/23 at 1411 Given 10/02/2023 2:11 PM EDT 4 mL Knee, Right ROPivacaine (PF) 5 mg/mL (0.5 %) 4 mL injection (NAROPIN) 4 mL, Injection - FOR ORTHO USE ONLY, ONCE, 1 dose, Starting on Thu10/02/23 at 1411, Until Thu10/02/23 at 1411 Given 10/02/2023 2:11 PM EDT 4 mL Knee, Right triamcinolone acetonide 80 mg injection (KeNALog 40) 80 mg, Injection - FOR ORTHO USE ONLY, ONCE, 1 dose, Starting on Thu10/02/23 at 1411, Until Thu10/02/23 at 1411 Given 10/02/2023 2:11 PM EDT 80 mg Knee, Right FOR RECORDS PERTAINING TO PATIENTS WHO ARE OR HAVE BEEN ENROLLED IN A CHEMICAL DEPENDENCY/SUBSTANCEABUSE PROGRAM, SOME INFORMATION MAY BE OMITTED. This clinical summary was aggregated from multiple sources. Caution should be exercised in using it in the provision of clinical care. This summary normalizes information from multiple sources, and as a consequence, information in this document may materially change the coding, format and clinical context of patient data. In addition, data may be omitted in some cases. CLINICAL DECISIONS SHOULD BE BASED ON THE PRIMARY CLINICAL RECORDS. [facility]. provides no warranty or guarantee of the accuracy or completeness of information in this document.
--- OUTSIDE RECORDS SUMMARY | 2024-12-17 10:12 | XMS_ITS | Clinical Summary ---
Author Organization [facility] Address [address] [id number] Care Team Providers Care Curtain Drier Name Role Phone nolan MicaelaCan Neri Primary Care Provider [phone] Cyn Antonio MD Unavailable [phone] Ari Pedro MD Unavailable [phone] Allergies No known active allergies Medications aspirin, enteric coated (ASPIRIN, ENTERIC COATED) 81 mg EC tabletIndications:E ssential hypertension,Stable angina,Ischemia Take 81 mg by mouth once daily. Active MULTIVITAMIN ORALIndications:Isc hemia Take by mouth. Active acetaminophen (TYLENOL) 500 mg tablet Take 2 tablets by mouth every 8 hours. 80 tablet 4 Active bisacodyl EC (DULCOLAX) 5 mg EC tablet Take 2 tablets by mouth once daily. Patient should start on January 15, 2024. 4 Active docusate sodium (COLACE) 100 mg capsule Take 1 capsule by mouth two times a day. 30 capsule 4 Active senna (SENOKOT) 8.6 mg tab Take 2 tablets by mouth daily at bedtime. 4 Active metoprolol succinate ER (TOPROL XL) 100 mg TAKE 1 TABLET BY MOUTH IN THE MORNING AND ONE-HALF TABLET BY MOUTH IN THE EVENING 135 tablet 3 4 Active atorvastatin (LIPITOR) 80 mg tabletIndications:E ssential hypertension,Giraldo ry artery disease due to lipid rich plaque,Elevated glucose Take 1 tablet by mouth daily at bedtime. 90 tablet 1 5 03/25/20 25 Active ezetimibe (ZETIA) 10 mg tabletIndications:H x of CABG,Coronary artery disease due to lipid rich plaque,Mixed hyperlipidemia Take 1 tablet by mouth once daily. 90 tablet 5 Active amLODIPine (NORVASC) 2.5 mg tabletIndications:I schemia,Essential hypertension,Stable angina,Coronary artery disease due to lipid rich plaque,Elevated glucose Take 1 tablet by mouth once daily. 90 tablet 2 5 Active Active Problems Patient Care Coordination No te Formatting of this note migh t be different from the original. Indication for Surgery: CAD Preop LVEF: 55% RVF: Normal. EKG: NSR Cards: Dr. Cyn Diaz Postop LVEF: Normal RVF: Normal Important/Relevant PMH/PSH: HTN, HLD, CAD, DVTs (s/p IVC filter), Former tobacco use (quit > 30 years ago). Preoperative Hospital Course: Airway Difficulty: Grade I - easy Pacing Wires: No: V pulled 01/26 Chronological List of Surgeries and Major Events (Diagnosis): (Surgeries in bold characters) 01/22/2023: CABG x 5 (RUTH to LAD, RSVG to PDA, RSVG to Diagonal, LRA to OM1, Free CHICO to OM2) A/P Problems: No tubes. R/L CT/PMW removed 01/26. - s/p CABG: ASA, BB, statin; Norvasc for radial graft. CT/PMW removed 01/26. - FVO: at admit weight. recent CXR with small bilat pleural effusion. continue oob, ambulation. - Left pneumo: small noted on CXR 01/24. Successful Clamp trial 01/[address]. CXR 01/27 reviewed, left apical PTX - ABL anemia - Trended as low as 7.8/21.6 (no transfusion). H/H 8.9/26.3- improving with diuresis - Thrombocytopenia: Trended as low as 91k. Plt now 188 K. Cont ASA, SQ heparin - HTN (Pre-op on Toprol XL)- SBP 109. HR 70- 80. controlled with metoprolol, norvasc. - HX DVT: IVC in place. Continue DVT prophylaxis - Post-op pain was significant early on. now pain controlled much better with oral tylenol. minimal oxycodone. RLE extremity SVG and left wrist radial graft site with pain - incidental lung nodules: noted on dc summary/instructions for f/u. Dispo: 57 year old yo male from [place], [place]. CM following. No skilled needs OPD 02/04. [facility] cards (virtual) f/u scheduled 02/20 Discharge Planning: Anticipated Discharge Date: 01/28 Barriers to Discharge: No Barriers to Discharge Care Management Discharge Needs: none Problem Noted Date Diagnosed Date Localized osteoarthritis of right knee Sinus bradycardia by electrocardiography Assessment & Plan (01/05/2024 3:09 PM EDT): Sinus calixto HR 50 on EKG Denies cardiac symptoms Incidental lung nodule 01/26/2023 Overview (01/28/2023): History: CT chest 01/21/23: incidental finding: Small pulmonary nodules as described. Incidental Finding: Follow-up Finding: Solid: <6 mm (solitary or multiple) Assessment: stable Plan: Recommendation: No imaging follow-up is recommended Comments: If there are risk factors for lung malignancy, a follow-up chest CT exam could be obtained in 12 months Hypokalemia 01/26/2023 Obesity, Class I, BMI 30-34.9 01/22/2023 Overview (01/28/2023): History: Body mass index is 32.46 kg/m . Assessment: by definition. on exam Plan: needs to make lifestyle changes with diet and exercise once recovers from surgery. Assessment & Plan (01/05/2024 3:07 PM EDT): BMI 31.97 Coronary artery disease with exertional angina 0 01/22/2023 Assessment & Plan (02/09/2024 10:30 AM EDT): S/p CABG X 5 RUTH to LAD, RSVG to PDA, RSVG to Diagonal, LRA to OM1, Free CHICO to OM Monitored by cardiology, Dr Antonio last OPV 10/02/2023 Assessment & Plan (01/05/2024 3:08 PM EDT): Hx CABG (01/22/2023) CABG X 5: RUTH to LAD, RSVG to PDA, RSVG to Diagonal, LRA to OM1, Free CHICO to OM2 Follows with Cardiology Cyn Antonio MD [place] September 2023 Managed on asa, statin and Bp medications ECHO and EKG reviewed and accepted from September 2023 Denies cardiac symptoms EKG reviewed and accepted from today Pre-op testing 01/21/2023 Overview (01/21/2023): [facility] PRE-OP CHECKLIST Surgeon: Ari Pedro MD Intended procedure: CABG Informed Consent Completed: Yes STS Score: CAD: Yes - CAD on Problem List: No Is intended procedure a CABG: Yes - is a beta alexandro ordered? No - reason: taking metoprolol H & P completed: Yes PA/LAT: Completed CT: Completed MRI: N/A LE US: N/A Cath: Yes - reviewed: Yes EKG: Completed Is patient on Amiodarone? No Echo:Completed EF %: 55 PI's: Completed Carotid: N/A Per checklist Mapping: Completed Dental: Cleared PFT's: N/A UA: negative HCG:N/A ABO/ABO Confirmed: Yes Blood ordered: No Willing to accept blood: Yes SA Swab: Yes - results: Pending Last Dose of Anticoagulation: Anticoagulant & Antiplatelet Medications Patient Encounter Information Not Found Op Note: No Pacer Check: NA Implants: yes: IVC filter Consults: DM: No Cardiac Surgical prep: No SIGNATURE: Venus De La Garza RN DATE of SERVICE: 01/21/2023 TIME of SERVICE: 6:53 AM CHECKED BY: CODEY DVT of popliteal vein Overview (01/27/2023): Assessment & Plan (02/09/2024 10:32 AM EDT): 2011, s/p IVC filter. Assessment & Plan (01/05/2024 3:07 PM EDT): R knee DVT x5 - 2011 sp IVC filter Managed on asa Primary hypertension Overview (01/28/2023): History: pre-op on Toprol XL Assessment: SBP 109 HR 70-80 Plan: continue Metop. Trend BP and adjust medications accordingly. Assessment & Plan (02/09/2024 10:26 AM EDT): Managed with amlodipine and metoprolol. Assessment & Plan (01/05/2024 3:09 PM EDT): Managed on amlodipine, metoprolol BP today 120/69 ECHO reviewed and accepted from September 2023 Denies cardiac symptoms EKG reviewed and accepted from today Mixed hyperlipidemia Overview (01/28/2023): History: preop on Lipitor. Last set of lipids revealed: Total Chol 166, HDL 25, TG 635 , LDL unable to calculate d/t increased TGL Assessment: s/p CABG x5 Plan: continue Lipitor 80 mg. Have follow up Lipid panel in 6- 8 weeks. Add [place] 3 fatty acids. if still not controlled, then needs a Fenofibrate. Assessment & Plan (02/09/2024 10:26 AM EDT): On lipitor and zetia. Assessment & Plan (01/05/2024 3:07 PM EDT): Managed on atorvastatin, zetia Resolved Problems Problem Noted Date Diagnosed Date Resolved Date On mechanically assisted ventilation 04/01/2023 01/05/2024 Encounter for support and co ordination of transition of care 01/26/2023 01/05/2024 Overview (01/28/2023): Indication for Surgery: CAD Preop LVEF: 55% RVF: Normal. EKG: NSR Cards: Dr. Cyn Diaz Postop LVEF: Normal RVF: Normal Important/Relevant PMH/PSH: HTN, HLD, CAD, DVTs (s/p IVC filter), Former tobacco use (quit > 30 years ago). Preoperative Hospital Course: Airway Difficulty: Grade I - easy Pacing Wires: No: V pulled 01/26 Chronological List of Surgeries and Major Events (Diagnosis): (Surgeries in bold characters) 01/22/2023: CABG x 5 (RUTH to LAD, RSVG to PDA, RSVG to Diagonal, LRA to OM1, Free CHICO to OM2) A/P Problems: No tubes. R/L CT/PMW removed 01/26. - s/p CABG: ASA, BB, statin; Norvasc for radial graft. CT/PMW removed 01/26. - FVO: at admit weight. recent CXR with small bilat pleural effusion. continue oob, ambulation. - Left pneumo: small noted on CXR 01/24. Successful Clamp trial 01/[address] CXR 01/27 reviewed, left apical PTX - ABL anemia - Trended as low as 7.8/21.6 (no transfusion). H/H 8.9/26.3- improving with diuresis - Thrombocytopenia: Trended as low as 91k. Plt now 188 K. Cont ASA, SQ heparin - HTN (Pre-op on Toprol XL)- SBP 109. HR 70- 80. controlled with metoprolol, norvasc. - HX DVT: IVC in place. Continue DVT prophylaxis - Post-op pain was significant early on. now pain controlled much better with oral tylenol. minimal oxycodone. RLE extremity SVG and left wrist radial graft site with pain - incidental lung nodules: noted on dc summary/instructions for f/u. Dispo: 57 year old yo male from [place], [place]. CM following. No skilled needs OPD 02/04. [facility] cards (virtual) f/u scheduled 02/20 Discharge Planning: Anticipated Discharge Date: 01/28 Barriers to Discharge: No Barriers to Discharge Care Management Discharge Needs: none Volume overload 01/26/2023 01/05/2024 Acute blood loss anemia 01/26/202312/20 Thrombocytopenia 01/26/2023 01/05/2024 Overview (01/28/2023): Pressure injury of mucous membrane 01/26/2023 01/05/2024 Overview (01/26/2023): lip ISTAP type 2 skin tear of left lower leg 01/26/2023 01/05/2024 Pneumothorax, postoperative 01/26/2023 01/05/2024 Overview (01/28/2023): History: postop Assessment: CXR with left apical PTX. on room air, no SOB Plan: f/u CXR on outpatient appt. Atelectasis 01/23/2023 01/05/2024 Hypotension, unspecified 01/22/202310/2022 Overview (01/24/2023): Postoperative pain 01/22/2023 Overview (01/28/2023): Stress hyperglycemia 01/22/2023 08 023 Overview (01/24/2023): Postoperative hypovolemia 01/22/2023 Overview (01/24/2023): Coagulopathy 01/22/2023 01/24/2023 Discharge planning issues 01/21/2023 Overview (01/21/2023): Patient is 57 year old male from [place], [place] here for open heart surgery. Patient may benefit from home health care Encounters Date Type Department Care Team Description 12/08/2024 Patient Msg Orthopaedics [address] [id number] Teresita Castle PA-C Appointment Request 11/28/2024 Patient Msg Orthopaedics [address] [address] Teresita Castle PA-C Appointment Request 11/08/2024 Refill Cardiology [address] [phone] Cyn Antonio MD Refill Request 11/05/2024 Refill Preventive Cardiology [address] [phone] Hannah Brower APRN.CLINICAL PATHOLOGIST Refill Request 09/26/2024 Refill Cardiology [address] [phone] Cyn Antonio MD Refill Request from Last 3 Months Family History Medical History Relation Comments Heart Failure Father Heart disease Father Hyperlipidemia Father Heart disease Maternal Grandmother Hyperlipidemia Mother Heart disease Paternal Grandmother Anesthesia Problems No Family History Relation Status Comments Father Maternal Grandmother Mother Paternal Grandmother Social History Tobacco Use Types Packs/Day Years Used Date Smoking Tobacco: Former Cigarettes Q uit: 09/21/1987 Passive Smoke Exposure: Past Smokeless Tobacco: Never Tobacco Cessation:Counseling Given: Not Answered Alcohol Use Standard Drinks/Week Comments Never 0 (1 standard drink = 0.6 oz pur e alcohol) [facility] Utilities Answer Date Recorded In the [...] often do you attend chur ch or spiritism services? More than 4 times per year 01/05/2024 Do you belong to any clubs o r organizations such as congregational groups, unions, fraternal or athletic groups, or [...] Answer Date Recorded PHQ-2 score 0 06/16/2024 [facility] [place] of Occupat ional Health - Occupational Stress [...] place to sleep or slept in a mcc (including now)? No 01/05/2024 Area Deprivation Index Answer Date Raf rded National Score (1-100), lower number is lower ri sk 74 12/19/2022 State Score (1-10), lower number is lower risk 6 12/19/2022 Data from: https://www.neighborhoodatlas.medicine.[facility].edu/. Last address used for calculation [address] 12/19/2022 Sex and Gender Information Value Date Recorded Sex Assigned at Male 12/19/2022 8:15 AM EDT Legal Sex Male 10:35 AM EDT Gender Identity Male 12/19/2022 8:15 AM EDT Sexual Orientation Straight 12/19/2022 8: 15 AM EDT Last Filed Vital Signs Vital Sign Reading Time Taken Comments Blood Pressure 135/63 02/17/2024 12:45 PM EDT Pulse 77 02/17/2024 12:45 PM EDT Temperature 36.9 C (98.4 F) 02/17/2024 12:10 PM EDT Respiratory Rate 16 02/17/2024 12:45 PM EDT Oxygen Saturation 97% 02/17/2024 12:45 PM EDT Inhaled Oxygen Concentration - - Weight 97.5 kg (215 lb) 02/17/2024 9:35 AM EDT Height 175.3 cm (5' 9 ) 02/17/2024 9:35 AM EDT Body Mass Index 31.75 02/17/2024 9:35 AM EDT Plan of Treatment Upcoming Encounters Date Type Department Care Team (Late st Contact Info) Description 03/07/2025 9:45 AM EDT Results Only Main [place] [facility] [address] [place] [address] DX: CAD 03/07/2025 10:45 AM EDT Office Visit Cardiology [address] [phone] Cyn Antonio MD [address] [place], [place] [phone] DX: CAD Health Maintenance Due Date Last Done Comments Annual PCP Team Chronic Dise ase Visit 1982 Anxiety Screening 1982 Depression Screening 1982 HIV Screening 1982 Hepatitis C Screening 1982 DTaP,Tdap,Td Vaccine (1 - Tdap) 1983 Pneumococcal Vaccine: 50+ (1 of 2 - PCV) 1983 CT Colonography 2009 Cologuard (FIT-DNA) 2009 Colonoscopy 2009 Colorectal Cancer Screening 2009 Fecal Occult Blood 2009 Sigmoidoscopy 2009 Shingrix Vaccine (1 of 2) 2014 Covid-19 Vaccine (4 - 2023-2 5 season) 2024 06/18/2021, 10/10/2020, 09/12/2020 RSV Vaccine (1 - Risk 60-74 years 1-dose series) 2024 LDL Cholesterol 10/01/2024 10/02/2023, 11/0 08/2022, 01/21/2023, Additional history exists Influenza Vaccine (Season Ended) 2025 06/18/20 21 Diabetes Screening 01/29/2027 01/30/2024, 0 01/14/2024, 01/05/2024, Additional history exists Prostate Cancer Screening Discussion 12/03/2027 12/02/2022 Lipid Screening 10/01/2028 10/02/2023, 11/0 08/2022, 03/31/2023, Additional history exists Goals Goal Patient Goal Type Associated Problems Recent Progress Patient-Stated? Author Blood Pressure < 130/80 Blood Pressure 135/63( 024 12:45 PM EDT) Cyn Hussein MD Medical Devices Implanted Type Area Wine Cellar Stock Clerk Device Identifier Shelf Expiration Date Model / Serial / Lot Cement Simplex P Bone Radiopaque Full Dose Sterile - [id number] Implanted:Qty: 1 on 01/13/2024 at [facility] Cement / Putty Right: Bone - Knee [employer] 04/21/2026 [id number] / / [id number] [place] Thk1.65mm Ptfe 4x.5in Cardiovascular Sterile - [id number] Implanted:Qty: 1 on 01/22/2023 at [facility] Implant N/A: Heart [employer] 07/19/2027 [id number] / / [id number] Insert Antwon 5 X3 8mm Tibial Unicompartmental [place]lay Sterile Knee Implanted:Qty: 1 on 01/13/2024 at [facility] Implant Right: Bone - Knee RICHARD 09/06/2028 [id number] / / [id number] Baseplate Tibial Restoris 5 Knee Right Medial Left Lateral [place] - [id number] Implanted:Qty: 1 on 01/13/2024 at [facility] Joint - Knee Right: Bone - Knee RICHARD 11/18/2028 [id number] / / [id number] Mck Ysqhzef-Xr-Kb-Sz 5 - [id number] Implanted:Qty: 1 on 01/13/2024 at [facility] Joint - Knee Right: Bone - Knee RICHARD 11/12/2028 [id number] / / [id number] Ivc Filter Vena Cava Abdominal Mesh Abdomen Procedures Procedure Name Priority Date/Time Associated Diagnosis Comments BASIC METABOLIC PANEL Routine 01/14/2024 4:51 AM EDT LIPID PANEL, FASTING Routine 10/02/2023 11:06 AM EDT Coronary artery disease due to lipid rich plaque Mixed hyperlipidemia from Last 3 Months or Most Recently Relevant to Health Maintenance Results * (ABNORMAL) BASIC METABOLIC PANEL (01/14/2024 4:51 AM EDT) [facility] Glucose 177(H) 74 - 99 mg/dL 01/14/2024 5:35 AM T [facility] Comment: The [place] Diabetes Association (ADA) provides guidance for cutoff [...] Standards of Medical Care in Diabetes 2016, [place] Diabetes Association. Diabetes Care. 2016.39(Suppl 1). BUN 14 9 - 24 mg/dL 01/14/2024 5:35 AM EDT [facility] Creatinine 0.84 0.73 - 1.22 mg/dL 01/14/2024 5:35 AM EDT [facility] Sodium 139 136 - 144 mmol/L 01/14/2024 5:35 AM EDT [facility] Potassium 4.4 3.7 - 5.1 mmol/L 01/14/2024 5:35 AM EDT [facility] Chloride 105 98 - 107 mmol/L 01/14/2024 5:35 AM EDT [facility] CO2 23 22 - 30 mmol/L 01/14/2024 5:35 AM EDT [facility] Anion Gap 11 8 - 15 mmol/L 01/14/2024 5:35 AM EDT [facility] Calcium, Total 9.3 8.5 - 10.2 mg/dL 01/14/2024 5:35 AM EDT [facility] Estimated Glomerular Filtration Rate 100 >=60 mL/min/1.7 3m 01/14/2024 5:35 AM EDT [facility] Comment:Estimated Glomerular Filtration Rate (eGFR) is calculated using the 2020 CKD-EPI creatinine equation. This equation utilizes serum creatinine, sex, and age as parameters. The creatinine assay has traceable calibration to isotope dilution- mass spectrometry. Refer to KDIGO guidelines for clinical interpretation. In patients with unstable renal function, e.g. those with acute kidney injury, the eGFR may not accurately reflect actual GFR. Blood BLOOD SPECIMEN / Unknown Venipuncture / Unknown 01/14/2024 4:51 AM EDT 01/14/2024 4:58 AM EDT us Watson Mason MD LABORATORY Final Result [facility] [address] [place] [address], * (ABNORMAL) LIPID PANEL BASIC (10/02/2023 11:06 AM EDT) Cholesterol, Total 105 <200 mg/dL 10/02/2023 2:10 PM EDT [facility] Comment: <200 mg/dL, Desirable 200-239 mg/dL, Borderline high >239 mg/dL, High Triglyceride 145 <150 mg/dL 10/02/2023 2:10 PM EDT [facility] Comment: <150 mg/dL, Normal 150-199 mg/dL, Borderline high 200-499 mg/dL, High >499 mg/dL, Very high HDL Cholesterol 29(L) >39 mg/dL 2:10 PM EDT [facility] Comment: 40-59 mg/dL, Acceptable >59 mg/dL, High: Negative risk factor for coronary heart disease <40 mg/dL, Low: Positive risk factor for coronary heart disease Non HDL Cholesterol 76 <130 mg/dL 10/02/2023 2:10 PM EDT [facility] Comment: <130 mg/dL, Optimal 130-159 mg/dL, Near optimal/above optimal 160-189 mg/dL, Borderline high 190-219 mg/dL, High >219 mg/dL, Very high Secondary prevention optimal non HDL Cholesterol levels are recommended to be <100 mg/dL Fasting Time 2 hrs 10/02/2023 2:10 PM EDT [facility] VLDL Cholesterol 29 <30 mg/dL 10/02/19 24 2:10 PM EDT [facility] TC:HDL Ratio 3.62 <5.10 10/02/2023 2:10 PM EDT [facility] LDL Cholesterol, Calculated 47 <100 mg/dL 10/02/2023 2:10 PM EDT [facility] Comment: <100 mg/dL, Optimal 100-129 mg/dL, Near optimal/above optimal 130-159 mg/dL, Borderline high 160-189 mg/dL, High >189 mg/dL, Very high Secondary prevention optimal LDL Cholesterol levels are recommended to be < 70 mg/dL LDL:HDL Ratio 1.62 <2.54 10/02/2023 2:10 PM EDT [facility] Comment: Reference: 1. National Cholesterol Education Program ATP III Guideline At-A-Glance Quick Desk Reference: National Heart, Lung, and Blood [place]. National Institutes of Health. 2001: NIH Publication No. 01-3305. 2. An International Atherosclerosis Society position paper: global recommendations for the management of dyslipidemia: executive summary, Atherosclerosis. 2014: 232(2):410-413. Blood BLOOD SPECIMEN / Unknown Venipuncture / Unknown 10/02/2023 11:06 AM EDT 10/02/2023 11:06 AM EDT Braxton Velásquez MD LABORATORY Final Result [facility] [address] [facility] [address] [place] [address], from Last 3 Months or Most Recently Relevant to Health Maintenance Insurance [place] [employer] P[employer] Care Teams Curtain Drier Relationship Specialty Start Date End Date Can Artis [address] [place] [address] PCP - General Family Medicine 12/17/22 Cyn Antonio MD [address] [facility] [place] [address] Primary Staff Physician Cardiology 12/18/22 Ari Pedro MD [address] [facility] [place] [address] Surgeon Cardiac Surg 01/13/23
--- OUTSIDE RECORDS SUMMARY | 2024-12-17 10:12 | XMS_ITS | Encounter Summary ---
Author Organization [facility] Address [id number] [place] [address] Care Team Providers Care Coder Name Role Phone Can Ramirez MD Primary Care Provider [phone] Encounter Details Date Type Department Care Team (Late st Contact Info) Description 05/25/2020 Telephone [facility] [address] [place] [address] Ross Yuan CNA Social History Tobacco Use Types Packs/Day Years [...] on file 10/2018 PHQ-2 Answer Date Recorded Total Score 0 12/13/2019 Childcare Answer Date Recorded Childcare Unknown 12/01/2018 Employment Answer Date Recorded Employment Unknown 12/01/2018 Sex and Gender Information Value Date Recorded Sex Assigned at Not on file Legal Sex Male 11:31 AM EDT Gender Identity Not on file Sexual Orientation Not on file documented as of this encounter Miscellaneous Notes * Telephone Encounter - Ross Yuan CMA - 05/25/2020 8:18 AM EST Patients calling stating has fever, cough, chills, body aches. Willing to get tested for COVID-19. [facility] Please advise Ross Yuan CMA 05/25/20 0819 * Telephone Encounter - Can Ramirez MD - 05/25/2020 8:18 AM EST Order in please arrange * Telephone Encounter - Ross Yuan CMA - 05/25/2020 8:18 AM EST Patient and notified and verbalizes understanding, order sent to [facility] documented in this encounter Plan of Treatment Not on file documented as of this encounter Results * (ABNORMAL) SARS COV 2 (COVID-19)[Lab Collect] (05/25/2020) EXTERNAL SARS COV 2 Positive(A ) Negative [facility] 05/25/2020 us Can Ramirez MD MICROBIOLOGY - GENERAL ORDER IVANIA Final Result [facility] documented in this encounter Visit Diagnoses Diagnosis Close exposure to COVID-19 virus- Primary documented in this encounter Additional Health Concerns Infection Onset Date Last Indicated Resolved Time COVID-19 Positive 05/25/2020 05/25/2020 06/15/2020 11:14 PM EST COVID-19 Rule-Out 06/12/2020 05/25/2020 06/12/2020 11:51 AM EST Assessment Noted Time PHQ-9 Depression Total Score: 0 12/13/19 20 3:00 PM EDT documented as of this encounter Care Teams Coder Relationship Specialty Start Date End Date Can Ramirez MD [address] Provider retired 09/20/24 [place] [address] PCP - General Family Medicine 01/30/24 documented as of this encounter
--- OUTSIDE RECORDS SUMMARY | 2024-12-17 10:12 | XMS_ITS | Encounter Summary ---
Author Organization [facility] Address [address] [place] [address] Care Team Providers Care Electrician Office Name Role Phone Can Artis Primary Care Provider [phone] Cyn Antonio MD Unavailable [phone] Ari Pedro MD Unavailable [phone] Source Comments In the event this information is protected by the Federal Confidentiality of Alcohol and Drug AbusePatient Records regulations: The Federal rules restrict any use of the information to criminally investigate or prosecute any alcohol or drug abuse patient.[facility] Encounter Details Date Type Department Care Team (Late st Contact Info) Description 12/08/2024 Patient Msg Orthopaedics [address] [place], [place] [phone] Teresita Castle PA-C [address] [facility] [address] [place] [address] Appointment Request Social History Tobacco Use Types Packs/Day Years Used Date Smoking Tobacco: Former Cigarettes Q uit: 09/21/1987 Passive Smoke Exposure: Past Smokeless Tobacco: Never Alcohol Use Standard Drinks/Week Comments Never 0 (1 standard drink = 0.6 oz pur e alcohol) [facility] Utilities Answer Date Recorded In the [...] often do you attend chur ch or rastafarian services? More than 4 times per year 01/05/2024 Do you belong to any clubs o r organizations such as baptist groups, unions, fraternal or athletic groups, or [...] Answer Date Recorded PHQ-2 score 0 06/16/2024 [facility] of Occupat ional Health - Occupational Stress [...] place to sleep or slept in a [place] health care facility (including now)? No 01/05/2024 Area Deprivation Index Answer Date Raf rded National Score (1-100), lower number is lower ri sk 74 12/19/2022 State Score (1-10), lower number is lower risk 6 12/19/2022 Data from: https://www.neighborhoodatlas.medicine.[facility].edu/. Last address used for calculation [address] [...] 03/07/2025 9:45 AM EDT Results Only Main [place] [address] [address] [place] [id number] DX: CAD 03/07/2025 10:45 AM EDT Office Visit Cardiology [address] [id number] Cyn Antonio MD [address] [place] [address] DX: CAD documented as of this encounter Goals Goal Patient Goal Type Associated Problems Recent Progress Patient-Stated? Author Blood Pressure < 130/80 Blood Pressure 135/63( 024 12:45 PM EDT) No Cyn Antonio MD documented as of this encounter Visit Diagnoses Not on filedocumented in this encounter Care Teams Electrician Office Relationship Specialty Start Date End Date Can Artis [address] [place] [address] PCP - General Family Medicine 12/17/22 Cyn Antonio MD [address] [place] [address] Primary Staff Physician Cardiology 12/18/22 Ari Pedro MD [address] [place] [address] Surgeon Cardiac Surg 01/13/23 documented as of this encounter
--- OUTSIDE RECORDS SUMMARY | 2024-12-17 10:12 | XMS_ITS | Encounter Summary ---
Author Organization [facility] Address [address] [place] [address] Care Team Providers Care Master Deputy Sheriff Court Security Name Role Phone Can Artis Primary Care Provider [phone] Cyn Antonio MD Unavailable [phone] Ari Pedro MD Unavailable [phone] Source Comments In the event this information is protected by the Federal Confidentiality of Alcohol and Drug AbusePatient Records regulations: The Federal rules restrict any use of the information to criminally investigate or prosecute any alcohol or drug abuse patient.[facility] Encounter Details Date Type Department Care Team (Latest Contact Info) Description 07/21/2023 [place] [address] Provider, Ccf Please complete Cardiovascular Surgery Questionnaire [...] is lower risk 6 12/19/2022 Data from: https://www.neighborhoodatlas.medicine.[facility]/. Last address used for calculation [...] Description 03/07/2025 9:[address] [facility] J[facility]-[address] Draw [address] [place] [address] DX: CAD 03/07/2025 10:45 AM EDT Office Visit Cardiology [address] [place] [phone] Cyn Antonio MD [address] [place] [address] DX: CAD documented as of this encounter Visit Diagnoses Not on filedocumented in this encounter Care Teams Master Deputy Sheriff Court Security Relationship Specialty Start Date End Date Can Artis [address] [place] [address] PCP - General Family Medicine 12/17/22 Cyn Antonio MD [address] [place] [address] Primary Staff Physician Cardiology 12/18/22 Ari Pedro MD [address] [place] [address] Surgeon Cardiac Surg 01/13/23 documented as of this encounter
--- OUTSIDE RECORDS SUMMARY | 2024-12-17 10:12 | XMS_ITS | Encounter Summary ---
Author Organization [facility] Address [address] [place] [address] Care Team Providers Care Block Greaser Name Role Phone Can Artis Primary Care Provider [phone] Cyn Antonio MD Unavailable [phone] Ari Pedro MD Unavailable [phone] Source Comments In the event this information is protected by the Federal Confidentiality of Alcohol and Drug AbusePatient Records regulations: The Federal rules restrict any use of the information to criminally investigate or prosecute any alcohol or drug abuse patient.[facility] Encounter Details Date Type Department Care Team (Late st Contact Info) Description 09/23/2023 Patient Msg Orthopaedics [address] [place], [place] [phone] Teresita Castle PA-C [facility] [facility] [address] [place] [address] Appointment Request Social History Tobacco Use [...] risk 6 12/19/2022 Data from: https://www.neighborhoodatlas.medicine.[facility].edu/. Last address used for calculation [...] 01/28/2023 11:03 AM EDVenus West RN * Are you blind or do [...] 03/07/2025 9:45 AM EDT Results Only Main [place] [address] [place] [address] DX: CAD 03/07/2025 10:45 AM EDT Office Visit Cardiology [address] [place], [place] [phone] Cyn Antonio MD [address] [place] [address] DX: CAD documented as of this encounter Visit Diagnoses Not on filedocumented in this encounter Care Teams Block Greaser Relationship Specialty Start Date End Date Can Artis [address] [place] [address] PCP - General Family Medicine 12/17/22 Cyn Antonio MD [address] [place], [place] [id number] Primary Staff Physician Cardiology 12/18/22 Ari Pedro MD [address] [place] [address] Surgeon Cardiac Surg 01/13/23 documented as of this encounter
--- OUTSIDE RECORDS SUMMARY | 2024-12-17 10:12 | XMS_ITS | Encounter Summary ---
Author Organization [facility] Address [address] [place] [address] Care Team Providers Care Tugboat Operator Name Role Phone Can Artis Primary Care Provider [phone] Cyn Antonio MD Unavailable [phone] Ari Pedro MD Unavailable [phone] Source Comments In the event this information is protected by the Federal Confidentiality of Alcohol and Drug AbusePatient Records regulations: The Federal rules restrict any use of the information to criminally investigate or prosecute any alcohol or drug abuse patient.[facility] Encounter Details Date Type Department Care Team (Late st Contact Info) Description 06/05/2023 Patient Msg Orthopaedics [address] [place], [place] [phone] Teresita Castle PA-C [address] [facility] [address] [place] [address] MRI Social History Tobacco Use Types Packs/Day Years [...] risk 6 12/19/2022 Data from: https://www.neighborhoodatlas.medicine.[facility].edu/. Last address used for calculation [address] [...] 03/07/2025 9:45 AM EDT Results Only Main [place] [address] [place] [address] DX: CAD 03/07/2025 10:45 AM EDT Office Visit Cardiology [address] [place], [place] [phone] Cyn Antonio MD [address] [place] [address] DX: CAD documented as of this encounter Visit Diagnoses Not on filedocumented in this encounter Care Teams Tugboat Operator Relationship Specialty Start Date End Date Can Artis [address] [place] [address] PCP - General Family Medicine 12/17/22 Cyn Antonio MD [address] [place] [address] Primary Staff Physician Cardiology 12/18/22 Ari Pedro MD [address] [place] [address] Surgeon Cardiac Surg 01/13/23 documented as of this encounter
--- OUTSIDE RECORDS SUMMARY | 2024-12-17 10:12 | XMS_ITS | Encounter Summary ---
Author Organization [employer] [facility] [employer] Address [id number] [address] [place] [address] Care Team Providers Care Chief Gauger Name Role Phone Can Ramirez MD Primary Care Provider + [phone] Encounter Details Date Type Department Care Team (Late st Contact Info) Description 06/07/2020 Telephone [facility] [address] [place] [address] Can Ramirez MD [address]. Provider retired 09/20/24 [place] [address] Social History Tobacco Use Types Packs/Day Years [...] encounter Miscellaneous Notes * Telephone Encounter - Can Ramirez MD - 06/07/2020 9:31 AM EST Pt is called has zpak and medrol to complete and has been addressing fever with motrin and tylenol,please add baby asa qd,suggest off work 1 week, advised to go to ER if worse Please extend work slip 1 week documented in this encounter Plan of Treatment Not on file documented as of this encounter Visit Diagnoses Not on filedocumented in this encounter Additional Health Concerns Infection Onset Date Last Indicated Resolved Time COVID-19 Positive 05/25/2020 05/25/2020 06/15/2020 11:14 PM EST COVID-19 Rule-Out 06/12/2020 05/25/2020 06/12/2020 11:51 AM EST Assessment Noted Time PHQ-9 Depression Total Score: 0 12/13/19 20 3:00 PM EDT documented as of this encounter Care Teams Chief Gauger Relationship Specialty Start Date End Date Can Ramirez MD [address] Provider retired 09/20/24 [place] [address] PCP - General Family Medicine 01/30/24 documented as of this encounter
--- OUTSIDE RECORDS SUMMARY | 2024-12-17 10:12 | XMS_ITS | Encounter Summary ---
Author Organization [facility] Address [address] [place] [address] Care Team Providers Care Unit Receptionist Name Role Phone ArtisCan Neri Primary Care Provider [phone] Cyn Antonio MD Unavailable [phone] Ari Pedro MD Unavailable [phone] Source Comments In the event this information is protected by the Federal Confidentiality of Alcohol and Drug AbusePatient Records regulations: The Federal rules restrict any use of the information to criminally investigate or prosecute any alcohol or drug abuse patient.[facility] Encounter Details Date Type Department Care Team (Late st Contact Info) Description 12/30/2023 Patient Msg [facility]ine [place] [address] [place] [address] Provider, Ccf Important Reminder for Preparing Your Skin for Surgery Social History Tobacco Use Types Packs/Day Years Used Date Smoking Tobacco: Former Cigarettes Q uit: 09/21/1987 Passive Smoke Exposure: Past Smokeless Tobacco: Never Alcohol Use Standard Drinks/Week Comments Never 0 (1 standard drink = 0.6 oz pur e alcohol) PHQ-2 Answer Date Recorded PHQ-2 score 0 12/30/2023 Area Deprivation Index Answer Date Raf rded National Score (1-100), lower number is lower ri sk 74 12/19/2022 State Score (1-10), lower number is lower risk 6 12/19/2022 Data from: https://www.neighborhoodatlas.medicine.[facility]/. Last address used for calculation [...] 03/07/2025 9:45 AM EDT Results Only [facility] [address] [place] [address] DX: CAD 03/07/2025 10:45 AM EDT Office Visit Cardiology [address] [place] [address] Cyn Antonio MD [address] [place] [address] DX: CAD documented as of this encounter Goals Goal Patient Goal Type Associated Problems Recent Progress Patient-Stated? Author Blood Pressure < 130/80 Blood Pressure 135/63( 024 12:45 PM EDT) No Cyn Antonio MD documented as of this encounter Visit Diagnoses Not on filedocumented in this encounter Care Teams Unit Receptionist Relationship Specialty Start Date End Date Can Artis [address] [place] [address] PCP - General Family Medicine 12/17/22 Cyn Antonio MD [address] [place] [address] Primary Staff Physician Cardiology 12/18/22 Ari Pedro MD [address] [place] [address] Surgeon Cardiac Surg 01/13/23 documented as of this encounter
--- OUTSIDE RECORDS SUMMARY | 2024-12-17 10:12 | XMS_ITS | Encounter Summary ---
Author Organization [employer] [facility] [employer] Address [facility] [id number] [address] [place] [address] Care Team Providers Care Social Services Coordinator Name Role Phone Can Ramirez MD Primary Care Provider + [phone] Reason for Visit * Reason Onset Date Comments Med Refill 02/09/2020 Encounter Details Date Type Department Care Team (Late st Contact Info) Description 02/09/2020 Refill [facility] [address] [facility] [address] Martha Amaro, FERNY BMI 30.0-30.9,adult Social History Tobacco Use Types Packs/Day Years [...] on file Sexual Orientation Not on file COVID-19 Exposure Response Date Recorded In the last month, have you been in contact with someone who was confirmed or suspected to have Coronavirus / COVID-19? No / Unsure 02/09/2020 3:40 PM EDT documented as of this encounter Miscellaneous Notes * Telephone Encounter - Martha Amaro CMA - 02/09/2020 3:46 PM EDT Patient requesting refill for adipex. Martha Amaro CMA 02/09/20 1547 documented in this encounter Plan of Treatment Not on file documented as of this encounter Visit Diagnoses Diagnosis BMI 30.0-30.9,adult documented in this encounter Additional Health Concerns Infection Onset Date Last Indicated Resolved Time COVID-19 Positive 05/25/2020 05/25/2020 06/15/2020 11:14 PM EST COVID-19 Rule-Out 06/12/2020 05/25/2020 06/12/2020 11:51 AM EST Assessment Noted Time PHQ-9 Depression Total Score: 0 12/13/19 3:00 PM EDT documented as of this encounter Care Teams Social Services Coordinator Relationship Specialty Start Date End Date Can Ramirez MD [address] Provider retired 09/20/24 [place] [address] PCP - General Family Medicine 01/30/24 documented as of this encounter
--- OUTSIDE RECORDS SUMMARY | 2024-12-17 10:12 | XMS_ITS | Encounter Summary ---
Author Organization [facility] Address [address] [place] [address] Care Team Providers Care Flue Lining Dipper Name Role Phone Can Artis Primary Care Provider [phone] Cyn Antonio MD Unavailable [phone] Ari Pedro MD Unavailable [phone] Source Comments In the event this information is protected by the Federal Confidentiality of Alcohol and Drug AbusePatient Records regulations: The Federal rules restrict any use of the information to criminally investigate or prosecute any alcohol or drug abuse patient.[facility] Reason for Visit * Reason Comments Patient Update Encounter Details Date Type Department Care Team (Late st Contact Info) Description 02/05/2024 Telephone Orthopaedics [address] [place] [phone] Watson Mason MD [address] [facility] [address] [place] [address] Patient Update Social History Tobacco Use Types Packs/Day Years Used Date Smoking Tobacco: Former Cigarettes Q uit: 09/21/1987 Passive Smoke Exposure: Past Smokeless Tobacco: Never Alcohol Use Standard Drinks/Week Comments Never 0 (1 standard drink = 0.6 oz pur e alcohol) [facility] Utilities Answer Date Recorded In the [...] often do you attend chur ch or confucianist services? More than 4 times per year 01/05/2024 Do you belong to any clubs o r organizations such as lutheran groups, unions, fraternal or athletic groups, or [...] 01/05/2024 PHQ-2 Answer Date Recorded PHQ-2 score 2 01/27/2024 [facility] of Occupat ional Health - Occupational Stress [...] place to sleep or slept in a assisted (including now)? No 01/05/2024 Area Deprivation Index Answer Date Raf rded National Score (1-100), lower number is lower ri sk 74 12/19/2022 State Score (1-10), lower number is lower risk 6 12/19/2022 Data from: https://www.neighborhoodatlas.medicine.[facility].edu/. Last address used for calculation [address] [...] Sarah Diaz RN documented in this encounter Miscellaneous Notes * Telephone Encounter - Beba Harkins - 02/05/2024 9:21 AM EDT Pt is coming to [facility] today for labs and xray of the knee. Pt 's knee area is very tight and will need manipulation. Mrs. Menendez just wanted you to be aware. I sent refill for oxy per pt's request to [facility] for refill. documented in this encounter Plan of Treatment Upcoming Encounters Date Type Department Care Team (Late st Contact Info) Description 03/07/2025 9:45 AM EDT Results Only [facility] [address] [place] [address] DX: CAD 03/07/2025 10:45 AM EDT Office Visit Cardiology [address] [place] [address] Cyn Antonio MD [address] [place] [address] DX: CAD documented as of this encounter Goals Goal Patient Goal Type Associated Problems Recent Progress Patient-Stated? Author Blood Pressure < 130/80 Blood Pressure 135/63( 024 12:45 PM EDT) No Cyn Antonio MD documented as of this encounter Visit Diagnoses Not on filedocumented in this encounter Care Teams Flue Lining Dipper Relationship Specialty Start Date End Date Can Artis [address] [place] [address] PCP - General Family Medicine 12/17/22 Cyn Antonio MD [address] [place] [address] Primary Staff Physician Cardiology 12/18/22 Ari Pedro MD [address] [facility] [place] [place] [id number] Surgeon Cardiac Surg 01/13/23 documented as of this encounter
--- OUTSIDE RECORDS SUMMARY | 2024-12-17 10:12 | XMS_ITS | Encounter Summary ---
Author Organization [facility] Address [facility] [place] [address] Care Team Providers Care Pool Table Mechanic Name Role Phone Can Artis Primary Care Provider [phone] Cyn Antonio MD Unavailable [phone] Ari Pedro MD Unavailable [phone] Source Comments In the event this information is protected by the Federal Confidentiality of Alcohol and Drug AbusePatient Records regulations: The Federal rules restrict any use of the information to criminally investigate or prosecute any alcohol or drug abuse patient.[facility] Encounter Details Date Type Department Care Team (Latest Contact Info) Description 01/22/2024 [place] [address] Provider, Ccf Please complete Cardiovascular Surgery Questionnaires Social History Tobacco Use Types Packs/Day Years Used Date Smoking Tobacco: Former Cigarettes Q uit: 09/21/1987 Passive Smoke Exposure: Past Smokeless Tobacco: Never Alcohol Use Standard Drinks/Week Comments Never 0 (1 standard drink = 0.6 oz pur e alcohol) [facility] Utilities Answer Date Recorded In the past 12 months has [employer], gas, oil, or water Drawn to Scale threatened to shut off services in your [...] often do you attend chur ch or latter-day services? More than 4 times per year 01/05/2024 Do you belong to any clubs o r organizations such as druze groups, unions, fraternal or athletic groups, or [...] Answer Date Recorded PHQ-2 score 0 12/30/2023 [facility] of Occupat ional Health - [...] is lower risk 6 12/19/2022 Data from: https://www.neighborhoodatlas.medicine.[facility]/. Last address used for calculation [...] Entry Date Author No 01/14/2024 12:53 PM Sarah Childers RN documented in this encounter Plan of Treatment Upcoming Encounters Date Type Department Care Team (Late st Contact Info) Description 03/07/2025 9:45 AM EDT Results Only Main [place] [facility] Draw Station [address] [place] [address] DX: CAD 03/07/2025 10:45 AM EDT Office Visit Cardiology [address] [place] [address] Cyn Antonio MD [address] [place] [address] DX: CAD documented as of this encounter Goals Goal Patient Goal Type Associated Problems Recent Progress Patient-Stated? Author Blood Pressure < 130/80 Blood Pressure 135/63( 024 12:45 PM EDT) No Cyn Antonio MD documented as of this encounter Visit Diagnoses Not on filedocumented in this encounter Care Teams Pool Table Mechanic Relationship Specialty Start Date End Date Can Artis [address] [place] [address] PCP - General Family Medicine 12/17/22 Cyn Antonio MD [address] [place] [address] Primary Staff Physician Cardiology 12/18/22 Ari Pedro MD [address] [place] [address] Surgeon Cardiac Surg 01/13/23 documented as of this encounter
--- OUTSIDE RECORDS SUMMARY | 2024-12-17 10:12 | XMS_ITS | Clinical Summary ---
Author Organization [employer] Address [id number] [address] [place] [address] Care Team Providers Care Fitting Room Attendant Name Role Phone Can Ramirez MD Primary Care Provider + [phone] Allergies No known active allergies Medications multivitamin/ir on/folic acid (CENTRUM COMPLETE ORAL) Take by mouth daily with breakfast. Active aspirin 81 mg Take 1 tablet (81 mg total) by mouth in the morning. 150 tablet 2 12/17/2022 Active atorvastatin (LIPITOR) 80 mg tablet Take 1 tablet (80 mg total) by mouth nightly. 12/19/2022 Active nitroglycerin (NITROSTAT) 0.[address] 1 tablet (0.3 mg total) under the tongue. 12/19/2022 Active metoprolol succinate XL (TOPROL XL) 100 mg 24 hr tablet Take 1 tablet (100 mg total) by mouth. Active apixaban (ELIQUIS) 5 mg tablet Take 0.5 tablets (2.5 mg total) by mouth in the morning and 0.5 tablets (2.5 mg total) before bedtime. Active oxyCODONE (OXY-IR) 5 mg capsule Take 1 capsule (5 mg total) by mouth every 4 (four) hours as needed for pain. Max Daily Amount: 30 mg Active ezetimibe (ZETIA) 10 mg tablet Take 1 tablet (10 mg total) by mouth in the morning. Active amLODIPine (NORVASC) 2.5 mg tablet Take 1 tablet (2.5 mg total) by mouth in the morning. Active metoclopramide (REGLAN) 10 mg tablet Take 1 tablet (10 mg total) by mouth every 6 (six) hours. 30 tablet 01/30/2024 Active Active Problems Problem Noted Date Diagnosed Date Mixed hyperlipidemia 02/10/2023 Overview (02/10/2023): History: preop on Lipitor. Last set of lipids revealed: Total Chol 166, HDL 25, TG 635 , LDL unable to calculate d/t increased TGL Assessment: s/p CABG x5 Plan: continue Lipitor 80 mg. Have follow up Lipid panel in 6- 8 weeks. Add [place] 3 fatty acids. if still not controlled, then needs a Fenofibrate. Primary hypertension 02/10/2023 Overview (02/10/2023): History: pre-op on Toprol XL Assessment: SBP 109 HR 70-80 Plan: continue Metop. Trend BP and adjust medications accordingly. DVT of popliteal vein 02/10/2023 Overview (02/10/2023): Thrombocytopenia 01/26/2023 Overview (02/10/2023): Incidental lung nodule 01/26/2023 Overview (02/10/2023): History: CT chest 01/21/23: incidental finding: Small pulmonary nodules as described. Incidental Finding: Follow-up Finding: Solid: <6 mm (solitary or multiple) Assessment: stable Plan: Recommendation: No imaging follow-up is recommended Comments: If there are risk factors for lung malignancy, a follow-up chest CT exam could be obtained in 12 months Coronary artery disease with exertional angina 0 01/22/2023 Obesity, Class I, BMI 30-34.9 01/22/2023 Overview (02/10/2023): History: Body mass index is 32.46 kg/m . Assessment: by definition. on exam Plan: needs to make lifestyle changes with diet and exercise once recovers from surgery. Basal cell carcinoma (BCC) of chest 04/24/2022 Internal derangement of left knee 11/23/2020 Pain in left knee 10/23/2020 Osteoarthritis of knee 10/23/2020 Difficulty walking 06/27/2019 Rupture of pectoralis major muscle 02/19/2017 Shoulder joint pain 02/19/2017 Immunizations Immunization Administration Dates Next Due COVID-19, mRNA, LNP-S, PF, 100mcg/0.5mL Dose ,09/12/2020 Influenza, Injectable, Mdck, Preservative Free, Quad 06/18/2021 Family History Medical History Relation Name Comments Heart disease Father Cancer Mother Anesthesia problems Neg Hx Relation Name Status Comments Father Mother Social History Tobacco Use Types Packs/Day Years Used Date Smoking Tobacco: Former Cigarettes Smokeless Tobacco: Never Tobacco Cessation:Counseling Given: Not Answered Comments:Quit 30 years ago as a teenager Alcohol Use Standard Drinks/Week Comments Never 0 (1 standard drink = 0.6 oz pur e alcohol) AUDIT-C Answer Date Recorded Frequency of Alcohol Consumption Never 01/24/2019 Average Number of Drinks Not on file 019 Frequency of Binge Drinking Not on file 10/2018 PHQ-2 Answer Date Recorded Total Score 0 05/22/2023 Childcare Answer Date Recorded Childcare Unknown 12/01/2018 Employment Answer Date Recorded Employment Unknown 12/01/2018 Hunger Screening Answer Date Recorded Within the past 12 months we worried whether our food would run out before we got money to buy more. Never True 01/30/2024 Within the past 12 months th e food we bought just didn't last and we didn't have money to get more. Never True 01/30/2024 Purpose - Life Answer Date Recorded Purpose and direction in life Unknown Sex and Gender Information Value Date Recorded Sex Assigned at Not on file Legal Sex Male 11:31 AM EDT Gender Identity Not on file Sexual Orientation Not on file Last Filed Vital Signs Vital Sign Reading Time Taken Comments Blood Pressure 124/77 01/30/2024 8:00 PM EDT Pulse 70 01/30/2024 8:00 PM EDT Temperature 36.7 C (98.1 F) 01/30/2024 5:15 PM EDT Respiratory Rate 17 01/30/2024 8:00 PM EDT Oxygen Saturation 99% 01/30/2024 8:00 PM EDT Inhaled Oxygen Concentration - - Weight 90.7 kg (200 lb) 01/30/2024 5:15 PM EDT Height 175.3 cm (5' 9 ) 05/22/2023 11:16 AM EST Body Mass Index 29.53 05/22/2023 11:16 AM EST Plan of Treatment Health Maintenance Due Date Last Done Comments DTaP,Tdap and Td Vaccines (1 - Tdap) 1983 Zoster (Shingles) Vaccine (1 of 2) 1983 COVID-19 Vaccine (4 - 2023-2 5 season) 2024 06/18/2021, 10/10/2020, 09/12/2020 Depression Screening 05/22/2024 05/22/2023 Adult BMI Screening 01/29/2025 01/30/2024 Tobacco Screening 01/29/2025 01/30/2024 Influenza Vaccine 02/20/2025 06/18/2021 Medical Devices Implanted Type Area Marine Structural Welder Device Identifier Shelf Expiration Date Model / Serial / Lot Mesh Rt [id number] 70% Clgn 30% Glyc Pllc Acd Pet Progrip Slf - [id number] Implanted:Qty: 1 on 05/09/2022 by Maxim Blue MD at [facility] Mesh Right: Inguinal [employer] 12/19/2024 [id number] / / [id number] Insurance [facility] Care Teams Fitting Room Attendant Relationship Specialty Start Date End Date Can Ramirez MD [address]. Provider retired 09/20/24 [place] [id number] PCP - General Family Medicine 01/30/24
--- OUTSIDE RECORDS SUMMARY | 2024-12-17 10:12 | XMS_ITS | Encounter Summary ---
Author Organization [employer] Address [id number] [address] [place] [address] Care Team Providers Care Dividing Machine Operator Helper Name Role Phone Can Ramirez MD Primary Care Provider + [phone] Reason for Visit * Reason Onset Date Comments Exposure Coronavirus (Covid-19) 06/04/2020 covid + Encounter Details Date Type Department Care Team (Late st Contact Info) Description 06/04/2020 Telephone [facility] [address] [place] [address] Can Ramirez MD [address]. Provider retired 09/20/24 [place] [address] Exposure Coronavirus (Covid-19) (covid +) Social History Tobacco Use Types Packs/Day Years Used Date Smoking Tobacco: Former Smokeless Tobacco: Never Comments:Quit 30 years ago Alcohol Use Standard Drinks/Week Comments Never 0 (1 standard drink = 0.6 oz pur e alcohol) AUDIT-C Answer Date Recorded Frequency of Alcohol Consumption Never 01/24/2019 Average Number of Drinks Not on file 019 Frequency of Binge Drinking Not on file 0810/2018 PHQ-2 Answer Date Recorded Total Score 0 12/13/2019 Childcare Answer Date Recorded Childcare Unknown 12/01/2018 Employment Answer Date Recorded Employment Unknown 12/01/2018 Sex and Gender Information Value Date Recorded Sex Assigned at Not on file Legal Sex Male 11:31 AM EDT Gender Identity Not on file Sexual Orientation Not on file documented as of this encounter Miscellaneous Notes * Telephone Encounter - Breanne Diana - 06/04/2020 10:28 AM EST Patient's called. He is Covid positive and took a turn for the worst over the weekend. His cough is horrible and o2 is at 90 to 91. He is taking Tylenol occasionally but his is wanting to know if he can have hydroxychloriquine, a z-pack, epi or a steroid to help Please advise? * Telephone Encounter - Can Ramirez MD - 06/04/2020 10:28 AM EST I can't do the hydroxychloroquine, but I can do zpak and medrol dose theo to RA jeffries, please proceed to ER if worse * Telephone Encounter - Janie Schulte CMA - 06/04/2020 10:28 AM EST Patient's called and had stated that patient is still not feeling better. States she did berry picker his medication. Advised her to go to the ER per your previous note. Janie Schulte CMA 06/07/20 0835 * Telephone Encounter - Janie Schulte CMA - 06/04/2020 10:28 AM EST Patient's called again and states pt refuses to go to the ER would like a call from you directly. Janie Schulte CMA 06/07/20 0842 documented in this encounter Plan of Treatment [...] documented as of this encounter Care Teams Dividing Machine Operator Helper Relationship Specialty Start Date End Date Can Ramirez MD [address] Provider retired 09/20/24 [place] [address] PCP - General Family Medicine 01/30/24 documented as of this encounter
--- OUTSIDE RECORDS SUMMARY | 2024-12-17 10:12 | XMS_ITS | Encounter Summary ---
Author Organization [employer] Address [id number] [address] [place] [address] Care Team Providers Care Motel Front Desk Attendant Name Role Phone Can Ramirez MD Primary Care Provider + [phone] Encounter Details Date Type Department Care Team (Late st Contact Info) Description 12/17/2022 Orders Only [facility] [address] [place] [address] Can Ramirez MD [address]. Provider retired 09/20/24 [place] [address] Chest pain in adult (Primary Dx); Abnormal EKG; Abnormal cardiovascular stress test Social History Tobacco Use Types Packs/Day Years Used Date Smoking Tobacco: Former Cigarettes Smokeless Tobacco: Never Comments:Quit 30 years ago a s a teenager Alcohol Use Standard Drinks/Week Comments Never 0 (1 standard drink = 0.6 oz pur e alcohol) AUDIT-C Answer Date Recorded Frequency of Alcohol Consumption Never 01/24/2019 Average Number of Drinks Not on file 019 Frequency of Binge Drinking Not on file 0810/2018 PHQ-2 Answer Date Recorded Total Score 0 12/01/2022 Childcare Answer Date Recorded Childcare Unknown 12/01/2018 Employment Answer Date Recorded Employment Unknown 12/01/2018 Purpose - Life Answer Date Recorded Purpose and direction in life Unknown Sex and Gender Information Value Date Recorded Sex Assigned at Not on file Legal Sex Male 11:31 AM EDT Gender Identity Not on file Sexual Orientation Not on file documented as of this encounter Plan of Treatment Not on file documented as of this encounter Visit Diagnoses Diagnosis Chest pain in adult- Primary Abnormal EKG Nonspecific abnormal electrocardiogram (ECG) (EKG) Abnormal cardiovascular stress test Other nonspecific abnormal cardiovascular system function study documented in this encounter Additional Health Concerns Assessment Noted Time PHQ-9 Depression Total Score: 0 12/02/19 23 7:00 AM EDT A Body Mass Index follow-up plan has been documented for the patient 01/10/2021 11:24 AM EDT documented as of this encounter Care Teams Motel Front Desk Attendant Relationship Specialty Start Date End Date Can Ramirez MD [address] Provider retired 09/20/24 [place] [address] PCP - General Family Medicine 01/30/24 documented as of this encounter
--- OUTSIDE RECORDS SUMMARY | 2024-12-17 10:12 | XMS_ITS | Encounter Summary ---
Author Organization [employer] Address [id number] [address] [place] [address] Care Team Providers Care Hybrid Powertrain Development Engineer Name Role Phone Can Ramirez MD Primary Care Provider + [phone] Reason for Referral * Cardiology (Routine) - Closed Specialty Diagnoses / Procedures Referred By John solomon Referred To Contact Diagnoses Abnormal EKG Procedures Echo complete W/O contrast Can Ramirez MD [address] Provider retired 09/20/24 [place] [address] Phone: tel: fax: [address] [address] Phone: tel: Referral ID Status Reason Start Date Expiration Date Visits Re quested Visits Authorized [id number] Closed 12/02/2022 12/02/2023 1 1 Encounter Details Date Type Department Care Team (Late st Contact Info) Description 12/02/2022 Orders Only [facility] [place] [id number] Can Ramirez MD [address] Provider retired 09/20/24 [place] [address] Abnormal EKG (Primary Dx) Social History Tobacco Use Types Packs/Day Years [...] documented as of this encounter Results * Echo complete W/O contrast (12/05/2022 8:37 AM EDT) LVOT stroke volume 76.89 ml XCELERA LV Diastolic Volume 97.50 mL XCELERA LV Systolic Volume 35.30 mL XCELERA EF 64 % XCELERA FS 33 28 - 44 % XCELERA LVIDd 3.60 cm XCELERA LVIDs 2.40 cm XCELERA IVS 0.90 0.6 - 1.1 cm XCELERA PW 1.10 0.6 - 1.1 cm XCELERA LVOT diameter 2.10 cm XCELERA TDI 11.30 cm/s XCELERA MV TDI E' (medial) 9.46 cm/s XCELERA LA Volume Index 18.6 mL/m2 XCELERA E/A ratio 0.78 XCELERA E wave deceleration time 284.00 msec XCELERA MV Peak E Olman 63.00 cm/s XCELERA MV Peak A Olman 81.00 cm/s XCELERA LA size 4.20 cm XCELERA Aortic root 3.20 cm XCELERA LA volume 40.50 cm3 XCELERA RV diastolic dimension (basal) 30.0 mm XCELERA TAPSE 1.70 cm XCELERA AV peak olman 136.00 cm/s XCELERA LVOT peak olman 1.11 m/s XCELERA AV VTI 27.70 cm XCELERA LVOT peak VTI 22.20 cm XCELERA AV mean gradient 4.00 mmHg XCELERA AV peak gradient 7.40 mmHg XCELERA AV valve area 2.78 cm2 XCELERA Valve area - Index 1.3 XCELERA MV pressure 1/2 time 83.00 ms XCELERA MV valve area p 1/2 method 2.65 cm2 XCELERA LV ESV A2C 47.10 mL XCELERA LV ESV A4C 34.70 mL XCELERA LV RWT 2D 61.11 XCELERA Echo EF Estimated 64 % XCELERA AV Velocity Ratio 0.80 XCELERA Left Ventricle Mass 107.48993 214679550 5 g XCELERA Interventricular Septum Diastolic Thickness by 2D 9 cm XCELERA RVID d 3.0 cm XCELERA TASV 10.8 cm/s XCELERA RA 2D Volume 11.8 mL/m2 XCELERA RA area 12.4 cm2 XCELERA Anatomical Region Laterality Modality Chest N/A Ultrasound Narrative 12/05/2022 5:06 PM EDT Left Ventricle: Systolic function is normal with an ejection fraction of 60-65%. Normal diastolic function is present. Lateral E' is 11.30 cm/s. Medial E' is 9.46 cm/s. Left Ventricle Left ventricle appears normal in size. Wall thickness is normal. Systolic function is normal with an ejection fraction of 60-65%. No obvious regional wall motion abnormalities. Normal diastolic function is present. Lateral E' is 11.30 cm/s. Medial E' is 9.46 cm/s. Right Ventricle Right ventricular size appears normal. The right ventricular basal diameter is 30.0 mm. Systolic function is normal. Left Atrium Left atrium volume index is normal. The left atrial volume index is 18.6 mL/m2. Right Atrium Right atrium is normal in size. The right atrial area is 12.4 cm2. IVC/SVC IVC appears normal. Mitral Valve Mitral valve structure is normal. There is trace regurgitation. There is no evidence of mitral valve stenosis. Tricuspid Valve Tricuspid valve appears to be normal. There is trace regurgitation. There is no evidence of tricuspid valve stenosis. Aortic Valve The aortic valve is trileaflet. There is no regurgitation or stenosis. Pulmonic Valve The pulmonic valve was not well visualized. There is mild regurgitation. There is no evidence of pulmonic valve stenosis. Ascending Aorta The aortic root is normal in size. Pericardium There is no pericardial effusion. Study Details A complete echo was performed using complete 2D, color flow Doppler and spectral Doppler. Overall the study quality was adequate. Wall Scoring Baseline Score Index: 1.00 The left ventricular wall motion is normal. us Can Ramirez MD CV ECHO ORDERABLES Final Res ult documented in this encounter Visit Diagnoses Diagnosis Abnormal EKG- Primary Nonspecific abnormal electrocardiogram (ECG) (EKG) Abnormal EKG Nonspecific abnormal electrocardiogram (ECG) (EKG) documented in this encounter Additional Health Concerns Assessment Noted Time PHQ-9 Depression Total Score: 0 12/02/19 23 7:00 AM EDT A Body Mass Index follow-up plan has been documented for the patient 01/10/2021 11:24 AM EDT documented as of this encounter Care Teams Hybrid Powertrain Development Engineer Relationship Specialty [place] [address] [place] [address] MICHAEL. Provider retired 09/20/24 [place] [address] PCP - General Family Medicine 01/30/24 documented as of this encounter
--- OUTSIDE RECORDS SUMMARY | 2024-12-17 10:12 | XMS_ITS | Encounter Summary ---
Author Organization [facility] [employer] Address [id number] [address] [place] [address] Care Team Providers Care Advertising Sales Agent Name Role Phone Can Ramirez MD Primary Care Provider + [phone] Encounter Details Date Type Department Care Team (Late st Contact Info) Description 12/17/2022 Telephone [facility] [address] [place] [address] Hayde Velasquez CMA Social History Tobacco Use Types Packs/Day Years [...] encounter Miscellaneous Notes * Telephone Encounter - Hayde Velasquez CMA - 12/17/2022 9:52 AM EDT Patient called stating they want a referral to [facility]. I told her she will need to call to schedule appt since we do not know of any security system technician in that area. She would also like you to call her regarding his results. Thanks! 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 documented in this encounter Plan of Treatment Not on file documented as of this encounter Visit Diagnoses Not on filedocumented in this encounter Additional Health Concerns Assessment Noted Time PHQ-9 Depression Total Score: 0 12/02/19 23 7:00 AM EDT A Body Mass Index follow-up plan has been documented for the patient 01/10/2021 11:24 AM EDT documented as of this encounter Care Teams Advertising Sales Agent Relationship Specialty Start Date End Date Can Ramirez MD [address] Provider retired 09/20/24 [place] [address] PCP - General Family Medicine 01/30/24 documented as of this encounter
--- OUTSIDE RECORDS SUMMARY | 2024-12-17 10:12 | XMS_ITS | Encounter Summary ---
Author Organization [facility] Address [id number] [address] [place] [address] Care Team Providers Care Sightseeing Guide Name Role Phone Can Ramirez MD Primary Care Provider + [phone] Encounter Details Date Type Department Care Team (Late st Contact Info) Description 06/12/2020 Orders Only [facility] [address] [place] [address] Can Ramirez MD [address]. Provider retired 09/20/24 [place], [place] [id number] Close exposure to COVID-19 virus Social History Tobacco Use Types Packs/Day Years [...] on file documented as of this encounter Procedures Procedure Name Priority Date/Time Associated Diagnosis Comments SARS COV 2 (COVID-19) Routine 05/25/2020 Close exposure to COVID-19 virus documented in this encounter Results * (ABNORMAL) SARS COV 2 (COVID-19)[Lab Collect] (05/25/2020) EXTERNAL SARS COV 2 Positive(A ) Negative SUNQUEST NASOPHARYNGEAL 05/25/2020 us Can Ramirez MD MICROBIOLOGY - GENERAL ORDER IVANIA Final Result SUNQUEST documented in this encounter Visit Diagnoses Diagnosis Close exposure to COVID-19 virus documented in this encounter Additional Health Concerns Infection Onset Date Last Indicated Resolved Time COVID-19 Positive 05/25/2020 05/25/2020 06/15/2020 11:14 PM EST COVID-19 Rule-Out 06/12/2020 05/25/2020 06/12/2020 11:51 AM EST Assessment Noted Time PHQ-9 Depression Total Score: 0 12/13/19 20 3:00 PM EDT documented as of this encounter Care Teams Sightseeing Guide Relationship Specialty Start Date End Date Can Ramirez MD [address] Provider retired 09/20/24 [place] [address] PCP - General Family Medicine 01/30/24 documented as of this encounter
--- OUTSIDE RECORDS SUMMARY | 2024-12-17 10:12 | XMS_ITS | Encounter Summary ---
Author Organization [employer] Address [facility] [place]-[id number] [address] [place] [address] Care Team Providers Care Senior Accounting Associate Name Role Phone Can Ramirez MD Primary Care Provider + [phone] Encounter Details Date Type Department Care Team (Late st Contact Info) Description 12/17/2022 Telephone [facility] [address] [place] [address] Ronni Hidalgo MD [address], [place] [id number] Social History Tobacco Use Types Packs/Day Years [...] encounter Miscellaneous Notes * Telephone Encounter - Niecy Arango - 12/17/2022 10:05 AM EDT lmom to sched diagnostic radiologist appt- abn stress and ekg This is notification that we have received a referral for the patient. Please reach out to schedulenew patient appointment in your office. Please check the referral tab in appt desk for details and to make sure to assign referral or schedule off of it. Thank you. * Telephone Encounter - Beba Michelle - 12/17/2022 10:05 AM EDT T/c to pt, they want to be seen at [facility], PCP notified. documented in this encounter Plan of Treatment Not on file documented as of this encounter Visit Diagnoses Not on filedocumented in this encounter Additional Health Concerns Assessment Noted Time PHQ-9 Depression Total Score: 0 12/02/19 23 7:00 AM EDT A Body Mass Index follow-up plan has been documented for the patient 01/10/2021 11:24 AM EDT documented as of this encounter Care Teams Senior Accounting Associate Relationship Specialty Start Date End Date Can Ramirez MD [address]. Provider retired 09/20/24 [place] [address] PCP - General Family Medicine 01/30/24 documented as of this encounter
--- OUTSIDE RECORDS SUMMARY | 2024-12-17 10:12 | XMS_ITS | Encounter Summary ---
Author Organization [employer] Address [id number] [address] [place] [address] Care Team Providers Care Kiln Burner Helper Name Role Phone Can Ramirez MD Primary Care Provider + [phone] Encounter Details Date Type Department Care Team (Late st Contact Info) Description 05/28/2020 Telephone [facility] [address] [address] Can Ramirez MD [address]. Provider retired 09/20/24 [place] [address] Social History Tobacco Use Types [...] encounter Miscellaneous Notes * Telephone Encounter - Haydejuan c Adlercamille - 05/28/2020 8:33 AM EST FYI Patient positive with covid. Cough, off/on temp 101, chills Advised to treat with Tylenol, push fluids. Pulse ox 90-94 documented in this encounter Plan of Treatment [...] documented as of this encounter Care Teams Kiln Burner Helper Relationship Specialty Start Date End Date Can Ramirez MD [address] Provider retired 09/20/24 [place] [address] PCP - General Family Medicine 01/30/24 documented as of this encounter
--- OUTSIDE RECORDS SUMMARY | 2024-12-17 10:12 | XMS_ITS | Encounter Summary ---
Author Organization [employer] Address [id number] [address] [place] [address] Care Team Providers Care Consumer Advocate Name Role Phone Can Ramirez MD Primary Care Provider + [phone] Reason for Visit * Reason Onset Date Comments Med Refill 01/12/2020 Encounter Details Date Type Department Care Team (Late st Contact Info) Description 01/12/2020 Refill [facility] [address] [place] [phone] Priscila Dickson LPN BMI 30.0-30.9,adult Social History Tobacco Use Types [...] have Coronavirus / COVID-19? No / Unsure 01/12/2020 3:51 PM EDT documented as of this encounter Miscellaneous Notes * Telephone Encounter - Priscila Dickson LPN - 01/12/2020 4:06 PM EDT Requesting refill of Adipex to Andre Dickson LPN 01/12/20 1607 documented in this encounter Plan of Treatment [...] documented as of this encounter Care Teams Consumer Advocate Relationship Specialty Start Date End Date Can Raimrez MD [address]. Provider retired 09/20/24 [place] [address] PCP - General Family Medicine 01/30/24 documented as of this encounter
--- OUTSIDE RECORDS SUMMARY | 2024-12-17 10:12 | XMS_ITS | Encounter Summary ---
Author Organization [facility] Address [address] [place] [address] Care Team Providers Care Pharmacy Affairs Assistant Name Role Phone nolan MicaelaCan Neri Primary Care Provider [phone] Cyn Antonio MD Unavailable [phone] Ari Pedro MD Unavailable [phone] Source Comments In the event this information is protected by the Federal Confidentiality of Alcohol and Drug AbusePatient Records regulations: The Federal rules restrict any use of the information to criminally investigate or prosecute any alcohol or drug abuse patient.[facility] Encounter Details Date Type Department Care Team (Late st Contact Info) Description 01/12/2024 Patient Msg Spine [place] [address], [place] [id number] Provider, Ccf ACTION REQUIRED: Skin Preparation before your surgery Social History Tobacco Use Types Packs/Day Years Used Date Smoking Tobacco: Former Cigarettes Q uit: 09/21/1987 Passive Smoke Exposure: Past Smokeless Tobacco: Never Alcohol Use Standard Drinks/Week Comments Never 0 (1 standard drink = 0.6 oz pur e alcohol) [facility] Utilities Answer Date Recorded In the past [...] often do you attend chur ch or adventism services? More than 4 times per year 01/05/2024 Do you belong to any clubs o r organizations such as zoroastrian groups, unions, fraternal or athletic groups, or [...] Answer Date Recorded PHQ-2 score 0 12/30/2023 [facility] - [...] place to sleep or slept in a fpc (including now)? No 01/05/2024 Area Deprivation Index Answer Date Raf rded National Score (1-100), lower number is lower ri sk 74 12/19/2022 State Score (1-10), lower number is lower risk 6 12/19/2022 Data from: https://www.neighborhoodatlas.[facility].edu/. Last address used for calculation [...] of Assessment Author No 01/28/2023 11:03 AM Vneus Tilley RN documented as of this encounter Mental Status * Because of a physical, mental, or emotional condition, do you have serious difficulty concentrating, remembering, or making decisions? Answer Entry Date Author No 01/28/2023 11:03 AM EDT Venus Livingston, RN documented in this encounter Plan of Treatment Upcoming Encounters Date Type Department Care Team (Late st Contact Info) Description 03/07/2025 9:45 AM EDT Results Only Main [place] [facility] [address] [place] [address] DX: CAD 03/07/2025 10:45 AM EDT Office Visit Cardiology [address] [place], [place] [phone] Cyn Antonio MD [address] [place], [place] [phone] DX: CAD documented as of this encounter Goals Goal Patient Goal Type Associated Problems Recent Progress Patient-Stated? Author Blood Pressure < 130/80 Blood Pressure 135/63( 024 12:45 PM EDT) No Cyn Antonio MD documented as of this encounter Visit Diagnoses Not on filedocumented in this encounter Care Teams Pharmacy Affairs Assistant Relationship Specialty Start Date End Date Can Artis [address] [place] [address] PCP - General Family Medicine 12/17/22 Cyn Antonio MD [address] [place] [address] Primary Staff Physician Cardiology 12/18/22 Ari Pedro MD [address] [place] [address] Surgeon Cardiac Surg 01/13/23 documented as of this encounter
--- OUTSIDE RECORDS SUMMARY | 2024-12-17 10:13 | XMS_ITS | Clinical Summary ---
Author Organization [facility] Healthcare Address [address] [place] [address] Care Team Providers Care Die Sizer Name Role Phone Can Ramirez MD Primary Care Provider [phone] Neri Saavedra MD Unavailable [phone] Bennie Fofana DO Unavailable Allergies No known active allergies Medications multivitamin with minerals (Cerovite) 18-400 mg-mcg tablet tablet Take by mouth Active nitroglycerin (Nitrostat) 0.[address] 0.3 mg under the tongue 3 Active metoprolol succinate XL (Toprol-XL) 25 MG 24 hr tablet Take by mouth Do not crush or chew. Active ezetimibe (Zetia) 10 MG tablet Take 10 mg by mouth Daily Active amLODIPine (Norvasc) 2.5 MG tablet Take by mouth Daily Active atorvastatin (Lipitor) 10 MG tablet Take 10 mg by mouth Daily Active aspirin 81 MG EC tablet Take 81 mg by mouth Daily Active cephalexin (Keflex) 500 MG capsuleIndicat ions:Basal cell carcinoma of skin of scalp and neck Take 1 capsule by mouth, bid x 10 days. 20 capsule 5 Active fluorouracil (Efudex) 5 % creamIndicatio ns:Actinic keratosis Apply to directed areas on the forehead, ears, top of nose, temples , and cheeks twice a day x 14 days. Dispense 30 day supply but only use for 14 days. 40 g 5 025 Discontinued Active Problems Problem Noted Date Diagnosed Date Sinus bradycardia by electrocardiography 024 DVT of popliteal vein 02/10/2023 Mixed hyperlipidemia 02/10/2023 Overview (12/14/2024): History: preop on Lipitor. Last set of lipids revealed: Total Chol 166, HDL 25, TG 635 , LDL unable to calculate d/t increased TGL Assessment: s/p CABG x5 Plan: continue Lipitor 80 mg. Have follow up Lipid panel in 6- 8 weeks. Add Frederick 3 fatty acids. if still not controlled, then needs a Fenofibrate. Primary hypertension 02/10/2023 Overview (12/14/2024): History: pre-op on Toprol XL Assessment: SBP 109 HR 70-80 Plan: continue Metop. Trend BP and adjust medications accordingly. Incidental lung nodule 01/26/2023 Overview (12/14/2024): History: CT chest 01/21/23: incidental finding: Small [...] Obesity, Class I, BMI 30-34.9 01/22/2023 Overview (12/14/2024): History: Body mass index is 32.46 kg/m . Assessment: by definition. on exam Plan: needs to make lifestyle changes with diet and exercise once recovers from surgery. Localized osteoarthritis of right knee 1 Encounters Date Type Department Care Team Description 12/15/2024 2:15 PM EDT Office Visit [facility] [address] [place] [address] Bennie Fofana DO Mohs defect (Primary Dx); Basal cell carcinoma of skin of scalp and neck 12/15/2024 8:45 AM EDT Office Visit [facility] [address] [place] [address] Neri Saavedra MD Basal cell carcinoma of skin of scalp and neck 12/15/2024 Travel 12/14/2024 Travel 11/18/2024 10:30 AM EDT Procedure Visit [facility] [address] [place] [address] Andreina Angeles MD Basal cell carcinoma of upper back (Primary Dx) 11/18/2024 Travel 11/04/2024 Telephone [facility] [address] [place] [address] Solange Jones LPN 11/03/2024 Travel 10/21/2024 Results Follow-Up [facility] [address] [place] [address] Andreina Angeles MD 10/18/2024 9:15 AM EDT Office Visit [facility] [address] [place] [address] Andreina Angeles MD Seborrheic keratosis (Primary Dx); Lentigines; Neoplasm of unspecified behavior of bone, soft tissue, and skin; Actinic keratosis; Seborrheic keratosis, inflamed 10/18/2024 Bamboo flowsheet [facility] [address] [place] [address] Andreina Angeles MD 10/18/2024 Travel 10/17/2024 Travel from Last 3 Months Immunizations Immunization Administration Dates Next Due Influenza, injectable, MDCK, preservative free, quadrivalent 06/18/2021 Family History Medical History Relation Name Comments Heart failure Father Breast cancer Mother Relation Name Status Comments Father Alive Mother Alive Social History Tobacco Use Types Packs/Day Years [...] Mass Index 31.01 12/15/2024 1:52 PM EDT Plan of Treatment Upcoming Encounters Date Type Department Care Team (Late st Contact Info) Description 12/29/2024 2:00 PM EDT Office Visit [facility] [address] [place] [address] Bennie Fofana, DO [address] [place] [address] 05/23/2025 9:20 AM EST Office Visit [facility] [address] [place] [address] Andreina Angeles MD [address] [place] [address] Health Maintenance Due Date Last Done Comments CT Colonography 1964 Colonoscopy 1964 Colorectal Cancer Screening 1964 FIT-DNA 1964 FIT 1964 FOBT 1964 Sigmoidoscopy 1964 Influenza Vaccine (Season Ended) 2025 06/18/20 21 Procedures Procedure Name Priority Date/Time Associated Diagnosis Comments MOHS SURGERY Routine 12/14/2024 12:20 PM EDT Basal cell carcinoma of skin of scalp and neck DESTRUCTION OF LESION Routine 11/18/2024 8:42 AM EDT Basal cell carcinoma of upper back CRYOTHERAPY SKIN LESION Routine 10/19/19 9:28 AM EDT Actinic keratosis CRYOTHERAPY SKIN LESION Routine 10/19/19 9:28 AM EDT Seborrheic keratosis, inflamed SKIN / NAIL BIOPSY Routine 10/18/2024 9: 27 AM EDT Neoplasm of unspecified behavior of bone, soft tissue, and skin SKIN / NAIL BIOPSY Routine 10/18/2024 9: 24 AM EDT Neoplasm of unspecified behavior of bone, soft tissue, and skin ZZDERMATOPATHOLOGY EXAM UNORDERABLE Routine 10/18/2024 12:00 AM EDT Seborrheic keratosis Neoplasm of unspecified behavior of bone, soft tissue, and skin DERMATOPATHOLOGY EXAM Routine 10/18/2024 12:00 AM EDT Neoplasm of unspecified behavior of bone, soft tissue, and skin from Last 3 Months Results * Mohs surgery (12/14/2024 12:20 PM EDT) Narrative [place], SHAWN Rea - 12/14/2024 12:20 PM EDT Consent obtained: written (The rationale for Mohs as well as the risks, benefits, and alternatives. The risks of infection, scarring, bleeding, prolonged wound healing, incomplete removal, allergy to anesthesia or meds, nerve injury, and recurrence were addressed.) Burna Protocol: Procedure explained and questions answered to [...] sodium bicarbonate Procedure Details: Biopsy accession number: [id number] Biopsy lab: [facility] Date of biopsy: 10/18/2024 Frozen section biopsy [...] MD DERM PROCEDURE ORDERABLES Fi nal Result * Destr of lesion (11/18/2024 8:42 AM EDT) Narrative Solange Jones LPN - 11/18/2024 8:42 AM EDT Complexity: simple Destruction method: electrodesiccation and curettage Informed consent: discussed and consent obtained Informed consent comment: The risks of the procedure were discussed, including, but not limited to risks of scarring, darker or inspector plating pigmentary changes, recurrence, infection, and incomplete removal [...] lidocaine used: 1.5 cc Previous accession number: [id number] Result [facility] Andreina Angeles MD DERM PROCEDURE ORDERABLES Fin al Result * Cryotherapy, skin lesion (10/18/2024 9:28 AM EDT) Result [facility] Andreina Angeles MD DERM PROCEDURE ORDERABLES Fin al Result * Cryotherapy, skin lesion (10/18/2024 9:28 AM EDT) Result [facility] Andreina Angeles MD DERM PROCEDURE ORDERABLES Fin al Result * Lesion biopsy (10/18/2024 9:27 AM EDT) Narrative Ana Valdez MA - 10/18/2024 9:27 AM EDT Type of biopsy: tangential Informed consent: discussed [...] taken Amount of lidocaine used: 1.0 cc Andreina Angeles MD DERM PROCEDURE ORDERABLES Fin al Result * Lesion biopsy (10/18/2024 9:24 AM EDT) Leah ValdezAna MA - 10/18/2024 9:24 AM EDT Type of biopsy: tangential Informed consent: discussed [...] taken Amount of lidocaine used: 1.0 cc Andreina Angeles MD DERM PROCEDURE ORDERABLES Fin al Result * Dermatopathology exam (10/18/2024 12:00 AM EDT) SPECIMEN TYPE --- SPECIMEN: LEFT TEMPORAL SCALP --- [facility] ICD10 Code C44.41 [facility] PROTOCOL F - FLAT [facility] Final Diagnosis NODULAR AND INFILTRATIVE BASAL CELL CARCINOMA (SEE COMMENT). COMMENT: The tumor is transected across the base. [facility] Gross Text [facility] Microscopic Description Microscopic examination performed. [facility] SPECIMEN TYPE --- SPECIMEN: RIGHT UPPER BACK --- [facility] ICD10 Code C44.519 [facility] PROTOCOL F - FLAT [facility] Final Diagnosis SUPERFICIAL MULTICENTRIC BASAL CELL CARCINOMA (SEE COMMENT). COMMENT: The tumor is transected at an edge. [facility] Gross Text [facility] Microscopic Description Microscopic examination performed. [facility] CPT 54348*2 [facility] Skin (tissue) specimen (specimen) Topography unknown / Unknown 10/18/2024 9:24 AM EDT Comment:Differential Diagnos is: BCC Check Margins: No Size of lesion: 1.0 x 1.0 cm Skin (tissue) specimen (specimen) Topography unknown / Unknown 10/18/2024 9:27 AM EDT Comment:Differential Diagnos is: BCC Check Margins: No Size of lesion: 1.2 x 0.5 cm us Andreina Angeles MD LAB PATHOLOGY ORDERABLES Winnie ruggiero Result [facility] from Last 3 Months Insurance [facility] Care Teams Die Sizer Relationship Specialty Start Date End Date Can Ramirez MD [address] [place] [address] PCP - General Family Medicine 11/18/22 Neri Savaedra MD [address] [place] [address] Referring Physician Dermatology 12/15/24 Bennie Fofana DO [address] [place] [address] Otolaryngology 12/15/24
--- OUTSIDE RECORDS SUMMARY | 2024-12-17 10:13 | XMS_ITS | Encounter Summary ---
Author Organization [facility] Address [address] [place] [address] Care Team Providers Care Header Up Name Role Phone Can Artis Primary Care Provider [phone] Cyn Antonio MD Unavailable [phone] Ari Pedro MD Unavailable [phone] Source Comments In the event this information is protected by the Federal Confidentiality of Alcohol and Drug AbusePatient Records regulations: The Federal rules restrict any use of the information to criminally investigate or prosecute any alcohol or drug abuse patient.[facility] Encounter Details Date Type Department Care Team (Late st Contact Info) Description 04/07/2023 Patient Msg Cardiology [address] [place] [address] Cyn Antonio MD [address] [place] [address] Labs Social History Tobacco Use Types Packs/Day Years Used Date Smoking Tobacco: Former Cigarettes Q uit: 1987 Smokeless Tobacco: Never Alcohol Use Standard Drinks/Week Comments Never 0 (1 standard drink = 0.6 oz pur e alcohol) Area Deprivation Index Answer Date Raf rded [...] EDVenus West RN * Do you have serious difficulty [...] 03/07/2025 9:45 AM EDT Results Only Main [place] [address] [address] [place] [address] DX: CAD 03/07/2025 10:45 AM EDT Office Visit Cardiology [address] [place] [phone] Cyn Antonio MD [address] [place] [id number] DX: CAD documented as of this encounter Visit Diagnoses Not on filedocumented in this encounter Care Teams Header Up Relationship Specialty Start Date End Date Can Artis [address] [place] [address] PCP - General Family Medicine 12/17/22 Cyn Antonio MD [address] [place] [address] Primary Staff Physician Cardiology 12/18/22 Ari Pedro MD [address] [place] [address] Surgeon Cardiac Surg 01/13/23 documented as of this encounter
--- OUTSIDE RECORDS SUMMARY | 2024-12-17 10:13 | XMS_ITS | Encounter Summary ---
Author Organization [facility] Address [address] [place] [address] Care Team Providers Care Hand Trimmer Name Role Phone Can Artis Primary Care Provider [phone] Cyn Antonio MD Unavailable [phone] Ari Pedro MD Unavailable [phone] Source Comments In the event this information is protected by the Federal Confidentiality of Alcohol and Drug AbusePatient Records regulations: The Federal rules restrict any use of the information to criminally investigate or prosecute any alcohol or drug abuse patient.[facility] Encounter Details Date Type Department Care Team (Latest Contact Info) Description 03/11/2023 Get Medical Advice Cardiothoracic [address] [place] [phone] Renee Myers APRN.ARMOR RECONNAISSANCE VEHICLE DRIVER [address] [facility] [address] [place] [phone] Extension for short term disability and restrictions Social History Tobacco Use Types Packs/Day Years [...] is lower risk 6 12/19/2022 Data from: https://www.neighborhoodatlas.medicine.[facility]/. Last address used for calculation [address] [...] 03/07/2025 9:45 AM EDT Results Only Main [place] [address] [place] [address] DX: CAD 03/07/2025 10:45 AM EDT Office Visit Cardiology [address] [place], [place] [phone] Cyn Antonio MD [address] [place] [address] DX: CAD documented as of this encounter Visit Diagnoses Not on filedocumented in this encounter Care Teams Hand Trimmer Relationship Specialty Start Date End Date Can Artis [address] [place] [address] PCP - General Family Medicine 12/17/22 Cyn Antonio MD [address] [place] [address] Primary Staff Physician Cardiology 12/18/22 Ari Pedro MD [address] [place] [address] Surgeon Cardiac Surg 01/13/23 documented as of this encounter
--- OUTSIDE RECORDS SUMMARY | 2024-12-17 10:13 | XMS_ITS | Encounter Summary ---
Author Organization [facility] Address [address] [place] [address] Care Team Providers Care Superintendent Renting Managing Name Role Phone Can Artis Primary Care Provider [phone] Cyn Antonio MD Unavailable [phone] Ari Pedro MD Unavailable [phone] Source Comments In the event this information is protected by the Federal Confidentiality of Alcohol and Drug AbusePatient Records regulations: The Federal rules restrict any use of the information to criminally investigate or prosecute any alcohol or drug abuse patient.[facility] Encounter Details Date Type Department Care Team (Latest Contact Info) Description 01/15/2023 [place] [address] Provider, Ccf Please complete Cardiovascular Surgery Questionnaire [...] is lower risk 6 12/19/2022 Data from: https://www.neighborhoodatlas.[facility]/. Last address used for calculation [address] [...] hearing? Answer Date of Assessment Author No 01/08/2023 3:[address] ysabel Abreu RN * Are you blind or do you have serious difficulty seeing, even when wearing glasses? Answer Date of Assessment Author No 01/08/2023 3:[address] ysabel Abreu RN * Do you have serious difficulty walking or climbing stairs? Answer Date of Assessment Author No 01/08/2023 3:[address] ysabel Abreu RN * Do you have difficulty dressing or bathing? Answer Date of Assessment Author No 01/08/2023 3:[address] ysabel Abreu RN * Because of a physical, mental, or emotional condition, do you have difficulty doing errands alone such as visiting a doctor's office or shopping? Answer Date of Assessment Author No 01/08/2023 3:[address] ysabel Abreu RN documented as of this encounter Mental Status * Because of a physical, mental, or emotional condition, do you have serious difficulty concentrating, remembering, or making decisions? Answer Entry Date Author No 01/08/2023 3:[address] ysabel Abreu RN documented in this encounter Plan of Treatment Upcoming Encounters Date Type Department Care Team (Late st Contact Info) Description 03/07/2025 9:45 AM EDT Results Only [facility] J1-[address] [place] [address] DX: CAD 03/07/2025 10:45 AM EDT Office Visit Cardiology [address] [place] [address] Cyn Antonio MD [address] [facility] [place] [address] DX: CAD documented as of this encounter Visit Diagnoses Not on filedocumented in this encounter Care Teams Superintendent Renting Managing Relationship Specialty Start Date End Date Can Artis [address] [place] [address] PCP - General Family Medicine 12/17/22 Cyn Antonio MD [address] [facility] [place] [address] Primary Staff Physician Cardiology 12/18/22 Ari Pedro MD [address] [place] [address] Surgeon Cardiac Surg 01/13/23 documented as of this encounter
--- OUTSIDE RECORDS SUMMARY | 2024-12-17 10:13 | XMS_ITS | Encounter Summary ---
Author Organization [facility] [employer] Address [id number] [address] [place] [address] Care Team Providers Care Division Chief Name Role Phone Can Ramirez MD Primary Care Provider [phone] Encounter Details Date Type Department Care Team (Late st Contact Info) Description 10/11/2020 Orders Only [facility] [address] [place] [address] Priscila Dickson LPN Close exposure to COVID-19 virus Social History [...] Associated Diagnosis Comments SARS COV 2 (COVID-19) STAT 10/10/2020 Close exposure to COVID-19 virus documented in this encounter Results * SARS COV 2 (COVID-19)[Lab Collect] (10/10/2020) EXTERNAL SARS COV 2 Negative Negative [facility] NASOPHARYNGEAL 10/10/2020 us Rossy Welch HAND SPLITTER-LIABILITY CLAIMS EXAMINER MICROBIOLOGY - GENERA L ORDERABLES Final Result [facility] documented in this encounter Visit Diagnoses Diagnosis Close exposure to COVID-19 virus documented in this encounter Additional Health Concerns Assessment Noted Time PHQ-9 Depression Total Score: 0 12/13/19 20 3:00 PM EDT documented as of this encounter Care Teams Division Chief Relationship Specialty Start Date End Date Can Ramirez MD [address] Provider retired 09/20/24 [place] [address] PCP - General Family Medicine 01/30/24 documented as of this encounter
--- OUTSIDE RECORDS SUMMARY | 2024-12-17 10:13 | XMS_ITS | Encounter Summary ---
Author Organization [facility] Address [facility] [place] [address] Care Team Providers Care Supervisor Metal Placing Name Role Phone Can Artis Primary Care Provider [phone] Cyn Antonio MD Unavailable [phone] Ari Pedro MD Unavailable [phone] Source Comments In the event this information is protected by the Federal Confidentiality of Alcohol and Drug AbusePatient Records regulations: The Federal rules restrict any use of the information to criminally investigate or prosecute any alcohol or drug abuse patient.[facility] Encounter Details Date Type Department Care Team (Late st Contact Info) Description 02/10/2024 Patient Msg Pre Anesthesia [address] [id number] Justyna Calhoun APRN.STRATEGIC PLANNING ANALYST [address] [place] [address] pre op instructions. Social History Tobacco Use Types Packs/Day Years Used Date Smoking Tobacco: Former Cigarettes Q uit: 09/21/1987 Passive Smoke Exposure: Past Smokeless Tobacco: Never Alcohol Use Standard Drinks/Week Comments Never 0 (1 standard drink = 0.6 oz pur e alcohol) [facility] Utilities Answer Date Recorded In the [...] often do you attend chur ch or buddhism services? More than 4 times per year 01/05/2024 Do you belong to any clubs o r organizations such as scientologist groups, unions, fraternal or athletic groups, or [...] Answer Date Recorded PHQ-2 score 2 01/27/2024 [facility] - Occupational Stress [...] place to sleep or slept in a senior care (including now)? No 01/05/2024 Area Deprivation Index Answer Date Raf rded National Score (1-100), lower number is lower ri sk 74 12/19/2022 State Score (1-10), lower number is lower risk 6 12/19/2022 Data from: https://www.neighborhoodatlas.medicine.[facility].edu/. Last address used for calculation [address] [...] 03/07/2025 9:45 AM EDT Results Only Main [place] [address] [address] [place] [phone] DX: CAD 03/07/2025 10:45 AM EDT Office Visit Cardiology [address] [place] [phone] Cyn Antonio MD [address] [place] [address] DX: CAD documented as of this encounter Goals Goal Patient Goal Type Associated Problems Recent Progress Patient-Stated? Author Blood Pressure < 130/80 Blood Pressure 135/63( 024 12:45 PM EDT) No Cyn Antonio MD documented as of this encounter Visit Diagnoses Not on filedocumented in this encounter Care Teams Supervisor Metal Placing Relationship Specialty Start Date End Date Can Artis [address] [place] [address] PCP - General Family Medicine 12/17/22 Cyn Antonio MD [address] [place] [address] Primary Staff Physician Cardiology 12/18/22 Ari Pedro MD [address] [place] [address] Surgeon Cardiac Surg 01/13/23 documented as of this encounter
--- OUTSIDE RECORDS SUMMARY | 2024-12-17 10:13 | XMS_ITS | Encounter Summary ---
Author Organization [facility] Address [address] [place] [address] Care Team Providers Care Magneto Repairer Name Role Phone Can Artis Primary Care Provider [phone] Cyn Antonio MD Unavailable [phone] Ari Pedro MD Unavailable [phone] Source Comments In the event this information is protected by the Federal Confidentiality of Alcohol and Drug AbusePatient Records regulations: The Federal rules restrict any use of the information to criminally investigate or prosecute any alcohol or drug abuse patient.[facility] Encounter Details Date Type Department Care Team (Latest Contact Info) Description 02/21/2023 [place] [address] Provider, Ccf Please complete Cardiovascular Surgery Questionnaire [...] is lower risk 6 12/19/2022 Data from: https://www.neighborhoodatlas.[facility]/. Last address used for calculation [address] [...] Venus Livingston RN * Do you have difficulty dressing [...] 11:03 AM EDT Venus Livingston RN documented in this encounter Plan of Treatment Upcoming Encounters Date Type Department Care Team (Late st Contact Info) Description 03/07/2025 9:45 AM EDT Results Only [facility] [place] J[facility] Draw Station [address] [place] [address] DX: CAD 03/07/2025 10:45 AM EDT Office Visit Cardiology [address] [place] [address] Cyn Antonio MD [address] [place] [address] DX: CAD documented as of this encounter Visit Diagnoses Not on filedocumented in this encounter Care Teams Magneto Repairer Relationship Specialty Start Date End Date Artis Can He [address] [place] [address] PCP - General Family Medicine 12/17/22 Cyn Antonio MD [address] [place] [address] Primary Staff Physician Cardiology 12/18/22 Ari Pedro MD [address] [place], [place] [id number] Surgeon Cardiac Surg 01/13/23 documented as of this encounter
--- OUTSIDE RECORDS SUMMARY | 2024-12-17 10:13 | XMS_ITS | Encounter Summary ---
Author Organization [facility] Address [id number] [address] [place] [address] Care Team Providers Care Medical Delivery Technician Name Role Phone Can Ramirez MD Primary Care Provider + [phone] Encounter Details Date Type Department Care Team (Late st Contact Info) Description 10/08/2020 Telephone [facility] [address] [place] [address] Muna Warner CMA Social History Tobacco Use Types Packs/Day [...] encounter Miscellaneous Notes * Telephone Encounter - Muna Warner CMA - 10/08/2020 8:46 AM EDT Patient is traveling to [place] and needs a covid test done, he would like to get it done at [facility] * Telephone Encounter - ADAN Marie - 10/08/2020 8:46 AM EDT done documented in this encounter Plan of Treatment Not on file documented as of this encounter Visit Diagnoses Not on filedocumented in this encounter Additional Health Concerns Assessment Noted Time PHQ-9 Depression Total Score: 0 12/13/19 20 3:00 PM EDT documented as of this encounter Care Teams Medical Delivery Technician Relationship Specialty Start Date End Date Can Ramirez MD [address] Provider retired 09/20/24 [place] [address] PCP - General Family Medicine 01/30/24 documented as of this encounter
--- OUTSIDE RECORDS SUMMARY | 2024-12-17 10:13 | XMS_ITS | Encounter Summary ---
Author Organization [facility] Address [address] [place] [address] Care Team Providers Care Endoscopy Technician Name Role Phone Cna Ramirez MD Primary Care Provider + [phone] Neri Saavedra MD Unavailable [phone] Bennie Fofana DO Unavailable [phone] Encounter Details Date Type Department Care Team (Latest Contact Info) Description 12/15/2024 Travel Social History Tobacco Use Types Packs/Day Years [...] as of this encounter Plan of Treatment Upcoming Encounters Date Type Department Care Team (Late st Contact Info) Description 12/29/2024 2:00 PM EDT Office Visit [facility] [address] [facility] [phone] Bennie Fofana DO [address] [place] [address] 05/23/2025 9:20 AM EST Office Visit [facility] [address] [place] [address] Andreina Angeles MD [address] [place] [address] documented as of this encounter Visit Diagnoses Not on filedocumented in this encounter Care Teams Endoscopy Technician Relationship Specialty Start Date End Date Can Ramirez MD [address] [place] [address] PCP - General Family Medicine 11/18/22 Neri Saavedra MD [address] [place] [address] Referring Physician Dermatology 12/15/24 Bennie Fofana DO [address] [place] [address] Otolaryngology 12/15/24 documented as of this encounter
--- OUTSIDE RECORDS SUMMARY | 2024-12-17 10:13 | XMS_ITS | Encounter Summary ---
Author Organization [facility] Address [id number] [address] [place] [address] Care Team Providers Care Gunnery/Ordnance Officer Name Role Phone Can Ramirez MD Primary Care Provider + [phone] Reason for Visit * Reason Onset Date Comments Med Refill 01/03/2022 Encounter Details Date Type Department Care Team (Late st Contact Info) Description 01/03/2022 Refill [facility] [address] [place] [phone] Priscila Dickson LPN BMI 31.0-31.9,adult Social History Tobacco Use Types Packs/Day Years Used Date Smoking Tobacco: Never Smokeless Tobacco: Never Comments:Quit 30 years ago Alcohol Use Standard Drinks/Week Comments Never 0 (1 standard drink = 0.6 oz pur e alcohol) AUDIT-C Answer Date Recorded Frequency of Alcohol Consumption Never 01/24/2019 Average Number of Drinks Not on file 019 Frequency of Binge Drinking Not on file 10/2018 PHQ-2 Answer Date Recorded Total Score 0 12/02/2021 Childcare Answer Date Recorded Childcare Unknown 12/01/2018 [...] have Coronavirus / COVID-19? No / Unsure 01/03/2022 8:56 AM EDT documented as of this encounter Miscellaneous Notes * Telephone Encounter - Priscila Dickson LPN - 01/03/2022 9:06 AM EDT Patient requesting refill of Adipex to [place] [facility] documented in this encounter Plan of Treatment Not on file documented as of this encounter Visit Diagnoses Diagnosis BMI 31.0-31.9,adult documented in this encounter Additional Health Concerns Assessment Noted Time PHQ-9 Depression Total Score: 0 12/03/19 22 4:00 PM EDT A Body Mass Index follow-up plan has been documented for the patient 01/10/2021 11:24 AM EDT documented as of this encounter Care Teams Gunnery/Ordnance Officer Relationship Specialty Start Date End Date Can Ramirez MD [address] Provider retired 09/20/24 [place] [address] PCP - General Family Medicine 01/30/24 documented as of this encounter
--- OUTSIDE RECORDS SUMMARY | 2024-12-17 10:13 | XMS_ITS | Encounter Summary ---
Author [facility] Address [id number] [address] [place] [address] Care Team Providers Care Cdl Instructor Name Role Phone Can Ramirez MD Primary Care Provider + [phone] Encounter Details Date Type Department Care Team (Late st Contact Info) Description 01/03/2021 Telephone [facility] [address] [place] [address] Can Ramirez MD [address] Provider retired 09/20/24 [place] [address] Social History Tobacco Use Types [...] Recorded Purpose and direction in life Unknown 01 / Sex and Gender Information Value Date Recorded Sex Assigned at Not on file Legal Sex Male 11:31 AM EDT Gender Identity Not on file Sexual Orientation Not on file documented as of this encounter Miscellaneous Notes * Telephone Encounter - Breanne Dinaa - 01/03/2021 4:14 PM EDT Patient called, he was weeding his landscaping and got poison lennie. He said in the past you gave himPrednisone for this. He is wanting to know if you will prescribe some for him. His [facility] is [facility] in [place] * Telephone Encounter - Can Ramirez MD - 01/03/2021 4:14 PM EDT Prednisone rx'd documented in this encounter Plan of Treatment Not on file documented as of this encounter Visit Diagnoses Not on filedocumented in this encounter Additional Health Concerns Assessment Noted Time PHQ-9 Depression Total Score: 0 12/13/19 20 3:00 PM EDT documented as of this encounter Care Teams Cdl Instructor Relationship Specialty Start Date End Date Can Ramirez MD [address] Provider retired 09/20/24 [place] [address] PCP - General Family Medicine 01/30/24 documented as of this encounter
--- OUTSIDE RECORDS SUMMARY | 2024-12-17 10:13 | XMS_ITS | Encounter Summary ---
Author Organization [facility] Address [address] [place] [address] Care Team Providers Care Certified Performance Technologist Name Role Phone Can Ramirez MD Primary Care Provider + [phone] Neri Saavedra MD Unavailable [phone] Bennie Fofana DO Unavailable [phone] Encounter Details Date Type Department Care Team (Late st Contact Info) Description 10/21/2024 Results Follow-Up [facility] [address] [facility] [facility] [address] [place] [address] Andreina Angeles MD [address] [facility] [address] [place] [address] Social History Tobacco Use Types Packs/Day Years [...] [facility] [place] [address] [facility] [phone] Bennie Fofana, DO [address] [place] [address] 05/23/2025 9:20 AM EST Office Visit [facility] [address] [place] [phone] Andreina Angeles MD [address] [place] [address] documented as of this encounter Visit Diagnoses Not on filedocumented in this encounter Care Teams Certified Performance Technologist Relationship Specialty Start Date End Date Can Ramirez MD [address] [place] [address] PCP - General Family Medicine 11/18/22 Neri Saavedra MD [address] [place] [address] Referring Physician Dermatology 12/15/24 Bennie Fofana DO [address] [place] [address] Otolaryngology 12/15/24 documented as of this encounter
--- OUTSIDE RECORDS SUMMARY | 2024-12-17 10:13 | XMS_ITS | Encounter Summary ---
Author Organization [facility] Address [address] [place] [address] Care Team Providers Care Front Facer Name Role Phone Can Artis Primary Care Provider [phone] Cyn Antonio MD Unavailable [phone] Ari Pedro MD Unavailable [phone] Source Comments In the event this information is protected by the Federal Confidentiality of Alcohol and Drug AbusePatient Records regulations: The Federal rules restrict any use of the information to criminally investigate or prosecute any alcohol or drug abuse patient.[facility] Reason for Visit * Reason Comments Patient Question Encounter Details Date Type Department Care Team (Late st Contact Info) Description 02/10/2024 Telephone Orthopaedics [address] [place] [id number] Watson Mason MD [address] [facility] [address] [place] [address] Patient Question Social History Tobacco Use Types Packs/Day Years Used Date Smoking Tobacco: Former Cigarettes Q uit: 09/21/1987 Passive Smoke Exposure: Past Smokeless Tobacco: Never Alcohol Use Standard Drinks/Week Comments Never 0 (1 standard drink = 0.6 oz pur e alcohol) [facility] Utilities Answer Date Recorded In [...] any clubs o r organizations such as episcopal groups, unions, fraternal or athletic groups, or [...] Answer Date Recorded PHQ-2 score 2 01/27/2024 [facility] - [...] is lower risk 6 12/19/2022 Data from: https://www.neighborhoodatlas.medicine.[facility].edu/. Last address used for calculation [address] [...] * Telephone Encounter - Beba Harkins - 02/10/2024 9:03 AM EDT pt is asking if he is still on Thursday's schedule. He stated the clinic now will pay for surgery and deal w his insurance co later. He can be reached at [phone]. documented in this encounter Plan of Treatment Upcoming Encounters Date Type Department Care Team (Late st Contact Info) Description 03/07/2025 9:45 AM EDT Results Only [place] [address] [address] [place], [place] [id number] DX: CAD 03/07/2025 10:45 AM EDT Office Visit Cardiology [address] [place] [address] Cyn Antonio MD [address] [place] [address] DX: CAD documented as of this encounter Goals Goal Patient Goal Type Associated Problems Recent Progress Patient-Stated? Author Blood Pressure < 130/80 Blood Pressure 135/63( 024 12:45 PM EDT) No Cyn Antonio MD documented as of this encounter Visit Diagnoses Not on filedocumented in this encounter Care Teams Front Facer Relationship Specialty Start Date End Date Can Artis [address] [place] [address] PCP - General Family Medicine 12/17/22 Cyn Antonio MD [address] [place] [address] Primary Staff Physician Cardiology 12/18/22 Ari Pedro MD [address] [place] [address] Surgeon Cardiac Surg 01/13/23 documented as of this encounter
--- OUTSIDE RECORDS SUMMARY | 2024-12-17 10:13 | XMS_ITS | Encounter Summary ---
Author Organization [facility] Address [address] [place] [address] Care Team Providers Care Job Specification Writer Name Role Phone Can Ramirez MD Primary Care Provider + [phone] Encounter Details Date Type Department Care Team (Latest Contact Info) Description 12/14/2024 Travel Social History Tobacco Use Types Packs/Day [...] [facility] [place] [address] [place] [address] Bennie Fofana, DO [address] [place] [address] 05/23/2025 9:20 AM EST Office Visit [facility] [address] [facility] [address] [place] [address] Andreina Angeles MD [address] [place] [address] documented as of this encounter Visit Diagnoses Not on filedocumented in this encounter Care Teams Job Specification Writer Relationship Specialty Start Date End Date Can Ramirez MD [address] [address] PCP - General Family Medicine 11/18/22 documented as of this encounter
--- OUTSIDE RECORDS SUMMARY | 2024-12-17 10:13 | XMS_ITS | Encounter Summary ---
Author Organization [facility] Address [address] [place] [address] Care Team Providers Care Hot Bread Baker Name Role Phone Can Artis Primary Care Provider [phone] Cyn Antonio MD Unavailable [phone] Ari Pedro MD Unavailable [phone] Source Comments In the event this information is protected by the Federal Confidentiality of Alcohol and Drug AbusePatient Records regulations: The Federal rules restrict any use of the information to criminally investigate or prosecute any alcohol or drug abuse patient.[facility] Encounter Details Date Type Department Care Team (Late st Contact Info) Description 05/25/2023 [place] [address] Provider, Ccf MRI Screening Questionnaire Completion Required Social History Tobacco Use Types Packs/Day Years [...] is lower risk 6 12/19/2022 Data from: https://www.neighborhoodatlas.medicine.[facility]/. Last address used for calculation [...] Description 03/07/2025 9:45 AM EDT Results Only [facility] J1-4 Draw Station [address] [place] [address] DX: CAD 03/07/2025 10:45 AM EDT Office Visit Cardiology [address] [place] [id number] Cyn Antonio MD [address] [place] [address] DX: CAD documented as of this encounter Visit Diagnoses Not on filedocumented in this encounter Care Teams Hot Bread Baker Relationship Specialty Start Date End Date Can Artis [address] [place] [address] PCP - General Family Medicine 12/17/22 Cyn Antonio MD [address] [place] [address] Primary Staff Physician Cardiology 12/18/22 Ari Pedro MD [address] [place] [address] Surgeon Cardiac Surg 01/13/23 documented as of this encounter
[2024-12-17 10:23] LABS: Basophils Percent Auto 0.3 % (0.2-2.0); Eosinophils Absolute Auto 0.1 10^3/uL (0.0-0.7); Eosinophils Percent Auto 0.8 % (0.9-7.0); Hematocrit 45.4 % (42.0-54.0); Hemoglobin 15.3 g/dL (14.0-18.0); Immature Granulocytes Abs Auto 0.05 10^3/uL (0.00-0.03); Immature Granulocytes Pct Auto 0.4 % (0.0-0.5); Lymphocytes Absolute Auto 3.8 10^3/uL (1.2-3.8); Lymphocytes Percent Auto 32.1 % (20.5-60.0); Mean Corpuscular HGB Conc 33.7 g/dL (29.9-35.2); Mean Corpuscular Hemoglobin 30.1 pg (25.9-34.0); Mean Corpuscular Volume 89.4 fL (80.0-94.0); Mean Platelet Volume 9.8 fL (9.5-13.5); Monocytes Absolute Auto 0.8 10^3/uL (0.3-0.8); Monocytes Percent Auto 6.8 % (1.7-12.0); Neutrophils Percent Auto 59.6 % (43.0-75.0); Platelet Count 226 10^3/uL (150-450); Red Blood Count 5.08 10^6/uL (4.70-6.10); Red Cell Distribution Width 12.1 % (11.0-15.0); White Blood Count 11.7 10^3/uL (4.0-11.0)
[2024-12-17] MEDS: TRANEXAMIC ACID 1,000 MG in 0.9 % SODIUM CHLORIDE 100 ML 440 MG IV (10:28)
--- NOTE | 2024-12-17 10:33 | ED.GENADUL1 ---
HPI HPI - General Adult General Chief complaint: Wound/Laceration Stated complaint: HEMORRHAGING Time Seen by Provider: 12/17/24 10:07 Source: patient Mode of arrival: ambulance History of Present Illness HPI narrative: 59-year-old male presents for bleeding wound. 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 Today it started bleeding quite heavily and he described pulsatile bleeding when he was changing the dressing. Paramedics described a very large amount of blood in the home. No syncope and he does not feel dizzy or lightheaded. Related Data Home Medications ?Medication ?Instructions ?Recorded ?Confirmed amlodipine 2.5 mg tablet 2.5 mg PO DAILY 12/17/24 12/17/24 atorvastatin 80 mg tablet 80 mg PO DAILY 12/17/24 12/17/24 cephalexin 500 mg capsule 500 mg PO Q12H 12/17/24 12/17/24 ezetimibe 10 mg tablet 10 mg PO DAILY 12/17/24 12/17/24 Allergies Allergy/AdvReac Type Severity Reaction Status Date / Time No Known Drug Allergies Allergy Verified 12/17/24 10:07 Review of Systems ROS Narrative A ten point review of systems is negative except as noted above. Exam Narrative Exam Narrative: Nurses note and vital signs reviewed and patient is not hypoxic. General: The patient is in no acute respiratory distress Skin: Warm, dry, no pallor noted. There is no rash noted. Head: His head has a large pressure dressing present. It was not removed. It is centered on the temporal area on the left side. When he first arrived there was some bleeding coming from underneath the gauze that the paramedics had applied. Subsequently we placed Coban and there is no more apparent bleeding. Eye: Normal conjunctiva, no drainage Ears, Nose, Mouth, and Throat: oral mucosa is moist. Nares patent. Cardiovascular: Regular Rate and Rhythm, not tachycardic Respiratory: Patient is in no distress, no accessory muscle use, lungs are clear to auscultation, no wheezing, rales or rhonchi Back: non-tender GI: Soft and nontender Musculoskeletal: Moving all 4 extremities well Neurological: Awake alert and orient Psychiatric: Cooperative Constitutional Vital Signs, click to edit/add: Last Vital Signs Pulse 85 12/17/24 10:04 Resp 20 12/17/24 10:04 BP 183/94 H 06/28/25 10:04 Pulse Ox 99 12/17/24 10:04 O2 Del Method Room Air 12/17/24 10:04 Course Vital Signs Vital signs: Vital Signs Pulse Rate 85 12/17/24 10:04 Respiratory Rate 20 12/17/24 10:04 Blood Pressure 183/94 H 12/17/24 10:04 Pulse Oximetry 99 12/17/24 10:04 Oxygen Delivery Method Room Air 12/17/24 10:04 Pulse Rate 85 12/17/24 10:04 Respiratory Rate 20 12/17/24 10:04 Blood Pressure 183/94 H 12/17/24 10:04 Pulse Oximetry 99 12/17/24 10:04 Oxygen Delivery Method Room Air 12/17/24 10:04 Medical Decision Making MDM Narrative Medical decision making narrative: The patient has significant postoperative hemorrhage and likely has arterial bleeding. For this reason the pressure dressing was not removed. We reinforced it and he was given IV TXA. I spoke to Dr. [facility] at [facility] who accepts the patient. The patient is stable and agreeable for transfer. Differential Diagnosis Differential Diagnosis: Postoperative hemorrhage, arterial bleeding, venous bleed Lab Data Lab results reviewed: Yes I reviewed the patient's lab results Labs: Lab Results 12/17/24 Range/Units 10:10 WBC 11.7 H (4.0-11.0) 10^3/uL RBC 5.08 (4.70-6.10) 10^6/uL Hgb 15.3 (14.0-18.0) g/dL Hct 45.4 (42.0-54.0) % MCV 89.4 (80.0-94.0) fL MCH 30.1 (25.9-34.0) pg MCHC 33.7 (29.9-35.2) g/dL RDW 12.1 (11.0-15.0) % Plt Count 226 (150-450) 10^3/uL MPV 9.8 (9.5-13.5) fL Neut % (Auto) 59.6 (43.0-75.0) % Lymph % (Auto) 32.1 (20.5-60.0) % Bath % (Auto) 6.8 (1.7-12.0) % Eos % (Auto) 0.8 L (0.9-7.0) % Baso % (Auto) 0.3 (0.2-2.0) % Neut # (Auto) 7.0 H (1.4-6.5) 10^3/uL Lymph # (Auto) 3.8 (1.2-3.8) 10^3/uL Bath # (Auto) 0.8 (0.3-0.8) 10^3/uL Eos # (Auto) 0.1 (0.0-0.7) 10^3/uL Baso # (Auto) 0.0 (0.0-0.1) 10^3/uL Abs Immat Gran (auto) 0.05 H (0.00-0.03) 10^3/uL Imm/Tot Granulo (auto) 0.4 (0.0-0.5) % ECG Data Attestation: I personally reviewed and interpreted this ECG as follows: (EKG on my interpretation shows sinus rhythm without acute change) Critical Care Time Critical Care Time Critical Care Time: Yes Total Critical Care Time: 40 Attestation: Due to the high probability of sudden and clinically significant deterioration in the patient's condition he/she required the highest level of my preparedness to intervene urgently I provided critical care time including documentation time, medication orders and management, reevaluation, vital sign assessment, ordering and reviewing of lab tests, ordering and reviewing of x-ray studies, and admission orders. Aggregate critical care time is 40 minutes including only time during which I was engaged in work directly related to his/her care and did not include time spent treating other patients simultaneously. Discharge Plan Discharge Chief Complaint: Wound/Laceration Clinical Impression: Post-operative hemorrhage Patient Disposition: [facility] Time of Disposition Decision: 10:33 Discharge Location: [facility] Condition: Serious Mode of Transportation: [employer]
[2024-12-17] MEDS: ONDANSETRON PF 4 MG/2 ML VIAL IV (10:36)
[2024-12-17] MEDS: DIAZEPAM 10 MG/2 ML SYRINGE 2.5 MG IV (10:37)
[2024-12-17 10:39] LABS: Anion Gap 13.7; BUN Creatinine Ratio 13.9; Carbon Dioxide 27.4 mmol/L (21.0-32.0); Chloride 102 mmol/L (98-107); Estimated GFR (African America >60 (>=60 mL/min/1.73m^2); Estimated GFR (Non-African Ame >60 (>=60 mL/min/1.73m^2); Glucose 182 mg/dL (74-106); Potassium 4.1 mmol/L (3.5-5.1); Sodium 139 mmol/L (136-145)
[2024-12-17 10:48] LABS: INR 0.99; Partial Thromboplastin Time 25.4 sec (22.3-36.2); Prothrombin Time 10.5 sec (9.0-11.6)
== END 2024-12-17 11:21 | disposition short-term general hospital (02) ==
PROVIDERS: Emergency Provider Emergency Medicine
DX: L76.21 Postprocedural hemorrhage of skin and subcutaneous tissue following a dermatologic procedure (principal); Y83.9 Surgical procedure, unspecified as the cause of abnormal reaction of the patient, or of later complication, without mention of misadventure at the time of the procedure
CPT/HCPCS: 36415; 80048; 85025; 85610; 85730; 93005; 96374; 96375; 99285; J2405; J3360